=== PATIENT | female | born 1950 | race Two or more races ===

== ENCOUNTER → 2020-08-10 12:41 | Outpatient (BNVA) | payer MEDICARE, MEDICAID, SELFPAY | PROVIDERS: PCP Internal Medicine; Visit Provider Student in an Organized Health Care Education/Training Program | DX: M47.816 Spondylosis without myelopathy or radiculopathy, lumbar region (principal) | CPT/HCPCS: 99213 ==

== ENCOUNTER 2020-09-19 07:25 | Outpatient (REF) | payer MEDICARE, MEDICAID, SELFPAY | END 2020-09-19 07:26 | disposition home or self-care (01) | LOC: HO.LAB 07:25 | PROVIDERS: Visit Provider Internal Medicine | DX: Z20.828 Contact with and (suspected) exposure to other viral communicable diseases (principal) | CPT/HCPCS: C9803; U0003 ==

== ENCOUNTER → 2020-10-10 09:43 | Outpatient (BNVA) | payer MEDICARE, MEDICAID, SELFPAY | PROVIDERS: PCP Internal Medicine; Visit Provider Orthopaedic Surgery | DX: M19.012 Primary osteoarthritis, left shoulder (principal) | CPT/HCPCS: 20610; 99212; J1040 ==

== ENCOUNTER 2020-10-29 12:37 | Outpatient (REF) | payer MEDICARE, MEDICAID, SELFPAY | END 2020-10-29 12:38 | disposition home or self-care (01) | LOC: HO.LAB 12:37 | PROVIDERS: PCP Internal Medicine; Visit Provider Internal Medicine | DX: Z20.822 Contact with and (suspected) exposure to COVID-19 (principal) | CPT/HCPCS: 36415; C9803; U0003 ==

== ENCOUNTER → 2020-12-12 10:12 | Outpatient (BNVA) | payer MEDICARE, MEDICAID, SELFPAY | PROVIDERS: Visit Provider Orthopaedic Surgery | DX: M19.012 Primary osteoarthritis, left shoulder (principal) | CPT/HCPCS: 99212 ==

== ENCOUNTER 2020-12-31 09:18 | Emergency (ER) | payer MEDICARE, MEDICAID, SELFPAY ==
--- NOTE | ~2020-12-31 | XR_ITS ---
EXAMINATION: XR CHEST CLINICAL INFORMATION: Chest pain COMPARISON: Chest radiographs 01/01/2020, 12/22/2019 TECHNIQUE: Portable upright AP view of the chest was obtained. FINDINGS: Patient is slightly rotated. The lungs are clear and there is no airspace consolidation or definite groundglass opacity. The heart is normal in size. The vascularity is normal. The costophrenic sulci are clear. No pneumothorax or pneumomediastinum. The visualized hilar and mediastinal contours are unremarkable. There are degenerative changes shoulders and thoracic spine. XR/XR chest 1V IMPRESSION: Unremarkable examination.
--- NOTE | ~2020-12-31 | CT_ITS ---
EXAMINATION: CT HEAD WITHOUT CONTRAST CLINICAL INFORMATION: . COMPARISON: None TECHNIQUE: Contiguous axial imaging was performed from the skull base to vertex without intravenous administration of contrast. This CT examination was performed using dose optimization techniques as appropriate, variously including the following: *Automated exposure control *Adjustment of mA and/or kV according to patient size (this includes techniques or standardized protocols for targeted exams where dose is matched to indication/reason for exam; i.e. extremities or head) *Use of iterative reconstruction technique DLP: 659 mGy-cm FINDINGS: There is no evidence of acute intracranial hemorrhage or territorial infarction. No abnormal mass effect or midline shift is seen. [place] to white matter differentiation is well preserved. No extra-axial fluid collections are identified. The ventricles are normal in size. There is no abnormal attenuation within the brain parenchyma. The osseous structures and soft tissues are normal. The mastoid air cells and visualized portions of the paranasal sinuses are well aerated. CT/CT head/brain wo con IMPRESSION: No acute intracranial process seen.
[2020-12-31 09:24] VITALS: BP 144/61; PULSE 67; TEMP 36.7; O2SAT 98; BMI 32.4
[2020-12-31] MEDS: Acetaminophen 325 MG TABLET 975 MG PO (10:06)
[2020-12-31] MEDS: Nitroglycerin 0.4 MG TAB.SUBL SUBLINGUAL (10:06)
[2020-12-31 10:12] LABS: MANUAL DIFF FLAG NO
[2020-12-31 10:15] LABS: Basophils Absolute Auto 0.1 X10*3/uL (0.0-0.2); Basophils Percent Auto 0.7 % (0-2); Eosinophils Absolute Auto 0.3 X10*3/uL (0.0-0.4); Eosinophils Percent Auto 4.9 % (0-4); Hematocrit 39.1 % (37-47); Hemoglobin 12.5 g/dl (12.0-16.0); Imm Gran Abs Auto 0.01 X10*3/uL (0.00-0.03); Imm Gran Pct Auto 0.1 % (0.0-0.4); Lymphocytes Absolute Auto 2.4 X10*3/uL (1.2-4.9); Lymphocytes Percent Auto 35.8 % (20-40); Mean Corpuscular Hemoglobin 28.4 pg (27.0-33.0); Mean Corpuscular Volume 88.9 fL (80-98); Mean Platelet Volume 11.1 fL (9.4-12.3); Monocytes Absolute Auto 0.7 X10*3/uL (0.1-1.2); Monocytes Percent Auto 10.1 % (2-11); Neutrophils Absolute Auto 3.3 X10*3/uL (2.0-8.3); Neutrophils Percent Auto 48.4 % (45-73); Platelet Count 306 X10*3/uL (160-400); Red Cell Distribution Width 13.1 % (11.0-16.0); White Blood Count 6.7 X10*3/uL (4.8-10.8)
[2020-12-31 10:26] LABS: Prothrombin Time 12.3 SEC (10.8-13.0)
[2020-12-31 10:35] LABS: Anion Gap 13 (12-20); Blood Urea Nitrogen 15 mg/dL (9-16); Calcium 8.9 mg/dL (8.4-10.2); Carbon Dioxide 27 mmol/L (22-29); Chloride 106 mmol/L (96-108); Creatinine Clr Calc Pharmacy 79.8; Estimated Glomerular Filt Rate > 60; Glucose Random 98 mg/dL (60-115); Potassium 4.8 mmol/L (3.3-5.1); Sodium 141 mmol/L (135-145)
--- NOTE | 2020-12-31 10:36 | ED.CHESTPAIN ---
HPI - Chest Pain General Chief Complaint: Chest Pain Stated Complaint: CHEST PAIN - HEADACHE Time Seen by Provider: 12/31/20 09:46 History of Present Illness HPI narrative: Patient complains that since yesterday she has had pressure-like chest pain similar to her prior heart attack that is midsternal, lasts for 10 or 15 minutes then goes away and is not related to exertion, it is accompanied by nausea and a feeling of shortness of breath, she has had no sweating, the pain is not related to exertion or movement or deep breath She also complains of a headache which she has had for 3 days which is in occipital headache without photophobia, she denies any numbness or weakness, no dizziness, no vision change Related Data Home Medications Medication Instructions Recorded Confirmed albuterol sulfate 90 mcg/actuation INHALATION 07/27/20 11/20/20 aerosol inhaler fluticasone propionate 50 INTRANASAL 07/27/20 11/20/20 mcg/actuation nasal spray,suspension latanoprost 0.005 % eye drops 1 drp OPHTHALMIC (EYE) BEDTIME 07/27/20 11/20/20 lubiprostone 24 mcg capsule 24 mcg PO BID 07/27/20 11/20/20 naproxen 500 mg tablet 500 mg PO Q12H PRN 07/27/20 11/20/20 propranolol 120 mg capsule,24 120 mg PO DAILY 07/27/20 11/20/20 hr,extended release ranitidine HCl 150 mg tablet 150 mg PO BID PRN 07/27/20 11/20/20 sennosides 8.6 mg tablet 17.2 mg PO BEDTIME PRN 07/27/20 11/20/20 tramadol 50 mg tablet mg PO 07/27/20 11/20/20 triamcinolone acetonide 0.1 % applic TOPICAL 07/27/20 11/20/20 topical cream Previous Rx's Medication Instructions Recorded hydroxyzine HCl 25 mg tablet 25 mg PO TID PRN #30 tab 07/27/20 tizanidine 4 mg tablet 4 mg PO BEDTIME #90 tab 08/07/20 acetaminophen 650 mg 650 mg PO Q8H #90 tab 08/10/20 tablet,extended release rosuvastatin 40 mg tablet 40 mg PO DAILY #90 tab 08/13/20 loratadine 10 mg tablet 10 mg PO DAILY #90 tab 11/20/20 pantoprazole 40 mg tablet,delayed 40 mg PO BID #180 tab 12/22/20 release hydrocodone-acetaminophen 1 tab PO Q8H PRN #5 tab 12/31/20 Allergies Allergy/AdvReac Type Severity Reaction Status Date / Time codeine [Codeine] Allergy Severe HIVES Verified 11/20/20 11:00 ITCHING, rash, hives gabapentin [From Neurontin] Allergy Severe SWELLING Verified 11/20/20 11:00 Penicillins Allergy Severe SWELLING Verified 11/20/20 11:00 Sulfa (Sulfonamide Allergy Severe XEROSTEMIA, Verified 11/20/20 11:00 Antibiotics) DIFF [SULFA (SULFONAMIDE SWALLOWIN, ANTIBIOTICS)] rash, rash pregabalin [From LYRICA] Allergy Intermediate SWELLING Verified 11/20/20 11:00 Review of Systems Review of Systems: Positive for chest pain and headache There is no fever no chills no dizziness no weakness no confusion no photophobia no vision changes no neck pain no weakness or numbness, no pain with a deep breath, no abdominal pain no vomiting no diarrhea no leg swelling no calf pain or swelling no skin rash no weakness no loss of balance no problem speaking PMFSH Past Medical History Source: nursing notes reviewed Medical History (Updated 12/31/20 @ 16:07 by MARCOS Jin) Lumbar spondylosis Vertigo Surgical History History of hysterectomy History of left knee surgery History of varicose veins Family History Family History Father Angina at rest Mother Hypothyroidism Hypertension Osteoarthritis Heart disease Panic disorder Brother Stroke Sister Alcoholic liver disease HIV (human immunodeficiency virus infection) Social History Social History Alcohol intake: never Smoking Status: Never smoker Use of substances other than those prescribed or required for medical reasons: No Advance Directives: Yes Advance Directives Information Provided: Yes Advance Directives on File: No 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 Exam Vital Signs: Vital Signs: Last Vital Signs Temp 98.1 F 12/31/20 09:24 Pulse 62 12/31/20 12:14 Resp 16 12/31/20 10:51 BP 124/65 12/31/20 12:14 Pulse Ox 99 12/31/20 12:14 Body Mass Index 32.4 General appearance is no acute distress Head is normocephalic atraumatic The ears are clear and normal Pupils equal round react to light extraocular motions intact, no facial asymmetry The neck is supple The chest is clear to auscultation with full symmetrical equal breath sounds The heart no murmur auscultated The abdomen is soft nontender Extremities no edema no calf tenderness no calf swelling Skin no rashes Neuro motor is 5 over 5 times for sensation is intact gait is normal there is no focal motor deficit no focal sensory deficit, no facial asymmetry, speech and comprehension are normal gait and balance are normal Course Course Course Narrative: Patient had 2-troponins both normal, EKG was nondiagnostic with no acute ischemic changes Head CT was normal Patient's chest pain resolved after 1 nitro Headache improved with analgesics I communicated by text with store detective harriet who advised that the patient had had a negative coronary angiogram at [facility] 1 year ago and that with 2-troponins risk was low with this patient I discussed with patient the risk of potential cardiac event in the near future and that our workup in the ER simply ruled out acute heart attack today but she needs to follow with her store detective this week potentially for stress test or any further evaluation as with her history of prior MRI and the concerning symptoms she needs very close follow She understood this and says she will easily be able to contact her store detective and her primary care MDM - Chest Pain MDM Narrative Medical decision making narrative: EKG was a normal sinus rhythm with normal intervals normal DC normal QRS duration, no acute ST changes CT of the head did not reveal any bleed or any acute changes Lab Data Attestation: I reviewed the patient's lab results. Result diagrams: 12/31/20 09:57 12/31/20 09:57 Labs: Lab Results 12/31/20 12/31/20 12/31/20 Range/Units 09:57 09:57 09:57 WBC 6.7 (4.8-10.8) X10*3/uL RBC 4.40 (4.20-5.50) X10*6/uL Hgb 12.5 (12.0-16.0) g/dl Hct 39.1 (37-47) % MCV 88.9 (80-98) fL MCH 28.4 (27.0-33.0) pg MCHC 32.0 (31.0-35.0) g/dl RDW 13.1 (11.0-16.0) % Plt Count 306 (160-400) X10*3/uL MPV 11.1 (9.4-12.3) fL Immature Gran % (Auto) 0.1 (0.0-0.4) % Neut % (Auto) 48.4 (45-73) % Lymph % (Auto) 35.8 (20-40) % [place] % (Auto) 10.1 (2-11) % Eos % (Auto) 4.9 H (0-4) % Baso % (Auto) 0.7 (0-2) % Lymph # (Auto) 2.4 (1.2-4.9) X10*3/uL [place] # (Auto) 0.7 (0.1-1.2) X10*3/uL Eos # (Auto) 0.3 (0.0-0.4) X10*3/uL Baso # (Auto) 0.1 (0.0-0.2) X10*3/uL Abs Immat Gran (auto) 0.01 (0.00-0.03) X10*3/uL Absolute Neuts (auto) 3.3 (2.0-8.3) X10*3/uL Absolute Nucleated RBC 0.000 (0.0-0.012) X10*3/uL Nucleated RBC % (auto) 0.0 (0.0-0.2) /100WBC PT 12.3 (10.8-13.0) SEC INR 1.0 (0.9-1.1) Hold Blue Top SEE NOTE Sodium 141 (135-145) mmol/L Potassium 4.8 (3.3-5.1) mmol/L Chloride 106 (96-108) mmol/L Carbon Dioxide 27 (22-29) mmol/L Anion Gap 13 (12-20) BUN 15 (9-16) mg/dL Creatinine 0.71 (0.5-1.4) mg/dL Estim Creat Clear Calc 79.8 Estimated GFR > 60 Random Glucose 98 (60-115) mg/dL Calcium 8.9 (8.4-10.2) mg/dL Troponin I High Sens (<3.5-17.0) ng/L 12/31/20 12/31/20 Range/Units 09:57 12:49 WBC (4.8-10.8) X10*3/uL RBC (4.20-5.50) X10*6/uL Hgb (12.0-16.0) g/dl Hct (37-47) % MCV (80-98) fL MCH (27.0-33.0) pg MCHC (31.0-35.0) g/dl RDW (11.0-16.0) % Plt Count (160-400) X10*3/uL MPV (9.4-12.3) fL Immature Gran % (Auto) (0.0-0.4) % Neut % (Auto) (45-73) % Lymph % (Auto) (20-40) % [place] % (Auto) (2-11) % Eos % (Auto) (0-4) % Baso % (Auto) (0-2) % Lymph # (Auto) (1.2-4.9) X10*3/uL [place] # (Auto) (0.1-1.2) X10*3/uL Eos # (Auto) (0.0-0.4) X10*3/uL Baso # (Auto) (0.0-0.2) X10*3/uL Abs Immat Gran (auto) (0.00-0.03) X10*3/uL Absolute Neuts (auto) (2.0-8.3) X10*3/uL Absolute Nucleated RBC (0.0-0.012) X10*3/uL Nucleated RBC % (auto) (0.0-0.2) /100WBC PT (10.8-13.0) SEC INR (0.9-1.1) Hold Blue Top Sodium (135-145) mmol/L Potassium (3.3-5.1) mmol/L Chloride (96-108) mmol/L Carbon Dioxide (22-29) mmol/L Anion Gap (12-20) BUN (9-16) mg/dL Creatinine (0.5-1.4) mg/dL Estim Creat Clear Calc Estimated GFR Random Glucose (60-115) mg/dL Calcium (8.4-10.2) mg/dL Troponin I High Sens < 3.5 < 3.5 (<3.5-17.0) ng/L Scores Heart Score History: -1- moderately suspicious ECG: -0- normal Age: -2- > or = 65 Risk factory: -2- 3 or more risk factors or treated atherosclerosis Troponin: -0- < or = normal limit Score: 5 Risk: 16.6% Discharge Plan Discharge Clinical Impression: Chest pain Qualifiers: Chest pain type: unspecified Qualified Code(s): R07.9 - Chest pain, unspecified Headache Qualifiers: Headache type: unspecified Headache chronicity pattern: unspecified pattern Intractability: not intractable Qualified Code(s): R51.9 - Headache, unspecified Patient Disposition: Home, Self-Care Additional Instructions: EKG and troponin testing did not show an acute heart attack We contacted our store detective who told us you had a negative coronary artery angiogram 1 year ago Your chest pain is not likely to be a heart attack but you need very close follow-up with the store detective this week Follow closely this week with your primary doctor who will know the name of your store detective for further evaluation of this chest pain Our testing does not rule out heart disease, it simply rules out that you had a heart attack on this day, so you may need further evaluation and testing from your store detective Return any time for chest pain, difficulty breathing any worse condition or any concerns We will give you a prescription for Vicodin for your headache, CT of your head did not show any abnormality or dangerous condition Prescriptions: New hydrocodone-acetaminophen 5-325 mg tablet 1 tab PO Q8H PRN (Reason: pain) Qty: 5 RF: 0 No Action tizanidine 4 mg tablet 4 mg PO BEDTIME Qty: 90 RF: 1 rosuvastatin 40 mg tablet 40 mg PO DAILY Qty: 90 RF: 8 pantoprazole 40 mg tablet,delayed release (DR/EC) 40 mg PO BID Qty: 180 RF: 1 albuterol sulfate 90 mcg/actuation HFA aerosol inhaler inhalation RF: 0 fluticasone propionate 50 mcg/actuation spray,suspension intranasal RF: 0 triamcinolone acetonide 0.1 % cream topical RF: 0 tramadol 50 mg tablet PO RF: 0 propranolol 120 mg capsule,extended release 24 hr 120 mg PO DAILY RF: 0 latanoprost 0.005 % drops 1 drp ophthalmic (eye) BEDTIME RF: 0 Amitiza 24 mcg capsule 24 mcg PO BID RF: 0 ranitidine HCl 150 mg tablet 150 mg PO BID PRN (Reason: heartburn) RF: 0 naproxen 500 mg tablet 500 mg PO Q12H PRNRF: 0 sennosides 8.6 mg tablet 17.2 mg PO BEDTIME PRNRF: 0 hydroxyzine HCl 25 mg tablet 25 mg PO TID PRN (Reason: itching) Qty: 30 RF: 0 loratadine 10 mg tablet 10 mg PO DAILY Qty: 90 RF: 8 acetaminophen [Tylenol Arthritis Pain] 650 mg tablet extended release 650 mg PO Q8H Qty: 90 RF: 3 Interventions: ED Discharge Assessment Last Done: 12/31/20 16:12 Discharge Date/Time: 12/31/20 16:13
[2020-12-31 10:45] LABS: Troponin-I High Sensitivity < 3.5 ng/L (<3.5-17.0)
[2020-12-31 10:51] VITALS: BP 101/45; PULSE 61; RESP 16; O2SAT 99
--- NOTE | 2020-12-31 12:13 | PC.NURSE ---
pt updated on plan of care, repeat trop. still complaining of headache. bp >120 systolic att, provider aware.
[2020-12-31 12:14] VITALS: BP 124/65; PULSE 62; O2SAT 99
[2020-12-31 13:30] LABS: Troponin-I High Sensitivity < 3.5 ng/L (<3.5-17.0)
--- NOTE | 2021-01-01 | ECG_ITS ---
Test Reason : CP Blood Pressure : / mmHG Vent. Rate : 066 BPM Atrial Rate : 066 BPM P-R Int : 148 ms QRS Dur : 078 ms QT Int : 394 ms P-R-T Axes : 055 011 020 degrees QTc Int : 413 ms Normal sinus rhythm Nonspecific ST abnormality Abnormal ECG When compared with ECG of 01-JAN-2020 10:35, No significant change was found Referred By: Jaron Ewing Electronically Signed By:AUGUSTO LIMA MD
== END 2020-12-31 16:13 | disposition home or self-care (01) ==
PROVIDERS: Physician Assistant Medical; Emergency Provider Emergency Medicine; PCP Internal Medicine
DX: R07.9 Chest pain, unspecified (principal); R51.9 Headache, unspecified
CPT/HCPCS: 36415; 70450; 71045; 80048; 84484; 85025; 85610; 93005; 96372; 96374; 99284; 99285

== ENCOUNTER 2021-02-18 11:54 | Outpatient (REF) | payer MEDICARE, MEDICAID, SELFPAY ==
--- NOTE | ~2021-02-18 | XR_ITS ---
EXAMINATION: XR KNEE, LEFT CLINICAL INFORMATION: Pain COMPARISON: Previous x-ray July 2019 TECHNIQUE: Two views of the left knee. FINDINGS: There is a 3 component left knee replacement in satisfactory position. No fracture or dislocation is seen. Joint spaces are normal. Soft tissues are normal. XR/XR knee LT 2V IMPRESSION: Satisfactory appearance of left knee replacement.
== END 2021-02-18 11:55 | disposition home or self-care (01) ==
LOC: HO.XRAY 11:54
PROVIDERS: PCP Internal Medicine; Visit Provider Internal Medicine
DX: M25.562 Pain in left knee (principal)
CPT/HCPCS: 73560

== ENCOUNTER 2021-03-10 22:56 | Emergency (ER) | payer MEDICARE, MEDICAID, SELFPAY ==
[2021-03-10 23:38] VITALS: BP 137/70; PULSE 68; RESP 16; TEMP 36.9; O2SAT 100; BMI 34.0
--- NOTE | 2021-03-11 02:37 | ED_ITS ---
HPI - General Adult General Chief complaint: General Medical Stated complaint: Multiple Complaints Time Seen by Provider: 03/11/21 01:38 Source: patient Mode of arrival: ambulatory History of Present Illness HPI narrative: 70-year-old female presents with complaints of headache without aura, photo sensitivity or neurological deficits, denies fevers, chills, diarrhea, urinary symptoms, chest pain but has had some nausea and has known acid reflux. Related Data Home Medications Medication Instructions Recorded Confirmed albuterol sulfate 90 mcg/actuation INHALATION 07/27/20 11/20/20 aerosol inhaler fluticasone propionate 50 INTRANASAL 07/27/20 11/20/20 mcg/actuation nasal spray,suspension latanoprost 0.005 % eye drops 1 drp OPHTHALMIC (EYE) BEDTIME 07/27/20 11/20/20 lubiprostone 24 mcg capsule 24 mcg PO BID 07/27/20 11/20/20 naproxen 500 mg tablet 500 mg PO Q12H PRN 07/27/20 11/20/20 propranolol 120 mg capsule,24 120 mg PO DAILY 07/27/20 11/20/20 hr,extended release ranitidine HCl 150 mg tablet 150 mg PO BID PRN 07/27/20 11/20/20 sennosides 8.6 mg tablet 17.2 mg PO BEDTIME PRN 07/27/20 11/20/20 tramadol 50 mg tablet mg PO 07/27/20 11/20/20 triamcinolone acetonide 0.1 % applic TOPICAL 07/27/20 11/20/20 topical cream Previous Rx's Medication Instructions Recorded hydroxyzine HCl 25 mg tablet 25 mg PO TID PRN #30 tab 07/27/20 acetaminophen 650 mg 650 mg PO Q8H #90 tab 08/10/20 tablet,extended release rosuvastatin 40 mg tablet 40 mg PO DAILY #90 tab 08/13/20 loratadine 10 mg tablet 10 mg PO DAILY #90 tab 11/20/20 pantoprazole 40 mg tablet,delayed 40 mg PO BID #180 tab 12/22/20 release hydrocodone-acetaminophen 1 tab PO Q8H PRN #5 tab 12/31/20 tizanidine 4 mg tablet 4 mg PO BEDTIME #90 tab 01/30/21 Allergies Allergy/AdvReac Type Severity Reaction Status Date / Time codeine [Codeine] Allergy Severe HIVES Verified 02/19/21 11:27 ITCHING, rash, hives gabapentin [From Neurontin] Allergy Severe SWELLING Verified 02/19/21 11:27 Penicillins Allergy Severe SWELLING Verified 02/19/21 11:27 Sulfa (Sulfonamide Allergy Severe XEROSTEMIA, Verified 02/19/21 11:27 Antibiotics) DIFF [SULFA (SULFONAMIDE SWALLOWIN, ANTIBIOTICS)] rash, rash pregabalin [From LYRICA] Allergy Intermediate SWELLING Verified 02/19/21 11:27 [facility] Past Medical History Medical History (Updated 03/11/21 @ 05:09 by Irene Heaton MD) Lumbar spondylosis Vertigo Surgical History History of hysterectomy History of left knee surgery History of varicose veins Family History Family History Father Angina at rest Mother Hypothyroidism Hypertension Osteoarthritis Heart disease Panic disorder Brother Stroke Sister Alcoholic liver disease HIV (human immunodeficiency virus infection) Social History Social History Alcohol intake: current Alcohol intake frequency: 0-2 drinks per day Smoking Status: Current every day smoker Use of substances other than those prescribed or required for medical reasons: No Advance Directives: No Advance Directives Information Provided: No 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 Exam Vital Signs: Vital Signs: Last Vital Signs Temp 98.4 F 03/10/21 23:38 Pulse 68 03/10/21 23:38 Resp 16 03/11/21 02:50 BP 137/70 03/10/21 23:38 Pulse Ox 100 03/10/21 23:38 Body Mass Index 34.0 Medical Decision Making Lab Data Result diagrams: 03/11/21 02:58 03/11/21 02:58 Labs: Lab Results 03/11/21 03/11/21 03/11/21 Range/Units 02:58 02:58 02:58 WBC 8.2 (4.8-10.8) X10*3/uL RBC 4.76 (4.20-5.50) X10*6/uL Hgb 13.7 (12.0-16.0) g/dl Hct 42.7 (37-47) % MCV 89.7 (80-98) fL MCH 28.8 (27.0-33.0) pg MCHC 32.1 (31.0-35.0) g/dl RDW 12.4 (11.0-16.0) % Plt Count 262 (160-400) X10*3/uL MPV 10.1 (9.4-12.3) fL Immature Gran % (Auto) 0.2 (0.0-0.4) % Neut % (Auto) 51.6 (45-73) % Lymph % (Auto) 33.0 (20-40) % [place] % (Auto) 9.9 (2-11) % Eos % (Auto) 4.7 H (0-4) % Baso % (Auto) 0.6 (0-2) % Lymph # (Auto) 2.7 (1.2-4.9) X10*3/uL [place] # (Auto) 0.8 (0.1-1.2) X10*3/uL Eos # (Auto) 0.4 (0.0-0.4) X10*3/uL Baso # (Auto) 0.1 (0.0-0.2) X10*3/uL Abs Immat Gran (auto) 0.02 (0.00-0.03) X10*3/uL Absolute Neuts (auto) 4.2 (2.0-8.3) X10*3/uL Absolute Nucleated RBC 0.000 (0.0-0.012) X10*3/uL Nucleated RBC % (auto) 0.0 (0.0-0.2) /100WBC Hold Blue Top SEE NOTE Sodium 143 (135-145) mmol/L Potassium 4.7 (3.3-5.1) mmol/L Chloride 108 (96-108) mmol/L Carbon Dioxide 29 (22-29) mmol/L Anion Gap 11 L (12-20) BUN 17 H (9-16) mg/dL Creatinine 0.73 (0.5-1.4) mg/dL Estim Creat Clear Calc 76.7 Estimated GFR > 60 Random Glucose 109 (60-115) mg/dL Calcium 9.4 (8.4-10.2) mg/dL Total Bilirubin 0.4 (0.0-1.0) mg/dL Direct Bilirubin 0.2 (0.0-0.5) mg/dL AST 18 (5-31) U/L ALT 18 (0-31) U/L Alkaline Phosphatase 86 (39-117) U/L Total Protein 7.3 (6.5-8.0) g/dL Albumin 4.3 (3.5-5.0) g/dL Urine Color Urine Appearance Urine pH (5.0-8.0) Ur Specific [place] (1.005-1.025) Urine Protein (NEG-TRACE) MG/DL Urine Glucose (UA) (NEG) MG/DL Urine Ketones (NEG) MG/DL Urine Blood (NEG) Urine Nitrite (NEG) Ur Leukocyte Esterase (NEG) Urine RBC (0) /HPF Urine WBC (0-4) /HPF Ur Squamous Epith Cells /LPF Urine Bacteria /LPF 03/11/21 Range/Units 02:58 WBC (4.8-10.8) X10*3/uL RBC (4.20-5.50) X10*6/uL Hgb (12.0-16.0) g/dl Hct (37-47) % MCV (80-98) fL MCH (27.0-33.0) pg MCHC (31.0-35.0) g/dl RDW (11.0-16.0) % Plt Count (160-400) X10*3/uL MPV (9.4-12.3) fL Immature Gran % (Auto) (0.0-0.4) % Neut % (Auto) (45-73) % Lymph % (Auto) (20-40) % [place] % (Auto) (2-11) % Eos % (Auto) (0-4) % Baso % (Auto) (0-2) % Lymph # (Auto) (1.2-4.9) X10*3/uL [place] # (Auto) (0.1-1.2) X10*3/uL Eos # (Auto) (0.0-0.4) X10*3/uL Baso # (Auto) (0.0-0.2) X10*3/uL Abs Immat Gran (auto) (0.00-0.03) X10*3/uL Absolute Neuts (auto) (2.0-8.3) X10*3/uL Absolute Nucleated RBC (0.0-0.012) X10*3/uL Nucleated RBC % (auto) (0.0-0.2) /100WBC Hold Blue Top Sodium (135-145) mmol/L Potassium (3.3-5.1) mmol/L Chloride (96-108) mmol/L Carbon Dioxide (22-29) mmol/L Anion Gap (12-20) BUN (9-16) mg/dL Creatinine (0.5-1.4) mg/dL Estim Creat Clear Calc Estimated GFR Random Glucose (60-115) mg/dL Calcium (8.4-10.2) mg/dL Total Bilirubin (0.0-1.0) mg/dL Direct Bilirubin (0.0-0.5) mg/dL AST (5-31) U/L ALT (0-31) U/L Alkaline Phosphatase (39-117) U/L Total Protein (6.5-8.0) g/dL Albumin (3.5-5.0) g/dL Urine Color STRAW Urine Appearance CLEAR Urine pH 6.0 (5.0-8.0) Ur Specific [place] 1.010 (1.005-1.025) Urine Protein NEG (NEG-TRACE) MG/DL Urine Glucose (UA) NEG (NEG) MG/DL Urine Ketones NEG (NEG) MG/DL Urine Blood TRACE (NEG) Urine Nitrite NEG (NEG) Ur Leukocyte Esterase NEG (NEG) Urine RBC 1-4 (0) /HPF Urine WBC 0-2 (0-4) /HPF Ur Squamous Epith Cells 1+ /LPF Urine Bacteria NONE /LPF Discharge Plan Discharge Clinical Impression: Headache Patient Disposition: Home, Self-Care Instructions: General Headache (ED) Additional Instructions: 1. Richar un seguimiento con garrison proveedor de atenci?n primaria en los pr?ximos 2-3 d?as para donald reevaluaci?n. 2. Reanude todos los medicamentos caseros seg?n lo prescrito. Regrese a la sharon de emergencias por cualquier empeoramiento aleena de lyubov s?ntomas. Prescriptions: No Action rosuvastatin 40 mg tablet 40 mg PO DAILY Qty: 90 RF: 8 pantoprazole 40 mg tablet,delayed release (DR/EC) 40 mg PO BID Qty: 180 RF: 1 tizanidine 4 mg tablet 4 mg PO BEDTIME Qty: 90 RF: 1 hydrocodone-acetaminophen 5-325 mg tablet 1 tab PO Q8H PRN (Reason: pain) Qty: 5 RF: 0 albuterol sulfate 90 mcg/actuation HFA aerosol inhaler inhalation RF: 0 fluticasone propionate 50 mcg/actuation spray,suspension intranasal RF: 0 triamcinolone acetonide 0.1 % cream topical RF: 0 tramadol 50 mg tablet PO RF: 0 propranolol 120 mg capsule,extended release 24 hr 120 mg PO DAILY RF: 0 latanoprost 0.005 % drops 1 drp ophthalmic (eye) BEDTIME RF: 0 Amitiza 24 mcg capsule 24 mcg PO BID RF: 0 ranitidine HCl 150 mg tablet 150 mg PO BID PRN (Reason: heartburn) RF: 0 naproxen 500 mg tablet 500 mg PO Q12H PRNRF: 0 sennosides 8.6 mg tablet 17.2 mg PO BEDTIME PRNRF: 0 hydroxyzine HCl 25 mg tablet 25 mg PO TID PRN (Reason: itching) Qty: 30 RF: 0 loratadine 10 mg tablet 10 mg PO DAILY Qty: 90 RF: 8 acetaminophen [Tylenol Arthritis Pain] 650 mg tablet extended release 650 mg PO Q8H Qty: 90 RF: 3 Referrals: Raman Shields MD [Primary Care Provider] - 2 days (Re-evaluation after seen for headache, negative workup and good improvement after receiving Tylenol and i buprofen.) Print Language: [place] Islander
[2021-03-11 02:50] VITALS: RESP 16
[2021-03-11] MEDS: Acetaminophen 325 MG TABLET 975 MG PO (02:52)
[2021-03-11] MEDS: Ketorolac Tromethamine 15 MG/ML VIAL IM (02:52)
[2021-03-11 03:03] LABS: MANUAL DIFF FLAG NO
[2021-03-11 03:05] LABS: Basophils Absolute Auto 0.1 X10*3/uL (0.0-0.2); Basophils Percent Auto 0.6 % (0-2); Eosinophils Absolute Auto 0.4 X10*3/uL (0.0-0.4); Eosinophils Percent Auto 4.7 % (0-4); Hematocrit 42.7 % (37-47); Hemoglobin 13.7 g/dl (12.0-16.0); Imm Gran Abs Auto 0.02 X10*3/uL (0.00-0.03); Imm Gran Pct Auto 0.2 % (0.0-0.4); Lymphocytes Absolute Auto 2.7 X10*3/uL (1.2-4.9); Mean Corpuscular HGB Conc 32.1 g/dl (31.0-35.0); Mean Corpuscular Hemoglobin 28.8 pg (27.0-33.0); Mean Corpuscular Volume 89.7 fL (80-98); Mean Platelet Volume 10.1 fL (9.4-12.3); Monocytes Absolute Auto 0.8 X10*3/uL (0.1-1.2); Monocytes Percent Auto 9.9 % (2-11); Neutrophils Absolute Auto 4.2 X10*3/uL (2.0-8.3); Neutrophils Percent Auto 51.6 % (45-73); Platelet Count 262 X10*3/uL (160-400); Red Blood Count 4.76 X10*6/uL (4.20-5.50); Red Cell Distribution Width 12.4 % (11.0-16.0); White Blood Count 8.2 X10*3/uL (4.8-10.8)
[2021-03-11 03:09] LABS: Glucose Urine UA NEG (NEG); Leukocyte Esterase Urine NEG (NEG); Nitrite Urine NEG (NEG); Urine Blood TRACE (NEG); Urine Ketones NEG (NEG); Urine Protein NEG (NEG-TRACE)
[2021-03-11 03:10] LABS: Appearance Urine CLEAR; Color Urine STRAW
[2021-03-11 03:19] LABS: Squamous Epithelial Cell Urine 1+ /LPF; WBC Urine 0-2 /HPF (0-4)
[2021-03-11 03:29] LABS: Alanine Aminotransferase 18 U/L (0-31); Albumin Level 4.3 g/dL (3.5-5.0); Alkaline Phosphatase 86 U/L (39-117); Anion Gap 11 (12-20); Aspartate Amino Transferase 18 U/L (5-31); Bilirubin Direct 0.2 mg/dL (0.0-0.5); Bilirubin Total 0.4 mg/dL (0.0-1.0); Blood Urea Nitrogen 17 mg/dL (9-16); Calcium 9.4 mg/dL (8.4-10.2); Carbon Dioxide 29 mmol/L (22-29); Chloride 108 mmol/L (96-108); Creatinine Clr Calc Pharmacy 76.7; Estimated Glomerular Filt Rate > 60; Glucose Random 109 mg/dL (60-115); Potassium 4.7 mmol/L (3.3-5.1); Sodium 143 mmol/L (135-145); Total Protein 7.3 g/dL (6.5-8.0)
== END 2021-03-11 05:36 | disposition home or self-care (01) ==
PROVIDERS: Emergency Provider Student in an Organized Health Care Education/Training Program; PCP Internal Medicine
DX: R51.9 Headache, unspecified (principal); F17.200 Nicotine dependence, unspecified, uncomplicated
CPT/HCPCS: 36415; 80053; 80076; 81001; 82248; 85025; 96372; 99284; J1885

== ENCOUNTER 2021-03-26 11:18 | Outpatient (REF) | payer MEDICARE, MEDICAID, SELFPAY ==
[2021-03-26 12:11] LABS: MANUAL DIFF FLAG NO
[2021-03-26 12:20] LABS: Basophils Percent Auto 0.5 % (0-2); Eosinophils Absolute Auto 0.3 X10*3/uL (0.0-0.4); Eosinophils Percent Auto 4.4 % (0-4); Hematocrit 40.1 % (37-47); Hemoglobin 12.9 g/dl (12.0-16.0); Imm Gran Abs Auto 0.02 X10*3/uL (0.00-0.03); Imm Gran Pct Auto 0.3 % (0.0-0.4); Lymphocytes Absolute Auto 2.2 X10*3/uL (1.2-4.9); Lymphocytes Percent Auto 35.2 % (20-40); Mean Corpuscular HGB Conc 32.2 g/dl (31.0-35.0); Mean Corpuscular Hemoglobin 28.6 pg (27.0-33.0); Mean Corpuscular Volume 88.9 fL (80-98); Mean Platelet Volume 10.7 fL (9.4-12.3); Monocytes Absolute Auto 0.7 X10*3/uL (0.1-1.2); Monocytes Percent Auto 11.1 % (2-11); Neutrophils Absolute Auto 3.1 X10*3/uL (2.0-8.3); Neutrophils Percent Auto 48.5 % (45-73); Platelet Count 280 X10*3/uL (160-400); Red Blood Count 4.51 X10*6/uL (4.20-5.50); Red Cell Distribution Width 12.9 % (11.0-16.0); White Blood Count 6.3 X10*3/uL (4.8-10.8)
[2021-03-26 13:15] LABS: Erythrocyte Sedimentation Rate 10 MM/HR (0-20)
== END 2021-03-26 11:19 | disposition home or self-care (01) ==
LOC: HO.LAB 11:18
PROVIDERS: PCP Internal Medicine; Visit Provider Psychiatry & Neurology Neurology
DX: R51.9 Headache, unspecified (principal)
CPT/HCPCS: 36415; 85025; 85652

== ENCOUNTER 2021-04-08 10:29 | Outpatient (REF) | payer MEDICARE, MEDICAID, SELFPAY ==
--- NOTE | ~2021-04-08 | CT_ITS ---
EXAMINATION: CT HEAD WITHOUT CONTRAST CLINICAL INFORMATION: Headaches. COMPARISON: None TECHNIQUE: Contiguous axial imaging was performed from the skull base to vertex without intravenous administration of contrast. This CT examination was performed using dose optimization techniques as appropriate, variously including the following: *Automated exposure control *Adjustment of mA and/or kV according to patient size (this includes techniques or standardized protocols for targeted exams where dose is matched to indication/reason for exam; i.e. extremities or head) *Use of iterative reconstruction technique DLP: 727 mGy-cm FINDINGS: There is no evidence of acute intracranial hemorrhage or territorial infarction. No abnormal mass effect or midline shift is seen. [place] to white matter differentiation is well preserved. No extra-axial fluid collections are identified. The ventricles are normal in size. There is no abnormal attenuation within the brain parenchyma. The osseous structures and soft tissues are normal. The mastoid air cells and visualized portions of the paranasal sinuses are well aerated. CT/CT head/brain wo con IMPRESSION: No acute intracranial process seen.
== END 2021-04-08 10:30 | disposition home or self-care (01) ==
LOC: HO.CT 10:29
PROVIDERS: Visit Provider Psychiatry & Neurology Neurology
DX: R51.9 Headache, unspecified (principal)
CPT/HCPCS: 70450

== ENCOUNTER → 2021-05-24 13:30 | Outpatient (BNVA) | payer MEDICARE, MEDICAID, SELFPAY | PROVIDERS: PCP Internal Medicine | DX: N81.10 Cystocele, unspecified (principal) | CPT/HCPCS: 81002; 99202 ==

== ENCOUNTER 2021-05-27 07:36 | Outpatient (REF) | payer MEDICARE, MEDICAID, SELFPAY ==
[2021-05-27 08:32] LABS: Alanine Aminotransferase 20 U/L (0-31); Albumin Level 4.2 g/dL (3.5-5.0); Alkaline Phosphatase 83 U/L (39-117); Anion Gap 12 (12-20); Aspartate Amino Transferase 17 U/L (5-31); Bilirubin Total 0.5 mg/dL (0.0-1.0); Blood Urea Nitrogen 15 mg/dL (9-16); Calcium 9.3 mg/dL (8.4-10.2); Carbon Dioxide 27 mmol/L (22-29); Chloride 109 mmol/L (96-108); Estimated Glomerular Filt Rate > 60; Glucose Fasting 109 mg/dL (60-99); Potassium 4.7 mmol/L (3.3-5.1); Sodium 143 mmol/L (135-145)
== END 2021-05-27 07:37 | disposition home or self-care (01) ==
LOC: HO.LAB 07:36
PROVIDERS: Absent Provider Internal Medicine; PCP Internal Medicine; Visit Provider Nurse Practitioner Family
DX: Z13.1 Encounter for screening for diabetes mellitus (principal)
CPT/HCPCS: 36415; 80053

== ENCOUNTER → 2021-06-11 08:00 | Outpatient (BNVA) | payer MEDICARE, MEDICAID, SELFPAY | PROVIDERS: PCP Internal Medicine; Visit Provider Nurse Practitioner Family | DX: M47.816 Spondylosis without myelopathy or radiculopathy, lumbar region (principal); Z79.891 Long term (current) use of opiate analgesic | CPT/HCPCS: 99212 ==

== ENCOUNTER 2021-06-12 16:38 | Emergency (ER) | payer MEDICARE, MEDICAID, SELFPAY ==
--- NOTE | ~2021-06-12 | XR_ITS ---
EXAMINATION: XR CHEST CLINICAL INFORMATION: Cough COMPARISON: 03/02/2021 TECHNIQUE: Frontal view of the chest was obtained. FINDINGS: No acute finding. Lung pineda are felt to be comparable to previous. The cardiac silhouette is comparable The hilar regions do not appear pathologically enlarged. There is no effusion. XR/XR chest 1V IMPRESSION: No convincing evidence for an acute process.
[2021-06-12 17:04] VITALS: BP 135/73; PULSE 76; RESP 18; TEMP 37.6; O2SAT 98; BMI 33.3
--- NOTE | 2021-06-12 17:43 | ED.URI ---
HPI - URI/Sore Throat General Chief Complaint: Upper Respiratory Symptoms Stated Complaint: cough Time Seen by Provider: 06/12/21 17:42 Source: patient Mode of arrival: ambulatory Limitations: no limitations History of Present Illness HPI Narrative: 70-year-old female presents for dry cough, body aches, dizziness, nausea, and feeling wheezy for the last 2 days. Her boyfriend has a cold. She states that when she sneezes a lot of liquid mucus comes out of her nose. She has a runny nose. No sore throat. No vomiting or diarrhea. She is mildly nauseous. And she is a former smoker with a history of asthma and has an albuterol inhaler at home. MD elicited complaint: cough, rhinorrhea and nasal congestion Pertinent past history: asthma Onset (ago): day(s) (2) Consistency: constant Severity: mild Description of mucous: watery Able to tolerate fluids by mouth: Yes Exacerbating factors: nothing Relieving factors: OTC cold medicine Context: sick contacts Associated symptoms: myalgias, headache and nausea Treatments prior to arrival: cold medicine Related Data Home Medications Medication Instructions Recorded Confirmed albuterol sulfate 90 mcg/actuation INHALATION 07/27/20 05/24/21 aerosol inhaler fluticasone propionate 50 INTRANASAL 07/27/20 05/24/21 mcg/actuation nasal spray,suspension latanoprost 0.005 % eye drops 1 drp OPHTHALMIC (EYE) BEDTIME 07/27/20 05/24/21 lubiprostone 24 mcg capsule 24 mcg PO BID 07/27/20 05/24/21 naproxen 500 mg tablet 500 mg PO Q12H PRN 07/27/20 05/24/21 ranitidine HCl 150 mg tablet 150 mg PO BID PRN 07/27/20 05/24/21 sennosides 8.6 mg tablet 17.2 mg PO BEDTIME PRN 07/27/20 05/24/21 tramadol 50 mg tablet mg PO 07/27/20 05/24/21 triamcinolone acetonide 0.1 % applic TOPICAL 07/27/20 05/24/21 topical cream Previous Rx's Medication Instructions Recorded hydroxyzine HCl 25 mg tablet 25 mg PO TID PRN #30 tab 07/27/20 acetaminophen 650 mg 650 mg PO Q8H #90 tab 08/10/20 tablet,extended release (Tylenol Arthritis Pain) rosuvastatin 40 mg tablet 40 mg PO DAILY #90 tab 08/13/20 loratadine 10 mg tablet 10 mg PO DAILY #90 tab 11/20/20 pantoprazole 40 mg tablet,delayed 40 mg PO BID #180 tab 12/22/20 release tizanidine 4 mg tablet 4 mg PO BEDTIME #90 tab 01/30/21 propranolol 120 mg capsule,24 120 mg PO DAILY #90 cap 05/25/21 hr,extended release albuterol sulfate 90 mcg/actuation 2 puff INHALATION QID #8.5 g 06/12/21 aerosol inhaler ondansetron HCl 4 mg tablet 4 mg PO Q8H 3 Days #9 tab 06/12/21 (Zofran) Allergies Allergy/AdvReac Type Severity Reaction Status Date / Time codeine [Codeine] Allergy Severe HIVES Verified 06/12/21 17:04 ITCHING, rash, hives gabapentin [From Neurontin] Allergy Severe SWELLING Verified 06/12/21 17:04 Penicillins Allergy Severe SWELLING Verified 06/12/21 17:04 Sulfa (Sulfonamide Allergy Severe XEROSTEMIA, Verified 06/12/21 17:04 Antibiotics) DIFF [SULFA (SULFONAMIDE SWALLOWIN, ANTIBIOTICS)] rash, rash pregabalin [From LYRICA] Allergy Intermediate SWELLING Verified 06/12/21 17:04 Review of Systems Constitutional: Constitutional: Reports body ache(s), Denies chills, Reports fatigue, Denies fever(s), Denies headache(s), Reports malaise and Denies weakness Eyes: Eyes: Denies blurry vision and Denies diplopia ENT: Denies vertigo, Reports dizziness, Denies otalgia, Denies headache(s), Denies mouth pain, Reports nasal congestion, Reports nasal discharge, Reports post nasal drip, Denies sinus pain, Denies sinus pressure, Denies sore throat and Denies throat swelling Cardiovascular: Cardiovascular: Denies chest pain, Denies syncope, Denies leg edema, Denies lightheadedness, Denies Loss of Consciousness, Denies palpitations and Denies dyspnea Respiratory: Respiratory: Denies chest congestion, Reports cough, Denies hemoptysis, Denies dyspnea, Denies stridor and Reports wheezing Gastrointestinal: Gastrointestinal: Denies abdominal pain, Denies hematochezia, Denies constipation, Denies diarrhea, Reports nausea and Denies vomiting Musculoskeletal: Musculoskeletal: Reports no additional musculoskeletal complaints Neurologic: Denies confusion, Denies vertigo, Reports dizziness, Denies syncope, Denies headache(s) and Denies weakness Psychiatric: Psychiatric: Denies anxiety, Denies confusion and Denies depression Endocrine: Endocrine: Reports fatigue and Denies palpitations Allergic/Immunologic: Allergic/Immunologic: Denies throat swelling and Reports wheezing PMFSH Past Medical History Medical History Anal pruritus Hyperlipidemia Lumbar spondylosis Obesity Post-menopausal Screening for breast cancer Screening for diabetes mellitus Vertigo Surgical History History of colonoscopy History of hysterectomy History of left knee surgery History of right knee surgery History of varicose veins Family History Family History Father Angina at rest Mother Hypothyroidism Hypertension Osteoarthritis Heart disease Panic disorder Glaucoma Brother Stroke Sister Alcoholic liver disease HIV (human immunodeficiency virus infection) Social History Social History Alcohol intake: current Alcohol intake frequency: 0-2 drinks per day Patient Tobacco Use Status: Former Tobacco user Advance Directives: No Advance Directives Information Provided: No 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 Exam Vital Signs: Vital Signs: Last Vital Signs Temp 98.1 F 06/12/21 17:49 Pulse 71 06/12/21 17:49 Resp 13 06/12/21 17:49 BP 144/70 H 06/12/21 17:49 Pulse Ox 98 06/12/21 17:49 Body Mass Index 33.3 Const: General: No confusion Nutritional Appearance: well nourished Orientation/consciousness: No confusion Limitations: no limitations HENMT: Head: Yes normal to inspection, Yes normocephalic and Yes atraumatic Ears: hearing grossly normal bilaterally, external ears normal, TM's normal bilaterally and EAC's normal General nose exam: Normal external nose present Face and sinus: Yes normal facial exam and Yes sinuses nontender Mouth: Normal oral and palatal mucosa present Throat: Yes posterior oropharynx abnormal (Mild erythema) Eyes: Other: Bilateral watery eye Conjunctivae: conjunctivae normal Pupils: Equal, round and reactive pupils present EOM: EOMs intact bilaterally Neck: Neck: Yes full ROM, Yes no lymphadenopathy and Yes supple Resp: Effort & Inspection: normal respiratory effort and able to speak in complete sentences Auscultation: clear to auscultation bilaterally, no crackles, no rales, no rhonchi and no wheezes Cardio: Rate: regular rate Rhythm: regular rhythm Heart sounds: S1 normal heart sound present and S2 normal heart sound present GI: Inspection: Yes normal to inspection Palpation (GI): Soft to palpation, nontender, no guarding and not rigid Percussion: Yes normal to percussion Auscultation: normal bowel sounds Skin: General skin exam: no rashes or lesions noted Neuro: General: No confusion Cranial nerves: Yes Equal, round and reactive pupils present Extrem: General: Yes normal to inspection and Yes full ROM Psych: Appearance: grossly normal Affect: normal affect Attitude: cooperative Thought process: Normal thought process present Course Course Course Narrative: 70-year-old asthmatic female whose boyfriend has had cold symptoms presents for dry cough, body aches, dizziness and nausea. Chest x-ray was unremarkable, patient had normal labs, an EKG was sinus rhythm, patient felt mildly better with an albuterol inhaler. Counseled Tylenol, prescribe Zofran and albuterol inhaler, gave return precautions. Patient is COVID negative. MDM - URI/Sore Throat Lab Data Result diagrams: 06/12/21 18:24 06/12/21 18:24 Labs: Lab Results 06/12/21 06/12/21 06/12/21 Range/Units 17:40 18:24 18:24 WBC 7.1 (4.8-10.8) X10*3/uL RBC 4.41 (4.20-5.50) X10*6/uL Hgb 12.9 (12.0-16.0) g/dl Hct 38.7 (37-47) % MCV 87.8 (80-98) fL MCH 29.3 (27.0-33.0) pg MCHC 33.3 (31.0-35.0) g/dl RDW 13.3 (11.0-16.0) % Plt Count 271 (160-400) X10*3/uL MPV 10.4 (9.4-12.3) fL Immature Gran % (Auto) 0.6 H (0.0-0.4) % Neut % (Auto) 50.0 (45-73) % Lymph % (Auto) 29.3 (20-40) % [place] % (Auto) 12.1 H (2-11) % Eos % (Auto) 7.6 H (0-4) % Baso % (Auto) 0.4 (0-2) % Lymph # (Auto) 2.1 (1.2-4.9) X10*3/uL [place] # (Auto) 0.9 (0.1-1.2) X10*3/uL Eos # (Auto) 0.5 H (0.0-0.4) X10*3/uL Baso # (Auto) 0.0 (0.0-0.2) X10*3/uL Abs Immat Gran (auto) 0.04 H (0.00-0.03) X10*3/uL Absolute Neuts (auto) 3.5 (2.0-8.3) X10*3/uL Absolute Nucleated RBC 0.000 (0.0-0.012) X10*3/uL Nucleated RBC % (auto) 0.0 (0.0-0.2) /100WBC Sodium 141 (135-145) mmol/L Potassium 4.6 (3.3-5.1) mmol/L Chloride 107 (96-108) mmol/L Carbon Dioxide 27 (22-29) mmol/L Anion Gap 12 (12-20) BUN 11 (9-16) mg/dL Creatinine 0.76 (0.5-1.4) mg/dL Estim Creat Clear Calc 72.8 Estimated GFR > 60 Random Glucose 109 (60-115) mg/dL Calcium 9.9 D (8.4-10.2) mg/dL Total Bilirubin 0.7 (0.0-1.0) mg/dL AST 24 D (5-31) U/L ALT 26 (0-31) U/L Alkaline Phosphatase 110 D (39-117) U/L Total Protein 7.3 (6.5-8.0) g/dL Albumin 4.4 (3.5-5.0) g/dL Coronavirus (PCR) NEGATIVE (Negative) Influenza Type A (PCR) NEGATIVE (Negative) Influenza Type B (PCR) NEGATIVE (Negative) RSV RNA Qual (PCR) NEGATIVE (Negative) ECG Data Interpretation: EKG shows normal sinus with a rate of 68, no ST elevations or depressions, RI interval 140, QRS 82, QTC 418. Discharge Plan Discharge Clinical Impression: Upper respiratory infection, viral Patient Disposition: Home, Self-Care Instructions: Upper Respiratory Infection (ED) Additional Instructions: Please take Tylenol for the next 3 days. He may take 1000 mg every 8 hours, not to exceed 3000 mg in 24 hours. Please use Zofran as prescribed for nausea. Please rest and push fluids. Please use your old utero inhaler, 2 puffs every 4 hours while your weight. Is if you have chest pain, shortness of breath, fevers, or any other new or concerning symptoms please return to emergency room. Prescriptions: New ondansetron HCl [Zofran] 4 mg tablet 4 mg PO Q8H 3 Days Qty: 9 RF: 0 albuterol sulfate 90 mcg/actuation HFA aerosol inhaler 2 puff inhalation QID Qty: 8.5 RF: 0 No Action rosuvastatin 40 mg tablet 40 mg PO DAILY Qty: 90 RF: 8 pantoprazole 40 mg tablet,delayed release (DR/EC) 40 mg PO BID Qty: 180 RF: 1 tizanidine 4 mg tablet 4 mg PO BEDTIME Qty: 90 RF: 1 propranolol 120 mg capsule,extended release 24 hr 120 mg PO DAILY Qty: 90 RF: 4 albuterol sulfate 90 mcg/actuation HFA aerosol inhaler inhalation RF: 0 fluticasone propionate 50 mcg/actuation spray,suspension intranasal RF: 0 triamcinolone acetonide 0.1 % cream topical RF: 0 tramadol 50 mg tablet PO RF: 0 latanoprost 0.005 % drops 1 drp ophthalmic (eye) BEDTIME RF: 0 Amitiza 24 mcg capsule 24 mcg PO BID RF: 0 ranitidine HCl 150 mg tablet 150 mg PO BID PRN (Reason: heartburn) RF: 0 naproxen 500 mg tablet 500 mg PO Q12H PRNRF: 0 sennosides 8.6 mg tablet 17.2 mg PO BEDTIME PRNRF: 0 hydroxyzine HCl 25 mg tablet 25 mg PO TID PRN (Reason: itching) Qty: 30 RF: 0 loratadine 10 mg tablet 10 mg PO DAILY Qty: 90 RF: 8 acetaminophen [Tylenol Arthritis Pain] 650 mg tablet extended release 650 mg PO Q8H Qty: 90 RF: 3
[2021-06-12 17:49] VITALS: BP 144/70; PULSE 71; RESP 13; TEMP 36.7; O2SAT 98
--- NOTE | 2021-06-12 18:00 | ECG_ITS ---
Test Reason : SHORTNESS OF BREATH Blood Pressure : / mmHG Vent. Rate : 068 BPM Atrial Rate : 068 BPM P-R Int : 140 ms QRS Dur : 082 ms QT Int : 394 ms P-R-T Axes : 068 016 026 degrees QTc Int : 418 ms Normal sinus rhythm Nonspecific ST abnormality Abnormal ECG When compared with ECG of 31-DEC-2020 08:27, No significant change was found Referred By: Sarah Lema Electronically Signed By:ERNA DUBOIS
[2021-06-12] MEDS: Albuterol Sulfate 90 MCG 8 GM INHALER 4 PUFF INHALE (18:10)
[2021-06-12 18:28] LABS: MANUAL DIFF FLAG NO
[2021-06-12 18:34] LABS: Influenza A PCR NEGATIVE (Negative); Influenza B PCR NEGATIVE (Negative); Resp Syncy Virus RNA Qual PCR NEGATIVE (Negative); SARS COV2 PCR INHOUSE NEGATIVE (Negative)
[2021-06-12 18:46] LABS: Basophils Percent Auto 0.4 % (0-2); Eosinophils Absolute Auto 0.5 X10*3/uL (0.0-0.4); Eosinophils Percent Auto 7.6 % (0-4); Hematocrit 38.7 % (37-47); Hemoglobin 12.9 g/dl (12.0-16.0); Imm Gran Abs Auto 0.04 X10*3/uL (0.00-0.03); Imm Gran Pct Auto 0.6 % (0.0-0.4); Lymphocytes Absolute Auto 2.1 X10*3/uL (1.2-4.9); Lymphocytes Percent Auto 29.3 % (20-40); Mean Corpuscular HGB Conc 33.3 g/dl (31.0-35.0); Mean Corpuscular Hemoglobin 29.3 pg (27.0-33.0); Mean Corpuscular Volume 87.8 fL (80-98); Mean Platelet Volume 10.4 fL (9.4-12.3); Monocytes Absolute Auto 0.9 X10*3/uL (0.1-1.2); Monocytes Percent Auto 12.1 % (2-11); Neutrophils Absolute Auto 3.5 X10*3/uL (2.0-8.3); Platelet Count 271 X10*3/uL (160-400); Red Blood Count 4.41 X10*6/uL (4.20-5.50); Red Cell Distribution Width 13.3 % (11.0-16.0); White Blood Count 7.1 X10*3/uL (4.8-10.8)
[2021-06-12 18:58] LABS: Alanine Aminotransferase 26 U/L (0-31); Albumin Level 4.4 g/dL (3.5-5.0); Alkaline Phosphatase 110 U/L (39-117); Anion Gap 12 (12-20); Aspartate Amino Transferase 24 U/L (5-31); Bilirubin Total 0.7 mg/dL (0.0-1.0); Blood Urea Nitrogen 11 mg/dL (9-16); Calcium 9.9 mg/dL (8.4-10.2); Carbon Dioxide 27 mmol/L (22-29); Chloride 107 mmol/L (96-108); Creatinine Clr Calc Pharmacy 72.8; Estimated Glomerular Filt Rate > 60; Glucose Random 109 mg/dL (60-115); Potassium 4.6 mmol/L (3.3-5.1); Sodium 141 mmol/L (135-145); Total Protein 7.3 g/dL (6.5-8.0)
[2021-06-12] MEDS: Acetaminophen 325 MG TABLET 975 MG PO (19:50)
[2021-06-12] MEDS: Ondansetron ODT 4 MG TAB.RAPDIS TRANSLINGU (19:52)
== END 2021-06-12 19:59 | disposition home or self-care (01) ==
PROVIDERS: Physician Assistant; Emergency Provider Internal Medicine; PCP Internal Medicine
DX: J06.9 Acute upper respiratory infection, unspecified (principal); R05 Cough; Z87.891 Personal history of nicotine dependence; Z79.899 Other long term (current) drug therapy
CPT/HCPCS: 0241U; 36415; 71045; 80053; 85025; 93005; 99283; 99284

== ENCOUNTER → 2021-06-17 09:22 | Outpatient (BNVA) | payer MEDICARE, MEDICAID, SELFPAY | PROVIDERS: PCP Internal Medicine; Visit Provider Obstetrics & Gynecology ==

== ENCOUNTER 2021-07-16 10:03 | Outpatient (REF) | payer MEDICARE, MEDICAID, SELFPAY ==
--- NOTE | ~2021-07-16 | MM_ITS ---
EXAMINATION: BONE DENSITOMETRY CLINICAL INDICATION: Asymptomatic menopausal state. COMPARISON: Baseline BD dated 06/21/2009. TECHNIQUE: Using a [employer] DXA System (software version: 13.1) manufactured by [employer], dual-energy x-ray absorptiometry was performed of the lumbar spine and left hip. The images are of good technical quality. Summary results are attached. FINDINGS: AP SPINE L1-L4: Current: BMD 1.296 g/cm2, Z-score 1.8, T-score 1.0, normal, 11.1% increase from baseline (<5% change is not significant). Baseline: BMD 1.167 g/cm2. LEFT FEMUR, NECK: Current: BMD 0.917 g/cm2, Z-score 0.3, T-score -0.9, normal. Baseline: BMD 0.965 g/cm2. LEFT FEMUR, TOTAL: Current: BMD 1.133 g/cm2, Z-score 1.9, T-score 1.0, normal, 0.9% decrease from baseline (<5% change is not significant). Baseline: BMD 1.143 g/cm2. IDENTIFIED RISK FACTORS: Early menopause, secondary osteoporosis, anticonvulsants, hysterectomy. HISTORY OF FRACTURE: None listed. MEDICATIONS: Calcium. MM/XR DEXA axial skeleton IMPRESSION: 1. DIAGNOSIS: Normal bone density based on the lowest T-score value of -0.9 in the femoral neck applying World Health Organization criteria. 2. 10-YEAR FRACTURE RISK PREDICTION, FRAX: Major osteoporotic fracture (clinical spine, forearm, hip or shoulder) 4.5%. Hip fracture 0.5%. 3. Treatment Recommendations: NOF guidelines recommend consideration for treatment in postmenopausal women and men age 50 and older presenting with the following: -A hip or vertebral (clinical or morphometric) fracture. -T-score less than or equal to -2.5 at the femoral neck or spine after appropriate evaluation to exclude secondary causes. -Low bone mass at the hip or spine and a 10-year fracture probability by FRAX of greater than or equal to 3% for hip fracture or greater than or equal to 20% for major osteoporotic fracture based on the [place] adapted WHO algorithm. 4. Other Recommendations: All treatment decisions require clinical judgment and consideration of individual patient factors, including patient preferences, comorbidities, previous drug use, risk factors not captured in the FRAX model (e.g. frailty, falls, vitamin D deficiency, increased bone turnover, interval significant decline in bone density) and possible under or overestimation of fracture risk by FRAX. FUTURE SCAN RECOMMENDATION: People with diagnosed cases of osteoporosis or at high risk for fracture should have regular bone mineral density tests. For patients eligible for Medicare, routine testing is allowed once every 2 years. The testing frequency can be increased to one year for patients who have rapidly progressing disease, those who are receiving or discontinuing medical therapy to restore bone mass, or have additional risk factors.
--- NOTE | ~2021-07-16 | MM_ITS ---
EXAMINATION: MM SCREENING DIGITAL BREAST TOMOSYNTHESIS, BILATERAL CLINICAL INFORMATION: Screening. Asymptomatic. The lifetime risk of breast cancer based on the Tyrer-Cuzick Model is 3%. COMPARISON: Mammography: 10/28/2019, 09/27/2018, 09/03/2017 TECHNIQUE: Digital breast tomosynthesis is performed in both the craniocaudal and mediolateral oblique views along with computer-aided detection (CAD). Synthesized 2D images are generated from the tomosynthesis. FINDINGS: There are scattered areas of fibroglandular density (ACR BI-RADS breast composition Category b). Parenchymal pattern is similar to prior studies. There is no significant mass or developing density or architectural abnormality. Biopsy clip marker again noted mid central right breast. There are some scattered stable calcifications in both breasts. Low right axillary tail node is stable. The axilla and skin contours are unremarkable. MM/MM tomosynthesis screening BI IMPRESSION: No mammographic evidence of malignancy. ASSESSMENT: BI-RADS 2: Benign RECOMMENDATION: Routine annual mammography screening. This patient's information was entered into a reminder system with a target due date for their next mammogram.
== END 2021-07-16 10:04 | disposition home or self-care (01) ==
LOC: HO.MAMMO 10:03
PROVIDERS: Visit Provider Internal Medicine
DX: Z12.31 Encounter for screening mammogram for malignant neoplasm of breast (principal); Z13.820 Encounter for screening for osteoporosis; Z78.0 Asymptomatic menopausal state; M85.80 Other specified disorders of bone density and structure, unspecified site; Z98.890 Other specified postprocedural states; Z79.899 Other long term (current) drug therapy
CPT/HCPCS: 77063; 77067; 77080

== ENCOUNTER → 2021-07-26 09:21 | Outpatient (BNVA) | payer MEDICARE, MEDICAID, SELFPAY | PROVIDERS: PCP Internal Medicine | DX: Z13.89 Encounter for screening for other disorder (principal) | CPT/HCPCS: Q3014 ==

== ENCOUNTER 2021-09-06 10:47 | Outpatient (REF) | payer MEDICARE, MEDICAID, SELFPAY ==
--- NOTE | ~2021-09-06 | XR_ITS ---
EXAMINATION: XR CERVICAL SPINE CLINICAL INFORMATION: Cervicalgia. COMPARISON: Radiograph of the cervical spine dated from 12/31/2018. TECHNIQUE: 4 views of the cervical spine were obtained. FINDINGS: No evidence of acute compression deformities. There is anatomic alignment of the anterior and posterior elements. The atlantoaxial and atlantooccipital articulations are maintained. On the odontoid view, the dens appears intact. There is moderate cervical spondylosis with disc narrowing and vertebral spurring more prominent at C4-C5 and C5-C6. No prevertebral soft tissue thickening. Visualized lung bases are clear. XR/XR cervical spine 2V IMPRESSION: No evidence of acute compression deformities or malalignment. Moderate cervical spondylosis.
== END 2021-09-06 10:48 | disposition home or self-care (01) ==
LOC: HO.XRAY 10:47
PROVIDERS: PCP Internal Medicine; Visit Provider Internal Medicine
DX: M54.2 Cervicalgia (principal)
CPT/HCPCS: 72040

== ENCOUNTER 2021-09-21 12:36 | Emergency (ER) | payer MEDICARE, MEDICAID, SELFPAY ==
--- NOTE | 2021-09-21 | ECG_ITS ---
Test Reason : CHEST PAIN Blood Pressure : / mmHG Vent. Rate : 076 BPM Atrial Rate : 076 BPM P-R Int : 130 ms QRS Dur : 072 ms QT Int : 386 ms P-R-T Axes : 046 006 013 degrees QTc Int : 434 ms Normal sinus rhythm Nonspecific ST abnormality Borderline ECG When compared with ECG of 12-JUN-2021 18:12, No significant change was found Referred By: Generic ED Physician Electronically Signed By:RONY ESCALERA
--- NOTE | ~2021-09-21 | XR_ITS ---
EXAMINATION: CR CHEST CLINICAL INFORMATION: Chest pain. COMPARISON: Chest x-ray dated 06/12/2021. TECHNIQUE: 2 views of the chest were obtained. FINDINGS: The cardiomediastinal silhouette is within normal limits in size. Lungs bilaterally are symmetrically expanded and clear. No focal consolidation, effusion or pneumothorax is seen. Mild vertebral spondylosis is seen in the mid and lower thoracic spine and a mild S-shaped thoracic scoliosis is noted. XR/XR chest 2V IMPRESSION: No acute cardiopulmonary process.
[2021-09-21 13:09] VITALS: BP 144/56; PULSE 72; RESP 18; TEMP 37; O2SAT 100; BMI 34.1
[2021-09-21 13:41] LABS: MANUAL DIFF FLAG NO
[2021-09-21 13:42] LABS: Basophils Percent Auto 0.6 % (0-2); Eosinophils Absolute Auto 0.3 X10*3/uL (0.0-0.4); Eosinophils Percent Auto 5.4 % (0-4); Hematocrit 40.4 % (37.0-47.0); Imm Gran Abs Auto 0.01 X10*3/uL (0.00-0.03); Imm Gran Pct Auto 0.2 % (0.0-0.4); Lymphocytes Percent Auto 32.3 % (20-40); Mean Corpuscular HGB Conc 32.2 g/dl (31.0-35.0); Mean Corpuscular Hemoglobin 28.5 pg (27.0-33.0); Mean Corpuscular Volume 88.6 fL (80.0-98.0); Mean Platelet Volume 10.3 fL (9.4-12.3); Monocytes Absolute Auto 0.6 X10*3/uL (0.1-1.2); Monocytes Percent Auto 9.2 % (2-11); Neutrophils Absolute Auto 3.3 x10*3/uL (2.0-8.3); Neutrophils Percent Auto 52.3 % (45-73); Platelet Count 247 X10*3/uL (160-400); Red Blood Count 4.56 X10*6/uL (4.20-5.50); Red Cell Distribution Width 12.9 % (11.0-16.0); White Blood Count 6.3 X10*3/uL (4.8-10.8)
[2021-09-21 14:01] LABS: Anion Gap 12 (12-20); Blood Urea Nitrogen 12 mg/dL (9-16); Calcium 9.1 mg/dL (8.4-10.2); Carbon Dioxide 24 mmol/L (22-29); Chloride 110 mmol/L (96-108); Creatinine Clr Calc Pharmacy 73.9; Estimated Glomerular Filt Rate > 60; Glucose Random 108 mg/dL (60-115); Potassium 3.8 mmol/L (3.3-5.1); Sodium 142 mmol/L (135-145)
[2021-09-21 14:07] LABS: Troponin-I High Sensitivity < 3.5 ng/L (<3.5-17.0)
[2021-09-21 16:14] VITALS: BP 143/68; PULSE 69; RESP 13; O2SAT 100
--- NOTE | 2021-09-21 16:56 | ED_ITS ---
HPI - Chest Pain General Chief Complaint: Chest Pain Stated Complaint: Chest Pain Tingling in Arm Time Seen by Provider: 09/21/21 12:51 Source: patient Mode of arrival: ambulatory Limitations: no limitations History of Present Illness HPI narrative: Patient with no known coronary artery disease been having right-sided chest pain for last few days off and on got worse for last 12 hours since in the morning patient does have history of fibromyalgia not taking any pain medication also complaining of pain in the upper back pain gets worse on taking deep breath and movement it is sharp in character no shortness of breath no cough Related Data Home Medications Medication Instructions Recorded Confirmed albuterol sulfate 90 mcg/actuation INHALATION 07/27/20 08/26/21 aerosol inhaler fluticasone propionate 50 INTRANASAL 07/27/20 08/26/21 mcg/actuation nasal spray,suspension latanoprost 0.005 % eye drops 1 drp OPHTHALMIC (EYE) BEDTIME 07/27/20 08/26/21 lubiprostone 24 mcg capsule 24 mcg PO BID 07/27/20 08/26/21 naproxen 500 mg tablet 500 mg PO Q12H PRN 07/27/20 08/26/21 ranitidine HCl 150 mg tablet 150 mg PO BID PRN 07/27/20 08/26/21 sennosides 8.6 mg tablet 17.2 mg PO BEDTIME PRN 07/27/20 08/26/21 tramadol 50 mg tablet mg PO 07/27/20 08/26/21 triamcinolone acetonide 0.1 % applic TOPICAL 07/27/20 08/26/21 topical cream Previous Rx's Medication Instructions Recorded hydroxyzine HCl 25 mg tablet 25 mg PO TID PRN #30 tab 07/27/20 acetaminophen 650 mg 650 mg PO Q8H #90 tab 08/10/20 tablet,extended release (Tylenol Arthritis Pain) rosuvastatin 40 mg tablet 40 mg PO DAILY #90 tab 08/13/20 loratadine 10 mg tablet 10 mg PO DAILY #90 tab 11/20/20 propranolol 120 mg capsule,24 120 mg PO DAILY #90 cap 05/25/21 hr,extended release albuterol sulfate 90 mcg/actuation 2 puff INHALATION QID #8.5 g 06/12/21 aerosol inhaler ondansetron HCl 4 mg tablet 4 mg PO Q8H 3 Days #9 tab 06/12/21 (Zofran) pantoprazole 40 mg tablet,delayed 40 mg PO BID #180 tab 06/18/21 release azithromycin 250 mg tablet See Rx Instructions PO .COMPLEX #6 06/19/21 tab tizanidine 4 mg tablet 4 mg PO BEDTIME #90 tab 07/30/21 lorazepam 1 mg tablet (Ativan) 1 mg PO BEDTIME PRN #20 tab 09/21/21 oxycodone 5 mg tablet 5 mg PO Q6H PRN #20 tab 09/21/21 Allergies Allergy/AdvReac Type Severity Reaction Status Date / Time codeine [Codeine] Allergy Severe HIVES Verified 08/26/21 09:27 ITCHING, rash, hives gabapentin [From Neurontin] Allergy Severe SWELLING Verified 08/26/21 09:27 Penicillins Allergy Severe SWELLING Verified 08/26/21 09:27 Sulfa (Sulfonamide Allergy Severe XEROSTEMIA, Verified 08/26/21 09:27 Antibiotics) DIFF [SULFA (SULFONAMIDE SWALLOWIN, ANTIBIOTICS)] rash, rash pregabalin [From LYRICA] Allergy Intermediate SWELLING Verified 08/26/21 09:27 Review of Systems Review of Systems: Yes all other systems are reviewed and are negative PMFSH Past Medical History Medical History Anal pruritus Hyperlipidemia Lumbar spondylosis Obesity Obesity Post-menopausal Screening for breast cancer Screening for diabetes mellitus Vertigo Surgical History History of colonoscopy History of hysterectomy History of left knee surgery History of right knee surgery History of varicose veins Family History Family History Father Angina at rest Mother Hypothyroidism Hypertension Osteoarthritis Heart disease Panic disorder Glaucoma Brother Stroke Sister Alcoholic liver disease HIV (human immunodeficiency virus infection) Social History Social History Housing: House Alcohol intake: current Alcohol intake frequency: does not drink Patient Tobacco Use Status: Former Tobacco user Tobacco use type: Cigarette e-Cigarette/Vaping Use: Never Used Second Hand Smoke Exposure: No Use of substances other than those prescribed or required for medical reasons: No Advance Directives: No Advance Directives Information Provided: Yes service: No Current occupational status: retired 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 Exam Vital Signs: Vital Signs: Last Vital Signs Temp 98.6 F 09/21/21 13:09 Pulse 69 09/21/21 16:14 Resp 13 09/21/21 16:14 BP 143/68 H 09/21/21 16:14 Pulse Ox 100 09/21/21 16:14 BMI result Body Mass Index 34.1 Appearance: Alert. Oriented X3. No acute distress. Eyes: PERRLA, No Nystagmus ENT: Pharynx normal. Oral Mucosa moist Neck: Normal inspection. Neck supple. CVS: Normal heart rate and rhythm. Pulses normal. Respiratory: No respiratory distress. Equal air entry bilateral, no wheezing/rales/rhonchi tender to touch right anterior chest wall and upper back Abdomen: Soft and nontender. Bowel sounds are present, no mass palpable, no CVA tenderness Skin: Skin warm and dry. Normal skin color. Normal skin turgor. Extremities: No lower extremity edema. No calf tenderness Neuro: Oriented X 3. No motor deficit. MDM - Chest Pain MDM Narrative Medical decision making narrative: Patient with history of fibromyalgia with right-sided chest pain elicited by palpation and movements likely from the fibromyalgia will discharge patient home on oxycodone as she cannot take other medications and give her Ativan patient can not take amitriptyline as she is already on gabapentin Lab Data Attestation: I reviewed the patient's lab results. Result diagrams: 09/21/21 13:34 09/21/21 13:34 Labs: Lab Results 09/21/21 09/21/21 09/21/21 Range/Units 13:34 13:34 13:34 WBC 6.3 (4.8-10.8) X10*3/uL RBC 4.56 (4.20-5.50) X10*6/uL Hgb 13.0 (12.0-16.0) g/dl Hct 40.4 (37.0-47.0) % MCV 88.6 (80.0-98.0) fL MCH 28.5 (27.0-33.0) pg MCHC 32.2 (31.0-35.0) g/dl RDW 12.9 (11.0-16.0) % Plt Count 247 (160-400) X10*3/uL MPV 10.3 (9.4-12.3) fL Immature Gran % (Auto) 0.2 (0.0-0.4) % Neut % (Auto) 52.3 (45-73) % Lymph % (Auto) 32.3 (20-40) % [place] % (Auto) 9.2 (2-11) % Eos % (Auto) 5.4 H (0-4) % Baso % (Auto) 0.6 (0-2) % Lymph # (Auto) 2.0 (1.2-4.9) X10*3/uL [place] # (Auto) 0.6 (0.1-1.2) X10*3/uL Eos # (Auto) 0.3 (0.0-0.4) X10*3/uL Baso # (Auto) 0.0 (0.0-0.2) X10*3/uL Abs Immat Gran (auto) 0.01 (0.00-0.03) X10*3/uL Absolute Neuts (auto) 3.3 (2.0-8.3) x10*3/uL Absolute Nucleated RBC 0.000 (0.0-0.012) X10*3/uL Nucleated RBC % (auto) 0.0 (0.0-0.2) /100WBC Sodium 142 (135-145) mmol/L Potassium 3.8 (3.3-5.1) mmol/L Chloride 110 H (96-108) mmol/L Carbon Dioxide 24 (22-29) mmol/L Anion Gap 12 (12-20) BUN 12 (9-16) mg/dL Creatinine 0.76 (0.5-1.4) mg/dL Estim Creat Clear Calc 73.9 Estimated GFR > 60 Random Glucose 108 (60-115) mg/dL Calcium 9.1 D (8.4-10.2) mg/dL Troponin I High Sens < 3.5 (<3.5-17.0) ng/L ECG Data ECG #1: Attestation: I personally reviewed and interpreted this ECG as follows: Interpretation: Normal sinus rhythm heart rate 76 beats per minute no acute ST wave changes no acute ischemia Discharge Plan Discharge Clinical Impression: Chest wall pain Patient Disposition: Home, Self-Care Instructions: Chest Wall Pain (ED) Additional Instructions: Take pain medication as advised Ativan to relax and sleep Follow-up with PCP if not better Prescriptions: New oxycodone 5 mg tablet 5 mg PO Q6H PRN (Reason: pain) Qty: 20 RF: 0 lorazepam [Ativan] 1 mg tablet 1 mg PO BEDTIME PRN (Reason: sleep) Qty: 20 RF: 0 No Action rosuvastatin 40 mg tablet 40 mg PO DAILY Qty: 90 RF: 8 propranolol 120 mg capsule,extended release 24 hr 120 mg PO DAILY Qty: 90 RF: 4 pantoprazole 40 mg tablet,delayed release (DR/EC) 40 mg PO BID Qty: 180 RF: 1 tizanidine 4 mg tablet 4 mg PO BEDTIME Qty: 90 RF: 1 ondansetron HCl [Zofran] 4 mg tablet 4 mg PO Q8H 3 Days Qty: 9 RF: 0 albuterol sulfate 90 mcg/actuation HFA aerosol inhaler 2 puff inhalation QID Qty: 8.5 RF: 0 azithromycin 250 mg tablet See Rx Instructions PO .COMPLEX Qty: 6 RF: 0 albuterol sulfate 90 mcg/actuation HFA aerosol inhaler inhalation RF: 0 fluticasone propionate 50 mcg/actuation spray,suspension intranasal RF: 0 triamcinolone acetonide 0.1 % cream topical RF: 0 tramadol 50 mg tablet PO RF: 0 latanoprost 0.005 % drops 1 drp ophthalmic (eye) BEDTIME RF: 0 Amitiza 24 mcg capsule 24 mcg PO BID RF: 0 ranitidine HCl 150 mg tablet 150 mg PO BID PRN (Reason: heartburn) RF: 0 naproxen 500 mg tablet 500 mg PO Q12H PRNRF: 0 sennosides 8.6 mg tablet 17.2 mg PO BEDTIME PRNRF: 0 hydroxyzine HCl 25 mg tablet 25 mg PO TID PRN (Reason: itching) Qty: 30 RF: 0 loratadine 10 mg tablet 10 mg PO DAILY Qty: 90 RF: 8 acetaminophen [Tylenol Arthritis Pain] 650 mg tablet extended release 650 mg PO Q8H Qty: 90 RF: 3 Interventions: ED Discharge Assessment Last Done: 09/21/21 18:43 Discharge Date/Time: 09/21/21 18:43
[2021-09-21] MEDS: LORazepam 1 MG TABLET PO (17:48)
[2021-09-21] MEDS: oxyCODONE HCl Immed Release 5 MG TABLET 10 MG PO (17:48)
== END 2021-09-21 18:43 | disposition home or self-care (01) ==
PROVIDERS: Emergency Provider Internal Medicine; PCP Internal Medicine
DX: R07.89 Other chest pain (principal); E78.5 Hyperlipidemia, unspecified; Z79.02 Long term (current) use of antithrombotics/antiplatelets
CPT/HCPCS: 36415; 71046; 80048; 84484; 85025; 93005; 99283; 99285

== ENCOUNTER 2021-10-22 17:36 | Emergency (ER) | payer MEDICARE, MEDICAID, SELFPAY ==
--- NOTE | ~2021-10-22 | XR_ITS ---
EXAMINATION: XR CHEST CLINICAL INFORMATION: Chest pain. COMPARISON: Chest radiograph dated from 09/21/2021. TECHNIQUE: 2 views of the chest were obtained. FINDINGS: Normal appearance of the cardiomediastinal silhouette. Clear lungs. No pleural effusions or pneumothorax. No acute osseous findings. No acute compression deformities of the visualized thoracic spine. Thoracic spondylosis. XR/XR chest 2V IMPRESSION: No acute cardiopulmonary findings.
--- NOTE | ~2021-10-22 | CT_ITS ---
EXAMINATION: CT ANGIOGRAM OF THE CHEST WITH AND WITHOUT CONTRAST (CT PULMONARY ANGIOGRAM FOR PE) CLINICAL INFORMATION: Reason for Exam elevated D-dimer. PE? COMPARISON: CT chest November 2010 TECHNIQUE: Prior to contrast administration, noncontrast localization images were obtained. Subsequently, multidetector volumetric imaging was performed from the thoracic inlet to below the diaphragms following the administration of 71 mL Omnipaque 350 intravenous contrast. No contrast reaction reported Sagittal, coronal, and MIP oblique sagittal reformatted images were obtained on the CT workstation, uploaded to PACS, and reviewed. This CT examination was performed using dose optimization techniques as appropriate, variously including the following: *Automated exposure control *Adjustment of mA and/or kV according to patient size (this includes techniques or standardized protocols for targeted exams where dose is matched to indication/reason for exam; i.e. extremities or head) *Use of iterative reconstruction technique Total exam dose-length product 314 mGy-cm FINDINGS: QUALITY OF STUDY/CONTRAST BOLUS: Satisfactory. PULMONARY ARTERIES: No central or segmental pulmonary emboli. THORACIC AORTA: No aneurysm or dissection. There is a common trunk of the innominate and left carotid. LUNG: No focal consolidation, nodules or masses. 1.4 cm cyst/bullous noted in the left lower lobe. PLEURA: No pleural effusion or pneumothorax. MEDIASTINUM: Normal heart size. No pericardial effusion. No hilar or mediastinal lymphadenopathy. No evidence of septal bowing or right heart strain. CHEST WALL/AXILLA: No axillary or internal mammary lymphadenopathy. OSSEOUS STRUCTURES: No acute or suspicious osseous abnormality. UPPER ABDOMEN: A celiac arcuate-type stenosis is present. No reflux of contrast into the hepatic veins to suggest elevated right heart pressures. CT/CT angio chest PE protocol IMPRESSION: No evidence of pulmonary emboli VTE: negative
[2021-10-22 17:45] VITALS: BP 160/90; PULSE 80; O2SAT 98
--- NOTE | 2021-10-22 17:51 | ECG_ITS ---
Test Reason : chest pain Blood Pressure : / mmHG Vent. Rate : 078 BPM Atrial Rate : 078 BPM P-R Int : 146 ms QRS Dur : 080 ms QT Int : 378 ms P-R-T Axes : 056 -01 011 degrees QTc Int : 430 ms Normal sinus rhythm Nonspecific ST abnormality Abnormal ECG When compared with ECG of 21-SEP-2021 12:46, No significant change was found Referred By: Generic ED Physician Electronically Signed By:AUGUSTO LIMA MD
[2021-10-22 18:50] VITALS: BP 124/50; PULSE 80; RESP 18; TEMP 36.7; O2SAT 99; BMI 35.0
--- NOTE | 2021-10-22 19:20 | PC.NURSE ---
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
[2021-10-22 19:27] LABS: MANUAL DIFF FLAG NO
--- NOTE | 2021-10-22 19:27 | ED_ITS ---
HPI - Chest Pain General Chief Complaint: Chest Pain Stated Complaint: chest pain Time Seen by Provider: 10/22/21 17:42 Source: patient Mode of arrival: ambulatory Limitations: no limitations History of Present Illness HPI narrative: 70-year-old female with past medical history of fibromyalgia, polyarthralgia, hyperlipidemia, obesity, chronic back pain return to the ED for back pain radiating down left arm which began since this morning at 07:00. Patient denies any swelling of lower extremity, calf pain, coughing up blood, shortness of breath fever, or chills. Patient denies chest pain. Related Data Home Medications Medication Instructions Recorded Confirmed albuterol sulfate 90 mcg/actuation INHALATION 07/27/20 08/26/21 aerosol inhaler fluticasone propionate 50 INTRANASAL 07/27/20 08/26/21 mcg/actuation nasal spray,suspension latanoprost 0.005 % eye drops 1 drp OPHTHALMIC (EYE) BEDTIME 07/27/20 08/26/21 lubiprostone 24 mcg capsule 24 mcg PO BID 07/27/20 08/26/21 naproxen 500 mg tablet 500 mg PO Q12H PRN 07/27/20 08/26/21 ranitidine HCl 150 mg tablet 150 mg PO BID PRN 07/27/20 08/26/21 sennosides 8.6 mg tablet 17.2 mg PO BEDTIME PRN 07/27/20 08/26/21 tramadol 50 mg tablet mg PO 07/27/20 08/26/21 triamcinolone acetonide 0.1 % applic TOPICAL 07/27/20 08/26/21 topical cream Previous Rx's Medication Instructions Recorded hydroxyzine HCl 25 mg tablet 25 mg PO TID PRN #30 tab 07/27/20 acetaminophen 650 mg 650 mg PO Q8H #90 tab 08/10/20 tablet,extended release (Tylenol Arthritis Pain) loratadine 10 mg tablet 10 mg PO DAILY #90 tab 11/20/20 propranolol 120 mg capsule,24 120 mg PO DAILY #90 cap 05/25/21 hr,extended release albuterol sulfate 90 mcg/actuation 2 puff INHALATION QID #8.5 g 06/12/21 aerosol inhaler ondansetron HCl 4 mg tablet 4 mg PO Q8H 3 Days #9 tab 06/12/21 (Zofran) pantoprazole 40 mg tablet,delayed 40 mg PO BID #180 tab 06/18/21 release azithromycin 250 mg tablet See Rx Instructions PO .COMPLEX #6 06/19/21 tab tizanidine 4 mg tablet 4 mg PO BEDTIME #90 tab 07/30/21 lorazepam 1 mg tablet (Ativan) 1 mg PO BEDTIME PRN #20 tab 09/21/21 oxycodone 5 mg tablet 5 mg PO Q6H PRN #20 tab 09/21/21 rosuvastatin 40 mg tablet 40 mg PO DAILY #90 tab 10/14/21 Allergies Allergy/AdvReac Type Severity Reaction Status Date / Time codeine [Codeine] Allergy Severe HIVES Verified 10/22/21 18:50 ITCHING, rash, hives gabapentin [From Neurontin] Allergy Severe SWELLING Verified 10/22/21 18:50 Penicillins Allergy Severe SWELLING Verified 10/22/21 18:50 Sulfa (Sulfonamide Allergy Severe XEROSTEMIA, Verified 10/22/21 18:50 Antibiotics) DIFF [SULFA (SULFONAMIDE SWALLOWIN, ANTIBIOTICS)] rash, rash pregabalin [From LYRICA] Allergy Intermediate SWELLING Verified 10/22/21 18:50 Review of Systems Review of Systems: Yes all other systems are reviewed and are negative Constitutional: Constitutional: Reports as per HPI and Reports no additional constitutional complaints Eyes: Eyes: Reports as per HPI and Reports no additional eye complaints ENT: Reports system reviewed and no additional complaints, except as documented and Reports as per HPI Cardiovascular: Cardiovascular: Reports as per HPI, Reports no additional cardiovascular complaints, Reports chest pain (left chest wall) and Denies dyspnea Respiratory: Respiratory: Reports as per HPI, Reports no additional respiratory complaints, Denies cough, Denies pain on inspiration, Denies pain with cough and Denies dyspnea Gastrointestinal: Gastrointestinal: Reports as per HPI and Reports no additional gastrointestinal complaints Genitourinary: Genitourinary: Reports no additional female genitourinary complaints and Reports as per HPI Musculoskeletal: Musculoskeletal: Reports no additional musculoskeletal complaints, Reports as per HPI and Reports back pain (lumbar) Neurologic: Reports system reviewed and no additional complaints, except as documented and Reports as per HPI Psychiatric: Psychiatric: Reports no additional psychiatric complaints and Reports as per HPI [facility] Past Medical History Medical History Anal pruritus Hyperlipidemia Lumbar spondylosis Obesity Obesity Post-menopausal Screening for breast cancer Screening for diabetes mellitus Vertigo Surgical History History of colonoscopy History of hysterectomy History of left knee surgery History of right knee surgery History of varicose veins Family History Family History Father Angina at rest Mother Hypothyroidism Hypertension Osteoarthritis Heart disease Panic disorder Glaucoma Brother Stroke Sister Alcoholic liver disease HIV (human immunodeficiency virus infection) Social History Social History Housing: House Alcohol intake: never Patient Tobacco Use Status: Former Tobacco user Tobacco use type: Cigarette e-Cigarette/Vaping Use: Never Used Second Hand Smoke Exposure: No Use of substances other than those prescribed or required for medical reasons: No Advance Directives: No service: No Current occupational status: retired 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 Exam 2 Vital Signs: Vital Signs: Last Vital Signs Temp 99.0 F 10/22/21 21:38 Pulse 83 10/22/21 21:38 Resp 14 10/22/21 21:38 BP 138/75 10/22/21 21:38 Pulse Ox 99 10/22/21 21:38 BMI result Body Mass Index 35.0 Const: General: cooperative, healthy appearing, comfortable, no acute distress, well developed, alert, awake and Physically active Orientation/consciousness: patient oriented x3 HENMT: Head: Yes normal to inspection, Yes No palpable skull fracture present, Yes normocephalic, Yes atraumatic and No abrasion Eyes: General: appearance normal, both eyes and all related structures Neck: Neck: Yes normal visual inspection, Yes full ROM, Yes no lym phadenopathy, Yes no meningeal signs, Yes trachea midline, Yes supple, No anterior neck swelling and No tender Chest: Chest/axillae images: 1. Positive for tenderness on palpation. Negative for any ecchymosis, crepitus. Negative for redness Resp: Effort & Inspection: normal respiratory effort and able to speak in complete sentences Auscultation: clear to auscultation bilaterally Cardio: Jugular venous distension: no JVD Heart sounds: S1 normal heart sound present and S2 normal heart sound present GI: Inspection: Yes normal to inspection and No abdominal wall ecchymosis Palpation (GI): Soft to palpation, not firm, nontender, no guarding and not rigid : General: No CVA tenderness and Yes no CVA tenderness Back/Spine/Pelvis: Back: no CVA tenderness, No CVA tenderness and back tende rness ( thoracic spine tenderness on palpation.) Skin: General skin exam: no rashes or lesions noted and elasticity normal Neuro: General: patient oriented x3, gait normal, no meningeal signs and CN's II-XI intact bilaterally Cranial nerves: Yes CN's II-XII intact bilaterally Extrem: Other: lower extremities negative for swelling, pitting edema, or calf tenderness General: Yes normal to inspection and Yes full ROM Psych: Appearance: grossly normal, well kempt and not disheveled Course Course Course Narrative: EKG and cardiac labs drawn. Chest x-ray ordered Reevaluation(s) Reevaluation #1: EKG troponin negative for heart attack after having back pain going down since 07:00 this morning. Chest x-ray negative for any pneumonia, thoracic spine fracture, or pneumothorax. Patient does have thoracic spondylosis. Due to elevated D-dimer and atypical presentation patient had a chest CT was negative For PE or aneurysm. History physical exam most likely due to fibromyalgia and thoracic arthritis. Patient will be discharged. Arun joey has oxycodone at home. not suspecting epidural abscess or cauda equina. Time: 23:32 MDM - Chest Pain MDM Narrative Medical decision making narrative: fibromyalgia. atypical chest pain. thoracic arthritis Lab Data Result diagrams: 10/22/21 19:21 10/22/21 19:21 Labs: Lab Results 10/22/21 10/22/21 10/22/21 Range/Units 19:21 19:21 19:21 WBC 9.6 (4.8-10.8) X10*3/uL RBC 4.50 (4.20-5.50) X10*6/uL Hgb 13.0 (12.0-16.0) g/dl Hct 39.8 (37.0-47.0) % MCV 88.4 (80.0-98.0) fL MCH 28.9 (27.0-33.0) pg MCHC 32.7 (31.0-35.0) g/dl RDW 12.9 (11.0-16.0) % Plt Count 275 (160-400) X10*3/uL MPV 10.5 (9.4-12.3) fL Immature Gran % (Auto) 0.3 (0.0-0.4) % Neut % (Auto) 63.2 (45-73) % Lymph % (Auto) 21.8 (20-40) % [place] % (Auto) 11.4 H (2-11) % Eos % (Auto) 2.9 (0-4) % Baso % (Auto) 0.4 (0-2) % Lymph # (Auto) 2.1 (1.2-4.9) X10*3/uL [place] # (Auto) 1.1 (0.1-1.2) X10*3/uL Eos # (Auto) 0.3 (0.0-0.4) X10*3/uL Baso # (Auto) 0.0 (0.0-0.2) X10*3/uL Abs Immat Gran (auto) 0.03 (0.00-0.03) X10*3/uL Absolute Neuts (auto) 6.1 (2.0-8.3) x10*3/uL Absolute Nucleated RBC 0.000 (0.0-0.012) X10*3/uL Nucleated RBC % (auto) 0.0 (0.0-0.2) /100WBC PT (9.9-13.0) SEC INR (0.9-1.1) APTT (24.1-38.0) SEC D-Dimer High Sensitivty NG/ML Sodium 142 (135-145) mmol/L Potassium 4.4 (3.3-5.1) mmol/L Chloride 105 (96-108) mmol/L Carbon Dioxide 30 H (22-29) mmol/L Anion Gap 11 L (12-20) BUN 16 (9-16) mg/dL Creatinine 0.83 (0.5-1.4) mg/dL Estim Creat Clear Calc 66.0 Estimated GFR > 60 Random Glucose 116 H (60-115) mg/dL Calcium 9.5 (8.4-10.2) mg/dL Total Bilirubin 0.5 (0.0-1.0) mg/dL AST 16 (5-31) U/L ALT 17 (0-31) U/L Alkaline Phosphatase 88 (39-117) U/L Troponin I High Sens < 3.5 (<3.5-17.0) ng/L B-Natriuretic Peptide (<100) pg/mL Total Protein 7.4 (6.5-8.0) g/dL Albumin 4.3 (3.5-5.0) g/dL COVID-19 (MAXIM) (Negative) COVID-19 Clin Com 10/22/21 10/22/21 10/22/21 Range/Units 19:21 19:21 19:22 WBC (4.8-10.8) X10*3/uL RBC (4.20-5.50) X10*6/uL Hgb (12.0-16.0) g/dl Hct (37.0-47.0) % MCV (80.0-98.0) fL MCH (27.0-33.0) pg MCHC (31.0-35.0) g/dl RDW (11.0-16.0) % Plt Count (160-400) X10*3/uL MPV (9.4-12.3) fL Immature Gran % (Auto) (0.0-0.4) % Neut % (Auto) (45-73) % Lymph % (Auto) (20-40) % [place] % (Auto) (2-11) % Eos % (Auto) (0-4) % Baso % (Auto) (0-2) % Lymph # (Auto) (1.2-4.9) X10*3/uL [place] # (Auto) (0.1-1.2) X10*3/uL Eos # (Auto) (0.0-0.4) X10*3/uL Baso # (Auto) (0.0-0.2) X10*3/uL Abs Immat Gran (auto) (0.00-0.03) X10*3/uL Absolute Neuts (auto) (2.0-8.3) x10*3/uL Absolute Nucleated RBC (0.0-0.012) X10*3/uL Nucleated RBC % (auto) (0.0-0.2) /100WBC PT 12.4 (9.9-13.0) SEC INR 1.1 (0.9-1.1) APTT 36.6 (24.1-38.0) SEC D-Dimer High Sensitivty 244 NG/ML Sodium (135-145) mmol/L Potassium (3.3-5.1) mmol/L Chloride (96-108) mmol/L Carbon Dioxide (22-29) mmol/L Anion Gap (12-20) BUN (9-16) mg/dL Creatinine (0.5-1.4) mg/dL Estim Creat Clear Calc Estimated GFR Random Glucose (60-115) mg/dL Calcium (8.4-10.2) mg/dL Total Bilirubin (0.0-1.0) mg/dL AST (5-31) U/L ALT (0-31) U/L Alkaline Phosphatase (39-117) U/L Troponin I High Sens (<3.5-17.0) ng/L B-Natriuretic Peptide 29 (<100) pg/mL Total Protein (6.5-8.0) g/dL Albumin (3.5-5.0) g/dL COVID-19 (MAXIM) Negative (Negative) COVID-19 Clin Com See Note ECG Data ECG #1: Interpretation: normal sinus rhythm. Ventricular rate 78. Pr interval 146. QRS 80 P QTC 430. Negative STEMI. Discharge Plan Discharge Clinical Impression: Fibromyalgia, Spondylosis of thoracic spine, Chest pain, atypical Patient Disposition: Home, Self-Care Instructions: Chest Pain (ED), Osteoarthritis (ED), Fibromyalgia (ED), Thoracic Pain (ED) Additional Instructions: your EKG, troponin, chest x-ray, chest CT, covid and BNP came back negative for heart attack, blood clot, pneumonia, fractures, or COVID. Continue taking pain meds at home as prescribed. Please follow-up with primary care provider. Return to ED for worsening back pain /chest pain, shortness of breath, paralysis of extremity, facial droop, headache, dizziness, nausea, vomiting, or any other concerning symptoms. Prescriptions: No Action propranolol 120 mg capsule,extended release 24 hr 120 mg PO DAILY Qty: 90 RF: 4 pantoprazole 40 mg tablet,delayed release (DR/EC) 40 mg PO BID Qty: 180 RF: 1 tizanidine 4 mg tablet 4 mg PO BEDTIME Qty: 90 RF: 1 rosuvastatin 40 mg tablet 40 mg PO DAILY Qty: 90 RF: 8 ondansetron HCl [Zofran] 4 mg tablet 4 mg PO Q8H 3 Days Qty: 9 RF: 0 albuterol sulfate 90 mcg/actuation HFA aerosol inhaler 2 puff inhalation QID Qty: 8.5 RF: 0 oxycodone 5 mg tablet 5 mg PO Q6H PRN (Reason: pain) Qty: 20 RF: 0 lorazepam [Ativan] 1 mg tablet 1 mg PO BEDTIME PRN (Reason: sleep) Qty: 20 RF: 0 azithromycin 250 mg tablet See Rx Instructions PO .COMPLEX Qty: 6 RF: 0 albuterol sulfate 90 mcg/actuation HFA aerosol inhaler inhalation RF: 0 fluticasone propionate 50 mcg/actuation spray,suspension intranasal RF: 0 triamcinolone acetonide 0.1 % cream topical RF: 0 tramadol 50 mg tablet PO RF: 0 latanoprost 0.005 % drops 1 drp ophthalmic (eye) BEDTIME RF: 0 Amitiza 24 mcg capsule 24 mcg PO BID RF: 0 ranitidine HCl 150 mg tablet 150 mg PO BID PRN (Reason: heartburn) RF: 0 naproxen 500 mg tablet 500 mg PO Q12H PRNRF: 0 sennosides 8.6 mg tablet 17.2 mg PO BEDTIME PRNRF: 0 hydroxyzine HCl 25 mg tablet 25 mg PO TID PRN (Reason: itching) Qty: 30 RF: 0 loratadine 10 mg tablet 10 mg PO DAILY Qty: 90 RF: 8 acetaminophen [Tylenol Arthritis Pain] 650 mg tablet extended release 650 mg PO Q8H Qty: 90 RF: 3 Interventions: ED Discharge Assessment Last Done: 10/22/21 23:47 Discharge Date/Time: 10/22/21 23:48 Print Language: Somali
[2021-10-22 19:29] LABS: Basophils Percent Auto 0.4 % (0-2); Eosinophils Absolute Auto 0.3 X10*3/uL (0.0-0.4); Eosinophils Percent Auto 2.9 % (0-4); Hematocrit 39.8 % (37.0-47.0); Imm Gran Abs Auto 0.03 X10*3/uL (0.00-0.03); Imm Gran Pct Auto 0.3 % (0.0-0.4); Lymphocytes Absolute Auto 2.1 X10*3/uL (1.2-4.9); Lymphocytes Percent Auto 21.8 % (20-40); Mean Corpuscular HGB Conc 32.7 g/dl (31.0-35.0); Mean Corpuscular Hemoglobin 28.9 pg (27.0-33.0); Mean Corpuscular Volume 88.4 fL (80.0-98.0); Mean Platelet Volume 10.5 fL (9.4-12.3); Monocytes Absolute Auto 1.1 X10*3/uL (0.1-1.2); Monocytes Percent Auto 11.4 % (2-11); Neutrophils Absolute Auto 6.1 x10*3/uL (2.0-8.3); Neutrophils Percent Auto 63.2 % (45-73); Platelet Count 275 X10*3/uL (160-400); Red Cell Distribution Width 12.9 % (11.0-16.0); White Blood Count 9.6 X10*3/uL (4.8-10.8)
[2021-10-22 19:35] VITALS: BP 138/66; PULSE 77; RESP 19; TEMP 37.1; O2SAT 100
[2021-10-22 19:35] LABS: INTERNATIONAL NORM RATIO 1.1 (0.9-1.1); Prothrombin Time 12.4 SEC (9.9-13.0)
[2021-10-22 19:38] LABS: Partial Thromboplastin Time 36.6 SEC (24.1-38.0)
[2021-10-22] MEDS: Morphine Sulfate 2 MG/ML CARTRIDGE IVPUSH (19:39)
--- NOTE | 2021-10-22 19:40 | PC.NURSE ---
patient medicated for pain per order
[2021-10-22 19:47] LABS: Alanine Aminotransferase 17 U/L (0-31); Albumin Level 4.3 g/dL (3.5-5.0); Alkaline Phosphatase 88 U/L (39-117); Anion Gap 11 (12-20); Aspartate Amino Transferase 16 U/L (5-31); Bilirubin Total 0.5 mg/dL (0.0-1.0); Blood Urea Nitrogen 16 mg/dL (9-16); Calcium 9.5 mg/dL (8.4-10.2); Carbon Dioxide 30 mmol/L (22-29); Chloride 105 mmol/L (96-108); Estimated Glomerular Filt Rate > 60; Glucose Random 116 mg/dL (60-115); Potassium 4.4 mmol/L (3.3-5.1); Sodium 142 mmol/L (135-145); Total Protein 7.4 g/dL (6.5-8.0)
[2021-10-22 19:49] LABS: COVID-19 Test Negative (Negative)
[2021-10-22 19:51] LABS: B Type Natriuretic Peptide 29 pg/mL (<100)
[2021-10-22 19:51] LABS: Troponin-I High Sensitivity < 3.5 ng/L (<3.5-17.0)
[2021-10-22 20:13] LABS: D Dimer High Sensitivity 244 NG/ML
--- NOTE | 2021-10-22 20:15 | PC.NURSE ---
patient to ct scan
[2021-10-22] MEDS: iohexoL 350 MG/ML 100 ML INFUS..BTL IV (21:20)
[2021-10-22 21:38] VITALS: BP 138/75; PULSE 83; RESP 14; TEMP 37.2; O2SAT 99
[2021-10-22] MEDS: Ketorolac Tromethamine 30 MG/ML VIAL IVPUSH (22:36)
--- NOTE | 2021-10-22 22:37 | PC.NURSE ---
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
== END 2021-10-22 23:48 | disposition home or self-care (01) ==
PROVIDERS: Physician Assistant; Emergency Provider Emergency Medicine Emergency Medical Services; PCP Internal Medicine
DX: R07.89 Other chest pain (principal); M79.7 Fibromyalgia; M47.814 Spondylosis without myelopathy or radiculopathy, thoracic region; Z20.822 Contact with and (suspected) exposure to COVID-19; E78.5 Hyperlipidemia, unspecified; Z79.02 Long term (current) use of antithrombotics/antiplatelets; Z79.899 Other long term (current) drug therapy
CPT/HCPCS: 36415; 71046; 71275; 80053; 83880; 84484; 85025; 85379; 85610; 85730; 87635; 93005; 96374; 96375; 99284; 99285; J1885; J2270; Q9967

== ENCOUNTER → 2021-11-28 08:53 | Outpatient (BNVA) | payer MEDICARE, MEDICAID, SELFPAY | PROVIDERS: PCP Internal Medicine; Visit Provider Nurse Practitioner Family | DX: M47.816 Spondylosis without myelopathy or radiculopathy, lumbar region (principal) | CPT/HCPCS: 99212 ==

== ENCOUNTER 2021-12-11 10:00 | Outpatient (RCR) | payer MEDICARE, MEDICAID, SELFPAY | END 2022-01-14 14:15 | disposition home or self-care (01) | LOC: HO.PT 10:00 | PROVIDERS: PCP Nurse Practitioner Family; Visit Provider Nurse Practitioner Family | DX: M54.2 Cervicalgia (principal) | CPT/HCPCS: 97110; 97112; 97140; 97162; 97530 ==

== ENCOUNTER → 2022-01-06 09:28 | Outpatient (BNVA) | payer MEDICARE, MEDICAID, SELFPAY | PROVIDERS: PCP Internal Medicine; Visit Provider Anesthesiology | DX: M54.2 Cervicalgia (principal); M54.9 Dorsalgia, unspecified; M47.812 Spondylosis without myelopathy or radiculopathy, cervical region; M15.9 Polyosteoarthritis, unspecified; M79.7 Fibromyalgia; G89.4 Chronic pain syndrome; Z87.891 Personal history of nicotine dependence; Z88.6 Allergy status to analgesic agent; Z88.0 Allergy status to penicillin; Z88.2 Allergy status to sulfonamides | CPT/HCPCS: 99202 ==

== ENCOUNTER → 2022-01-24 10:42 | Outpatient (BNVA) | payer MEDICARE, MEDICAID, SELFPAY | PROVIDERS: PCP Internal Medicine | DX: N81.10 Cystocele, unspecified (principal) | CPT/HCPCS: 51798; 99212 ==

== ENCOUNTER 2022-02-07 09:28 | Day surgery (SDC) | payer MEDICARE, MEDICAID, SELFPAY ==
[2022-02-04 08:53] VITALS: BMI 33.3
--- NOTE | ~2022-02-07 | FL_ITS ---
EXAMINATION: XR FLUOROSCOPY WITH IMAGES CLINICAL INFORMATION: Medial branch block. COMPARISON: None TECHNIQUE: Fluoroscopy performed by Dr. Alejandro Guerrero. Fluoroscopy time: 1.0 minutes DAP: 1.61 mGy-cm2 Images: 6 FINDINGS: There are at least 6 images revealing needle positioned bilaterally along three posterior facet joints bilaterally with contrast opacifying the adjacent soft tissues. FL/FL guidance in OR IMPRESSION: Fluoroscopy guidance was provided to referring physician for pain management.
[2022-02-07 09:42] VITALS: BP 114/53; PULSE 69; RESP 16; TEMP 36.5; O2SAT 97
--- NOTE | 2022-02-07 10:11 | HO.ANESPROP2 ---
[facility] Active Problems Active Problems: All Active Problems (Updated 01/24/22 @ 12:17 by GAGE Koehler) Cystocele with prolapse (Acute) Fibromyalgia (Acute) Generalized osteoarthritis (Acute) Chronic pain syndrome (Acute) Spondylosis of cervical spine (Acute) Costochondritis (Acute) Cervicalgia (Acute) Neck pain (Acute) Obesity (Acute) Cough (Acute) Cystocele (Acute) Well woman exam (Acute) Cervical cancer screening (Acute) Adult general medical exam (Acute) Post-menopausal (Acute) Screening for breast cancer (Acute) Screening for diabetes mellitus (Acute) Back pain (Acute) Obesity (Acute) Hyperlipidemia (Acute) Knee pain (Acute) Difficulty urinating (Acute) Cystocele (Acute) Primary osteoarthritis, left shoulder (Acute) Lumbar spondylosis (Acute) Past Medical History Medical History Anal pruritus Chronic pain syndrome Cystocele with prolapse Fibromyalgia Generalized osteoarthritis Hyperlipidemia Lumbar spondylosis Obesity Obesity Post-menopausal Screening for breast cancer Screening for diabetes mellitus Spondylosis of cervical spine Vertigo Family History Family History Father Angina at rest Mother Hypothyroidism Hypertension Osteoarthritis Heart disease Panic disorder Glaucoma Brother Stroke Sister Alcoholic liver disease HIV (human immunodeficiency virus infection) Surgical History Surgical History History of colonoscopy History of hysterectomy History of left knee surgery History of right knee surgery History of varicose veins History of Problems with Anesthesia: No Social History Social History Housing: House Alcohol intake: never Patient Tobacco Use Status: Former Tobacco user Tobacco use type: Cigarette e-Cigarette/Vaping Use: Never Used Second Hand Smoke Exposure: No Use of substances other than those prescribed or required for medical reasons: No Are you DNR?: No Advance Directives: No Advance Directives Information Provided: Yes Advance Directives on File: No service: No Current occupational status: retired Current occupation: Right Handed Cognitive needs: Yes (walk/cane) Hearing needs: No Vision needs: Yes (Glasses) Meds Allergies Allergy/AdvReac Type Severity Reaction Status Date / Time codeine [Codeine] Allergy Severe HIVES Verified 01/24/22 10:44 ITCHING, rash, hives gabapentin [From Neurontin] Allergy Severe SWELLING Verified 01/24/22 10:44 Penicillins Allergy Severe SWELLING Verified 01/24/22 10:44 Sulfa (Sulfonamide Allergy Severe XEROSTEMIA, Verified 01/24/22 10:44 Antibiotics) DIFF [SULFA (SULFONAMIDE SWALLOWIN, ANTIBIOTICS)] rash, rash pregabalin [From LYRICA] Allergy Intermediate SWELLING Verified 01/24/22 10:44 Home Medications Medication Instructions Recorded Confirmed Last Taken Type fluticasone propionate 50 INTRANASAL 07/27/20 11/28/21 Unknown History mcg/actuation nasal spray,suspension latanoprost 0.005 % eye drops 1 drp OPHTHALMIC (EYE) BEDTIME 07/27/20 11/28/21 Unknown History lubiprostone 24 mcg capsule 24 mcg PO BID 07/27/20 11/28/21 Unknown History sennosides 8.6 mg tablet 17.2 mg PO BEDTIME PRN 07/27/20 11/28/21 Unknown History tramadol 50 mg tablet mg PO 07/27/20 11/28/21 Unknown History triamcinolone acetonide 0.1 % applic TOPICAL 07/27/20 11/28/21 Unknown History topical cream diclofenac sodium 75 mg 75 mg PO BID 01/24/22 Unknown History tablet,delayed release tizanidine 4 mg tablet 4 mg PO BEDTIME 01/24/22 Unknown History Exam Exam Date and Time: February 07, 2022 1011 Height,Weight and Vital Signs: Height 5 ft 3 in Weight 85.275 kg Last Vital Signs Temp 97.7 F 02/07/22 09:42 Pulse 69 02/07/22 09:42 Resp 16 02/07/22 09:42 BP 114/53 L 02/07/22 09:42 Pulse Ox 97 02/07/22 09:42 Airway Mallampati Class: II TM Dist: >3cm Neck ROM: Full Loose/Missing/Broken Teeth: No Heart: RRR Lungs: CTA Assessment and Plan Assessment Anesthesia Assessment: Anesthesia Plan Discussed and Chart Reviewed Final Anesthetic Review History of Problems with Anesthesia: No NPO: Yes ASA Class: II Final Preanesthetic Review: Meds/Allgs Chart Reviewed, Consent Obtained/Reviewed and Anes Risks/Benef Reviewed Patient Risk: Low Procedure Risk: Low Anesthetic Plan Anesthetic Plan: MAC:
--- NOTE | 2022-02-07 10:27 | MHC.SHP ---
Pre-Procedural Eval Section A Date of Service: 02/07/22 The patient is an INPATIENT: No Changes since office visit: Yes Patient answered all questions The History & Physical has been completed within 30 days and I have reviewed it.: No Section B Chief Complaint: Spondylosis without myelopathy or radiculopathy, Details of Present Illness: spondylosis cervical spine without myelo or radiculopathy. Relevant Family History (Specify if Yes): No Relevant Social History: None Present Medications: None Medical History: No relevant PMH History of Previous Operations: No relevant previous surgery Allergies: Allergies Allergy/AdvReac Type Severity Reaction Status Date / Time codeine [Codeine] Allergy Severe HIVES Verified 01/24/22 10:44 ITCHING, rash, hives gabapentin [From Neurontin] Allergy Severe SWELLING Verified 01/24/22 10:44 Penicillins Allergy Severe SWELLING Verified 01/24/22 10:44 Sulfa (Sulfonamide Allergy Severe XEROSTEMIA, Verified 01/24/22 10:44 Antibiotics) DIFF [SULFA (SULFONAMIDE SWALLOWIN, ANTIBIOTICS)] rash, rash pregabalin [From LYRICA] Allergy Intermediate SWELLING Verified 01/24/22 10:44 Review of Systems Sugical H&P ROS: Negative: Constitution, Cardiovascular, Respiratory, Neurological, Psychiatric, Hem-Onc, Allergic/Immunologic, Gastrointestinal, Genitourinary, Musculoskeletal, Integumentary, Endocrine and Eyes/Ears/Nose/Throat Exam Surgical H&P Exam: Normal: HEENT, Normal: Heart, Normal: Lungs, Normal: Extremities, Normal: Abdomen, Normal: Skin and Normal: Neurological Plan Diagnosis/Plan: Unchanged I have reviewed the history and physical and performed a pertinent physical examination on my patient. No changes have occurred unless specified.
--- NOTE | 2022-02-07 10:31 | W.PM.OPN ---
Operative Note Operative Note Date of Service: 02/07/22 Narrative: Cervical MBB therapeutic bilateral C4- C5- C6. Informed consent was explained to the patient. All questions were explained and answered.? The patient was taken inside the operating room where he was positioned prone on the operating table.? The patient was taken inside of the operating room where he was positioned prone on the operating table.? Time-out was performed delineating correct site, side, the nature of the procedure, patient's allergy, preoperative antibiotic if needed.? All operating room staff and the patient were participating in OR time-out procedure. The back of the neck and upper thorax were prepped with ChloraPrep and draped with sterile towels.? Sterilely draped C-arm was brought over the operating field and sq picture of? C4- C5- C6- vertebrae were delineated on the screen.? Points of interest were delineated as lateral masses on the RIGHT of the vertebrae as above. The waste of each lateral mass was chosen as the target of the tip of the needles on AP view and center of paralelloid delineating the lateral mass on the lateral view was chosen as control of each needle position.?? The projections of the point of interest to the skin were injected with the small amount of local anesthetic lidocaine 2% 1-1.5 cc.? After that 20 gauge 3and 1/2 inch? spinal needles were driven to the point of interest in tunnel vision fashion. After needles gently contacted the bone at the point of interests the needle was injected with small amount contrast, demonstrating no intravascular and no intrathecal injection. After that (1 ml )of ropivacaine 0.5% mixed with kenalog was injected into each needle position..? Upon completion of the injections the needles were removed . After that the procedure was repeated on the left side in the mirroring fashion. one intravascular spread was observed at the left C4 position and the needle was moved and contrast injection was repeated with no intravascular spread. total dose of kenalog was 80 mg. At the end of the procedure the needles were removed and bandaids were applied. the patient was awaken and taken? outside of the operating room to recovery room where she recovered uneventfully.? She went home without immediate complications.
[2022-02-07 11:10] VITALS: BP 117/68; PULSE 62; RESP 16; TEMP 36.6; O2SAT 97
--- NOTE | 2022-02-07 11:20 | P.BOP_ITS ---
Brief Operative Note Date of Service: 02/07/22 Pre-op diagnosis: spondylosis cervical spine Post-op diagnosis: same Procedure: C4- C5- C6 MBB therapeutic Implants: none Surgeon: Alejandro Guerrero MD Was an Clinical Nutrition Manager used for this Procedure?: No Estimated blood loss (mL): 3 Pathology: none sent Condition: stable Disposition: PACU
[2022-02-07 11:25] VITALS: BP 90/47; PULSE 66; RESP 16; O2SAT 97
[2022-02-07 11:40] VITALS: BP 109/40; PULSE 70; RESP 16; O2SAT 97
[2022-02-07 11:55] VITALS: BP 109/59; PULSE 62; RESP 16; TEMP 36.4; O2SAT 99
[2022-02-07] MEDS: Acetaminophen 325 MG TABLET 650 MG PO (12:00)
== END 2022-02-07 12:41 | disposition home or self-care (01) ==
PROVIDERS: PCP Internal Medicine; Visit Provider Anesthesiology
PROC: (CPT 64490; principal; 2022-02-07 11:00)
DX: M47.812 Spondylosis without myelopathy or radiculopathy, cervical region (principal); G89.4 Chronic pain syndrome; M15.9 Polyosteoarthritis, unspecified; M47.816 Spondylosis without myelopathy or radiculopathy, lumbar region; M79.7 Fibromyalgia; E78.5 Hyperlipidemia, unspecified; J45.909 Unspecified asthma, uncomplicated; E66.9 Obesity, unspecified; Z68.33 Body mass index [BMI] 33.0-33.9, adult; Z79.82 Long term (current) use of aspirin; Z79.899 Other long term (current) drug therapy; Z96.653 Presence of artificial knee joint, bilateral; Z88.0 Allergy status to penicillin; Z88.2 Allergy status to sulfonamides; Z88.8 Allergy status to other drugs, medicaments and biological substances; Z87.891 Personal history of nicotine dependence
CPT/HCPCS: 64490; 64491; J2250; J2405; J2795; J3010; J3300; Q9967

== ENCOUNTER 2022-02-16 18:33 | Emergency (ER) | payer MEDICARE, MEDICAID, SELFPAY ==
--- NOTE | 2022-02-16 | ECG_ITS ---
Test Reason : chest pain Blood Pressure : / mmHG Vent. Rate : 079 BPM Atrial Rate : 079 BPM P-R Int : 138 ms QRS Dur : 080 ms QT Int : 374 ms P-R-T Axes : 049 -05 027 degrees QTc Int : 428 ms Normal sinus rhythm Normal ECG When compared with ECG of 22-OCT-2021 18:04, No significant change was found Referred By: Generic ED Physician Electronically Signed By:Prabhu Potts
--- NOTE | ~2022-02-16 | XR_ITS ---
EXAMINATION: XR CHEST CLINICAL INFORMATION: Chest pain. COMPARISON: Most recent CTA chest dated 10/22/2021. TECHNIQUE: Frontal view of the chest was obtained. FINDINGS: The lungs are clear. The cardiomediastinal silhouette is normal in size. There is no pleural effusion or pneumothorax. No acute osseous abnormality. XR/XR chest 1V IMPRESSION: No acute cardiopulmonary findings.
[2022-02-16 18:46] VITALS: BP 137/76; PULSE 80; RESP 20; TEMP 36.4; O2SAT 97; BMI 32.4
[2022-02-16] MEDS: Ondansetron ODT 4 MG TAB.RAPDIS TRANSLINGU (19:08)
[2022-02-16 19:14] LABS: MANUAL DIFF FLAG NO
[2022-02-16 19:15] LABS: Basophils Percent Auto 0.2 % (0-2); Eosinophils Percent Auto 0.2 % (0-4); Hematocrit 42.8 % (37.0-47.0); Hemoglobin 14.1 g/dl (12.0-16.0); Imm Gran Abs Auto 0.06 X10*3/uL (0.00-0.03); Imm Gran Pct Auto 0.5 % (0.0-0.4); Lymphocytes Absolute Auto 2.8 X10*3/uL (1.2-4.9); Lymphocytes Percent Auto 22.9 % (20-40); Mean Corpuscular HGB Conc 32.9 g/dl (31.0-35.0); Mean Corpuscular Hemoglobin 28.1 pg (27.0-33.0); Mean Corpuscular Volume 85.4 fL (80.0-98.0); Mean Platelet Volume 10.4 fL (9.4-12.3); Monocytes Percent Auto 8.1 % (2-11); Neutrophils Absolute Auto 8.4 x10*3/uL (2.0-8.3); Neutrophils Percent Auto 68.1 % (45-73); Platelet Count 305 X10*3/uL (160-400); Red Blood Count 5.01 X10*6/uL (4.20-5.50); Red Cell Distribution Width 13.2 % (11.0-16.0); White Blood Count 12.3 X10*3/uL (4.8-10.8)
[2022-02-16 19:32] LABS: Anion Gap 16 (12-20); Blood Urea Nitrogen 28 mg/dL (9-16); Calcium 9.4 mg/dL (8.4-10.2); Carbon Dioxide 20 mmol/L (22-29); Chloride 108 mmol/L (96-108); Creatinine Clr Calc Pharmacy 48.9; Estimated Glomerular Filt Rate 51; Glucose Random 129 mg/dL (60-115); Sodium 140 mmol/L (135-145)
[2022-02-16 19:37] LABS: Troponin-I High Sensitivity < 3.5 ng/L (<3.5-17.0)
[2022-02-16 23:28] VITALS: PULSE 68
[2022-02-16 23:32] VITALS: BP 125/68; PULSE 64; RESP 16; TEMP 36.7; O2SAT 100
--- NOTE | 2022-02-17 00:06 | ED.CHESTPAIN ---
HPI - Chest Pain General Chief Complaint: Chest Pain Stated Complaint: Chest Pain Vertigo Nausea Time Seen by Provider: 02/17/22 00:04 Source: patient Limitations: no limitations History of Present Illness HPI narrative: This is a 69-year-old female with a history of chronic pain syndrome, costochondritis, fibromyalgia, obesity, hyperlipidemia, who a few days ago had choked on her food, then felt some chest discomfort. Today the patient felt slight pain in her chest and felt a sharp pain after she walked up stairs. Patient decided to come in and get checked. She still has mild chest pain now. She endorses mild shortness of breath, nausea, denies sweats. She states the pain comes and goes, is mild Related Data Home Medications Medication Instructions Recorded Confirmed fluticasone propionate 50 INTRANASAL 07/27/20 02/14/22 mcg/actuation nasal spray,suspension latanoprost 0.005 % eye drops 1 drp OPHTHALMIC (EYE) BEDTIME 07/27/20 02/14/22 lubiprostone 24 mcg capsule 24 mcg PO BID 07/27/20 02/14/22 sennosides 8.6 mg tablet 17.2 mg PO BEDTIME PRN 07/27/20 02/14/22 tramadol 50 mg tablet mg PO 07/27/20 02/14/22 triamcinolone acetonide 0.1 % applic TOPICAL 07/27/20 02/14/22 topical cream diclofenac sodium 75 mg 75 mg PO BID 01/24/22 02/14/22 tablet,delayed release tizanidine 4 mg tablet 4 mg PO BEDTIME 01/24/22 02/14/22 Previous Rx's Medication Instructions Recorded hydroxyzine HCl 25 mg tablet 25 mg PO TID PRN #30 tab 07/27/20 acetaminophen 650 mg 650 mg PO Q8H #90 tab 08/10/20 tablet,extended release (Tylenol Arthritis Pain) propranolol 120 mg capsule,24 120 mg PO DAILY #90 cap 05/25/21 hr,extended release albuterol sulfate 90 mcg/actuation 2 puff INHALATION QID #8.5 g 06/12/21 aerosol inhaler ondansetron HCl 4 mg tablet 4 mg PO Q8H 3 Days #9 tab 06/12/21 (Zofran) rosuvastatin 40 mg tablet 40 mg PO DAILY #90 tab 10/14/21 cyclobenzaprine 5 mg tablet 5 - 10 mg PO BEDTIME #20 tab 10/25/21 diclofenac sodium 1 % topical gel 2 g TOPICAL QID #100 g 10/25/21 (Voltaren Arthritis Pain) nabumetone 500 mg tablet 500 mg PO BID #20 tab 11/15/21 pantoprazole 40 mg tablet,delayed 40 mg PO BID #180 tab 12/16/21 release loratadine 10 mg tablet 10 mg PO DAILY #90 tab 02/13/22 meclizine 25 mg tablet 25 mg PO QID #60 tab 02/14/22 Allergies Allergy/AdvReac Type Severity Reaction Status Date / Time codeine [Codeine] Allergy Severe HIVES Verified 02/14/22 14:16 ITCHING, rash, hives gabapentin [From Neurontin] Allergy Severe SWELLING Verified 02/14/22 14:16 Penicillins Allergy Severe SWELLING Verified 02/14/22 14:16 Sulfa (Sulfonamide Allergy Severe XEROSTEMIA, Verified 02/14/22 14:16 Antibiotics) DIFF [SULFA (SULFONAMIDE SWALLOWIN, ANTIBIOTICS)] rash, rash pregabalin [From LYRICA] Allergy Intermediate SWELLING Verified 02/14/22 14:16 Review of Systems Constitutional: Constitutional: Reports as per HPI Eyes: Eyes: Reports no additional eye complaints ENT: Reports system reviewed and no additional complaints, except as documented and Reports neck pain Cardiovascular: Cardiovascular: Reports as per HPI Respiratory: Respiratory: Reports as per HPI Gastrointestinal: Gastrointestinal: Reports no additional gastrointestinal complaints and Reports nausea Musculoskeletal: Musculoskeletal: Reports back pain and Reports neck pain Neurologic: Reports system reviewed and no additional complaints, except as documented PMF Past Medical History Medical History Anal pruritus Chronic pain syndrome Cystocele with prolapse Fibromyalgia Generalized osteoarthritis Hyperlipidemia Lumbar spondylosis Obesity Obesity Post-menopausal Screening for breast cancer Screening for diabetes mellitus Spondylosis of cervical spine Vertigo Surgical History History of colonoscopy History of hysterectomy History of left knee surgery History of right knee surgery History of varicose veins Family History Family History Father Angina at rest Mother Hypothyroidism Hypertension Osteoarthritis Heart disease Panic disorder Glaucoma Brother Stroke Sister Alcoholic liver disease HIV (human immunodeficiency virus infection) Social History Social History Housing: House Alcohol intake: never Patient Tobacco Use Status: Former Tobacco user Tobacco use type: Cigarette e-Cigarette/Vaping Use: Never Used Second Hand Smoke Exposure: No Advance Directives: No service: No Current occupational status: retired Current occupation: Right Handed Cognitive needs: Yes (walk/cane) Hearing needs: No Vision needs: Yes (Glasses) Physical Exam Vital Signs: Vital Signs: Last Vital Signs Temp 98.1 F 02/16/22 23:32 Pulse 64 02/16/22 23:32 Resp 16 02/16/22 23:32 BP 125/68 02/16/22 23:32 Pulse Ox 100 02/16/22 23:32 BMI result Body Mass Index 32.4 Const: General: cooperative Orientation/consciousness: patient oriented x3 HEENT: Head: Yes normal to inspection Mouth: Normal oral and palatal mucosa present Eyes: General: appearance normal, both eyes and all related structures Chest: Other: Tender to palpation mid sternum Resp: Effort & Inspection: normal respiratory effort Auscultation: clear to auscultation bilaterally Cardio: Rate: regular rate Heart sounds: S1 normal heart sound present, S2 normal heart sound present, no gallops, no murmurs and no rubs GI: Palpation (GI): Soft to palpation and nontender Skin: Other: Warm and dry Neuro: General: patient oriented x3 Extrem: Other: No peripheral edema MDM - Chest Pain MDM Narrative Medical decision making narrative: Patient with mild sharp chest pain, in the setting of having recently choked on her food. EKG normal, troponin negative. Patient does have a few risk factors for coronary disease however given her overall clinical picture, heart score of 3, believe she is safe for outpatient follow-up Medical Records Data Attestation: I reviewed the patient's medical records. Lab Data Attestation: I reviewed the patient's lab results. Result diagrams: 02/16/22 19:11 02/16/22 19:11 Labs: Lab Results 02/16/22 02/16/22 02/16/22 Range/Units 19:11 19:11 19:11 WBC 12.3 H (4.8-10.8) X10*3/uL RBC 5.01 (4.20-5.50) X10*6/uL Hgb 14.1 (12.0-16.0) g/dl Hct 42.8 (37.0-47.0) % MCV 85.4 (80.0-98.0) fL MCH 28.1 (27.0-33.0) pg MCHC 32.9 (31.0-35.0) g/dl RDW 13.2 (11.0-16.0) % Plt Count 305 (160-400) X10*3/uL MPV 10.4 (9.4-12.3) fL Immature Gran % (Auto) 0.5 H (0.0-0.4) % Neut % (Auto) 68.1 (45-73) % Lymph % (Auto) 22.9 (20-40) % [place] % (Auto) 8.1 (2-11) % Eos % (Auto) 0.2 (0-4) % Baso % (Auto) 0.2 (0-2) % Lymph # (Auto) 2.8 (1.2-4.9) X10*3/uL [place] # (Auto) 1.0 (0.1-1.2) X10*3/uL Eos # (Auto) 0.0 (0.0-0.4) X10*3/uL Baso # (Auto) 0.0 (0.0-0.2) X10*3/uL Abs Immat Gran (auto) 0.06 H (0.00-0.03) X10*3/uL Absolute Neuts (auto) 8.4 H (2.0-8.3) x10*3/uL Absolute Nucleated RBC 0.000 (0.0-0.012) X10*3/uL Nucleated RBC % (auto) 0.0 (0.0-0.2) /100WBC Sodium 140 (135-145) mmol/L Potassium 4.0 (3.3-5.1) mmol/L Chloride 108 (96-108) mmol/L Carbon Dioxide 20 L (22-29) mmol/L Anion Gap 16 (12-20) BUN 28 H D (9-16) mg/dL Creatinine 1.06 (0.5-1.4) mg/dL Estim Creat Clear Calc 48.9 Estimated GFR 51 Random Glucose 129 H (60-115) mg/dL Calcium 9.4 (8.4-10.2) mg/dL Troponin I High Sens < 3.5 (<3.5-17.0) ng/L Imaging Data Chest x-ray: Radiologist's impression: No acute pathology ECG Data ECG #1: Attestation: I personally reviewed and interpreted this ECG as follows: ECG interpretation date: 02/17/22 ECG interpretation time: 00:13 Interpretation: Sinus rhythm with a rate 79. No ST elevation or depression. Normal QRS axis. Normal EKG. Unchanged from October 22 2019 to Scores Heart Score History: -0- slightly suspicious ECG: -0- normal Age: -2- > or = 65 Risk factory: -1- 1 or 2 risk factors Troponin: -0- < or = normal limit Score: 3 Risk: 1.7% Discharge Plan Discharge Clinical Impression: Nonspecific chest pain Patient Disposition: Home, Self-Care Instructions: Chest Pain (ED) Additional Instructions: Follow-up with her primary care physician. Continue current medications. Return for any new or worsened symptoms. Prescriptions: No Action propranolol 120 mg capsule,extended release 24 hr 120 mg PO DAILY Qty: 90 4RF rosuvastatin 40 mg tablet 40 mg PO DAILY Qty: 90 8RF nabumetone 500 mg tablet 500 mg PO BID Qty: 20 0RF pantoprazole 40 mg tablet,delayed release (DR/EC) 40 mg PO BID Qty: 180 1RF loratadine 10 mg tablet 10 mg PO DAILY Qty: 90 8RF ondansetron HCl [Zofran] 4 mg tablet 4 mg PO Q8H 3 Days Qty: 9 0RF albuterol sulfate 90 mcg/actuation HFA aerosol inhaler 2 puff inhalation QID Qty: 8.5 0RF fluticasone propionate 50 mcg/actuation spray,suspension intranasal 0RF triamcinolone acetonide 0.1 % cream topical 0RF tramadol 50 mg tablet PO 0RF latanoprost 0.005 % drops 1 drp ophthalmic (eye) BEDTIME 0RF Amitiza 24 mcg capsule 24 mcg PO BID 0RF sennosides 8.6 mg tablet 17.2 mg PO BEDTIME PRN0RF hydroxyzine HCl 25 mg tablet 25 mg PO TID PRN (Reason: itching) Qty: 30 0RF meclizine 25 mg tablet 25 mg PO QID Qty: 60 2RF cyclobenzaprine 5 mg tablet 5 - 10 mg PO BEDTIME Qty: 20 0RF diclofenac sodium [Voltaren Arthritis Pain] 1 % gel 2 g topical QID Qty: 100 0RF acetaminophen [Tylenol Arthritis Pain] 650 mg tablet extended release 650 mg PO Q8H Qty: 90 3RF diclofenac sodium 75 mg tablet,delayed release (DR/EC) 75 mg PO BID 0RF tizanidine 4 mg tablet 4 mg PO BEDTIME 0RF
== END 2022-02-17 00:48 | disposition home or self-care (01) ==
PROVIDERS: Emergency Provider Emergency Medicine; PCP Internal Medicine
DX: R07.89 Other chest pain (principal); Z87.891 Personal history of nicotine dependence
CPT/HCPCS: 36415; 71045; 80048; 84484; 85025; 93005; 99283; 99284

== ENCOUNTER → 2022-04-24 10:12 | Outpatient (BNVA) | payer MEDICARE, MEDICAID, SELFPAY | PROVIDERS: PCP Internal Medicine | DX: N81.4 Uterovaginal prolapse, unspecified (principal) | CPT/HCPCS: Q3014 ==

== ENCOUNTER → 2022-06-02 10:01 | Outpatient (BNVA) | payer MEDICARE, MEDICAID, SELFPAY | PROVIDERS: PCP Internal Medicine; Visit Provider Nurse Practitioner Family | DX: M19.012 Primary osteoarthritis, left shoulder (principal); M47.816 Spondylosis without myelopathy or radiculopathy, lumbar region; M25.562 Pain in left knee; M79.7 Fibromyalgia | CPT/HCPCS: 99212 ==

== ENCOUNTER 2022-06-05 10:35 | Outpatient (REF) | payer MEDICARE, MEDICAID, SELFPAY ==
--- NOTE | ~2022-06-05 | XR_ITS ---
EXAMINATION: XR SHOULDER, LEFT CLINICAL INFORMATION: Arthritis COMPARISON: Previous x-ray January 2020 TECHNIQUE: 3 views of the left shoulder. FINDINGS: Bone alignment is normal. No fracture or dislocation is seen. There is arthritis at the acromioclavicular and glenohumeral joints with joint space narrowing and osteophyte formation. Soft tissues are unremarkable. XR/XR shoulder LT min 2V IMPRESSION: Arthritis.
== END 2022-06-05 10:36 | disposition home or self-care (01) ==
LOC: HO.XRAY 10:35
PROVIDERS: PCP Internal Medicine; Visit Provider Nurse Practitioner Family
DX: M19.012 Primary osteoarthritis, left shoulder (principal)
CPT/HCPCS: 73030

== ENCOUNTER → 2022-06-16 09:50 | Outpatient (BNVA) | payer MEDICARE, MEDICAID, SELFPAY | PROVIDERS: PCP Internal Medicine; Visit Provider Orthopaedic Surgery | DX: M19.012 Primary osteoarthritis, left shoulder (principal) | CPT/HCPCS: 20610; 99212; J1100 ==

== ENCOUNTER 2022-07-18 09:50 | Outpatient (REF) | payer MEDICARE, MEDICAID, SELFPAY ==
--- NOTE | ~2022-07-18 | MM_ITS ---
EXAMINATION: MM SCREENING DIGITAL BREAST TOMOSYNTHESIS, BILATERAL CLINICAL INFORMATION: Screening. Asymptomatic. Right ultrasound-guided biopsy 2016 (fibrocystic changes including fragments of apocrine cyst lining). The lifetime risk of breast cancer based on the Tyrer-Cuzick Model is 3%. COMPARISON: Mammography: 07/16/2021, 10/28/2019, 09/27/2018, 09/03/2017, 07/31/2016, 07/30/2016 TECHNIQUE: Digital breast tomosynthesis is performed in both the craniocaudal and mediolateral oblique views along with computer-aided detection (CAD). Synthesized 2D images are generated from the tomosynthesis. FINDINGS: There are scattered areas of fibroglandular density (ACR BI-RADS breast composition Category b). There is some fine fibronodular waxing and waning fibrocystic nodularity posterior central lower inner right breast similar to prior studies. There is no significant mass or interval architectural abnormality or abnormal calcifications. Biopsy clip marker again seen posterior central right breast with some stable adjacent fine round calcifications. The axilla and skin contours are unremarkable. No significant changes. MM/MM tomosynthesis screening BI IMPRESSION: No significant changes from prior studies. ASSESSMENT: BI-RADS 2: Benign RECOMMENDATION: Routine annual mammography screening. This patient's information was entered into a reminder system with a target due date for their next mammogram.
== END 2022-07-18 09:51 | disposition home or self-care (01) ==
LOC: HO.MAMMO 09:50
PROVIDERS: PCP Internal Medicine; Visit Provider Internal Medicine
DX: Z12.31 Encounter for screening mammogram for malignant neoplasm of breast (principal)
CPT/HCPCS: 77063; 77067

== ENCOUNTER 2022-10-07 05:44 | Emergency (ER) | payer MEDICARE, MEDICAID, SELFPAY ==
--- NOTE | ~2022-10-07 | CT_ITS ---
EXAMINATION: CT ANGIOGRAM OF THE CHEST WITH AND WITHOUT CONTRAST (CT PULMONARY ANGIOGRAM FOR PE) CLINICAL INFORMATION: Reason for Exam Chest pain, sudden onset, elevated D-dimer COMPARISON: None TECHNIQUE: Prior to contrast administration, noncontrast localization images were obtained. Subsequently, multidetector volumetric imaging was performed from the thoracic inlet to below the diaphragms following the administration of 65 mL Omnipaque 350 intravenous contrast. No contrast reaction reported Sagittal, coronal, and MIP oblique sagittal reformatted images were obtained on the CT workstation, uploaded to PACS, and reviewed. This CT examination was performed using dose optimization techniques as appropriate, variously including the following: *Automated exposure control *Adjustment of mA and/or kV according to patient size (this includes techniques or standardized protocols for targeted exams where dose is matched to indication/reason for exam; i.e. extremities or head) *Use of iterative reconstruction technique Total exam dose-length product 331 mGy-cm FINDINGS: QUALITY OF STUDY/CONTRAST BOLUS: Satisfactory. PULMONARY ARTERIES: No central or segmental pulmonary emboli. THORACIC AORTA: No aneurysm or dissection. LUNG: No focal consolidation, nodules or masses. Small bulla in the left midlung. PLEURA: No pleural effusion or pneumothorax. MEDIASTINUM: Normal heart size. No pericardial effusion. No hilar or mediastinal lymphadenopathy. No evidence of septal bowing or right heart strain. CHEST WALL/AXILLA: No axillary or internal mammary lymphadenopathy. OSSEOUS STRUCTURES: Spondylitic change in the spine. UPPER ABDOMEN: Unremarkable. No reflux of contrast into the hepatic veins to suggest elevated right heart pressures. CT/CT angio chest PE protocol IMPRESSION: No acute findings. No evidence for acute PE VTE: negative
--- NOTE | ~2022-10-07 | XR_ITS ---
EXAMINATION: XR CHEST CLINICAL INFORMATION: Chest pain COMPARISON: 02/16/2022 TECHNIQUE: 2 views of the chest were obtained. FINDINGS: The lungs are clear with no focal consolidation. No evidence of pneumothorax, pulmonary edema, or pleural effusions. The cardiomediastinal silhouette is unremarkable. No acute osseous findings. XR/XR chest 2V IMPRESSION: No acute cardiopulmonary findings.
[2022-10-07 05:48] VITALS: BMI 34.0
--- NOTE | 2022-10-07 05:53 | ECG_ITS ---
Test Reason : CHEST PAIN Blood Pressure : / mmHG Vent. Rate : 062 BPM Atrial Rate : 062 BPM P-R Int : 154 ms QRS Dur : 082 ms QT Int : 414 ms P-R-T Axes : 052 018 036 degrees QTc Int : 420 ms Normal sinus rhythm Nonspecific ST abnormality Abnormal ECG No previous ECGs available Referred By: Generic ED Physician Electronically Signed By:Prabhu Potts
[2022-10-07 05:54] VITALS: BP 123/58; PULSE 61; RESP 16; TEMP 36.9; O2SAT 97
--- NOTE | 2022-10-07 05:54 | PC.NURSE ---
patient endorsing a headache after receiving nitro. she also endorses dizziness and 9/10 chest pain.
[2022-10-07 06:15] LABS: MANUAL DIFF FLAG NO
[2022-10-07 06:19] LABS: Basophils Absolute Auto 0.1 X10*3/uL (0.0-0.2); Basophils Percent Auto 0.9 % (0-2); Eosinophils Absolute Auto 0.3 X10*3/uL (0.0-0.4); Eosinophils Percent Auto 4.6 % (0-4); Hematocrit 37.4 % (37.0-47.0); Hemoglobin 12.3 g/dl (12.0-16.0); Lymphocytes Absolute Auto 2.2 X10*3/uL (1.2-4.9); Lymphocytes Percent Auto 39.6 % (20-40); Mean Corpuscular HGB Conc 32.9 g/dl (31.0-35.0); Mean Corpuscular Hemoglobin 28.3 pg (27.0-33.0); Mean Corpuscular Volume 86.2 fL (80.0-98.0); Mean Platelet Volume 10.7 fL (9.4-12.3); Monocytes Absolute Auto 0.6 X10*3/uL (0.1-1.2); Monocytes Percent Auto 10.7 % (2-11); Neutrophils Absolute Auto 2.5 x10*3/uL (2.0-8.3); Neutrophils Percent Auto 44.2 % (45-73); Platelet Count 236 X10*3/uL (160-400); Red Blood Count 4.34 X10*6/uL (4.20-5.50); Red Cell Distribution Width 12.7 % (11.0-16.0); White Blood Count 5.6 X10*3/uL (4.8-10.8)
--- NOTE | 2022-10-07 06:23 | ED.CHESTPAIN ---
HPI - Chest Pain General Chief Complaint: Chest Pain Stated Complaint: CP Time Seen by Provider: 10/07/22 06:22 Source: patient Mode of arrival: EMS Limitations: no limitations History of Present Illness HPI narrative: 71-year-old female who presents emergency department for evaluation of chest pain. Patient states that she was drained and felt pain chest and then woke up with chest pain. She points to her mid sternum when asked to localize the pain. She states that the pain is constant and is 10 10. The pain is a heaviness. The patient had associated headache, nausea, sweats and left arm pain. Patient states she had a myocardial infarction in 1986 and has had several small 1 since then. The patient was concerned about the pain and called an ambulance. The patient was given aspirin 324 mg to chew and nitroglycerin 0.4 mg sublingually without relief for pain. At the time my evaluation the patient states that her pain was 10/10. MD complaint: chest heaviness Pertinent past history: coronary artery disease and prior [place] Onset (ago): hour(s) (1) Prior episodes: Yes Onset: during rest Pain location: substernal Pain radiation: left arm Severity: severe Pain scale (0-10): 10 Quality: heaviness Relieving factors: nothing Exacerbating factors: nothing Associated symptoms: nausea, diaphoresis and other (Headache) Treatment prior to arrival: aspirin and nitroglycerin (No relief) Risk Factors Coronary artery disease risk factors: smoking history, hyperlipidemia and hypertension Related Data Home Medications Medication Instructions Recorded Confirmed fluticasone propionate 50 intranasal 07/27/20 07/02/22 mcg/actuation nasal spray,suspension latanoprost 0.005 % eye drops 1 drp ophthalmic (eye) BEDTIME 07/27/20 07/02/22 lubiprostone 24 mcg capsule 24 mcg PO BID 07/27/20 07/02/22 sennosides 8.6 mg tablet 17.2 mg PO BEDTIME PRN 07/27/20 07/02/22 triamcinolone acetonide 0.1 % applic topical 07/27/20 07/02/22 topical cream diclofenac sodium 75 mg 75 mg PO BID 01/24/22 07/02/22 tablet,delayed release tizanidine 4 mg tablet 4 mg PO BEDTIME 01/24/22 07/02/22 Previous Rx's Medication Instructions Recorded acetaminophen 650 mg 650 mg PO Q8H #90 tabs 08/10/20 tablet,extended release (Tylenol Arthritis Pain) ondansetron HCl 4 mg tablet 4 mg PO Q8H 3 days #9 tabs 06/12/21 (Zofran) rosuvastatin 40 mg tablet 40 mg PO DAILY #90 tabs 10/14/21 cyclobenzaprine 5 mg tablet 5 - 10 mg PO BEDTIME #20 tabs 10/25/21 diclofenac sodium 1 % topical gel 2 g topical QID #100 grams 10/25/21 (Voltaren Arthritis Pain) nabumetone 500 mg tablet 500 mg PO BID #20 tabs 11/15/21 loratadine 10 mg tablet 10 mg PO DAILY #90 tabs 02/13/22 meclizine 25 mg tablet 25 mg PO QID #60 tabs 02/14/22 hydroxyzine HCl 25 mg tablet 25 mg PO TID PRN itching #30 tabs 05/27/22 propranolol 120 mg capsule,24 120 mg PO DAILY #90 caps 06/02/22 hr,extended release pantoprazole 40 mg tablet,delayed 40 mg PO BID #180 tabs 06/11/22 release albuterol sulfate 90 mcg/actuation 2 puff inhalation QID #8.5 grams 07/02/22 aerosol inhaler Allergies Allergy/AdvReac Type Severity Reaction Status Date / Time codeine [Codeine] Allergy Severe HIVES Verified 07/02/22 12:55 ITCHING, rash, hives gabapentin [From Neurontin] Allergy Severe SWELLING Verified 07/02/22 12:55 Penicillins Allergy Severe SWELLING Verified 07/02/22 12:55 Sulfa (Sulfonamide Allergy Severe XEROSTEMIA, Verified 07/02/22 12:55 Antibiotics) DIFF [SULFA (SULFONAMIDE SWALLOWIN, ANTIBIOTICS)] rash, rash pregabalin [From LYRICA] Allergy Intermediate SWELLING Verified 07/02/22 12:55 Review of Systems Review of Systems: Yes all other systems are reviewed and are negative [facility] Past Medical History [facility] Narrative: Social history: The patient is a former tobacco smoker, she smoked for 30 years and stopped in 1998. She denies alcohol use. She denies drug use. Medical History Anal pruritus Chronic pain syndrome Cystocele with prolapse Fibromyalgia Generalized osteoarthritis Hyperlipidemia Lumbar spondylosis Obesity Obesity Post-menopausal Screening for breast cancer Screening for diabetes mellitus Spondylosis of cervical spine Vertigo Surgical History History of colonoscopy History of hysterectomy History of left knee surgery History of right knee surgery History of varicose veins Family History Family History Father Angina at rest Mother Hypothyroidism Hypertension Osteoarthritis Heart disease Panic disorder Glaucoma Brother Stroke Sister Alcoholic liver disease HIV (human immunodeficiency virus infection) Social History Social History Housing: House Alcohol intake: never Patient Tobacco Use Status: Former Tobacco user Quit Date: 1998 Tobacco use type: Cigarette e-Cigarette/Vaping Use: Never Used Second Hand Smoke Exposure: No Advance Directives: No service: No Current occupational status: retired Current occupation: Right Handed Cognitive needs: Yes (walk/cane) Hearing needs: No Vision needs: Yes (Glasses) Physical Exam Vital Signs: Vital Signs: Last Vital Signs Temp 98.1 F 10/07/22 07:57 Pulse 61 10/07/22 07:57 Resp 13 10/07/22 07:57 BP 115/60 10/07/22 07:57 Pulse Ox 100 10/07/22 07:57 O2 Del Method 10/07/22 07:57 BMI result Body Mass Index 34.0 Const: General: cooperative and no acute distress Orientation/consciousness: oriented to person and oriented to place Limitations: no limitations HEENT: Head: Yes normal to inspection, Yes normocephalic and Yes atraumatic Ears: external ears normal General nose exam: Normal external nose present Face and sinus: Yes normal facial exam Mouth: Normal oral and palatal mucosa present Throat: Yes posterior oropharynx normal Eyes: General: appearance normal, both eyes and all related structures Pupils: Equal, round and reactive pupils present Neck: Neck: Yes normal visual inspection, Yes no lymphadenopathy, Yes trachea midline and Yes supple Chest: Chest palpation & inspection: normal inspection of the chest and tenderness (Midsternal) Resp: Effort & Inspection: normal respiratory effort and able to speak in complete sentences Auscultation: clear to auscultation bilaterally Cardio: Rate: regular rate Rhythm: regular rhythm Heart sounds: S1 normal heart sound present, S2 normal heart sound present and no murmurs GI: Inspection: Yes normal to inspection Palpation (GI): Soft to palpation, nontender and no guarding Auscultation: normal bowel sounds : General: Yes no CVA tenderness Back/Spine/Pelvis: Back: no CVA tenderness Skin: General skin exam: no rashes or lesions noted Neuro: General: oriented to person and oriented to place Cranial nerves: Yes CN's II-XII intact bilaterally and Yes Equal, round and reactive pupils present Cognition (Neuro): normal cognition Motor exam (neuro): 5/5 motor strength present throughout Extrem: General: Yes normal to inspection Psych: Appearance: grossly normal Speech and movement: Normal speech and movement present Affect: normal affect Attitude: cooperative Thought process: Normal thought process present Thought content: Normal thought content present Course Course Course Narrative: 71-year-old female who presents emergency department for evaluation of midsternal chest heaviness that woke her from sleep, the pain is been constant since onset at 05:30 hours . Patient associated headache, diaphoresis, left arm pain and nausea. She was treated with aspirin 324 mg and nitroglycerin 0.4 mg by paramedics with no change in her pain. On examination she does not appear to be in distress. Vital signs were normal. Exam did reveal sternal tenderness otherwise was unremarkable. I ordered a laboratory evaluation includes CBC, CMP, troponin, PT/INR, PTT, COVID-19, influenza, RSV, two view chest x-ray, EKG. Patient was ordered to get Toradol 15 mg IV and Zofran 4 mg IV. 0836: Laboratory evaluation: Mild anemia H&H 12 and 37, D-dimer elevated 316. Troponin 1. Below detectable limits. Radiology evaluation: Chest x-ray no acute pulmonary findings The patient got improvement of her nausea but minimal improvement of her pain with the above treatment, therefore I ordered morphine 4 mg IV. Given her elevated D-dimer I ordered a CT pulmonary angiogram PE protocol to rule out pulmonary embolism. Also, the patient only had 1 hour of chest pain at the time 1st troponin therefore I ordered a 3 hour troponin at 09:00 hours. 1224: Repeat troponin was below detectable limits. The patient's CT pulmonary angiogram revealed no PE. This time I suspect the patient's pain is musculoskeletal I did discuss this with her. She is advised take Tylenol for pain and return if her symptoms get worse or if she develops any symptoms that are concerning to her. Medications Administered Discontinued Medications Generic Name Dose Route Start Last Admin Trade Name Vance PRN Reason Stop Dose Admin Iohexol 65 ml 10/07/22 09:17 10/07/22 09:18 Iohexol 350 Mg/Ml 100 Ml Infus..Btl IV 10/07/22 09:18 65 ml ONCE ONE Administration Ketorolac Tromethamine 15 mg 10/07/22 06:34 10/07/22 06:46 Ketorolac Tromethamine 15 Mg/Ml Vial IVPUSH 10/07/22 06:35 15 mg ONCE STA Administration Morphine Sulfate 4 mg 10/07/22 08:33 10/07/22 08:42 Morphine Sulfate 4 Mg/Ml Cartridge IVPUSH 10/07/22 08:34 4 mg ONCE STA Administration Protocol Ondansetron HCl 4 mg 10/07/22 06:34 10/07/22 06:46 Ondansetron Hcl 4 Mg/2 Ml Vial IVPUSH 10/07/22 06:35 4 mg ONCE ONE Administration 0644: I ordered Toradol 15 mg IV and Zofran 4 mg IV. Medical Decision Making Differential Diagnosis Differential diagnosis includes but is not limited to: STEMI, NSTEMI, pulmonary embolism, pneumonia, pneumothorax, costochondritis Lab Data Result Diagrams: 10/07/22 06:02 10/07/22 06:02 Labs: Lab Results 10/07/22 10/07/22 10/07/22 Range/Units 06:02 06:02 06:02 WBC 5.6 (4.8-10.8) X10*3/uL RBC 4.34 (4.20-5.50) X10*6/uL Hgb 12.3 (12.0-16.0) g/dl Hct 37.4 (37.0-47.0) % MCV 86.2 (80.0-98.0) fL MCH 28.3 (27.0-33.0) pg MCHC 32.9 (31.0-35.0) g/dl RDW 12.7 (11.0-16.0) % Plt Count 236 (160-400) X10*3/uL MPV 10.7 (9.4-12.3) fL Immature Gran % (Auto) 0.0 (0.0-0.4) % Neut % (Auto) 44.2 L (45-73) % Lymph % (Auto) 39.6 (20-40) % [place] % (Auto) 10.7 (2-11) % Eos % (Auto) 4.6 H (0-4) % Baso % (Auto) 0.9 (0-2) % Lymph # (Auto) 2.2 (1.2-4.9) X10*3/uL [place] # (Auto) 0.6 (0.1-1.2) X10*3/uL Eos # (Auto) 0.3 (0.0-0.4) X10*3/uL Baso # (Auto) 0.1 (0.0-0.2) X10*3/uL Abs Immat Gran (auto) 0.00 (0.00-0.03) X10*3/uL Absolute Neuts (auto) 2.5 (2.0-8.3) x10*3/uL Absolute Nucleated RBC 0.000 (0.0-0.012) X10*3/uL Nucleated RBC % (auto) 0.0 (0.0-0.2) /100WBC PT (10.0-13.1) SEC INR (0.9-1.1) APTT (26.0-36.4) SEC D-Dimer High Sensitivty NG/ML Sodium 141 (135-145) mmol/L Potassium 3.9 (3.3-5.1) mmol/L Chloride 109 H (96-108) mmol/L Carbon Dioxide 24 (22-29) mmol/L Anion Gap 12 (12-20) BUN 21 H (9-16) mg/dL Creatinine 0.71 (0.5-1.4) mg/dL Estim Creat Clear Calc 77.7 Estimated GFR > 60 Random Glucose 106 (60-115) mg/dL Calcium 9.1 (8.4-10.2) mg/dL Magnesium 1.8 (1.6-2.6) mg/dL Total Bilirubin 0.6 (0.0-1.0) mg/dL AST 17 (5-31) U/L ALT 14 (0-31) U/L Alkaline Phosphatase 69 (39-117) U/L Troponin I High Sens < 3.5 (<3.5-17.0) ng/L Total Protein 6.3 L (6.5-8.0) g/dL Albumin 3.9 (3.5-5.0) g/dL Lipase 48 (8-78) U/L Influenza Type A (PCR) (Negative) Influenza Type B (PCR) (Negative) RSV RNA Qual (PCR) (Negative) SARS-CoV-2 RNA (RT-PCR) (Negative) 10/07/22 10/07/22 10/07/22 Range/Units 06:02 06:46 09:46 WBC (4.8-10.8) X10*3/uL RBC (4.20-5.50) X10*6/uL Hgb (12.0-16.0) g/dl Hct (37.0-47.0) % MCV (80.0-98.0) fL MCH (27.0-33.0) pg MCHC (31.0-35.0) g/dl RDW (11.0-16.0) % Plt Count (160-400) X10*3/uL MPV (9.4-12.3) fL Immature Gran % (Auto) (0.0-0.4) % Neut % (Auto) (45-73) % Lymph % (Auto) (20-40) % [place] % (Auto) (2-11) % Eos % (Auto) (0-4) % Baso % (Auto) (0-2) % Lymph # (Auto) (1.2-4.9) X10*3/uL [place] # (Auto) (0.1-1.2) X10*3/uL Eos # (Auto) (0.0-0.4) X10*3/uL Baso # (Auto) (0.0-0.2) X10*3/uL Abs Immat Gran (auto) (0.00-0.03) X10*3/uL Absolute Neuts (auto) (2.0-8.3) x10*3/uL Absolute Nucleated RBC (0.0-0.012) X10*3/uL Nucleated RBC % (auto) (0.0-0.2) /100WBC PT 11.4 (10.0-13.1) SEC INR 1.0 (0.9-1.1) APTT 34.1 (26.0-36.4) SEC D-Dimer High Sensitivty 316 NG/ML Sodium (135-145) mmol/L Potassium (3.3-5.1) mmol/L Chloride (96-108) mmol/L Carbon Dioxide (22-29) mmol/L Anion Gap (12-20) BUN (9-16) mg/dL Creatinine (0.5-1.4) mg/dL Estim Creat Clear Calc Estimated GFR Random Glucose (60-115) mg/dL Calcium (8.4-10.2) mg/dL Magnesium (1.6-2.6) mg/dL Total Bilirubin (0.0-1.0) mg/dL AST (5-31) U/L ALT (0-31) U/L Alkaline Phosphatase (39-117) U/L Troponin I High Sens < 2.7 (<3.5-17.0) ng/L Total Protein (6.5-8.0) g/dL Albumin (3.5-5.0) g/dL Lipase (8-78) U/L Influenza Type A (PCR) NEGATIVE (Negative) Influenza Type B (PCR) NEGATIVE (Negative) RSV RNA Qual (PCR) NEGATIVE (Negative) SARS-CoV-2 RNA (RT-PCR) NEGATIVE (Negative) Independent Interpretation I performed an independent interpretation of an: EKG Interpretation: My interpretation of the patient's 12 EKG done at 0557 is as follows: Normal sinus rhythm rate of 62, normal MA interval, QRS duration QTC interval, inverted T-wave in V1, no ST segment elevation, no ST segment depression, no PACs, no PVCs this is a normal EKG. Discharge Plan Discharge Clinical Impression: Chest pain Patient Disposition: Home, Self-Care Instructions: Chest Pain (ED) Additional Instructions: Your EKG was unremarkable. Your CT scan of your chest did not reveal any blood clots or any other abnormalities to explain your pain. Your 2 troponins were negative suggests that you did not have a heart attack or heart damage as the cause of your pain. Take Tylenol (acetaminophen) 500 mg pills, 2 pills every 4 to 6 hours as needed for pain. Follow-up with your doctor in 2 days. Please return to the emergency department if your symptoms get worse or if you develop any symptoms that are concerning to you. Prescriptions: No Action rosuvastatin 40 mg tablet 40 mg PO DAILY Qty: 90 8RF nabumetone 500 mg tablet 500 mg PO BID Qty: 20 0RF loratadine 10 mg tablet 10 mg PO DAILY Qty: 90 8RF propranolol 120 mg capsule,extended release 24 hr 120 mg PO DAILY Qty: 90 4RF pantoprazole 40 mg tablet,delayed release (DR/EC) 40 mg PO BID Qty: 180 1RF ondansetron HCl [Zofran] 4 mg tablet 4 mg PO Q8H 3 Days Qty: 9 0RF fluticasone propionate 50 mcg/actuation spray,suspension intranasal triamcinolone acetonide 0.1 % cream topical latanoprost 0.005 % drops 1 drp ophthalmic (eye) BEDTIME Amitiza 24 mcg capsule 24 mcg PO BID sennosides 8.6 mg tablet 17.2 mg PO BEDTIME PRN hydroxyzine HCl 25 mg tablet 25 mg PO TID PRN (Reason: itching) Qty: 30 0RF meclizine 25 mg tablet 25 mg PO QID Qty: 60 2RF cyclobenzaprine 5 mg tablet 5 - 10 mg PO BEDTIME Qty: 20 0RF diclofenac sodium [Voltaren Arthritis Pain] 1 % gel 2 g topical QID Qty: 100 0RF albuterol sulfate 90 mcg/actuation HFA aerosol inhaler 2 puff inhalation QID Qty: 8.5 0RF acetaminophen [Tylenol Arthritis Pain] 650 mg tablet extended release 650 mg PO Q8H Qty: 90 3RF diclofenac sodium 75 mg tablet,delayed release (DR/EC) 75 mg PO BID tizanidine 4 mg tablet 4 mg PO BEDTIME
[2022-10-07 06:26] LABS: D Dimer High Sensitivity 316 NG/ML
--- OUTSIDE RECORDS SUMMARY | 2022-10-07 06:27 | XMS_ITS | Continuity of Care Document ---
:1950 Author Organization [facility] Address [address] [place] [address], [address] [place] [id number] Care Team Providers Name Role Phone Cornelius QUEZADA, Raman Benedict Primary Care Phys[id number] Date(s): 01/28/22 - 03/27/22 [facility] [address], [address] [place] [id number] Attending Physician: Maricarmen Marquez MD Admitting Physician: Maricarmen Marquez MD Referring Physician: Roxanne VARGAS, Lizzette Mae Allergies, Adverse Reactions, Alerts Substance Reaction Severity Status codeine Active penicillin Active gabapentin Active sulfa drugs Active Neurontin Active pregabalin Active Lyrica Active Immunizations Given and Recorded Vaccine Date Status Refusal Reason SARS-CoV-2 (COVID-19) mRNA BNT-162b2 vac 01/24/21 Given SARS-CoV-2 (COVID-19) mRNA BNT-162b2 vac 01/03/21 Given Medications Albuterol (Eqv-ProAir HFA) Inhalation, Every 6 hours, 0 Refills, Maintenance, 03/14/22 9:24:00 EDT, Partial fill upon patient request if the prescription is for a schedule II opioid drug. Start Date: 03/14/22 Status: Orderedlatanoprost 0.005% ophthalmic solution 1 drops, Eyes, Both, Daily before dinner, 0 Refills, Maintenance, 03/14/22 9:24:00 EDT, Partial fillupon patient request if the prescription is for a schedule II opioid drug. Start Date: 03/14/22 Status: OrderedLopressor 50 mg oral tablet By Mouth, 2 times a day, 0 Refills, Maintenance Start Date: 02/13/11 Status: Orderedloratadine 10 mg oral capsule 1 capsule, By Mouth, Daily, # 10 capsule, 0 Refills, Maintenance, Capsule Start Date: 02/13/11 Status: Orderedloratadine 10 mg oral capsule 1 capsule = 10 mg, By Mouth, Daily, # 40 capsule, 0 Refills, Maintenance, 03/14/22 9:24:00 EDT, Capsule, Partial fill upon patient request if the prescription is for a schedule II opioid drug. Start Date: 03/14/22 Status: OrderedMotrin IB = 400 mg, By Mouth, Every 4 hours, 0 Refills, Maintenance Start Date: 02/13/11 Status: OrderedNasonex 50 mcg/inh nasal spray 2 sprays, Nares, Both, Daily, PRN for allergy symptoms, # 17 Gm, 0 Refills, Maintenance, [place] Start Date: 02/13/11 Status: Orderedomeprazole 20 mg oral enteric coated tablet 1 tablet = 20 mg, By Mouth, Daily, 0 Refills, Maintenance Start Date: 02/13/11 Status: Orderedpantoprazole 40 mg oral delayed release tablet 2 tablet = 80 mg, By Mouth, Daily, # 60 tablet, 0 Refills, Maintenance, 03/14/22 9:23:00 EDT, CR Tablet Start Date: 03/14/22 Status: OrderedPercocet-5 Tablet By Mouth, Every 6 hours, tablet, Maintenance, 02/13/11 9:23:10 Start Date: 02/13/11 Status: OrderedProAir HFA Inhalation, 4 times a day, 0 Refills, Maintenance Start Date: 02/13/11 Status: Orderedpropranolol 120 mg oral capsule, extended release 1 capsule = 120 mg, By Mouth, Daily, 0 Refills, Maintenance, 03/14/22 9:23:00 EDT, Partial fill uponpatient request if the prescription is for a schedule II opioid drug. Start Date: 03/14/22 Status: Orderedrosuvastatin 40 mg oral capsule 1 capsule = 40 mg, By Mouth, Daily, 0 Refills, Maintenance, 03/14/22 9:23:00 EDT, Partial fill upon patient request if the prescription is for a schedule II opioid drug. Start Date: 03/14/22 Status: Orderedsimvastatin 20 mg oral tablet 1 tablet = 20 mg, By Mouth, Daily at bedtime, 0 Refills, Maintenance Start Date: 02/13/11 Status: Ordered Social History Social History Type Response Smoking Status Former smoker, quit more royer n 30 days ago entered on: 03/14/22 Sex Female
--- OUTSIDE RECORDS SUMMARY | 2022-10-07 06:27 | XMS_ITS | Continuity of Care Document ---
:1950 Author Organization [facility] Address [address] [place] [address], [address] [place] [id number] Care Team Providers Name Role Phone Cornelius QUEZADA, Raman Benedict Primary Care Physician Encounter [facility] Date(s): 01/30/22 - 03/01/22 [facility] [address] [place] [address], [address] [place] [id number] Allergies, Adverse Reactions, Alerts Substance Reaction Severity Status penicillin Active Neurontin Active Lyrica Active Immunizations Given and Recorded Vaccine Date Status Refusal Reason SARS-CoV-2 (COVID-19) mRNA BNT-162b2 vac 01/24/21 Given SARS-CoV-2 (COVID-19) mRNA BNT-162b2 vac 01/03/21 Given Medications Lopressor 50 mg oral tablet By Mouth, 2 times a day, 0 Refills, Maintenance Start Date: 02/13/11 Status: Orderedloratadine 10 mg oral capsule 1 capsule, By Mouth, Daily, # 10 capsule, 0 Refills, Maintenance, Capsule Start Date: 02/13/11 Status: OrderedMotrin IB = 400 mg, By Mouth, Every 4 hours, 0 Refills, Maintenance Start Date: 02/13/11 Status: OrderedNasonex 50 mcg/inh nasal spray 2 sprays, Nares, Both, Daily, PRN for allergy symptoms, # 17 Gm, 0 Refills, Maintenance, [place] Start Date: 02/13/11 Status: Orderedomeprazole 20 mg oral enteric coated tablet 1 tablet = 20 mg, By Mouth, Daily, 0 Refills, Maintenance Start Date: 02/13/11 Status: OrderedPercocet-5 Tablet By Mouth, Every 6 hours, tablet, Maintenance, 02/13/11 9:23:10 Start Date: 02/13/11 Status: OrderedProAir HFA Inhalation, 4 times a day, 0 Refills, Maintenance Start Date: 02/13/11 Status: Orderedsimvastatin 20 mg oral tablet 1 tablet = 20 mg, By Mouth, Daily at bedtime, 0 Refills, Maintenance Start Date: 02/13/11 Status: Ordered Social History Social History Type Response Sex Female
--- OUTSIDE RECORDS SUMMARY | 2022-10-07 06:27 | XMS_ITS | Continuity of Care Document ---
:1950 Author Organization [facility] Address [address] [place] [address], [address] [place] [id number]- Care Team Providers Name Role Phone Cornelius QUEZADA, Raman Benedict Primary Care Physician Encounter [facility] Date(s): 03/14/22 - 04/13/22 [facility] [address] [place] [address], [address] [place] [id number] Attending Physician: Summer Horvath Admitting Physician: Admtr, Addison8 Referring Physician: Admtr, Ar8 Allergies, Adverse Reactions, Alerts Substance Reaction Severity Status codeine Active penicillin Active gabapentin Active pregabalin Active Lyrica Active sulfa drugs Active Neurontin Active Immunizations Given and Recorded Vaccine Date [...] symptoms, # 17 Gm, 0 Refills, Maintenance, [place] Start Date: 02/13/11 Status: Orderedomeprazole 20 mg [...] royer n 30 days ago entered on: 5/27/22 Sex Female
[2022-10-07 06:34] LABS: Alanine Aminotransferase 14 U/L (0-31); Albumin Level 3.9 g/dL (3.5-5.0); Alkaline Phosphatase 69 U/L (39-117); Anion Gap 12 (12-20); Aspartate Amino Transferase 17 U/L (5-31); Bilirubin Total 0.6 mg/dL (0.0-1.0); Blood Urea Nitrogen 21 mg/dL (9-16); Calcium 9.1 mg/dL (8.4-10.2); Carbon Dioxide 24 mmol/L (22-29); Chloride 109 mmol/L (96-108); Creatinine Clr Calc Pharmacy 77.7; Estimated Glomerular Filt Rate > 60; Glucose Random 106 mg/dL (60-115); Magnesium 1.8 mg/dL (1.6-2.6); Potassium 3.9 mmol/L (3.3-5.1); Sodium 141 mmol/L (135-145); Total Protein 6.3 g/dL (6.5-8.0)
[2022-10-07 06:35] LABS: Troponin-I High Sensitivity < 3.5 ng/L (<3.5-17.0)
[2022-10-07] MEDS: Ketorolac Tromethamine 15 MG/ML VIAL IVPUSH (06:46)
[2022-10-07] MEDS: ondansetron HCL 4 MG/2 ML VIAL IVPUSH (06:46)
[2022-10-07 07:05] LABS: Prothrombin Time 11.4 SEC (10.0-13.1)
[2022-10-07 07:07] LABS: Partial Thromboplastin Time 34.1 SEC (26.0-36.4)
[2022-10-07 07:32] LABS: Influenza A PCR NEGATIVE (Negative); Influenza B PCR NEGATIVE (Negative); Resp Syncy Virus RNA Qual PCR NEGATIVE (Negative); SARS COV2 PCR INHOUSE NEGATIVE (Negative)
[2022-10-07 07:57] VITALS: BP 115/60; PULSE 61; RESP 13; TEMP 36.7; O2SAT 100
[2022-10-07 08:31] LABS: Lipase 48 U/L (8-78)
[2022-10-07] MEDS: Morphine Sulfate 4 MG/ML CARTRIDGE IVPUSH (08:42)
[2022-10-07] MEDS: iohexoL 350 MG/ML 100 ML INFUS..BTL 65 ML IV (09:18)
[2022-10-07 11:25] LABS: Troponin-I High Sensitivity < 2.7 ng/L (<3.5-17.0)
[2022-10-07 12:20] VITALS: BP 126/65; PULSE 69; RESP 16; TEMP 36.7; O2SAT 98
== END 2022-10-07 12:35 | disposition home or self-care (01) ==
PROVIDERS: Emergency Provider Emergency Medicine Emergency Medical Services; PCP Internal Medicine
DX: R07.9 Chest pain, unspecified (principal); Z20.822 Contact with and (suspected) exposure to COVID-19; I10 Essential (primary) hypertension; E78.5 Hyperlipidemia, unspecified; Z79.02 Long term (current) use of antithrombotics/antiplatelets; Z79.899 Other long term (current) drug therapy
CPT/HCPCS: 0241U; 36415; 71046; 71275; 80053; 83690; 83735; 84484; 85025; 85379; 85610; 85730; 93005; 96374; 96375; 99284; 99285; J1885; J2270; J2405; Q9967

== ENCOUNTER 2022-11-10 | Emergency (ER) | payer MEDICARE, MEDICAID, SELFPAY ==
--- NOTE | 2022-11-10 | ECG_ITS ---
Test Reason : CP Blood Pressure : / mmHG Vent. Rate : 063 BPM Atrial Rate : 063 BPM P-R Int : 150 ms QRS Dur : 084 ms QT Int : 412 ms P-R-T Axes : 061 012 041 degrees QTc Int : 421 ms Sinus rhythm with occasional Premature ventricular complexes Otherwise normal ECG When compared with ECG of 07-OCT-2022 05:57, Premature ventricular complexes are now Present Referred By: Maksim Can Electronically Signed By:RONY ESCALERA
[2022-11-10 00:06] VITALS: BP 119/65; PULSE 78; O2SAT 100
[2022-11-10 00:07] VITALS: BP 118/65; PULSE 66; RESP 16; O2SAT 99; BMI 31.1
--- NOTE | 2022-11-10 00:38 | ED.CHESTPAIN ---
HPI - Chest Pain General Chief Complaint: Chest Pain Stated Complaint: cp Time Seen by Provider: 11/10/22 00:38 Source: patient Mode of arrival: EMS Limitations: no limitations History of Present Illness HPI narrative: 71-year-old female who presents emergency department for evaluation of chest pain. The patient states she went to bed early after taking a shower. She states she was in bed at 1930 hours when she developed nausea, epigastric pain and a headache. She states that approximately 2 hours later at 21:30 hours, she then developed chest pressure. She points to her sternum. States the pressure came on gradually and then became severe at 10/10. The pressure does radiate to her back. She states that the pain was worse with breathing. She did take her cholesterol medicine and her omeprazole with no relief of the pain. The patient states that she got scared since the pain was similar to her heart attack pain in the past. The patient called an ambulance. She was given aspirin 324 mg orally and nitroglycerin sublingually with no improvement of her pain. The patient had a similar presentation on 10/07/2022 and was seen by me. At that time, her workup included 2 troponins which were below detectable limits, CT pulmonary angiogram PE protocol which was negative. My impression at that time was that she has costochondritis. She was treated with Toradol and and morphine with improvement of her pain and eventually discharged home Related Data Home Medications Medication Instructions Recorded Confirmed fluticasone propionate 50 intranasal 07/27/20 10/09/22 mcg/actuation nasal spray,suspension latanoprost 0.005 % eye drops 1 drp ophthalmic (eye) BEDTIME 07/27/20 10/09/22 lubiprostone 24 mcg capsule 24 mcg PO BID 07/27/20 10/09/22 sennosides 8.6 mg tablet 17.2 mg PO BEDTIME PRN 07/27/20 10/09/22 triamcinolone acetonide 0.1 % applic topical 07/27/20 10/09/22 topical cream diclofenac sodium 75 mg 75 mg PO BID 01/24/22 10/09/22 tablet,delayed release tizanidine 4 mg tablet 4 mg PO BEDTIME 01/24/22 10/09/22 Previous Rx's Medication Instructions Recorded acetaminophen 650 mg 650 mg PO Q8H #90 tabs 08/10/20 tablet,extended release (Tylenol Arthritis Pain) ondansetron HCl 4 mg tablet 4 mg PO Q8H 3 days #9 tabs 06/12/21 (Zofran) cyclobenzaprine 5 mg tablet 5 - 10 mg PO BEDTIME #20 tabs 10/25/21 diclofenac sodium 1 % topical gel 2 g topical QID #100 grams 10/25/21 (Voltaren Arthritis Pain) nabumetone 500 mg tablet 500 mg PO BID #20 tabs 11/15/21 loratadine 10 mg tablet 10 mg PO DAILY #90 tabs 02/13/22 meclizine 25 mg tablet 25 mg PO QID #60 tabs 02/14/22 hydroxyzine HCl 25 mg tablet 25 mg PO TID PRN itching #30 tabs 05/27/22 propranolol 120 mg capsule,24 120 mg PO DAILY #90 caps 06/02/22 hr,extended release pantoprazole 40 mg tablet,delayed 40 mg PO BID #180 tabs 06/11/22 release albuterol sulfate 90 mcg/actuation 2 puff inhalation QID #8.5 grams 07/02/22 aerosol inhaler rosuvastatin 40 mg tablet 40 mg PO DAILY #90 tabs 10/16/22 Allergies Allergy/AdvReac Type Severity Reaction Status Date / Time codeine [Codeine] Allergy Severe HIVES Verified 11/10/22 00:12 ITCHING, rash, hives gabapentin [From Neurontin] Allergy Severe SWELLING Verified 11/10/22 00:12 Penicillins Allergy Severe SWELLING Verified 11/10/22 00:12 Sulfa (Sulfonamide Allergy Severe XEROSTEMIA, Verified 11/10/22 00:12 Antibiotics) DIFF [SULFA (SULFONAMIDE SWALLOWIN, ANTIBIOTICS)] rash, rash pregabalin [From LYRICA] Allergy Intermediate SWELLING Verified 11/10/22 00:12 Review of Systems Review of Systems: Yes all other systems are reviewed and are negative [facility] Past Medical History [facility] Narrative: Social history: She states that she lives at home with her boyfriend and family. She denies tobacco use but she is a former smoker, she quit smoking in 1998. She denies alcohol use. She denies drug use. Medical History Anal pruritus Chronic pain syndrome Cystocele with prolapse Fibromyalgia Generalized osteoarthritis Hyperlipidemia Lumbar spondylosis Obesity Obesity Post-menopausal Screening for breast cancer Screening for diabetes mellitus Spondylosis of cervical spine Vertigo Surgical History History of colonoscopy History of hysterectomy History of left knee surgery History of right knee surgery History of varicose veins Family History Family History Father Angina at rest Mother Hypothyroidism Hypertension Osteoarthritis Heart disease Panic disorder Glaucoma Brother Stroke Sister Alcoholic liver disease HIV (human immunodeficiency virus infection) Social History Social History Housing: House Alcohol intake: never Patient Tobacco Use Status: Former Tobacco user Quit Date: 1998 Tobacco use type: Cigarette Smoked in Last 30 Days: No e-Cigarette/Vaping Use: Never Used Second Hand Smoke Exposure: No Use of substances other than those prescribed or required for medical reasons: No Advance Directives: No service: No Current occupational status: retired Current occupation: Right Handed Cognitive needs: Yes (walk/cane) Hearing needs: No Vision needs: Yes (Glasses) Physical Exam Vital Signs: Vital Signs: Last Vital Signs Pulse 66 11/10/22 00:07 Resp 16 11/10/22 00:07 BP 118/65 11/10/22 00:07 Pulse Ox 99 11/10/22 00:07 O2 Del Method 11/10/22 00:07 BMI result Body Mass Index 31.1 Const: General: cooperative and no acute distress Orientation/consciousness: oriented to person and oriented to place Limitations: no limitations HEENT: Head: Yes normal to inspection, Yes normocephalic and Yes atraumatic Ears: external ears normal General nose exam: Normal external nose present Face and sinus: Yes normal facial exam Mouth: Normal oral and palatal mucosa present Throat: Yes posterior oropharynx normal Eyes: General: appearance normal, both eyes and all related structures Pupils: Equal, round and reactive pupils present Neck: Neck: Yes normal visual inspection, Yes no lymphadenopathy, Yes trachea midline and Yes supple Chest: Chest palpation & inspection: normal inspection of the chest and tenderness (Tenderness to palpation of the costochondral joints bilaterally and sternum) Resp: Effort & Inspection: normal respiratory effort and able to speak in complete sentences Auscultation: clear to auscultation bilaterally Cardio: Rate: regular rate Rhythm: regular rhythm Heart sounds: S1 normal heart sound present, S2 normal heart sound present and no murmurs GI: Inspection: Yes normal to inspection Palpation (GI): Soft to palpation, nontender and no guarding Auscultation: normal bowel sounds : General: Yes no CVA tenderness Back/Spine/Pelvis: Back: no CVA tenderness Skin: General skin exam: no rashes or lesions noted Neuro: General: oriented to person and oriented to place Cranial nerves: Yes CN's II-XII intact bilaterally and Yes Equal, round and reactive pupils present Cognition (Neuro): normal cognition Motor exam (neuro): 5/5 motor strength present throughout Extrem: General: Yes normal to inspection Psych: Appearance: grossly normal Speech and movement: Normal speech and movement present Affect: Anxious affect present Attitude: cooperative Medications Administered Discontinued Medications Generic Name Dose Route Start Last Admin Trade Name Freq PRN Reason Stop Dose Admin Ketorolac Tromethamine 15 mg 11/10/22 00:51 11/10/22 01:14 Ketorolac Tromethamine 15 Mg/Ml Vial IVPUSH 11/10/22 00:52 15 mg ONCE ONE Administration Morphine Sulfate 4 mg 11/10/22 02:30 11/10/22 02:34 Morphine Sulfate 4 Mg/Ml Cartridge IVPUSH 11/10/22 02:31 4 mg ONCE STA Administration Protocol Ondansetron HCl 4 mg 11/10/22 00:51 11/10/22 01:14 Ondansetron Hcl 4 Mg/2 Ml Vial IVPUSH 11/10/22 00:52 4 mg ONCE ONE Administration Medical Decision Making Medical Decision Making [facility] Narrative: 71-year-old female who presents emergency department for evaluation of headache, nausea, epigastric pain and sternal chest pain, symptoms began at around 21:30 hours have been constant since onset. The patient was brought in by ambulance and was treated with aspirin 324 mg orally and nitroglycerin sublingually with no improvement of her pain. Patient's vital signs were normal. Examination did reveal tenderness palpation of her sternum and costochondral joints bilaterally in her anterior chest. Patient has 12 EKG which was unremarkable and unchanged from her previous. Laboratory evaluation was ordered to include CBC, CMP, LFTs, troponin. Patient was ordered to get Toradol 15 mg IV for pain and Zofran 4 mg IV for her nausea. 0227: Patient's laboratory evaluation was unremarkable and her troponin was below detectable limits which is reassuring. Patient states that her pain improved from 10/10 to 7/10. The patient was ordered to get morphine 4 mg IV. Patient's presentation is consistent with costochondritis similar to her previous presentation. The patient will be discharged home once her pain has improved. 0351: Patient is feeling significantly better after the above treatment. Patient states she feels good enough to go home and she is going to call for her ride. Patient was discharged home with printed and verbal instructions. Differential Diagnosis The differential diagnosis includes but is not limited to myocardial infarction, pulmonary embolism, pneumonia, costochondritis Lab Data MDM Lab Attestation statement: I reviewed the patient's lab results. May need pain interpretation patient's laboratory evaluation is as follows CBC was normal. BMP revealed an elevated BUN of 20 otherwise no significant abnormalities. High sensitivity troponin I was below detectable limits which is reassuring. 11/10/22 01:11 11/10/22 01:11 Labs: Lab Results 11/10/22 11/10/22 11/10/22 Range/Units 01:11 01:11 01:11 WBC 7.3 (4.8-10.8) X10*3/uL RBC 4.23 (4.20-5.50) X10*6/uL Hgb 12.0 (12.0-16.0) g/dl Hct 36.4 L (37.0-47.0) % MCV 86.1 (80.0-98.0) fL MCH 28.4 (27.0-33.0) pg MCHC 33.0 (31.0-35.0) g/dl RDW 12.9 (11.0-16.0) % Plt Count 238 (160-400) X10*3/uL MPV 10.4 (9.4-12.3) fL Immature Gran % (Auto) 0.1 (0.0-0.4) % Neut % (Auto) 47.5 (45-73) % Lymph % (Auto) 38.1 (20-40) % [place] % (Auto) 10.1 (2-11) % Eos % (Auto) 3.5 (0-4) % Baso % (Auto) 0.7 (0-2) % Lymph # (Auto) 2.8 (1.2-4.9) X10*3/uL [place] # (Auto) 0.7 (0.1-1.2) X10*3/uL Eos # (Auto) 0.3 (0.0-0.4) X10*3/uL Baso # (Auto) 0.1 (0.0-0.2) X10*3/uL Abs Immat Gran (auto) 0.01 (0.00-0.03) X10*3/uL Absolute Neuts (auto) 3.5 (2.0-8.3) x10*3/uL Absolute Nucleated RBC 0.000 (0.0-0.012) X10*3/uL Nucleated RBC % (auto) 0.0 (0.0-0.2) /100WBC Sodium 144 (135-145) mmol/L Potassium 3.8 (3.3-5.1) mmol/L Chloride 108 (96-108) mmol/L Carbon Dioxide 24 (22-29) mmol/L Anion Gap 16 (12-20) BUN 20 H (9-16) mg/dL Creatinine 0.77 (0.5-1.4) mg/dL Estim Creat Clear Calc 71.0 Estimated GFR > 60 Random Glucose 102 (60-115) mg/dL Calcium 9.0 (8.4-10.2) mg/dL Total Bilirubin 0.4 (0.0-1.0) mg/dL Direct Bilirubin 0.2 (0.0-0.5) mg/dL AST 24 (5-31) U/L ALT 17 (0-31) U/L Alkaline Phosphatase 71 (39-117) U/L Troponin I High Sens < 3.5 (<3.5-17.0) ng/L Total Protein 6.2 L (6.5-8.0) g/dL Albumin 3.8 (3.5-5.0) g/dL Independent Interpretation I performed an independent interpretation of an: EKG Interpretation: My independent interpretation the patient's 12 EKG done at 00:07 hours is as follows: Normal sinus rhythm with a rate of 63, normal TN interval, QRS duration QTC interval, no ST segment elevation, no ST segment depression, no T-wave abnormalities, occasional PVC, compared to EKG dated 10/07/2022 there is significant change. Discharge Plan Discharge Clinical Impression: Acute costochondritis Patient Disposition: Home, Self-Care Instructions: Costochondritis (ED) Additional Instructions: Your EKG was unremarkable. Your blood work was normal. You had no troponin in your blood suggesting that you did not have a heart attack as the cause of your pain today, this is reassuring. I believe that your pain is due to inflammation of the joints of your chest (costochondritis). Take ibuprofen 200 mg pills, 2 pills every 6 hours as needed for pain. Take Tylenol (acetaminophen) 500 mg pills, 2 pills every 4 to 6 hours as needed for pain. Follow-up with your doctor in 2 days. Please return to the emergency department if your symptoms get worse or if you develop any symptoms that are concerning to you. Prescriptions: No Action nabumetone 500 mg tablet 500 mg PO BID Qty: 20 0RF loratadine 10 mg tablet 10 mg PO DAILY Qty: 90 8RF propranolol 120 mg capsule,extended release 24 hr 120 mg PO DAILY Qty: 90 4RF pantoprazole 40 mg tablet,delayed release (DR/EC) 40 mg PO BID Qty: 180 1RF rosuvastatin 40 mg tablet 40 mg PO DAILY Qty: 90 8RF ondansetron HCl [Zofran] 4 mg tablet 4 mg PO Q8H 3 Days Qty: 9 0RF fluticasone propionate 50 mcg/actuation spray,suspension intranasal triamcinolone acetonide 0.1 % cream topical latanoprost 0.005 % drops 1 drp ophthalmic (eye) BEDTIME Amitiza 24 mcg capsule 24 mcg PO BID sennosides 8.6 mg tablet 17.2 mg PO BEDTIME PRN hydroxyzine HCl 25 mg tablet 25 mg PO TID PRN (Reason: itching) Qty: 30 0RF meclizine 25 mg tablet 25 mg PO QID Qty: 60 2RF cyclobenzaprine 5 mg tablet 5 - 10 mg PO BEDTIME Qty: 20 0RF diclofenac sodium [Voltaren Arthritis Pain] 1 % gel 2 g topical QID Qty: 100 0RF albuterol sulfate 90 mcg/actuation HFA aerosol inhaler 2 puff inhalation QID Qty: 8.5 0RF acetaminophen [Tylenol Arthritis Pain] 650 mg tablet extended release 650 mg PO Q8H Qty: 90 3RF diclofenac sodium 75 mg tablet,delayed release (DR/EC) 75 mg PO BID tizanidine 4 mg tablet 4 mg PO BEDTIME
[2022-11-10] MEDS: Ketorolac Tromethamine 15 MG/ML VIAL IVPUSH (01:14)
[2022-11-10] MEDS: ondansetron HCL 4 MG/2 ML VIAL IVPUSH (01:14)
[2022-11-10 01:19] LABS: Basophils Absolute Auto 0.1 X10*3/uL (0.0-0.2); Basophils Percent Auto 0.7 % (0-2); Eosinophils Absolute Auto 0.3 X10*3/uL (0.0-0.4); Eosinophils Percent Auto 3.5 % (0-4); Hematocrit 36.4 % (37.0-47.0); Imm Gran Abs Auto 0.01 X10*3/uL (0.00-0.03); Imm Gran Pct Auto 0.1 % (0.0-0.4); Lymphocytes Absolute Auto 2.8 X10*3/uL (1.2-4.9); Lymphocytes Percent Auto 38.1 % (20-40); MANUAL DIFF FLAG NO; Mean Corpuscular Hemoglobin 28.4 pg (27.0-33.0); Mean Corpuscular Volume 86.1 fL (80.0-98.0); Mean Platelet Volume 10.4 fL (9.4-12.3); Monocytes Absolute Auto 0.7 X10*3/uL (0.1-1.2); Monocytes Percent Auto 10.1 % (2-11); Neutrophils Absolute Auto 3.5 x10*3/uL (2.0-8.3); Neutrophils Percent Auto 47.5 % (45-73); Platelet Count 238 X10*3/uL (160-400); Red Blood Count 4.23 X10*6/uL (4.20-5.50); Red Cell Distribution Width 12.9 % (11.0-16.0); White Blood Count 7.3 X10*3/uL (4.8-10.8)
--- NOTE | 2022-11-10 01:21 | PC.NURSE ---
Checked existing IV placed [employer] AIDE and was unable to flush or obtain blood return. Placed new IV, deepika labs and medicated per DEC. Gave pt. warm blanket and the call calles. Pt. now resting in bed pending results of labs.
[2022-11-10 01:33] LABS: Alanine Aminotransferase 17 U/L (0-31); Albumin Level 3.8 g/dL (3.5-5.0); Alkaline Phosphatase 71 U/L (39-117); Anion Gap 16 (12-20); Aspartate Amino Transferase 24 U/L (5-31); Bilirubin Direct 0.2 mg/dL (0.0-0.5); Bilirubin Total 0.4 mg/dL (0.0-1.0); Blood Urea Nitrogen 20 mg/dL (9-16); Carbon Dioxide 24 mmol/L (22-29); Chloride 108 mmol/L (96-108); Estimated Glomerular Filt Rate > 60; Glucose Random 102 mg/dL (60-115); Potassium 3.8 mmol/L (3.3-5.1); Sodium 144 mmol/L (135-145); Total Protein 6.2 g/dL (6.5-8.0)
[2022-11-10 01:41] LABS: Troponin-I High Sensitivity < 3.5 ng/L (<3.5-17.0)
[2022-11-10] MEDS: Morphine Sulfate 4 MG/ML CARTRIDGE IVPUSH (02:34)
--- NOTE | 2022-11-10 02:51 | PC.NURSE ---
Pt. resting in bed. Medicated with morphine per DEC. Pt. now watching tv, under no distress. Will continue to monitor.
== END 2022-11-10 04:21 | disposition home or self-care (01) ==
PROVIDERS: Emergency Provider Emergency Medicine Emergency Medical Services; PCP Internal Medicine
DX: M94.0 Chondrocostal junction syndrome [Tietze] (principal); E78.5 Hyperlipidemia, unspecified; Z87.891 Personal history of nicotine dependence; Z79.02 Long term (current) use of antithrombotics/antiplatelets; Z79.899 Other long term (current) drug therapy
CPT/HCPCS: 36415; 80048; 80076; 84484; 85025; 93005; 96374; 96375; 99284; 99285; J1885; J2270; J2405

== ENCOUNTER → 2022-11-24 10:12 | Outpatient (BNVA) | payer MEDICARE, MEDICAID, SELFPAY | PROVIDERS: PCP Internal Medicine; Visit Provider Nurse Practitioner Family | DX: M47.816 Spondylosis without myelopathy or radiculopathy, lumbar region (principal); M19.012 Primary osteoarthritis, left shoulder; M79.7 Fibromyalgia; M54.2 Cervicalgia | CPT/HCPCS: 99212 ==

== ENCOUNTER 2023-04-29 10:16 | Outpatient (AMB) | payer MEDICARE, MEDICAID, SELFPAY ==
--- NOTE | 2023-04-29 10:28 | MHC.OFFVIS ---
Intake Intake Visit Reasons: 1 year follow up cystocele Intake Note: Patient is present for follow up Cystocele Urology Medications: none Blood Thinner: none Ict Support And Test Engineers Required: No Accompanied by: Self / Same As Patient Allergies codeine [Codeine] Allergy (Severe, Verified 04/29/23 16:35) HIVES ITCHING, rash, hives gabapentin [From Neurontin] Allergy (Severe, Verified 04/29/23 16:35) SWELLING Penicillins Allergy (Severe, Verified 04/29/23 16:35) SWELLING Sulfa (Sulfonamide Antibiotics) [SULFA (SULFONAMIDE ANTIBIOTICS)] Allergy (Severe, Verified 04/29/23 16:35) XEROSTEMIA, DIFF SWALLOWIN, rash, rash pregabalin [From LYRICA] Allergy (Intermediate, Verified 04/29/23 16:35) SWELLING Medication List - Last Reconciled 04/29/23 by GAGE Rojas-TRACEE acetaminophen ER (Tylenol Arthritis Pain) 650 mg PO Q8H albuterol sulfate 90 mcg/actuation 2 puffs inhalation QID diclofenac sodium 1% (Voltaren Arthritis Pain) 2 grams topical BID erythromycin 0.5 inches ophthalmic (eye) BID 7 days fluticasone propionate 50 mcg/actuation intranasal hydroxyzine HCl 25 mg PO TID PRN latanoprost 0.005% 1 drp ophthalmic (eye) BEDTIME loratadine 10 mg PO DAILY lubiprostone 24 mcg PO BID meclizine 25 mg PO QID ondansetron HCl (Zofran) 4 mg PO Q8H 3 days pantoprazole 40 mg PO BID propranolol ER 120 mg PO DAILY rosuvastatin 40 mg PO DAILY sennosides 17.2 mg PO BEDTIME PRN triamcinolone acetonide 0.1% appl topical HPI HPI Comments History of Present Illness Details Source is a very pleasant 72-year-old female patient of Dr. Shields. She has a past medical history of chronic pain syndrome, fibromyalgia, osteoarthritis, hyperlipidemia, lumbar spondylosis, obesity, and vertigo. She presents to the office today for follow-up of her cystocele. In discussion with the patient today she reports previously following up with Dr. Son Marquez at which time recommendations were made for pessary and or surgical intervention however patient declined proceeding with either of these interventions. She reports feeling symptoms were not bothersome enough for her to proceed with further interventions. When asked she reports no bothersome urinary issues at this time. She does however discuss her ongoing issues with constipation and feels at times cystocele worsens due to straining to evacuate. She also discusses the need to push on perineum area when evacuating. She otherwise denies urinary urgency, urinary frequency, incontinence, nocturia, hematuria, dysuria, foul smelling urine, changes to urinary stream, flank pain, fever, and or chills. She is happy with her current voiding parameters. She otherwise denies any issues or concerns at this time. [facility] Medical History Anal pruritus Chronic pain syndrome Cystocele with prolapse Fibromyalgia Generalized osteoarthritis Hyperlipidemia Lumbar spondylosis Obesity Obesity Post-menopausal Screening for breast cancer Screening for diabetes mellitus Spondylosis of cervical spine Vertigo Surgical History History of colonoscopy History of hysterectomy History of left knee surgery History of right knee surgery History of varicose veins Family History Father Angina at rest Mother Hypothyroidism Hypertension Osteoarthritis Heart disease Panic disorder Glaucoma Brother Stroke Sister Alcoholic liver disease HIV (human immunodeficiency virus infection) Social History Housing: House Alcohol intake: never Patient Tobacco Use Status: Former Tobacco user Quit Date: 1998 Tobacco use type: Cigarette e-Cigarette/Vaping Use: Never Used Second Hand Smoke Exposure: No service: No Current occupational status: retired Current occupation: Right Handed Cognitive needs: Yes (walk/cane) Hearing needs: No Vision needs: Yes (Glasses) Female Reproductive History Menstrual Age of Menarche: 9 Review of Systems Const Reports as per HPI Eyes Reports no additional complaints ENT Reports no additional complaints Card Reports as per HPI Resp Reports no additional complaints GI Reports as per HPI Reports as per HPI Musc Reports no additional complaints Neuro Reports no additional complaints Psych Reports no additional complaints Endo Reports no additional complaints Young/Lymph Reports no additional complaints Aller/Immun Reports no additional complaints Physical Exam Const General: cooperative, healthy appearing, comfortable, no acute distress, well developed, alert and awake Orientation/consciousness: patient oriented x3 Limitations: no limitations HEENT Head: Yes normal to inspection, Yes normocephalic and Yes atraumatic Ears: hearing grossly normal bilaterally Eyes General: appearance normal, both eyes and all related structures Neck Neck: Yes normal visual inspection and Yes trachea midline Chest Chest palpation & inspection: normal inspection of the chest Resp Effort & Inspection: normal respiratory effort and able to speak in complete sentences Cardio Rate: regular rate GI Inspection: Yes normal to inspection General: Yes no CVA tenderness Back/Spine/Pelvis Back: no CVA tenderness Skin General skin exam: no rashes or lesions noted Neuro General: patient oriented x3 Extrem General: Yes normal to inspection Psych Appearance: grossly normal and well kempt Mental Status: mental status grossly normal Speech and movement: Normal speech and movement present and Clear speech present Affect: normal affect Attitude: cooperative Thought process: Normal thought process present Thought content: Normal thought content present Insight: Good insight present (Psych) Judgement: Good judgement present (Psych) Results AMB Urinalysis, Automated UA Leukoctes 0 Hua/uL Last Edit by Infusion Resource on 04/29/23 10:46 UA Nitrite Negative Last Edit by Infusion Resource on 04/29/23 10:46 UA Urobilinogen 0.2 mg/dL Last Edit by Infusion Resource on 04/29/23 10:46 UA Protein 15 mg/dL Last Edit by Infusion Resource on 04/29/23 10:46 UA pH 6.0 Last Edit by Infusion Resource on 04/29/23 10:46 UA Blood 0 Seth/uL Last Edit by Infusion Resource on 04/29/23 10:46 UA Specific [place] 1.030 Last Edit by Infusion Resource on 04/29/23 10:46 UA Ketone Positive Last Edit by Infusion Resource on 04/29/23 10:46 UA Bilirubin 1 mg/dL Last Edit by Infusion Resource on 04/29/23 10:46 UA Glucose 0 mg/dL Last Edit by Infusion Resource on 04/29/23 10:46 Results Reviewed Results Reviewed: Laboratory Last Values Urine pH (Auto) 6.0 04/29/23 10:33 Specific [place] (Auto) 1.030 04/29/23 10:33 Urine Protein (Auto) 15 mg/dL 04/29/23 10:33 Glucose (UA)(Auto) 0 mg/dL 04/29/23 10:33 Urine Ketones (Auto) Positive 04/29/23 10:33 Urine Blood (Auto) 0 Seth/uL 04/29/23 10:33 Urine Nitrite (Auto) Negative 04/29/23 10:33 Urine Bilirubin (Auto) 1 mg/dL 04/29/23 10:33 Urine Urobilinogen (Auto) 0.2 mg/dL 04/29/23 10:33 Leukocyte Esterase (Auto) 0 Hua/uL 04/29/23 10:33 Assessment & Plan Assessment & Plan (1) Constipation: Code(s): K59.00 - Constipation, unspecified (2) Cystocele with prolapse: Code(s): N81.4 - Uterovaginal prolapse, unspecified Plan In office urinalysis results reviewed with the patient today. Patient denies any bothersome urinary symptoms at this time. She reports to be happy with current voiding parameters. Will continue to surveillance agent as patient declines further interventions at this time as symptoms are not bothersome per patient Will refer to gastroenterology for further assessment evaluation Follow-up in 1 year; if not sooner with any questions, concerns, and or issues. Orders: Orders AMB Urinalysis Automated Today Z13.9 - Encounter for screening, unspecified Referrals Gastroenterology Referral K59.00 - Constipation, unspecified Patient Instructions: The patient had an opportunity to ask questions regarding the treatment plan. All questions were answered. Physical exam, labs, and imaging were discussed and reviewed in detail. As well as risks, benefits, and discussion of treatment choices. No major barriers to understanding were identified. The patient expressed understanding and agreement with the above treatment plan. The patient was made aware they should contact our office by phone for worsening of their current condition, the appearance of new symptoms, or with any questions or concerns. Compliance is encouraged with any medications and follow up testing that is ordered. It is a privilege to be allowed the opportunity to participate in? your urological care.? Again, if you have any questions or concerns If you have any questions or concerns please do not hesitate to contact me. The office is [phone]. This note is constructed using voice recognition software. While every effort has been made to ensure accuracy data deliverables manager errors may have been included. Yours sincerely, GAGE Rojas- Coding Level of Care Code Est Pt Level 3 (69914) Diagnoses Constipation K59.00 Cystocele with prolapse N81.4
== END 2023-04-29 10:58 | disposition home or self-care (01) ==
PROVIDERS: Visit Provider Nurse Practitioner Family
DX: K59.00 Constipation, unspecified (principal); N81.4 Uterovaginal prolapse, unspecified
CPT/HCPCS: 99213

== ENCOUNTER → 2023-04-29 10:16 | Outpatient (BNVA) | payer MEDICARE, MEDICAID, SELFPAY | PROVIDERS: Visit Provider Nurse Practitioner Family | DX: N81.4 Uterovaginal prolapse, unspecified (principal); K59.00 Constipation, unspecified | CPT/HCPCS: 99212 ==

== ENCOUNTER 2023-05-01 08:41 | Outpatient (AMB) | payer MEDICARE, MEDICAID, SELFPAY ==
--- NOTE | 2023-05-01 08:43 | A.OFFPC_ITS ---
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: No Door Liner: Not Required per policy Accompanied by: Self / Same As Patient Allergies codeine [Codeine] Allergy (Severe, Verified 05/01/23 08:47) HIVES ITCHING, rash, hives gabapentin [From Neurontin] Allergy (Severe, Verified 05/01/23 08:47) SWELLING Penicillins Allergy (Severe, Verified 05/01/23 08:47) SWELLING Sulfa (Sulfonamide Antibiotics) [SULFA (SULFONAMIDE ANTIBIOTICS)] Allergy (Severe, Verified 05/01/23 08:47) XEROSTEMIA, DIFF SWALLOWIN, rash, rash pregabalin [From LYRICA] Allergy (Intermediate, Verified 05/01/23 08:47) SWELLING Tobacco use date assessed: 05/01/23 Fall risk assessment: 2 + Falls in past year Last assessed Fall Risk: 05/01/23 Dental Screening Dental Screen Date: 05/01/23 Did you have a dental visit in the last 12 months?: Yes Did you have a dental problem in the last 6 months where you did not have access to dental care?: No Was dental information given to patient?: Patient has dentist HPI Throat pain HPI Details sore throat for a few days PFSH Medical History Anal pruritus Chronic pain syndrome Cystocele with prolapse Fibromyalgia Generalized osteoarthritis Hyperlipidemia Lumbar spondylosis Obesity Obesity Post-menopausal Screening for breast cancer Screening for diabetes mellitus Spondylosis of cervical spine Vertigo Surgical History History of colonoscopy History of hysterectomy History of left knee surgery History of right knee surgery History of varicose veins Family History Father Angina at rest Mother Hypothyroidism Hypertension Osteoarthritis Heart disease Panic disorder Glaucoma Brother Stroke Sister Alcoholic liver disease HIV (human immunodeficiency virus infection) Social History Housing: House Alcohol intake: never Patient Tobacco Use Status: Former Tobacco user Quit Date: 1998 Tobacco use type: Cigarette e-Cigarette/Vaping Use: Never Used Second Hand Smoke Exposure: No service: No Current occupational status: retired Current occupation: Right Handed Cognitive needs: Yes (walk/cane) Hearing needs: No Vision needs: Yes (Glasses) Female Reproductive History Menstrual Age of Menarche: 9 Questionnaire PHQ-9 Over the last 2 weeks, how often have you been bothered by any of the following problems? Depression Screening Interpretation: Negative Source: Developed by Drs. Jose Antonio Ugarte, Romy Tse, Tomi Finley and colleagues, with an educational tommy from [employer]. Thrive Questionnaire Date Thrive assessed: 02/14/22 RYAN-7 AMB Questionnaire RYAN-7 Date RYAN - 7 assessed: 02/05/23 Source: Developed by Drs. Jose Antonio Ugarte, Romy Tse, Tomi Finley and colleagues, with an educational tommy from [employer]. Review of Systems Const Denies chills, Denies headache(s) and Denies weight loss ENT Denies headache(s) Card Denies chest pain, Denies syncope, Denies irregular heart rhythm and Denies dyspnea Resp Denies chest congestion, Denies cough and Denies dyspnea GI Denies abdominal pain, Denies change in stool character, Denies nausea and D enies vomiting Musc Denies deformity and Denies joint swelling Neuro Denies syncope and Denies headache(s) Physical exam (Primary Care) Vital Signs: Last Vital Signs Pulse 64 05/01/23 08:47 BP 116/80 05/01/23 08:47 Pulse Ox 98 05/01/23 08:47 Oxygen Delivery Method Room Air 05/01/23 08:47 BMI result Body Mass Index 28.8 Tobacco/Smoking Status: Tobacco use Status Tobacco use date assessed 05/01/23 05/01/23 08:47 Patient Tobacco Use Status Former Tobacco user 05/01/23 08:46 Tobacco use type Cigarette 05/01/23 08:46 e-Cigarette/Vaping Use Never Used 05/01/23 08:46 Depression Screening Interpretation: Negative Thrive Assessment: Date of Thrive Assessment Date Thrive assessed 02/14/22 05/01/23 08:46 Const General: cooperative and comfortable HENMT Head: Yes normal to inspection Resp Auscultation: clear to auscultation bilaterally Cardio Jugular venous distension: no JVD Rate: regular rate Rhythm: regular rhythm GI Inspection: Yes normal to inspection Assessment and Plan Assessment & Plan (1) Sore throat: Code(s): J02.9 - Acute pharyngitis, unspecified Plan: rx Medications: New azithromycin take 500 mg today (day 1), then 250 mg for 4 days (days 2-5) PO 6 tabs 0RF Coding Level of Care Code Est Pt Level 3 (92112) Diagnoses Sore throat J02.9
[2023-05-01 08:47] VITALS: BP 116/80; PULSE 64; O2SAT 98; BMI 28.8
== END 2023-05-01 09:00 | disposition home or self-care (01) ==
PROVIDERS: PCP Internal Medicine; Visit Provider Internal Medicine
DX: J02.9 Acute pharyngitis, unspecified (principal)
CPT/HCPCS: 99213

== ENCOUNTER 2023-05-29 07:19 | Outpatient (REF) | payer MEDICARE, MEDICAID, SELFPAY ==
[2023-05-29 07:33] LABS: MANUAL DIFF FLAG NO
[2023-05-29 08:15] LABS: Basophils Absolute Auto 0.1 X10*3/uL (0.0-0.2); Basophils Percent Auto 0.9 % (0-2); Eosinophils Absolute Auto 0.4 X10*3/uL (0.0-0.4); Eosinophils Percent Auto 7.8 % (0-4); Hematocrit 40.1 % (37.0-47.0); Hemoglobin 12.8 g/dl (12.0-16.0); Lymphocytes Absolute Auto 2.5 X10*3/uL (1.2-4.9); Lymphocytes Percent Auto 45.1 % (20-40); Mean Corpuscular HGB Conc 31.9 g/dl (31.0-35.0); Mean Corpuscular Hemoglobin 28.2 pg (27.0-33.0); Mean Corpuscular Volume 88.3 fL (80.0-98.0); Mean Platelet Volume 10.8 fL (9.4-12.3); Monocytes Absolute Auto 0.6 X10*3/uL (0.1-1.2); Monocytes Percent Auto 10.6 % (2-11); Neutrophils Percent Auto 35.6 % (45-73); Platelet Count 229 X10*3/uL (160-400); Red Blood Count 4.54 X10*6/uL (4.20-5.50); Red Cell Distribution Width 12.8 % (11.0-16.0); White Blood Count 5.5 X10*3/uL (4.8-10.8)
[2023-05-29 08:54] LABS: Alanine Aminotransferase 17 U/L (0-31); Albumin Level 3.8 g/dL (3.5-5.0); Alkaline Phosphatase 83 U/L (39-117); Anion Gap 11 (12-20); Aspartate Amino Transferase 20 U/L (5-31); Bilirubin Total 0.5 mg/dL (0.0-1.0); Blood Urea Nitrogen 9 mg/dL (9-16); Calcium 9.2 mg/dL (8.4-10.2); Carbon Dioxide 28 mmol/L (22-29); Chloride 110 mmol/L (96-108); Cholesterol 148 mg/dL; Estimated Glomerular Filt Rate > 60; Glucose Fasting 96 mg/dL (60-99); HDL Cholesterol 68 mg/dL; LDL Cholesterol Calculated 71 mg/dl; Potassium 4.2 mmol/L (3.3-5.1); Sodium 145 mmol/L (135-145); Total Protein 6.8 g/dL (6.5-8.0); Triglycerides 49 mg/dL
[2023-05-29 09:11] LABS: Thyroid Stimulating Hormone 0.98 uIU/mL (0.32-4.0)
== END 2023-05-29 07:20 | disposition home or self-care (01) ==
LOC: HO.LAB 07:19
PROVIDERS: PCP Internal Medicine; Visit Provider Internal Medicine
DX: Z13.0 Encounter for screening for diseases of the blood and blood-forming organs and certain disorders involving the immune mechanism (principal); E03.9 Hypothyroidism, unspecified; E78.5 Hyperlipidemia, unspecified; I10 Essential (primary) hypertension
CPT/HCPCS: 36415; 80053; 80061; 84443; 85025

== ENCOUNTER 2023-05-29 09:57 | Outpatient (AMB) | payer MEDICARE, MEDICAID, SELFPAY ==
--- NOTE | 2023-05-29 09:59 | A.OFFVIS_ITS ---
Intake Vital Signs 05/29/23 10:10 Height 5 ft 5 in Weight 174 lb 6 oz BMI 29.0 BP 120/78 Blood Pressure Location Lt brachial Position Sitting Pulse 65 Pulse Source Pulse Oximeter Pulse Oximetry (%) 99 Oxygen Delivery Method Room Air Intake Visit Reasons: SWV- G0439 Intake Note: Patient is here for an Annual Wellness Visit. 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 Accompanied by: Self / Same As Patient Allergies codeine [Codeine] Allergy (Severe, Verified 05/29/23 10:13) HIVES ITCHING, rash, hives gabapentin [From Neurontin] Allergy (Severe, Verified 05/29/23 10:13) SWELLING Penicillins Allergy (Severe, Verified 05/29/23 10:13) SWELLING Sulfa (Sulfonamide Antibiotics) [SULFA (SULFONAMIDE ANTIBIOTICS)] Allergy (Severe, Verified 05/29/23 10:13) XEROSTEMIA, DIFF SWALLOWIN, rash, rash pregabalin [From LYRICA] Allergy (Intermediate, Verified 05/29/23 10:13) SWELLING HPI HPI Comments History of Present Illness Details 72-year-old female past medical history significant for chronic GERD, hypertension, fibromyalgia, chronic pain syndrome, hyperlipidemia and lumbar spondylosis. Patient of Dr. Shields presents today for subseuqunt annual well visit. Mammogram: 07/18/22: Benign, Due in Jun 2023 BMD: Due in June, order entered Colonscopy: Dr. Rutledge 2016; normal recommended 10 year follow up. Labs completed today and reviewed with patient. Eye exam: last year [place] of care was reviewed with patient patient was provided with a written screening schedule. HCP and MOLST forms reviewed with patient, patient advised to return competed forms to office to be scanned into chart. [facility], LAT[facility] Medical History Anal pruritus Chronic pain syndrome Cystocele with prolapse Fibromyalgia Generalized osteoarthritis Hyperlipidemia Lumbar spondylosis Obesity Obesity Post-menopausal Screening for breast cancer Screening for diabetes mellitus Spondylosis of cervical spine Vertigo Surgical History History of colonoscopy History of hysterectomy History of left knee surgery History of right knee surgery History of varicose veins Family History Father Angina at rest Mother Hypothyroidism Hypertension Osteoarthritis Heart disease Panic disorder Glaucoma Brother Stroke Sister Alcoholic liver disease HIV (human immunodeficiency virus infection) Social History Housing: House Alcohol intake: never Patient Tobacco Use Status: Former Tobacco user Quit Date: 1998 Tobacco use type: Cigarette e-Cigarette/Vaping Use: Never Used Second Hand Smoke Exposure: No service: No Current occupational status: retired Current occupation: Right Handed Cognitive needs: Yes (walk/cane) Hearing needs: No Vision needs: Yes (Glasses) Female Reproductive History Menstrual Age of Menarche: 9 Questionnaire Medicare Wellness Checkup What [age] What gender do you identify with?: female During the past 4 weeks, how much have you been bothered by emotional problems such as feeling anxious, depressed, irritable, sad or downhearted, and blue?: slightly During the past 4 weeks, has your physical & emotional health limited your social activities with family, friends, neighbors, or groups?: not at all During the past 4 weeks, how much bodily pain have you generally had?: severe pain During the past 4 weeks, was someone available to help you if you needed & wanted help?: yes, some During the past 4 weeks, what was the hardest physical activity you could do for at least 2 minutes?: very heavy Can you get to places out of walking distance without help? (For eg., can you travel alone on buses, taxis or drive your car?): No Can you go shopping for groceries or clothes without someone's help?: No Can you prepare your own meals?: No Can you do your housework without help?: No Because of any health problems, do you need the help of another person with your personal care needs such as eating, bathing, dressing or getting around the house?: Yes Can you handle your own money without help?: Yes During the past 4 weeks, how would you rate your health in general?: poor During the past 4 weeks how have things been going for you?: good & bad parts about equal Are you having difficulties driving your car?: not applicable, I don't use a car Do you always fasten your seat belt when you are in a car?: yes, usually During past 4 weeks, have you been bothered by the following: never: Teeth or denture problems? and Problems using the telephone?, sometimes: Trouble eating well? and often: Falling or dizzy when standing up and Tiredness or fatigue? Have you fallen 2 or more times in the past year?: No Are you afraid of falling?: Yes Are you a smoker?: no During the past 4 weeks, how many drinks of wine, beer, or other alcoholic beverages did you have?: no alcohol at all Do you exercise for about 20 minutes 3 or more times a week?: yes, most of the time Have you been given information to help with the following?: yes: Hazards in yo ur house that might hurt you? and yes: Keeping track of your medications? How often do you have trouble taking medicines the way you have been told to take them?: I always take medicine as prescribed How confident are you that you can control & manage most of your health problems?: not very confident What is your race?: or origin or descent Activity of Daily Living Bathing - sponge bath, tub bath or shower: receives help in bathing only one body part (such as back or leg) Dressing - getting clothes from closets & drawers, including inner/outer garments & fasteners.: receives help getting clothes or getting dressed, or stays undressed Toileting - going to the 'toilet room' for urine/bowel elimination & cleaning self/arranging clothes: goes to toilet room, cleans self, arranges clothes without help Transfer: moves in & out of bed and chair without help (may use support object) Continence: controls urination/bowel movements completely by self Feeding: feeds self without help Total Score: 1 Information obtained from: patient Using telephone: independent Traveling: dependent Shopping: dependent Preparing meals: needs assistance Housework: dependent Taking medicine: needs assistance (granddaughter helps set up meds in med box) Managing money: independent PHQ-9 Over the last 2 weeks, how often have you been bothered by any of the following problems? 1. Little interest or pleasure in doing things: nearly every day 2. Feeling down, depressed, or hopeless: not at all 3. Trouble falling or staying asleep, or sleeping too much: more than half the days 4. Feeling tired or having little energy: nearly every day 5. Poor appetite or overeating: several days 6. Feeling bad about yourself - or that you are a failure or have let yourself or your family down: several days 7. Trouble concentrating on things, such as reading the newspaper or watching television: several days 8. Moving or speaking so slowly that other people could have noticed. Or the opposite - being so fidgety or restless that you have been moving around a lot more than usual: several days 9. Thoughts that you would be better off or of hurting yourself in some way: not at all Total score: 12 Depression Screening Interpretation: Positive 93247 - PHQ-9 Billing: Yes Source: Developed by Drs. Jose Antonio Ugarte, Romy Tse, Tomi Finley and colleagues, with an educational tommy from [employer]. Physical Exam Vital Signs: Last Vital Signs Pulse 65 05/29/23 10:10 BP 120/78 05/29/23 10:10 Pulse Ox 99 05/29/23 10:10 Oxygen Delivery Method Room Air 05/29/23 10:10 BMI result Body Mass Index 29.0 Const General: cooperative and no acute distress Orientation/consciousness: patient oriented x3 HEENT Ears: other (whisper test: pass) Neuro General: patient oriented x3 Gait exam (Neuro): Normal gait present Coordination: No tandem gait normal (unable to complete) and Romberg test negative Assessment & Plan Assessment & Plan (1) Hyperlipidemia: Code(s): E78.5 - Hyperlipidemia, unspecified Plan: Continue on statin. LDL 71 Follow low cholesterol diet. (2) Hypertension: Code(s): I10 - Essential (primary) hypertension Plan: Continue on propranolol. B/p below goal today. Follow low salt diet and excercise. (3) Chronic GERD: Code(s): K21.9 - Gastro-esophageal reflux disease without esophagitis Plan: Continue on pantoprazole. (4) Medicare annual wellness visit, subsequent: Code(s): Z00.00 - Encounter for general adult medical examination without abnormal findings Plan: [place] up in 1 year [facility] Plan Keep scheduled follow up with pcp Orders: Orders XR DEXA axial skeleton 1 Month Z78.0 - Asymptomatic menopausal state Medications: Refilled meclizine 25 mg PO QID 60 tabs 2RF Quality Reporting (2019) Depression/Bipolar (159/160/161/177) PHQ-9: Total score: 12 Coding Level of Care Code Medicare Subsequent (G0439) Diagnoses Hyperlipidemia E78.5 Hypertension I10 Chronic GERD K21.9 Medicare annual wellness visit, subsequent Z00.00
--- NOTE | 2023-05-29 09:59 | MHC.PC.OV ---
Intake Visit Reasons: SWV- G0439 Allergies codeine [Codeine] Allergy (Severe, Verified 05/01/23 08:47) HIVES ITCHING, rash, hives gabapentin [From Neurontin] Allergy (Severe, Verified 05/01/23 08:47) SWELLING Penicillins Allergy (Severe, Verified 05/01/23 08:47) SWELLING Sulfa (Sulfonamide Antibiotics) [SULFA (SULFONAMIDE ANTIBIOTICS)] Allergy (Severe, Verified 05/01/23 08:47) XEROSTEMIA, DIFF SWALLOWIN, rash, rash pregabalin [From LYRICA] Allergy (Intermediate, Verified 05/01/23 08:47) SWELLING Tobacco use date assessed: 05/01/23 [facility] Medical History Anal pruritus Chronic pain syndrome Cystocele with prolapse Fibromyalgia Generalized osteoarthritis Hyperlipidemia Lumbar spondylosis Obesity Obesity Post-menopausal Screening for breast cancer Screening for diabetes mellitus Spondylosis of cervical spine Vertigo Surgical History History of colonoscopy History of hysterectomy History of left knee surgery History of right knee surgery History of varicose veins Family History Father Angina at rest Mother Hypothyroidism Hypertension Osteoarthritis Heart disease Panic disorder Glaucoma Brother Stroke Sister Alcoholic liver disease HIV (human immunodeficiency virus infection) Social History Housing: House Alcohol intake: never Patient Tobacco Use Status: Former Tobacco user Quit Date: 1998 Tobacco use type: Cigarette e-Cigarette/Vaping Use: Never Used Second Hand Smoke Exposure: No service: No Current occupational status: retired Current occupation: Right Handed Cognitive needs: Yes (walk/cane) Hearing needs: No Vision needs: Yes (Glasses) Female Reproductive History Menstrual Age of Menarche: 9 Questionnaire Thrive Questionnaire Date Thrive assessed: 02/14/22 RYAN-7 AMB Questionnaire RYAN-7 Date RYAN - 7 assessed: 02/05/23 Source: Developed by Drs. Jose Antonio Ugarte, Romy Tse, Tomi Finley and colleagues, with an educational tommy from [employer]. Physical exam (Primary Care) Tobacco/Smoking Status: Tobacco use Status Tobacco use date assessed 05/01/23 05/01/23 08:47 Patient Tobacco Use Status Former Tobacco user 05/01/23 08:46 Tobacco use type Cigarette 05/01/23 08:46 e-Cigarette/Vaping Use Never Used 05/01/23 08:46 Thrive Assessment: Date of Thrive Assessment Date Thrive assessed 02/14/22 05/01/23 08:46 Coding Diagnoses
[2023-05-29 10:10] VITALS: BP 120/78; PULSE 65; O2SAT 99; BMI 29.0
== END 2023-05-29 10:41 | disposition home or self-care (01) ==
PROVIDERS: PCP Internal Medicine; Visit Provider Nurse Practitioner Family
DX: Z00.00 Encounter for general adult medical examination without abnormal findings (principal); E78.5 Hyperlipidemia, unspecified; I10 Essential (primary) hypertension; K21.9 Gastro-esophageal reflux disease without esophagitis
CPT/HCPCS: G0439

== ENCOUNTER 2023-06-08 08:49 | Outpatient (AMB) | payer MEDICARE, MEDICAID, SELFPAY ==
[2023-06-08 08:51] VITALS: BP 118/72; PULSE 75; O2SAT 100; BMI 28.6
--- NOTE | 2023-06-08 08:51 | MHC.PC.OV ---
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: No Allergies codeine [Codeine] Allergy (Severe, Verified 06/08/23 08:54) HIVES ITCHING, rash, hives gabapentin [From Neurontin] Allergy (Severe, Verified 06/08/23 08:54) SWELLING Penicillins Allergy (Severe, Verified 06/08/23 08:54) SWELLING Sulfa (Sulfonamide Antibiotics) [SULFA (SULFONAMIDE ANTIBIOTICS)] Allergy (Severe, Verified 06/08/23 08:54) XEROSTEMIA, DIFF SWALLOWIN, rash, rash pregabalin [From LYRICA] Allergy (Intermediate, Verified 06/08/23 08:54) SWELLING Tobacco use date assessed: 06/08/23 Fall risk assessment: No Falls in past year Last assessed Fall Risk: 06/08/23 Dental Screening Dental Screen Date: 06/08/23 Did you have a dental visit in the last 12 months?: Yes Did you have a dental problem in the last 6 months where you did not have access to dental care?: No Was dental information given to patient?: Patient has dentist HPI 4 month F/U HPI Details asthma hyperlip and gerd; stable on rx PFSH Medical History Anal pruritus Chronic pain syndrome Cystocele with prolapse Fibromyalgia Generalized osteoarthritis Hyperlipidemia Lumbar spondylosis Obesity Obesity Post-menopausal Screening for breast cancer Screening for diabetes mellitus Spondylosis of cervical spine Vertigo Surgical History History of colonoscopy History of hysterectomy History of left knee surgery History of right knee surgery History of varicose veins Family History Father Angina at rest Mother Hypothyroidism Hypertension Osteoarthritis Heart disease Panic disorder Glaucoma Brother Stroke Sister Alcoholic liver disease HIV (human immunodeficiency virus infection) Social History Housing: House Alcohol intake: never Patient Tobacco Use Status: Former Tobacco user Quit Date: 1998 Tobacco use type: Cigarette e-Cigarette/Vaping Use: Never Used Second Hand Smoke Exposure: No service: No Current occupational status: retired Current occupation: Right Handed Cognitive needs: Yes (walk/cane) Hearing needs: No Vision needs: Yes (Glasses) Female Reproductive History Menstrual Age of Menarche: 9 Questionnaire PHQ-9 Over the last 2 weeks, how often have you been bothered by any of the following problems? Depression Screening Interpretation: Negative Source: Developed by Drs. Jose Antonio Ugarte, Tomi Walsh and colleagues, with an educational tommy from [employer]. Thrive Questionnaire Date Thrive assessed: 06/08/23 I am a: Patient What is your living situation today?: I have a steady place to live Within the past 12 months, did the food you bought not last and you didn't have the money to get more?: Never true Within the past 12 months, did you worry whether your food would run out before you got money to buy more?: Never true AUDIT C Alcohol Use Questionnaire (AUDIT-C) 1. How often do you have a drink containing alcohol?: Never 3. How often do you have six or more drinks on one occasion?: Never Total Score: 0 Score Reviewed/Action Taken: No RYAN-7 AMB Questionnaire RYAN-7 Date RYAN - 7 assessed: 02/05/23 Source: Developed by Drs. Jose Antonio Ugarte, Romy Tse, Tomi Finley and colleagues, with an educational tommy from [employer]. Review of Systems Const Denies chills, Denies headache(s) and Denies weight loss ENT Denies headache(s) Card Denies chest pain, Denies syncope, Denies irregular heart rhythm and Denies dyspnea Resp Denies chest congestion, Denies cough and Denies dyspnea GI Denies abdominal pain, Denies change in stool character, Denies nausea and Denies vomiting Musc Denies deformity and Denies joint swelling Neuro Denies syncope and Denies headache(s) Physical exam (Primary Care) Vital Signs: Last Vital Signs Pulse 75 06/08/23 08:51 BP 118/72 06/08/23 08:51 Pulse Ox 100 06/08/23 08:51 Oxygen Delivery Method Room Air 06/08/23 08:51 BMI result Body Mass Index 28.6 Tobacco/Smoking Status: Tobacco use Status Tobacco use date assessed 06/08/23 06/08/23 08:57 Patient Tobacco Use Status Former Tobacco user 06/08/23 08:57 Tobacco use type Cigarette 06/08/23 08:57 e-Cigarette/Vaping Use Never Used 06/08/23 08:57 Depression Screening Interpretation: Negative Thrive Assessment: Date of Thrive Assessment Date Thrive assessed 06/08/23 06/08/23 08:57 Const General: cooperative and comfortable HENMT Head: Yes normal to inspection Resp Auscultation: clear to auscultation bilaterally Cardio Jugular venous distension: no JVD Rate: regular rate Rhythm: regular rhythm GI Inspection: Yes normal to inspection Assessment and Plan Assessment & Plan (1) Chronic GERD: Code(s): K21.9 - Gastro-esophageal reflux disease without esophagitis Plan: stable; same rx (2) Hyperlipidemia: Code(s): E78.5 - Hyperlipidemia, unspecified Plan: stable; same rx (3) Asthma: Code(s): J45.909 - Unspecified asthma, uncomplicated Plan: stable; same rx Orders: Orders Lipid Panel Today E78.5 - Hyperlipidemia, unspecified Thyroid Stimulating Hormone Today E03.9 - Hypothyroidism, unspecified Medications: Changed From sennosides 17.2 mg PO BEDTIME PRN To sennosides 17.2 mg (2 x 8.6 mg) PO BEDTIME PRN 90 tabs 6RF constipation 30 days Coding Level of Care Code Est Pt Level 4 (35661) Diagnoses Chronic GERD K21.9 Hyperlipidemia E78.5 Asthma J45.909
== END 2023-06-08 09:09 | disposition home or self-care (01) ==
PROVIDERS: PCP Internal Medicine; Visit Provider Internal Medicine
DX: K21.9 Gastro-esophageal reflux disease without esophagitis (principal); E78.5 Hyperlipidemia, unspecified; J45.909 Unspecified asthma, uncomplicated
CPT/HCPCS: 99214

== ENCOUNTER 2023-07-08 09:55 | Outpatient (AMB) | payer MEDICARE, MEDICAID, SELFPAY ==
--- NOTE | 2023-07-08 10:00 | MHC.OFFVIS ---
Intake Vital Signs 07/08/23 10:01 Height 5 ft 4 in Weight 174 lb BMI 29.9 BP 114/67 Blood Pressure Location Lt brachial Position Sitting Pulse 68 Intake Visit Reasons: Constipation Intake Note: Patient new consult for constipation. Patient cc: chronic constipation, middle abdominal pain with bloating, nauseas, and headaches. Control Room Technician Required: No Accompanied by: Self / Same As Patient Allergies codeine [Codeine] Allergy (Severe, Verified 07/08/23 09:59) HIVES ITCHING, rash, hives gabapentin [From Neurontin] Allergy (Severe, Verified 07/08/23 09:59) SWELLING Penicillins Allergy (Severe, Verified 07/08/23 09:59) SWELLING Sulfa (Sulfonamide Antibiotics) [SULFA (SULFONAMIDE ANTIBIOTICS)] Allergy (Severe, Verified 07/08/23 09:59) XEROSTEMIA, DIFF SWALLOWIN, rash, rash pregabalin [From LYRICA] Allergy (Intermediate, Verified 07/08/23 09:59) SWELLING Medication List - Last Reconciled 07/08/23 by Elana Wynn PA-C acetaminophen ER (Tylenol Arthritis Pain) 650 mg PO Q8H albuterol sulfate 90 mcg/actuation 2 puffs inhalation QID diclofenac sodium 1% (Voltaren Arthritis Pain) 2 grams topical BID erythromycin 0.5 inches ophthalmic (eye) BID 7 days fluticasone propionate 50 mcg/actuation intranasal hydroxyzine HCl 25 mg PO TID PRN latanoprost 0.005% 1 drp ophthalmic (eye) BEDTIME loratadine 10 mg PO DAILY lubiprostone 24 mcg PO BID meclizine 25 mg PO QID ondansetron HCl (Zofran) 4 mg PO Q8H 3 days pantoprazole 40 mg PO BID propranolol ER 120 mg PO DAILY rosuvastatin 40 mg PO DAILY triamcinolone acetonide 0.1% appl topical HPI HPI Comments History of Present Illness Details 72-year-old female referred for constipation- she says she was given a pill but caused her nausea, cramping, back pain-so she discontinued she does get bloating and gas She has chronic pain-has OA and fibro. Appetite is fairly good-- No nausea, vomiting hematemesis, hematochezia fever or chills PFSH Medical History Cystocele with prolapse Fibromyalgia Generalized osteoarthritis Chronic pain syndrome Spondylosis of cervical spine Obesity Post-menopausal Screening for breast cancer Screening for diabetes mellitus Obesity Hyperlipidemia Vertigo Lumbar spondylosis Anal pruritus Surgical History History of right knee surgery History of colonoscopy History of varicose veins History of left knee surgery History of hysterectomy Family History Father Angina at rest Mother Hypothyroidism Hypertension Osteoarthritis Heart disease Panic disorder Glaucoma Brother Stroke Sister Alcoholic liver disease HIV (human immunodeficiency virus infection) Social History Housing: House Alcohol intake: never Patient Tobacco Use Status: Former Tobacco user Quit Date: 1998 Tobacco use type: Cigarette e-Cigarette/Vaping Use: Never Used Second Hand Smoke Exposure: No service: No Current occupational status: retired Current occupation: Right Handed Cognitive needs: Yes (walk/cane) Hearing needs: No Vision needs: Yes (Glasses) Female Reproductive History Menstrual Age of Menarche: 9 Review of Systems Const All systems reviewed & are unremarkable except as noted in HPI and below ENT Reports neck pain Card Denies chest pain GI Denies hematochezia, Reports constipation and Reports heartburn Musc Reports back pain, Reports myalgias, Reports arthralgias, Reports muscle cramps, Reports neck pain and Reports stiffness Physical Exam Vital Signs: Last Vital Signs Pulse 68 07/08/23 10:01 BP 114/67 07/08/23 10:01 BMI result Body Mass Index 29.9 Const General: cooperative, comfortable and no acute distress Nutritional Appearance: overweight Orientation/consciousness: patient oriented x3 Eyes Sclerae: sclerae normal Resp Auscultation: clear to auscultation bilaterally, no rales, no rhonchi and no wheezes Cardio Rate: regular rate Rhythm: regular rhythm Heart sounds: S1 normal heart sound present and S2 normal heart sound present GI Palpation (GI): Soft to palpation and nontender Auscultation: normal bowel sounds Neuro General: patient oriented x3 Extrem General: Yes full ROM Psych Appearance: grossly normal and well kempt Mental Status: mental status grossly normal Speech and movement: Normal speech and movement present Affect: normal affect Attitude: cooperative Thought process: Normal thought process present Thought content: Normal thought content present Results Reviewed Results Reviewed: 06/2017 Dr. Rutledge Colonoscopy for history of colon polyp Normal colonoscopy no polyps recommend repeat 7 year 2018- EGD Mild gastritis- no HP Assessment & Plan Assessment & Plan (1) Constipation: Comment: hold off on colonoscopy- until able to get good bowel pattern Code(s): K59.00 - Constipation, unspecified Plan: consistent bowel regimen HFD (2) Chronic GERD: Code(s): K21.9 - Gastro-esophageal reflux disease without esophagitis Plan: well controlled- continue ppi Medications: New methylcellulose (laxative) (Citrucel) 500 mg PO TID 30 days 90 tabs 5RF docusate sodium (Colace) 200 mg (2 x 100 mg) PO BEDTIME 60 caps 5RF bisacodyl (Dulcolax (bisacodyl)) 10 mg MT DAILY PRN 20 ea 2RF constipation polyethylene glycol 3350 (Miralax) 17 grams PO DAILY 30 days PRN 510 grams 6RF constipation Patient Instructions: consistent bowel regimen HFD Are reflux precautions reviewed Continue PPI Encouraged to call questions or concern Coding Level of Care Code New Pt Level 3 (33059) Diagnoses Constipation K59.00 Chronic GERD K21.9 Time Spent (min) 30
[2023-07-08 10:01] VITALS: BP 114/67; PULSE 68; BMI 29.9
== END 2023-07-08 10:42 | disposition home or self-care (01) ==
PROVIDERS: PCP Internal Medicine; Visit Provider Physician Assistant
DX: K59.00 Constipation, unspecified (principal); K21.9 Gastro-esophageal reflux disease without esophagitis
CPT/HCPCS: 99203

== ENCOUNTER → 2023-07-08 09:55 | Outpatient (BNVA) | payer MEDICARE, MEDICAID, SELFPAY | PROVIDERS: PCP Internal Medicine; Visit Provider Physician Assistant ==

== ENCOUNTER → 2023-07-24 09:45 | Outpatient (BNV) | payer OTHER, SELFPAY | PROVIDERS: PCP Internal Medicine; Visit Provider Radiology Diagnostic Radiology | DX: Z12.31 Encounter for screening mammogram for malignant neoplasm of breast (principal) | CPT/HCPCS: 77063; 77067 ==

== ENCOUNTER 2023-07-24 09:53 | Outpatient (REF) | payer OTHER, SELFPAY ==
--- NOTE | ~2023-07-24 | MM_ITS ---
EXAMINATION: MM SCREENING DIGITAL BREAST TOMOSYNTHESIS, BILATERAL CLINICAL INFORMATION: Screening. Asymptomatic. COMPARISON: Mammography: This study is compared with prior exams dating back to 2017. TECHNIQUE: Digital breast tomosynthesis is performed in both the craniocaudal and mediolateral oblique views along with computer-aided detection (CAD). Synthesized 2D images are generated from the tomosynthesis. FINDINGS: There are scattered areas of fibroglandular density (ACR BI-RADS breast composition Category b). There are no significant masses, abnormal calcifications, or other abnormalities. There is a tissue marker present in the right breast from prior benign percutaneous biopsy. MM/MM tomosynthesis screening BI IMPRESSION: No mammographic evidence of malignancy. ASSESSMENT: BI-RADS BI-RADS 2 - Benign Findings RECOMMENDATION: Routine annual mammography screening. 1 year F/U This examination should not preclude the clinical evaluation of a suspicious palpable abnormality. This patient's information was entered into a reminder system with a target due date for their next mammogram.
== END 2023-07-24 09:54 | disposition home or self-care (01) ==
LOC: HO.MAMMO 09:53
PROVIDERS: PCP Internal Medicine; Visit Provider Nurse Practitioner Family
DX: Z12.31 Encounter for screening mammogram for malignant neoplasm of breast (principal); Z13.820 Encounter for screening for osteoporosis; Z78.0 Asymptomatic menopausal state
CPT/HCPCS: 77063; 77067; 77080

== ENCOUNTER → 2023-07-29 08:54 | Outpatient (AMB) | payer OTHER, SELFPAY ==
--- NOTE | 2023-07-29 08:58 | A.OFFVIS_ITS ---
Intake Vital Signs 07/29/23 09:06 Height 5 ft 4 in Weight 176 lb 5.917 oz BMI 30.3 BP 92/58 L Blood Pressure Location Lt brachial Position Sitting Pulse 70 Pulse Source Pulse Oximeter Temp 97.5 F Temp Source Skin Pulse Oximetry (%) 98 Oxygen Delivery Method Room Air Intake Visit Reasons: OA Intake Note: Patient presents today for OA follow up. c/o worsening back pain and left shoulder pain Label Printer Required: No Accompanied by: Self / Same As Patient Allergies codeine [Codeine] Allergy (Severe, Verified 07/29/23 09:07) HIVES ITCHING, rash, hives gabapentin [From Neurontin] Allergy (Severe, Verified 07/29/23 09:07) SWELLING Penicillins Allergy (Severe, Verified 07/29/23 09:07) SWELLING Sulfa (Sulfonamide Antibiotics) [SULFA (SULFONAMIDE ANTIBIOTICS)] Allergy (Severe, Verified 07/29/23 09:07) XEROSTEMIA, DIFF SWALLOWIN, rash, rash pregabalin [From LYRICA] Allergy (Intermediate, Verified 07/29/23 09:07) SWELLING Medication List - Last Reconciled 07/29/23 by Kristian Castillo MD acetaminophen ER (Tylenol Arthritis Pain) 650 mg PO Q8H albuterol sulfate 90 mcg/actuation 2 puffs inhalation QID bisacodyl (Dulcolax (bisacodyl)) 10 mg RI DAILY PRN diclofenac sodium 1% (Voltaren Arthritis Pain) 2 grams topical BID docusate sodium (Colace) 200 mg (2 x 100 mg) PO BEDTIME fluticasone propionate 50 mcg/actuation intranasal hydroxyzine HCl 25 mg PO TID PRN latanoprost 0.005% 1 drp ophthalmic (eye) BEDTIME loratadine 10 mg PO DAILY lubiprostone 24 mcg PO BID meclizine 25 mg PO QID methylcellulose (laxative) (Citrucel) 500 mg PO TID 30 days ondansetron HCl (Zofran) 4 mg PO Q8H 3 days pantoprazole 40 mg PO BID polyethylene glycol 3350 (Miralax) 17 grams PO DAILY PRN 30 days propranolol ER 120 mg PO DAILY rosuvastatin 40 mg PO DAILY sennosides (senna) 17.2 mg PO BEDTIME PRN triamcinolone acetonide 0.1% appl topical HPI HPI Comments History of Present Illness Details The patient returns complaining of left hand pain and numbness, left shoulder pain with motion, lower back pain, and neck pains. It appears the lower back and the left shoulder are her more severe areas of pain. Both of these problems are chronic. She has received occasional corticosteroid injections in the lower back for the back pain. She has also had injections in the shoulder for glenohumeral osteoarthritis. The injections were somewhat helpful in both areas but not significantly enough so that she wanted to return to have them done again. She did have a nerve conduction study in 2018 showing some carpal tunnel findings in the left hand although these were judged to be mild. She is using topical diclofenac gel and oral Tylenol Arthritis for her symptoms with questionable benefit. [facility] Medical History (Updated 07/29/23 @ 14:38 by Kristian Castillo MD) Cystocele with prolapse Fibromyalgia Generalized osteoarthritis Chronic pain syndrome Spondylosis of cervical spine Obesity Post-menopausal Screening for breast cancer Screening for diabetes mellitus Obesity Hyperlipidemia Vertigo Lumbar spondylosis Anal pruritus Surgical History History of right knee surgery History of colonoscopy History of varicose veins History of left knee surgery History of hysterectomy Family History Father Angina at rest Mother Hypothyroidism Hypertension Osteoarthritis Heart disease Panic disorder Glaucoma Brother Stroke Sister Alcoholic liver disease HIV (human immunodeficiency virus infection) Social History Housing: House Alcohol intake: never Patient Tobacco Use Status: Former Tobacco user Quit Date: 1998 Tobacco use type: Cigarette e-Cigarette/Vaping Use: Never Used Second Hand Smoke Exposure: No service: No Current occupational status: retired Current occupation: Right Handed Cognitive needs: Yes (walk/cane) Hearing needs: No Vision needs: Yes (Glasses) Female Reproductive History Menstrual Age of Menarche: 9 Review of Systems Const Details: Some fatigue. Negative for appetite change, weight change, fever, chills, malaise Eyes Details: Intermittent headaches. Negative for vision change, dry eyes and dizziness ENT Details: Negative for hearing change, tinnitus, oral ulcer, nose bleeds and oral dryness. Card Details: Negative chest pain, edema and syncope Resp Details: Negative for SOB, cough and wheezing GI Details: Negative indigestion/heartburn, nausea, abdominal pain, bowel changes, diarrhea, constipation and bloody stool. Neuro Details: Bilateral numbness in the hands, a bit more prominent she thinks on the left. Negative for epilepsy, palsy, stroke, changes in speech and weakness Endo Details: Negative for polyuria and polydypsia Young/Lymph Details: Negative for excessive bruising or bleeding. Physical Exam Vital Signs: Last Vital Signs Temp 97.5 F 07/29/23 09:06 Pulse 70 07/29/23 09:06 BP 92/58 L 07/29/23 09:06 Pulse Ox 98 07/29/23 09:06 Oxygen Delivery Method Room Air 07/29/23 09:06 BMI result Body Mass Index 30.3 APPEARANCE: Patient in no acute distress EYES no redness, pupils equal and reactive to light, eyelids normal. No temporal artery tenderness, redness or swelling. EXTREMITIES: No edema, no calf tenderness, normal peripheral pulses. NEURO: Oriented and alert x3. No focal weakness. Gait normal. Questionable decrease in sensation over the tips of the fingers in the right hand. SKIN: No inflammatory or neoplastic lesions. Normal color and turgor JOINT EXAM:? Cervical Spine:? Full range of motion with mild pain at lateral flexion at 10 degrees or rotation at 45 degrees to either side. She has mild tenderness to palpation of the cervical spine and cervical spinal muscles. Thoracic Spine:? No scoliosis.? Mild tenderness along the paraspinal muscles in the upper thoracic spine. No tenderness over the vertebral spine. Lumbar Spine:? Alignment normal.? Mild to moderate pain with flexion at 45 degrees. There is some paraspinal muscle tenderness over the lumbar spine. Hands:? Right: Slight tenderness at the base of the thumb. Slight thickening with bony enlargement at the PIP joints. These are slightly tender. No soft tissue swelling. There is some slight thenar atrophy and perhaps some sensory loss over the fingertips. Left: Slight tenderness at the base of the thumb. Mild bony enlargement and tenderness at the PIP joints. No thenar atrophy. There may be some slight sensory loss over the 1st 3 fingertips. No soft tissue swelling or triggering.. Wrists:? Left: Slight pain 80 degrees flexion extension, mostly felt on the ulnar aspect. There is some mild tenderness there was she has a scar. The scar over the carpal tunnel region as well healed. Right: Normal pain-free range of motion without tenderness, swelling, increased warmth or erythema. Elbows: Normal pain-free range of motion without tenderness, swelling, increased warmth or erythema. Shoulders: LEFT: Unable to flex or abduct greater than 90 degrees with moderate pain. Unable to rotate internally or externally more than 10 degrees, this is accompanied by moderate pain. Mild to moderate tenderness anteriorly, posteriorly and in the subacromial space. There is no adenopathy. She does not have any swelling, increased warmth or erythema. RIGHT: Full range of motion without pain. No tenderness, weakness, swelling, increased warmth or erythema Hips:?Full range of motion without pain. Hip bursa:?No tenderness. Knees: Left: There is slight pain with extremes of flexion extension. Well- healed anterior scar from her knee replacement. There is slight tenderness on the medial joint margin. No effusion, redness or warmth. Right: Pain-free range of motion with some mild medial tenderness but no effusion, redness or warmth. Ankles: LEFT: Normal pain-free range of motion without tenderness, swelling, increased warmth or erythema. RIGHT: Normal pain-free range of motion without tenderness, swelling, increased warmth or erythema. Feet: LEFT: Normal pain-free range of motion without tenderness, swelling, increased warmth or erythema. Cock up deformity consistent with hammer toe with slight erythema over the dorsum of the 2,3 and 4 toes. No swelling, induration or warmth noted. RIGHT: Normal pain-free range of motion without tenderness, swelling, increased warmth or erythema. Cock up deformity consistent with hammer toe with slight erythema over the dorsum of the 2,3 and 4 toes. No swelling, induration or warmth noted. Tender points: Mild tenderness to digital palpation at the occiput, trapezius, second rib, lateral epicondyle, knees, greater trochanter and gluteal area bilaterally. ? Results Reviewed Results Reviewed: [address] [address] XRay Report Signed Patient: Kanwal Juarez MR#: [id number] : 1950 Acct:[id number] Age/Sex: 70 / F ADM Date: 09/06/[address]: Raman Shields MD Ordering Physician: Raman Shields MD Date of Service: 09/06/21 Procedure(s): XR cervical spine 2V Accession Number(s): [id number] cc: Raman Shields MD~ EXAMINATION: XR CERVICAL SPINE CLINICAL INFORMATION: Cervicalgia. COMPARISON: Radiograph of the cervical spine dated from 12/31/2018. TECHNIQUE: 4 views of the cervical spine were obtained. FINDINGS: No evidence of acute compression deformities. There is anatomic alignment of the anterior and posterior elements. The atlantoaxial and atlantooccipital articulations are maintained. On the odontoid view, the dens appears intact. There is moderate cervical spondylosis with disc narrowing and vertebral spurring more prominent at C4-C5 and C5-C6. No prevertebral soft tissue thickening. Visualized lung bases are clear. XR/XR cervical spine 2V IMPRESSION: No evidence of acute compression deformities or malalignment. Moderate cervical spondylosis. Dictated By: Holli Tang Signed By: <Electronically signed by Holli Tang in OV> Assessment & Plan Assessment & Plan (1) Lumbar spondylosis: Code(s): M47.816 - Spondylosis without myelopathy or radiculopathy, lumbar region (2) Carpal tunnel syndrome on both sides: Comment: 2018 EMG: Mild to moderate on right, mild on left Code(s): G56.03 - Carpal tunnel syndrome, bilateral upper limbs (3) Osteoarthritis of left glenohumeral joint: Code(s): M19.012 - Primary osteoarthritis, left shoulder (4) Fibromyalgia: Code(s): M79.7 - Fibromyalgia (5) Spondylosis of cervical spine: Code(s): M47.812 - Spondylosis without myelopathy or radiculopathy, cervical region Plan The patient has relatively severe osteoarthritis involving the left glenohumeral joint. This was helped a bit by corticosteroid injections but I think she could benefit from surgery for that. I would encourage her to proceed with further evaluation in that regard. She has some paresthesias in the left hand. This could be left over from her carpal tunnel syndrome although she did have it operated on so it could be from a cervical degenerative etiology. The EMG from 2018 did not suggest a radiculopathy at the time. The neck pain and lower back pain are consistent with osteoarthritis that has been previously detected. She could consider seeing Pain Management for injections in those areas as well. I think she could continue with the diclofenac gel and Tylenol as above. I was hesitant to use NSAIDs in her case given her age. Overall she does have many tender points so probably has some element of fibromyalgia. It would seem however most of her pains are due to osteoarthritis. A recheck in 5-6 months or so is reasonable. Orders: Orders XR shoulder LT min 2V Today M19.012 - Primary osteoarthritis, left shoulder XR lumbar spine 2-3V Today M47.816 - Spondylosis without myelopathy or radiculopathy, lumbar region Referrals Orthopedics Referral M19.012 - Primary osteoarthritis, left shoulder Pain Management Referral M19.012 - Primary osteoarthritis, left shoulder Coding Level of Care Code Est Pt Level 4 (74429) Diagnoses Lumbar spondylosis M47.816 Carpal tunnel syndrome on both sides G56.03 Osteoarthritis of left glenohumeral joint M19.012 Fibromyalgia M79.7 Spondylosis of cervical spine M47.812
[2023-07-29 09:06] VITALS: BP 92/58; PULSE 70; TEMP 36.4; O2SAT 98; BMI 30.3
== END ==
PROVIDERS: PCP Internal Medicine; Visit Provider Internal Medicine Rheumatology
DX: M47.816 Spondylosis without myelopathy or radiculopathy, lumbar region (principal); G56.03 Carpal tunnel syndrome, bilateral upper limbs; M19.012 Primary osteoarthritis, left shoulder; M79.7 Fibromyalgia; M47.812 Spondylosis without myelopathy or radiculopathy, cervical region
CPT/HCPCS: 99214

== ENCOUNTER → 2023-07-29 08:54 | Outpatient (BNVA) | payer OTHER, SELFPAY | PROVIDERS: PCP Internal Medicine; Visit Provider Internal Medicine Rheumatology | DX: M19.012 Primary osteoarthritis, left shoulder (principal); M47.816 Spondylosis without myelopathy or radiculopathy, lumbar region; M47.812 Spondylosis without myelopathy or radiculopathy, cervical region; M79.7 Fibromyalgia; G56.03 Carpal tunnel syndrome, bilateral upper limbs | CPT/HCPCS: 99212 ==

== ENCOUNTER 2023-07-31 10:25 | Outpatient (AMB) | payer MEDICARE, SELFPAY ==
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
[2023-07-31 10:31] VITALS: BP 136/62; PULSE 70; O2SAT 97; BMI 30.2
== END 2023-07-31 11:34 | disposition home or self-care (01) ==
PROVIDERS: PCP Internal Medicine; Visit Provider Nurse Practitioner Family
DX: M19.012 Primary osteoarthritis, left shoulder (principal); M47.812 Spondylosis without myelopathy or radiculopathy, cervical region; M25.512 Pain in left shoulder
CPT/HCPCS: 20606; 99214

== ENCOUNTER → 2023-07-31 10:25 | Outpatient (BNVA) | payer MEDICARE, SELFPAY | PROVIDERS: PCP Internal Medicine; Visit Provider Nurse Practitioner Family | DX: M19.012 Primary osteoarthritis, left shoulder (principal); M25.512 Pain in left shoulder; M47.812 Spondylosis without myelopathy or radiculopathy, cervical region | CPT/HCPCS: 20606; 99212; J3301 ==

== ENCOUNTER 2023-08-08 11:28 | Emergency (ER) | payer OTHER, SELFPAY ==
--- NOTE | ~2023-08-08 | XR_ITS ---
EXAMINATION: CR CHEST CLINICAL INFORMATION: Chest pain. COMPARISON: Several prior chest x-rays, most recent of which is dated 10/07/2022. CT pulmonary angiogram dated 10/07/2022. TECHNIQUE: AP portable upright view of the chest was obtained. FINDINGS: EKG leads are in place. The cardiomediastinal silhouette is within normal limits in size. Lungs bilaterally are symmetrically expanded and clear. No focal consolidation, effusion or pneumothorax is seen. Multilevel mild vertebral spondylosis and mild S-shaped thoracolumbar scoliosis seen. Moderate degenerative changes in the left glenohumeral joint again noted. XR/XR chest 1V IMPRESSION: No acute cardiopulmonary process.
[2023-08-08 11:30] VITALS: BP 136/74; PULSE 77; RESP 18; TEMP 36; O2SAT 98; BMI 30.8
--- NOTE | 2023-08-08 11:31 | ED.GENADULT ---
HPI - General Adult General Chief complaint: Chest Pain Stated complaint: chest pain/ tooth pain Time Seen by Provider: 08/08/23 12:06 Source: patient and family Mode of arrival: ambulatory Limitations: no limitations History of Present Illness HPI narrative: Patient's history of nonobstructive coronary disease had cardiac catheterization 2 times last one was 3 years ago was negative has recurrent chest pain specially with anxiety at this time patient was no anxiety but had pain while at rest also noticed some pain in the lip area no shortness of breath no cough Related Data Home Medications Medication Instructions Recorded Confirmed fluticasone propionate 50 intranasal 07/27/20 07/29/23 mcg/actuation nasal spray,suspension latanoprost 0.005 % eye drops 1 drp ophthalmic (eye) BEDTIME 07/27/20 07/29/23 lubiprostone 24 mcg capsule 24 mcg PO BID 07/27/20 07/29/23 triamcinolone acetonide 0.1 % applic topical 07/27/20 07/29/23 topical cream sennosides 8.6 mg tablet (senna) 17.2 mg PO BEDTIME PRN constipation 07/28/23 07/29/23 Previous Rx's Medication Instructions Recorded ondansetron HCl 4 mg tablet 4 mg PO Q8H 3 days #9 tabs 06/12/21 (Zofran) hydroxyzine HCl 25 mg tablet 25 mg PO TID PRN itching #30 tabs 05/27/22 albuterol sulfate 90 mcg/actuation 2 puff inhalation QID #8.5 grams 07/02/22 aerosol inhaler rosuvastatin 40 mg tablet 40 mg PO DAILY #90 tabs 10/16/22 acetaminophen 650 mg 650 mg PO Q8H #90 tabs 11/24/22 tablet,extended release (Tylenol Arthritis Pain) diclofenac sodium 1 % topical gel 2 g topical BID #100 grams 11/24/22 (Voltaren Arthritis Pain) loratadine 10 mg tablet 10 mg PO DAILY #90 tabs 04/18/23 pantoprazole 40 mg tablet,delayed 40 mg PO BID #180 tabs 04/18/23 release meclizine 25 mg tablet 25 mg PO QID #60 tabs 05/29/23 propranolol 120 mg capsule,24 120 mg PO DAILY #90 caps 06/12/23 hr,extended release bisacodyl 10 mg rectal suppository 10 mg DE DAILY PRN constipation 07/08/23 (Dulcolax (bisacodyl)) #20 ea docusate sodium 100 mg capsule 200 mg (2 x 100 mg) PO BEDTIME #60 07/08/23 (Colace) caps methylcellulose (laxative) 500 mg 500 mg PO TID 30 days #90 tabs 07/08/23 tablet (Citrucel) polyethylene glycol 3350 17 17 g PO DAILY PRN constipation 30 07/08/23 gram/dose oral powder (Miralax) days #510 grams tramadol 50 mg tablet 50 mg PO Q6H PRN pain #20 tabs 08/08/23 Allergies Allergy/AdvReac Type Severity Reaction Status Date / Time codeine [Codeine] Allergy Severe HIVES Verified 08/08/23 11:35 ITCHING, rash, hives gabapentin [From Neurontin] Allergy Severe SWELLING Verified 08/08/23 11:35 Penicillins Allergy Severe SWELLING Verified 08/08/23 11:35 Sulfa (Sulfonamide Allergy Severe XEROSTEMIA, Verified 08/08/23 11:35 Antibiotics) DIFF [SULFA (SULFONAMIDE SWALLOWIN, ANTIBIOTICS)] rash, rash pregabalin [From LYRICA] Allergy Intermediate SWELLING Verified 08/08/23 11:35 Review of Systems Review of Systems: Yes all other systems are reviewed and are negative PMFSH Past Medical History Medical History Cystocele with prolapse Fibromyalgia Generalized osteoarthritis Chronic pain syndrome Spondylosis of cervical spine Obesity Post-menopausal Screening for breast cancer Screening for diabetes mellitus Obesity Hyperlipidemia Vertigo Lumbar spondylosis Anal pruritus Surgical History History of right knee surgery History of colonoscopy History of varicose veins History of left knee surgery History of hysterectomy Family History Family History Father Angina at rest Mother Hypothyroidism Hypertension Osteoarthritis Heart disease Panic disorder Glaucoma Brother Stroke Sister Alcoholic liver disease HIV (human immunodeficiency virus infection) Social History Social History Housing: House Alcohol intake: never Patient Tobacco Use Status: Former Tobacco user Quit Date: 1998 Tobacco use type: Cigarette e-Cigarette/Vaping Use: Never Used Second Hand Smoke Exposure: No Advance Directives: No Advance Directives Information Provided: No service: No Current occupational status: retired Current occupation: Right Handed Cognitive needs: Yes (walk/cane) Hearing needs: No Vision needs: Yes (Glasses) Physical Exam ED Vital Signs: Vital Signs - 24 hr 08/08/23 11:30 08/08/23 15:48 Temperature 96.8 F Pulse Rate 77 64 Respiratory Rate 18 15 Blood Pressure 136/74 147/65 H Pulse Oximetry 98 98 Oxygen Delivery Method Room Air Room Air BMI result Body Mass Index 30.8 Appearance: Alert. Oriented X3. No acute distress. Eyes: No pallor or icterus ENT: Pharynx normal. Oral Mucosa moist Neck: Normal inspection. Neck supple. CVS: Normal heart rate and rhythm. Pulses normal. Respiratory: No respiratory distress. Equal air entry bilateral, no wheezing/rales/rhonchi mid chest wall tenderness Abdomen: Soft and nontender. Bowel sounds are present, no mass palpable, no CVA tenderness Skin: Skin warm and dry. Normal skin color. Normal skin turgor. Extremities: No lower extremity edema. No calf tenderness Neuro: Oriented X 3. No motor deficit. No sensory deficit.No cerebellar signs , cranial nerves II-XII intact Course Course Course Narrative: This is a rapid medical exam: Additional HPI, ROS, PE not included below will be deferred to primary provider. Patient is a 72-year-old female with hx of GERD, HTN, HLD to ED with complaint of chest pressure which began one hour prior to arrival, states pressure radiates to left jaw, describes as tingling to left side of jaw. States pain is 6-7/10. Reports nausea this morning, denies vomiting. Reports mild shortness of breath. Had injections to shoulder last Thursday through pain management. Plan: EKG, CXR, labs Medications Administered Discontinued Medications Generic Name Dose Route Start Last Admin Trade Name Vance PRN Reason Stop Dose Admin Aspirin 162 mg 08/08/23 12:35 08/08/23 14:07 Aspirin Enteric Coated 81 Mg Tablet. PO 08/08/23 12:36 162 mg ONCE ONE Administration Morphine Sulfate 15 mg 08/08/23 14:29 08/08/23 15:47 Morphine Sulfate Immed Release 15 Mg Tablet PO 08/08/23 14:30 15 mg ONCE ONE Administration Medical Decision Making Medical Decision Making [facility] Narrative: Patient has atypical chest pain recurrent in nature please workup-2 sets of cardiac enzymes negative EKG without any ischemic changes pain improved after morphine discharge patient home Differential Diagnosis Differential Diagnoses: The differential diagnosis associated with the presentation includes ACS/angina/costochondritis Lab Data [facility] Lab Attestation statement: I reviewed the patient's lab results. 08/08/23 11:45 08/08/23 11:45 Labs: Lab Results 08/08/23 08/08/23 Range/Units 11:45 13:59 WBC 8.3 (4.8-10.8) X10*3/uL RBC 4.54 (4.20-5.50) X10*6/uL Hgb 13.1 (12.0-16.0) g/dl Hct 39.8 (37.0-47.0) % MCV 87.7 (80.0-98.0) fL MCH 28.9 (27.0-33.0) pg MCHC 32.9 (31.0-35.0) g/dl RDW 13.4 (11.0-16.0) % Plt Count 284 (160-400) X10*3/uL MPV 10.5 (9.4-12.3) fL Immature Gran % (Auto) 0.2 (0.0-0.4) % Neut % (Auto) 54.2 (45-73) % Lymph % (Auto) 33.1 (20-40) % [place] % (Auto) 9.3 (2-11) % Eos % (Auto) 2.4 (0-4) % Baso % (Auto) 0.8 (0-2) % Lymph # (Auto) 2.8 (1.2-4.9) X10*3/uL [place] # (Auto) 0.8 (0.1-1.2) X10*3/uL Eos # (Auto) 0.2 (0.0-0.4) X10*3/uL Baso # (Auto) 0.1 (0.0-0.2) X10*3/uL Abs Immat Gran (auto) 0.02 (0.00-0.03) X10*3/uL Absolute Neuts (auto) 4.5 (2.0-8.3) x10*3/uL Absolute Nucleated RBC 0.000 (0.0-0.012) X10*3/uL Nucleated RBC % (auto) 0.0 (0.0-0.2) /100WBC PT 11.7 (11.1-13.3) SEC INR 1.0 (0.9-1.1) Sodium 138 (135-145) mmol/L Potassium 3.6 (3.3-5.1) mmol/L Chloride 106 (96-108) mmol/L Carbon Dioxide 23 (22-29) mmol/L Anion Gap 13 (12-20) BUN 15 (9-16) mg/dL Creatinine 0.76 (0.5-1.4) mg/dL Estim Creat Clear Calc 65.5 Estimated GFR > 60 Random Glucose 115 (60-115) mg/dL Calcium 9.2 (8.4-10.2) mg/dL Total Bilirubin 0.5 (0.0-1.0) mg/dL AST 17 (5-31) U/L ALT 15 (0-31) U/L Alkaline Phosphatase 77 (39-117) U/L Troponin I High Sens < 2.7 < 2.7 (<3.5-17.0) ng/L Total Protein 7.1 (6.5-8.0) g/dL Albumin 4.0 (3.5-5.0) g/dL Independent Interpretation I performed an independent interpretation of an: EKG Interpretation: Normal sinus rhythm heart rate 72 beats per minute normal interval normal axis no acute ST changes or acute ischemia Discharge Plan Discharge Clinical Impression: Chest pain Patient Disposition: Home, Self-Care Instructions: Chest Pain (ED) Additional Instructions: Cause of chest pain is not clear Follow-up with PCP/computing consultant or further workup Take baby aspirin daily Tramadol for pain Prescriptions: New tramadol 50 mg tablet 50 mg PO Q6H PRN (Reason: pain) Qty: 20 0RF No Action rosuvastatin 40 mg tablet 40 mg PO DAILY Qty: 90 8RF pantoprazole 40 mg tablet,delayed release (DR/EC) 40 mg PO BID Qty: 180 1RF loratadine 10 mg tablet 10 mg PO DAILY Qty: 90 8RF propranolol 120 mg capsule,extended release 24 hr 120 mg PO DAILY Qty: 90 4RF ondansetron HCl [Zofran] 4 mg tablet 4 mg PO Q8H 3 Days Qty: 9 0RF fluticasone propionate 50 mcg/actuation spray,suspension intranasal triamcinolone acetonide 0.1 % cream topical latanoprost 0.005 % drops 1 drp ophthalmic (eye) BEDTIME Amitiza 24 mcg capsule 24 mcg PO BID hydroxyzine HCl 25 mg tablet 25 mg PO TID PRN (Reason: itching) Qty: 30 0RF albuterol sulfate 90 mcg/actuation HFA aerosol inhaler 2 puff inhalation QID Qty: 8.5 0RF meclizine 25 mg tablet 25 mg PO QID Qty: 60 2RF acetaminophen [Tylenol Arthritis Pain] 650 mg tablet extended release 650 mg PO Q8H Qty: 90 3RF diclofenac sodium [Voltaren Arthritis Pain] 1 % gel 2 g topical BID Qty: 100 1RF Citrucel 500 mg tablet 500 mg PO TID 30 Days Qty: 90 5RF docusate sodium [Colace] 100 mg capsule 200 mg PO BEDTIME Qty: 60 5RF bisacodyl [Dulcolax (bisacodyl)] 10 mg suppository 10 mg DE DAILY PRN (Reason: constipation) Qty: 20 2RF polyethylene glycol 3350 [Miralax] 17 gram/dose powder 17 g PO DAILY PRN (Reason: constipation) 30 Days Qty: 510 6RF sennosides [senna] 8.6 mg tablet 17.2 mg PO BEDTIME PRN (Reason: constipation) Interventions: ED Discharge Assessment Last Done: 08/08/23 16:14 Discharge Date/Time: 08/08/23 16:16
--- NOTE | 2023-08-08 11:38 | ECG_ITS ---
Test Reason : CHEST PAIN Blood Pressure : / mmHG Vent. Rate : 072 BPM Atrial Rate : 072 BPM P-R Int : 138 ms QRS Dur : 080 ms QT Int : 388 ms P-R-T Axes : 045 003 024 degrees QTc Int : 424 ms Normal sinus rhythm Nonspecific ST abnormality Inferior leads Abnormal ECG When compared with ECG of 10-NOV-2022 00:07, Premature ventricular complexes are no longer Present Referred By: Maday Urias Electronically Signed By:SERENITY IVORY MD
[2023-08-08 11:50] LABS: MANUAL DIFF FLAG NO
[2023-08-08 11:58] LABS: Basophils Absolute Auto 0.1 X10*3/uL (0.0-0.2); Basophils Percent Auto 0.8 % (0-2); Eosinophils Absolute Auto 0.2 X10*3/uL (0.0-0.4); Eosinophils Percent Auto 2.4 % (0-4); Hematocrit 39.8 % (37.0-47.0); Hemoglobin 13.1 g/dl (12.0-16.0); Imm Gran Abs Auto 0.02 X10*3/uL (0.00-0.03); Imm Gran Pct Auto 0.2 % (0.0-0.4); Lymphocytes Absolute Auto 2.8 X10*3/uL (1.2-4.9); Lymphocytes Percent Auto 33.1 % (20-40); Mean Corpuscular HGB Conc 32.9 g/dl (31.0-35.0); Mean Corpuscular Hemoglobin 28.9 pg (27.0-33.0); Mean Corpuscular Volume 87.7 fL (80.0-98.0); Mean Platelet Volume 10.5 fL (9.4-12.3); Monocytes Absolute Auto 0.8 X10*3/uL (0.1-1.2); Monocytes Percent Auto 9.3 % (2-11); Neutrophils Absolute Auto 4.5 x10*3/uL (2.0-8.3); Neutrophils Percent Auto 54.2 % (45-73); Platelet Count 284 X10*3/uL (160-400); Red Blood Count 4.54 X10*6/uL (4.20-5.50); Red Cell Distribution Width 13.4 % (11.0-16.0); White Blood Count 8.3 X10*3/uL (4.8-10.8)
[2023-08-08 11:59] LABS: Prothrombin Time 11.7 SEC (11.1-13.3)
[2023-08-08 12:13] LABS: Alanine Aminotransferase 15 U/L (0-31); Alkaline Phosphatase 77 U/L (39-117); Anion Gap 13 (12-20); Aspartate Amino Transferase 17 U/L (5-31); Bilirubin Total 0.5 mg/dL (0.0-1.0); Blood Urea Nitrogen 15 mg/dL (9-16); Calcium 9.2 mg/dL (8.4-10.2); Carbon Dioxide 23 mmol/L (22-29); Chloride 106 mmol/L (96-108); Creatinine Clr Calc Pharmacy 65.5; Estimated Glomerular Filt Rate > 60; Glucose Random 115 mg/dL (60-115); Potassium 3.6 mmol/L (3.3-5.1); Sodium 138 mmol/L (135-145); Total Protein 7.1 g/dL (6.5-8.0)
[2023-08-08 12:23] LABS: Troponin-I High Sensitivity < 2.7 ng/L (<3.5-17.0)
[2023-08-08] MEDS: Aspirin Enteric Coated 81 MG TABLET.DR 162 MG PO (14:07)
[2023-08-08 14:39] LABS: Troponin-I High Sensitivity < 2.7 ng/L (<3.5-17.0)
[2023-08-08] MEDS: Morphine Sulfate Immed Release 15 MG TABLET PO (15:47)
[2023-08-08 15:48] VITALS: BP 147/65; PULSE 64; RESP 15; O2SAT 98
== END 2023-08-08 16:16 | disposition home or self-care (01) ==
PROVIDERS: Registered Nurse Emergency; Emergency Provider Internal Medicine; PCP Internal Medicine
DX: R07.9 Chest pain, unspecified (principal); I10 Essential (primary) hypertension; E78.5 Hyperlipidemia, unspecified; Z87.891 Personal history of nicotine dependence; Z79.899 Other long term (current) drug therapy
CPT/HCPCS: 36415; 71045; 80053; 84484; 85025; 85610; 93005; 99283; 99284

== ENCOUNTER 2023-08-15 11:36 | Emergency (ER) | payer OTHER, SELFPAY ==
--- NOTE | ~2023-08-15 | CT_ITS ---
EXAMINATION: CT ABDOMEN AND PELVIS WITHOUT CONTRAST CLINICAL INFORMATION: Lower back pain radiating to the lower abdomen COMPARISON: 04/07/2015 TECHNIQUE: Multidetector volumetric imaging was performed from the superior aspect of the liver through the pubic symphysis. Sagittal and coronal reformatted images were obtained on the technologist's workstation. This CT examination was performed using dose optimization techniques as appropriate, variously including the following: *Automated exposure control *Adjustment of mA and/or kV according to patient size (this includes techniques or standardized protocols for targeted exams where dose is matched to indication/reason for exam; i.e. extremities or head) *Use of iterative reconstruction technique DLP: 608 mGy-cm FINDINGS: LUNG BASES: The visualized lung bases are unremarkable. LIVER, GALLBLADDER, AND BILIARY TREE: Low-density lesion left lobe anteriorly measuring 8 mm most consistent with small cyst or hemangioma on this nonenhanced study. Liver morphology normal. The gallbladder is unremarkable with no evidence of radiopaque gallstones, gallbladder wall thickening, or obvious pericholecystic inflammatory changes. PANCREAS: Unremarkable. SPLEEN: Unremarkable. ADRENAL GLANDS: Unremarkable. KIDNEYS AND URETERS: The kidneys are normal in size, shape, and attenuation. No hydronephrosis, hydroureter, or calculi seen. No perinephric stranding. BLADDER: Unremarkable. GASTROINTESTINAL TRACT: The small and large bowel are unremarkable. The appendix is unremarkable. The gastric wall appears thickened but decompressed. ABDOMINAL WALL: No significant hernia is appreciated. LYMPH NODES: Normal. VASCULAR: Unremarkable. PELVIC VISCERA: Surgically absent. OSSEOUS STRUCTURES: Unremarkable. CT/CT abdomen pelvis wo IV con IMPRESSION: No stones or obstructive uropathy. No focal abnormality to explain patient's symptoms. Decompressed stomach demonstrating gastric wall thickening potentially utilized decompressed state. Correlate with symptoms and consider endoscopy as warranted. Fleischner guidelines were followed.
[2023-08-15 12:01] VITALS: BP 103/64; PULSE 71; RESP 16; TEMP 36.1; O2SAT 98; BMI 30.7
--- NOTE | 2023-08-15 12:01 | ED.BACK ---
HPI - Back Pain/Injury General Chief Complaint: General Medical Stated Complaint: back and groin pain Time Seen by Provider: 08/15/23 12:35 Source: patient Mode of arrival: ambulatory Limitations: no limitations History of Present Illness HPI Narrative: 72-year-old female with history of chronic pain syndrome, fibromyalgia, obesity, hyperlipidemia here with complaints of lower back pain with radiation to the lower abdomen since last evening with nausea. No vomiting, diarrhea, constipation. She has had some urinary frequency. No dysuria or hematuria Related Data Home Medications Medication Instructions Recorded Confirmed fluticasone propionate 50 intranasal 07/27/20 07/29/23 mcg/actuation nasal spray,suspension latanoprost 0.005 % eye drops 1 drp ophthalmic (eye) BEDTIME 07/27/20 07/29/23 lubiprostone 24 mcg capsule 24 mcg PO BID 07/27/20 07/29/23 triamcinolone acetonide 0.1 % applic topical 07/27/20 07/29/23 topical cream sennosides 8.6 mg tablet (senna) 17.2 mg PO BEDTIME PRN constipation 07/28/23 07/29/23 Previous Rx's Medication Instructions Recorded ondansetron HCl 4 mg tablet 4 mg PO Q8H 3 days #9 tabs 06/12/21 (Zofran) hydroxyzine HCl 25 mg tablet 25 mg PO TID PRN itching #30 tabs 05/27/22 albuterol sulfate 90 mcg/actuation 2 puff inhalation QID #8.5 grams 07/02/22 aerosol inhaler rosuvastatin 40 mg tablet 40 mg PO DAILY #90 tabs 10/16/22 acetaminophen 650 mg 650 mg PO Q8H #90 tabs 11/24/22 tablet,extended release (Tylenol Arthritis Pain) diclofenac sodium 1 % topical gel 2 g topical BID #100 grams 11/24/22 (Voltaren Arthritis Pain) loratadine 10 mg tablet 10 mg PO DAILY #90 tabs 04/18/23 pantoprazole 40 mg tablet,delayed 40 mg PO BID #180 tabs 04/18/23 release meclizine 25 mg tablet 25 mg PO QID #60 tabs 05/29/23 propranolol 120 mg capsule,24 120 mg PO DAILY #90 caps 06/12/23 hr,extended release bisacodyl 10 mg rectal suppository 10 mg ID DAILY PRN constipation 07/08/23 (Dulcolax (bisacodyl)) #20 ea docusate sodium 100 mg capsule 200 mg (2 x 100 mg) PO BEDTIME #60 07/08/23 (Colace) caps methylcellulose (laxative) 500 mg 500 mg PO TID 30 days #90 tabs 07/08/23 tablet (Citrucel) polyethylene glycol 3350 17 17 g PO DAILY PRN constipation 30 07/08/23 gram/dose oral powder (Miralax) days #510 grams tramadol 50 mg tablet 50 mg PO Q6H PRN pain #20 tabs 08/08/23 Allergies Allergy/AdvReac Type Severity Reaction Status Date / Time codeine [Codeine] Allergy Severe HIVES Verified 08/08/23 11:35 ITCHING, rash, hives gabapentin [From Neurontin] Allergy Severe SWELLING Verified 08/08/23 11:35 Penicillins Allergy Severe SWELLING Verified 08/08/23 11:35 Sulfa (Sulfonamide Allergy Severe XEROSTEMIA, Verified 08/08/23 11:35 Antibiotics) DIFF [SULFA (SULFONAMIDE SWALLOWIN, ANTIBIOTICS)] rash, rash pregabalin [From LYRICA] Allergy Intermediate SWELLING Verified 08/08/23 11:35 Review of Systems Review of Systems: Yes all other systems are reviewed and are negative Constitutional: Constitutional: Reports no additional constitutional complaints, Denies body ache(s), Denies chills, Denies fever(s), Denies headache(s) and Denies weakness Eyes: Eyes: Reports no additional eye complaints and Denies change in vision ENT: Reports system reviewed and no additional complaints, except as documented, Denies dizziness, Denies headache(s), Denies nasal congestion, Denies nasal discharge and Denies neck pain Cardiovascular: Cardiovascular: Reports no additional cardiovascular complaints, Denies chest pain, Denies leg edema and Denies dyspnea Respiratory: Respiratory: Reports no additional respiratory complaints, Denies cough and Denies dyspnea Gastrointestinal: Gastrointestinal: Reports no additional gastrointestinal complaints, Reports abdominal pain, Denies diarrhea, Denies nausea and Denies vomiting Genitourinary: Genitourinary: Reports no additional female genitourinary complaints, Denies hematuria, Denies dysuria and Denies urinary incontinence Comments: +frequent urination Musculoskeletal: Musculoskeletal: Reports no additional musculoskeletal complaints, Reports back pain, Denies arthralgias, Denies joint swelling, Denies neck pain, Denies numbness and Denies tingling Integumentary/Breasts: Skin/Breast: Reports system reviewed and no additional complaints, except as docu and Denies rash Neurologic: Reports system reviewed and no additional complaints, except as documented, Denies Abnormal speech present, Denies dizziness, Denies headache(s), Denies numbness, Denies tingling and Denies weakness PMFSH Past Medical History Attestation statement: The following information was validated with the patient. Source: old records reviewed and nursing notes reviewed Medical History Cystocele with prolapse Fibromyalgia Generalized osteoarthritis Chronic pain syndrome Spondylosis of cervical spine Obesity Post-menopausal Screening for breast cancer Screening for diabetes mellitus Obesity Hyperlipidemia Vertigo Lumbar spondylosis Anal pruritus Surgical History History of right knee surgery History of colonoscopy History of varicose veins History of left knee surgery History of hysterectomy Family History Family History Father Angina at rest Mother Hypothyroidism Hypertension Osteoarthritis Heart disease Panic disorder Glaucoma Brother Stroke Sister Alcoholic liver disease HIV (human immunodeficiency virus infection) Social History Social History Housing: House Alcohol intake: never Patient Tobacco Use Status: Former Tobacco user Quit Date: 1998 Tobacco use type: Cigarette Smoked in Last 30 Days: No e-Cigarette/Vaping Use: Never Used Second Hand Smoke Exposure: No Use of substances other than those prescribed or required for medical reasons: No Advance Directives: No Advance Directives Information Provided: Yes service: No Current occupational status: retired Current occupation: Right Handed Cognitive needs: Yes (walk/cane) Hearing needs: No Vision needs: Yes (Glasses) Physical Exam Vital Signs: Vital Signs: Last Vital Signs Temp 97.0 F 08/15/23 12:01 Pulse 71 08/15/23 12:01 Resp 16 08/15/23 12:01 BP 103/64 08/15/23 12:01 Pulse Ox 98 08/15/23 12:01 O2 Del Method Room Air 08/15/23 12:01 BMI result Body Mass Index 30.7 Const: General: cooperative, healthy appearing, comfortable and no acute distress Orientation/consciousness: patient oriented x3 Limitations: no limitations HEENT: Head: Yes normal to inspection Ears: hearing grossly normal bilaterally General nose exam: Normal external nose present Face and sinus: Yes normal facial exam Mouth: Normal oral and palatal mucosa present Throat: Yes posterior oropharynx normal Eyes: General: appearance normal, both eyes and all related structures Pupils: Equal, round and reactive pupils present Neck: Neck: Yes normal visual inspection Chest: Chest palpation & inspection: normal inspection of the chest Resp: Effort & Inspection: normal respiratory effort Auscultation: clear to auscultation bilaterally Cardio: Rate: regular rate Rhythm: regular rhythm Peripheral pulses: Peripheral pulses 2+ throughout GI: Inspection: Yes normal to inspection Palpation (GI): Soft to palpation, Tenderness to palpation present (GI) in the LLQ and in the RLQ and no guarding Auscultation: normal bowel sounds : General: Yes no CVA tenderness Back/Spine/Pelvis: Back: no CVA tenderness Thoracic/Lumbar Spine: thoracic and lumbar spine normal to inspection Skin: General skin exam: no rashes or lesions noted Neuro: General: patient oriented x3, no focal motor deficits and normal sensation to monofilament Cranial nerves: Yes Equal, round and reactive pupils present Cognition (Neuro): normal cognition Speech: No Abnormal speech present Gait exam (Neuro): Normal gait present Motor exam (neuro): 5/5 motor strength present throughout Extrem: General: Yes normal to inspection Course Course Course Narrative: This is an RME: Additional HPI, ROS, PE not included below will be deferred to primary provider. Patient is a 72-year-old female who presents to the emergency department for evaluation of diffuse lower back pain radiating into the lower ABD pain, and urinary frequency without dysuria or hematuria. Has associated nausea but no vomiting. Denies fevers, chills, constipation, diarrhea. Plan: labs, urinalysis Reevaluation(s) Reevaluation #1: 1500-labs and urine are unremarkable. CT shows no acute finding. May be lumbar radiculopathy. Patient received her home dose of tramadol which she has at home. She did not tried this before coming in. She is tolerating p.o. with no vomiting. Recommend she continue this home. Reviewed worrisome signs and symptoms of when to return to the emergency room. Comfortable plan for discharge home. Medications Administered Discontinued Medications Generic Name Dose Route Start Last Admin Trade Name Vance PRN Reason Stop Dose Admin Ketorolac Tromethamine 30 mg 08/15/23 12:55 08/15/23 13:02 Ketorolac Tromethamine 30 Mg/Ml Vial IM 08/15/23 12:56 30 mg ONCE ONE Administration Ondansetron HCl 4 mg 08/15/23 14:42 08/15/23 14:45 Ondansetron Odt 4 Mg Tab.Rapdis TRANSLINGU 08/15/23 14:43 4 mg ONCE ONE Administration Tramadol HCl 50 mg 08/15/23 14:42 08/15/23 14:45 Tramadol Hcl 50 Mg Tablet PO 08/15/23 14:43 50 mg ONCE ONE Administration Medical Decision Making Medical Decision Making [facility] Narrative: 72-year-old female with history of chronic pain syndrome, fibromyalgia, obesity, hyperlipidemia here with complaints of lower back pain with radiation to the lower abdomen since last evening with nausea.? No vomiting, diarrhea, constipation.? She has had some urinary frequency.? No dysuria or hematuria Mild tenderness in lower quadrants no rebound or guarding. No CVA tenderness Will obtain labs, UA, CT Differential Diagnosis Differential Diagnoses: The differential diagnosis associated with the presentation includes UTI, renal colic, pyelonephritis, diverticulitis, lumbar radiculopathy Admission/Observation Consideration of admission/observation: Escalation of care including admission/observation considered Likely lumbar radiculopathy. No neurological deficits or red flag symptoms to suggest need for an emergent MRI Lab Data [facility] Lab Attestation statement: I reviewed the patient's lab results. 08/15/23 12:29 08/15/23 12:29 Labs: Lab Results 08/15/23 Range/Units 12:29 WBC 7.5 (4.8-10.8) X10*3/uL RBC 4.65 (4.20-5.50) X10*6/uL Hgb 13.3 (12.0-16.0) g/dl Hct 40.1 (37.0-47.0) % MCV 86.2 (80.0-98.0) fL MCH 28.6 (27.0-33.0) pg MCHC 33.2 (31.0-35.0) g/dl RDW 13.3 (11.0-16.0) % Plt Count 268 (160-400) X10*3/uL MPV 10.4 (9.4-12.3) fL Immature Gran % (Auto) 0.1 (0.0-0.4) % Neut % (Auto) 54.0 (45-73) % Lymph % (Auto) 32.2 (20-40) % [place] % (Auto) 9.8 (2-11) % Eos % (Auto) 3.4 (0-4) % Baso % (Auto) 0.5 (0-2) % Lymph # (Auto) 2.4 (1.2-4.9) X10*3/uL [place] # (Auto) 0.7 (0.1-1.2) X10*3/uL Eos # (Auto) 0.3 (0.0-0.4) X10*3/uL Baso # (Auto) 0.0 (0.0-0.2) X10*3/uL Abs Immat Gran (auto) 0.01 (0.00-0.03) X10*3/uL Absolute Neuts (auto) 4.0 (2.0-8.3) x10*3/uL Absolute Nucleated RBC 0.000 (0.0-0.012) X10*3/uL Nucleated RBC % (auto) 0.0 (0.0-0.2) /100WBC Sodium 141 (135-145) mmol/L Potassium 4.1 (3.3-5.1) mmol/L Chloride 108 (96-108) mmol/L Carbon Dioxide 24 (22-29) mmol/L Anion Gap 13 (12-20) BUN 18 H (9-16) mg/dL Creatinine 0.79 (0.5-1.4) mg/dL Estim Creat Clear Calc 62.9 Estimated GFR > 60 Random Glucose 96 (60-115) mg/dL Calcium 8.9 (8.4-10.2) mg/dL Total Bilirubin 0.6 (0.0-1.0) mg/dL AST 19 (5-31) U/L ALT 15 (0-31) U/L Alkaline Phosphatase 80 (39-117) U/L Total Protein 6.9 (6.5-8.0) g/dL Albumin 4.0 (3.5-5.0) g/dL Urine Color Yellow Urine Appearance Clear Urine pH 5.5 (5.0-9.0) Ur Specific [place] 1.025 (1.005-1.025) Urine Protein Negative (Neg-Trace) mg/dL Urine Glucose (UA) Negative (Negative) mg/dL Urine Ketones Negative (Negative) mg/dL Urine Blood Negative (Negative) Urine Nitrite Negative (Negative) Ur Leukocyte Esterase Negative (Negative) Independent Interpretation I performed an independent interpretation of an: CT Scan Interpretation: I independently reviewed the CT scan agree with the radiology report Radiology Impression Discussion of test interpretation with radiology: I have reviewed the radiologist's reading. Radiologist Impression: FINDINGS: LUNG BASES: The visualized lung bases are unremarkable. LIVER, GALLBLADDER, AND BILIARY TREE: Low-density lesion left lobe anteriorly measuring 8 mm most consistent with small cyst or hemangioma on this nonenhanced study. Liver morphology normal. The gallbladder is unremarkable with no evidence of radiopaque gallstones, gallbladder wall thickening, or obvious pericholecystic inflammatory changes. PANCREAS: Unremarkable. SPLEEN: Unremarkable. ADRENAL GLANDS: Unremarkable. KIDNEYS AND URETERS: The kidneys are normal in size, shape, and attenuation. No hydronephrosis, hydroureter, or calculi seen. No perinephric stranding. BLADDER: Unremarkable. GASTROINTESTINAL TRACT: The small and large bowel are unremarkable. The appendix is unremarkable. The gastric wall appears thickened but decompressed. ABDOMINAL WALL: No significant hernia is appreciated. LYMPH NODES: Normal. VASCULAR: Unremarkable. PELVIC VISCERA: Surgically absent. OSSEOUS STRUCTURES: Unremarkable. CT/CT abdomen pelvis wo IV con IMPRESSION: No stones or obstructive uropathy. No focal abnormality to explain patient's symptoms. Decompressed stomach demonstrating gastric wall thickening potentially utilized decompressed state. Correlate with symptoms and consider endoscopy as warranted. Fleischner guidelines were followed. Independent Historian Clinical information obtained from an independent historian. History obtained from or confirmed by: Spouse Tests considered The following testing was considered but not selected: Likely lumbar radiculopathy.? No neurological deficits or red flag symptoms to suggest need for an emergent MRI Prescription Management I considered prescription management with: Pain Medication Discharge Plan Discharge Clinical Impression: Acute lumbar radiculopathy Patient Disposition: Home, Self-Care Instructions: Lumbar Radiculopathy (ED) Additional Instructions: Your lab work is normal. Your urine shows no signs of infection. Your CT scan is normal. Please take her home medications as needed. Return for any worsening symptoms Prescriptions: No Action rosuvastatin 40 mg tablet 40 mg PO DAILY Qty: 90 8RF pantoprazole 40 mg tablet,delayed release (DR/EC) 40 mg PO BID Qty: 180 1RF loratadine 10 mg tablet 10 mg PO DAILY Qty: 90 8RF propranolol 120 mg capsule,extended release 24 hr 120 mg PO DAILY Qty: 90 4RF ondansetron HCl [Zofran] 4 mg tablet 4 mg PO Q8H 3 Days Qty: 9 0RF tramadol 50 mg tablet 50 mg PO Q6H PRN (Reason: pain) Qty: 20 0RF fluticasone propionate 50 mcg/actuation spray,suspension intranasal triamcinolone acetonide 0.1 % cream topical latanoprost 0.005 % drops 1 drp ophthalmic (eye) BEDTIME Amitiza 24 mcg capsule 24 mcg PO BID hydroxyzine HCl 25 mg tablet 25 mg PO TID PRN (Reason: itching) Qty: 30 0RF albuterol sulfate 90 mcg/actuation HFA aerosol inhaler 2 puff inhalation QID Qty: 8.5 0RF meclizine 25 mg tablet 25 mg PO QID Qty: 60 2RF acetaminophen [Tylenol Arthritis Pain] 650 mg tablet extended release 650 mg PO Q8H Qty: 90 3RF diclofenac sodium [Voltaren Arthritis Pain] 1 % gel 2 g topical BID Qty: 100 1RF Citrucel 500 mg tablet 500 mg PO TID 30 Days Qty: 90 5RF docusate sodium [Colace] 100 mg capsule 200 mg PO BEDTIME Qty: 60 5RF bisacodyl [Dulcolax (bisacodyl)] 10 mg suppository 10 mg ID DAILY PRN (Reason: constipation) Qty: 20 2RF polyethylene glycol 3350 [Miralax] 17 gram/dose powder 17 g PO DAILY PRN (Reason: constipation) 30 Days Qty: 510 6RF sennosides [senna] 8.6 mg tablet 17.2 mg PO BEDTIME PRN (Reason: constipation) Referrals: Raman Shields MD [Primary Care Provider] - 1 week
[2023-08-15 12:33] LABS: MANUAL DIFF FLAG NO
[2023-08-15 12:36] LABS: Appearance Urine Clear; Color Urine Yellow; Glucose Urine UA Negative (Negative); Leukocyte Esterase Urine Negative (Negative); Nitrite Urine Negative (Negative); PH 5.5 (5.0-9.0); Specific Gravity - Urine 1.025 (1.005-1.025); Urine Blood Negative (Negative); Urine Ketones Negative (Negative); Urine Protein Negative (Neg-Trace)
[2023-08-15 12:48] LABS: Basophils Percent Auto 0.5 % (0-2); Eosinophils Absolute Auto 0.3 X10*3/uL (0.0-0.4); Eosinophils Percent Auto 3.4 % (0-4); Hematocrit 40.1 % (37.0-47.0); Hemoglobin 13.3 g/dl (12.0-16.0); Imm Gran Abs Auto 0.01 X10*3/uL (0.00-0.03); Imm Gran Pct Auto 0.1 % (0.0-0.4); Lymphocytes Absolute Auto 2.4 X10*3/uL (1.2-4.9); Lymphocytes Percent Auto 32.2 % (20-40); Mean Corpuscular HGB Conc 33.2 g/dl (31.0-35.0); Mean Corpuscular Hemoglobin 28.6 pg (27.0-33.0); Mean Corpuscular Volume 86.2 fL (80.0-98.0); Mean Platelet Volume 10.4 fL (9.4-12.3); Monocytes Absolute Auto 0.7 X10*3/uL (0.1-1.2); Monocytes Percent Auto 9.8 % (2-11); Platelet Count 268 X10*3/uL (160-400); Red Blood Count 4.65 X10*6/uL (4.20-5.50); Red Cell Distribution Width 13.3 % (11.0-16.0); White Blood Count 7.5 X10*3/uL (4.8-10.8)
[2023-08-15 12:49] LABS: Alanine Aminotransferase 15 U/L (0-31); Alkaline Phosphatase 80 U/L (39-117); Anion Gap 13 (12-20); Aspartate Amino Transferase 19 U/L (5-31); Bilirubin Total 0.6 mg/dL (0.0-1.0); Blood Urea Nitrogen 18 mg/dL (9-16); Calcium 8.9 mg/dL (8.4-10.2); Carbon Dioxide 24 mmol/L (22-29); Chloride 108 mmol/L (96-108); Creatinine Clr Calc Pharmacy 62.9; Estimated Glomerular Filt Rate > 60; Glucose Random 96 mg/dL (60-115); Potassium 4.1 mmol/L (3.3-5.1); Sodium 141 mmol/L (135-145); Total Protein 6.9 g/dL (6.5-8.0)
[2023-08-15] MEDS: Ketorolac Tromethamine 30 MG/ML VIAL IM (13:02)
[2023-08-15] MEDS: Ondansetron ODT 4 MG TAB.RAPDIS TRANSLINGU (14:45)
[2023-08-15] MEDS: traMADoL HCL 50 MG TABLET PO (14:45)
== END 2023-08-15 15:18 | disposition home or self-care (01) ==
PROVIDERS: Nurse Practitioner Family; Emergency Provider Student in an Organized Health Care Education/Training Program; PCP Internal Medicine
DX: M54.16 Radiculopathy, lumbar region (principal); Z87.891 Personal history of nicotine dependence; I10 Essential (primary) hypertension; E78.5 Hyperlipidemia, unspecified; Z79.02 Long term (current) use of antithrombotics/antiplatelets; Z79.899 Other long term (current) drug therapy
CPT/HCPCS: 36415; 74176; 80053; 81003; 85025; 96372; 99284; J1885

== ENCOUNTER 2023-08-17 09:40 | Outpatient (AMB) | payer OTHER, SELFPAY ==
[2023-08-17 09:41] VITALS: BMI 30.6
--- NOTE | 2023-08-17 09:41 | A.OFFVIS_ITS ---
Intake Vital Signs 08/17/23 09:41 Height 5 ft 3 in Weight 173 lb BMI 30.6 Intake Visit Reasons: OV- Primary osteoarthritis, left shoulder Intake Note: Kanwal is a 71 year old right hand dominant female who present today with complaints of left shoulder pain. Last injection 06/16/22. Patient reports that this injection was not helpful and would like to discuss surgery. Allergies codeine [Codeine] Allergy (Severe, Verified 08/08/23 11:35) HIVES ITCHING, rash, hives gabapentin [From Neurontin] Allergy (Severe, Verified 08/08/23 11:35) SWELLING Penicillins Allergy (Severe, Verified 08/08/23 11:35) SWELLING Sulfa (Sulfonamide Antibiotics) [SULFA (SULFONAMIDE ANTIBIOTICS)] Allergy (Severe, Verified 08/08/23 11:35) XEROSTEMIA, DIFF SWALLOWIN, rash, rash pregabalin [From LYRICA] Allergy (Intermediate, Verified 08/08/23 11:35) SWELLING HPI OV- Primary osteoarthritis, left shoulder HPI Details Kanwal is a 72 year old woman who returns to discuss her left shoulder OA. She complains pain with activity and reaching activities, and she is limited in her ROM. She also has worse pain at night when lying on her side. She says she is limited in her activity both at home and when out of the house, which she finds frustrating She has been following with Pain management for cervical radiculopathy, and she received an AC joint injection by Dr. Do on 07/31/23. She has not benefitted from prior injections, PT, or NSAIDs. She cant take NSAIDs due to Gastritis, and she finds limited relief from Tylenol. [facility] Medical History Cystocele with prolapse Fibromyalgia Generalized osteoarthritis Chronic pain syndrome Spondylosis of cervical spine Obesity Post-menopausal Screening for breast cancer Screening for diabetes mellitus Obesity Hyperlipidemia Vertigo Lumbar spondylosis Anal pruritus Surgical History History of right knee surgery History of colonoscopy History of varicose veins History of left knee surgery History of hysterectomy Family History Father Angina at rest Mother Hypothyroidism Hypertension Osteoarthritis Heart disease Panic disorder Glaucoma Brother Stroke Sister Alcoholic liver disease HIV (human immunodeficiency virus infection) Social History Housing: House Alcohol intake: never Patient Tobacco Use Status: Former Tobacco user Quit Date: 1998 Tobacco use type: Cigarette e-Cigarette/Vaping Use: Never Used Second Hand Smoke Exposure: No service: No Current occupational status: retired Current occupation: Right Handed Cognitive needs: Yes (walk/cane) Hearing needs: No Vision needs: Yes (Glasses) Female Reproductive History Menstrual Age of Menarche: 9 Review of Systems Const All systems reviewed & are unremarkable except as noted in HPI and below Physical Exam Vital Signs: BMI result Body Mass Index 30.6 Const General: no acute distress, alert and awake Orientation/consciousness: patient oriented x3 HEENT Head: Yes normocephalic and Yes atraumatic Eyes EOM: EOMs intact bilaterally Resp Effort & Inspection: normal respiratory effort and able to speak in complete sentences Cardio Jugular venous distension: no JVD Skin General skin exam: turgor normal Rashes: no rashes Neuro General: patient oriented x3 Extrem Other: Left shoulder 25/80/120/S1 Pain with passive ROM Scapuilar recruitment with overhead motion Psych Appearance: grossly normal Affect: normal affect Attitude: cooperative Results Reviewed Results Reviewed: I personally reviewed relevant radiographs. Left severe shoulder OA Assessment & Plan Assessment & Plan (1) Osteoarthritis of left shoulder: Code(s): M19.012 - Primary osteoarthritis, left shoulder Plan: This is a 72 year old woman with left shoulder OA. She has pain with activity and reaching motions, as well as at night. She has failed conservative treatment options and found no relief from her most recent shoulder injection on 07/31/23, done by Dr. Do. I discussed her diagnosis and treatment options. I recommend a left TSA. I discussed the risks, benefits, and alternatives including, but not limited to, the risk of pain, infection, stiffness, need for further surgery as well as potential medical complications such as blood clots, pulmonary embolism and cardiac complications. I discussed the recovery timeline and process as well as the importance of PT. Kanwal is a good candidate for this surgery, and she wishes to proceed with this decision. She will speak with Shila to schedule this procedure. (2) Spondylosis of cervical spine: Code(s): M47.812 - Spondylosis without myelopathy or radiculopathy, cervical region (3) Fibromyalgia: Code(s): M79.7 - Fibromyalgia (4) Osteoarthritis of left glenohumeral joint: Code(s): M19.012 - Primary osteoarthritis, left shoulder Plan Scribed for Jaya Barros MD by Drake Murphy, emergency medical dispatcher, on 08/17/23 at 9:55 AM, EST. Orders: Orders MR shoulder LT wo con Today M19.012 - Primary osteoarthritis, left shoulder CT shoulder LT wo IV con Today M19.012 - Primary osteoarthritis, left shoulder Coding Level of Care Code Est Pt Level 4 (02446) Diagnoses Osteoarthritis of left shoulder M19.012 Spondylosis of cervical spine M47.812 Fibromyalgia M79.7 Osteoarthritis of left glenohumeral joint M19.012
== END 2023-08-17 10:25 | disposition home or self-care (01) ==
PROVIDERS: PCP Internal Medicine; Visit Provider Orthopaedic Surgery
DX: M19.012 Primary osteoarthritis, left shoulder (principal); M47.812 Spondylosis without myelopathy or radiculopathy, cervical region; M79.7 Fibromyalgia
CPT/HCPCS: 99214

== ENCOUNTER → 2023-08-17 09:40 | Outpatient (BNVA) | payer OTHER, SELFPAY | PROVIDERS: PCP Internal Medicine; Visit Provider Orthopaedic Surgery | DX: M19.012 Primary osteoarthritis, left shoulder (principal); M47.812 Spondylosis without myelopathy or radiculopathy, cervical region; M79.7 Fibromyalgia | CPT/HCPCS: 99212 ==

== ENCOUNTER 2023-08-28 12:48 | Outpatient (AMB) | payer OTHER, SELFPAY ==
[2023-08-28 12:55] VITALS: BP 100/62; PULSE 78; O2SAT 99; BMI 30.3
--- NOTE | 2023-08-28 12:55 | A.OFFPC_ITS ---
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: Not Required per policy Accompanied by: Self / Same As Patient Allergies codeine [Codeine] Allergy (Severe, Verified 08/28/23 12:56) HIVES ITCHING, rash, hives gabapentin [From Neurontin] Allergy (Severe, Verified 08/28/23 12:56) SWELLING Penicillins Allergy (Severe, Verified 08/28/23 12:56) SWELLING Sulfa (Sulfonamide Antibiotics) [SULFA (SULFONAMIDE ANTIBIOTICS)] Allergy (Severe, Verified 08/28/23 12:56) XEROSTEMIA, DIFF SWALLOWIN, rash, rash pregabalin [From LYRICA] Allergy (Intermediate, Verified 08/28/23 12:56) SWELLING Medication List - Last Reconciled 08/28/23 by Raman Shields MD acetaminophen ER (Tylenol Arthritis Pain) 650 mg PO Q8H albuterol sulfate 90 mcg/actuation 2 puffs inhalation QID bisacodyl (Dulcolax (bisacodyl)) 10 mg [place] DAILY PRN diclofenac sodium 1% (Voltaren Arthritis Pain) 2 grams topical BID docusate sodium (Colace) 200 mg (2 x 100 mg) PO BEDTIME fluticasone propionate 50 mcg/actuation intranasal hydroxyzine HCl 25 mg PO TID PRN latanoprost 0.005% 1 drp ophthalmic (eye) BEDTIME loratadine 10 mg PO DAILY lubiprostone 24 mcg PO BID meclizine 25 mg PO QID methylcellulose (laxative) (Citrucel) 500 mg PO TID 30 days ondansetron HCl (Zofran) 4 mg PO Q8H 3 days pantoprazole 40 mg PO BID polyethylene glycol 3350 (Miralax) 17 grams PO DAILY PRN 30 days propranolol ER 120 mg PO DAILY rosuvastatin 40 mg PO DAILY sennosides (senna) 17.2 mg PO BEDTIME PRN triamcinolone acetonide 0.1% appl topical Tobacco use date assessed: 06/08/23 Fall risk assessment: No Falls in past year Last assessed Fall Risk: 08/28/23 Dental Screening Dental Screen Date: 08/28/23 Did you have a dental visit in the last 12 months?: Yes Did you have a dental problem in the last 6 months where you did not have access to dental care?: No Was dental information given to patient?: Patient has dentist HPI 08-15/[facility]/Back pain/Abdominal pain HPI Details went to the er with back pain; w/u neg; prob muscle spasm PFSH Medical History Cystocele with prolapse Fibromyalgia Generalized osteoarthritis Chronic pain syndrome Spondylosis of cervical spine Obesity Post-menopausal Screening for breast cancer Screening for diabetes mellitus Obesity Hyperlipidemia Vertigo Lumbar spondylosis Anal pruritus Surgical History History of right knee surgery History of colonoscopy History of varicose veins History of left knee surgery History of hysterectomy Family History Father Angina at rest Mother Hypothyroidism Hypertension Osteoarthritis Heart disease Panic disorder Glaucoma Brother Stroke Sister Alcoholic liver disease HIV (human immunodeficiency virus infection) Social History Housing: House Alcohol intake: never Patient Tobacco Use Status: Former Tobacco user Quit Date: 1998 Tobacco use type: Cigarette e-Cigarette/Vaping Use: Never Used Second Hand Smoke Exposure: No service: No Current occupational status: retired Current occupation: Right Handed Cognitive needs: Yes (walk/cane) Hearing needs: No Vision needs: Yes (Glasses) Female Reproductive History Menstrual Age of Menarche: 9 Questionnaire PHQ-9 Over the last 2 weeks, how often have you been bothered by any of the following problems? 1. Little interest or pleasure in doing things: not at all 2. Feeling down, depressed, or hopeless: not at all 3. Trouble falling or staying asleep, or sleeping too much: not at all 4. Feeling tired or having little energy: not at all 5. Poor appetite or overeating: not at all 6. Feeling bad about yourself - or that you are a failure or have let yourself or your family down: not at all 7. Trouble concentrating on things, such as reading the newspaper or watching television: not at all 8. Moving or speaking so slowly that other people could have noticed. Or the opposite - being so fidgety or restless that you have been moving around a lot more than usual: not at all 9. Thoughts that you would be better off or of hurting yourself in some way: not at all Total score: 0 Depression Screening Interpretation: Negative Depression Screening Done: Yes Source: Developed by Drs. Jose Antonio Ugarte, Romy Tse, Tomi Finley and colleagues, with an educational tommy from [employer]. Thrive Questionnaire Date Thrive assessed: 06/08/23 AUDIT C Alcohol Use Questionnaire (AUDIT-C) 1. How often do you have a drink containing alcohol?: Never 3. How often do you have six or more drinks on one occasion?: Never Total Score: 0 Score Reviewed/Action Taken: No RYAN-7 AMB Questionnaire RYAN-7 Date RYAN - 7 assessed: 02/05/23 Source: Developed by Drs. Jose Antonio Ugarte, Romy Tse, Tomi Finley and colleagues, with an educational tommy from [employer]. Review of Systems Const Denies chills, Denies headache(s) and Denies weight loss ENT Denies headache(s) Card Denies chest pain, Denies syncope, Denies irregular heart rhythm and Denies dyspnea Resp Denies chest congestion, Denies cough and Denies dyspnea GI Denies abdominal pain, Denies change in stool character, Denies nausea and Denies vomiting Musc Denies deformity and Denies joint swelling Neuro Denies syncope and Denies headache(s) Physical exam (Primary Care) Vital Signs: Last Vital Signs Pulse 78 08/28/23 12:55 BP 100/62 08/28/23 12:55 Pulse Ox 99 08/28/23 12:55 Oxygen Delivery Method Room Air 08/28/23 12:55 BMI result Body Mass Index 30.3 Tobacco/Smoking Status: Tobacco use Status Tobacco use date assessed 06/08/23 08/28/23 12:57 Patient Tobacco Use Status Former Tobacco user 08/28/23 12:57 Tobacco use type Cigarette 08/28/23 12:57 e-Cigarette/Vaping Use Never Used 08/28/23 12:57 PHQ-9: PHQ-9 Score PHQ-9: Total score 0 08/28/23 12:57 Depression Screening Interpretation: Negative Thrive Assessment: Date of Thrive Assessment Date Thrive assessed 06/08/23 08/28/23 12:57 Const General: cooperative, comfortable, no acute distress and alert Neck Neck: Yes no lymphadenopathy Thyroid: Thyroid normal Resp Effort & Inspection: normal respiratory effort Auscultation: clear to auscultation bilaterally Percussion: percussion normal Cardio Jugular venous distension: no JVD Palpation: normal PMI Rate: regular rate Rhythm: regular rhythm Heart sounds: S1 normal heart sound present and S2 normal heart sound present GI Inspection: Yes normal to inspection Palpation (GI): No hepatosplenomegaly present Skin General skin exam: no rashes or lesions noted Extrem General: Yes no clubbing, cyanosis or edema Assessment and Plan Assessment & Plan (1) Low back pain: Code(s): M54.50 - Low back pain, unspecified Plan: rx Medications: New tizanidine 4 mg PO Q8H PRN 60 tabs 3RF muscle spasticity 30 days Refilled albuterol sulfate 90 mcg/actuation 2 puffs inhalation QID 8.5 grams 0RF loratadine 10 mg PO DAILY 90 tabs 8RF Coding Level of Care Code Est Pt Level 3 (42823) Diagnoses Low back pain M54.50
== END 2023-08-28 13:09 | disposition home or self-care (01) ==
PROVIDERS: PCP Internal Medicine; Visit Provider Internal Medicine
DX: M54.50 Low back pain, unspecified (principal)
CPT/HCPCS: 99213

== ENCOUNTER 2023-10-01 10:33 | Outpatient (AMB) | payer OTHER, SELFPAY ==
[2023-10-01 10:38] VITALS: BP 118/64; PULSE 66
--- NOTE | 2023-10-01 10:38 | MHC.OFFVIS ---
Intake Vital Signs 10/01/23 10:38 Weight 173 lb 4.533 oz BP 118/64 Blood Pressure Location Lt brachial Position Sitting Pulse 66 Intake Visit Reasons: follow up Intake Note: Patient here for f/u chronic GERD. Patient taking dulcolax, colace, citrucel, miralax. Patient c/o: constipation but much improved with current meds. Denies bleeding with BM. 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 Required: No Accompanied by: Self / Same As Patient Allergies codeine [Codeine] Allergy (Severe, Verified 10/01/23 10:44) HIVES ITCHING, rash, hives gabapentin [From Neurontin] Allergy (Severe, Verified 10/01/23 10:44) SWELLING Penicillins Allergy (Severe, Verified 10/01/23 10:44) SWELLING Sulfa (Sulfonamide Antibiotics) [SULFA (SULFONAMIDE ANTIBIOTICS)] Allergy (Severe, Verified 10/01/23 10:44) XEROSTEMIA, DIFF SWALLOWIN, rash, rash pregabalin [From LYRICA] Allergy (Intermediate, Verified 10/01/23 10:44) SWELLING Medication List - Last Reconciled 10/01/23 by Elana Wynn PA-C acetaminophen ER (Tylenol Arthritis Pain) 650 mg PO Q8H albuterol sulfate 90 mcg/actuation 2 puffs inhalation QID bisacodyl (Dulcolax (bisacodyl)) 10 mg [place] DAILY PRN diclofenac sodium 1% (Voltaren Arthritis Pain) 2 grams topical BID docusate sodium (Colace) 200 mg (2 x 100 mg) PO BEDTIME fluticasone propionate 50 mcg/actuation intranasal hydroxyzine HCl 25 mg PO TID PRN loratadine 10 mg PO DAILY meclizine 25 mg PO QID methylcellulose (laxative) (Citrucel) 500 mg PO TID 30 days ondansetron HCl (Zofran) 4 mg PO Q8H 3 days pantoprazole 40 mg PO BID polyethylene glycol 3350 (Miralax) 17 grams PO DAILY PRN 30 days propranolol ER 120 mg PO DAILY rosuvastatin 40 mg PO DAILY sennosides (senna) 17.2 mg PO BEDTIME PRN tizanidine 4 mg PO Q8H PRN 30 days triamcinolone acetonide 0.1% appl topical HPI HPI Comments History of Present Illness Details A 72 y/o female -with acid reflux and chronic constipation F/U She is following regimen so improved- Hx colon polyps-last colonoscopy 2016- appetite fair- frequent breakthrough acid reflux, she has made dietary modifications unable to identify anything specific She has occasional nausea she has not had any vomiting no abdominal pain No hematemesis, hematochezia fever or chills Shoulder surgery November- Medical History Cystocele with prolapse Fibromyalgia Generalized osteoarthritis Chronic pain syndrome Spondylosis of cervical spine Obesity Post-menopausal Screening for breast cancer Screening for diabetes mellitus Obesity Hyperlipidemia Vertigo Lumbar spondylosis Anal pruritus Surgical History History of right knee surgery History of colonoscopy History of varicose veins History of left knee surgery History of hysterectomy Family History Father Angina at rest Mother Hypothyroidism Hypertension Osteoarthritis Heart disease Panic disorder Glaucoma Brother Stroke Sister Alcoholic liver disease HIV (human immunodeficiency virus infection) Social History Housing: House Alcohol intake: never Comment: pt medicated with po tylenol Patient Tobacco Use Status: Former Tobacco user Quit Date: 1998 Tobacco use type: Cigarette e-Cigarette/Vaping Use: Never Used Second Hand Smoke Exposure: No service: No Current occupational status: retired Current occupation: Right Handed Cognitive needs: Yes (walk/cane) Hearing needs: No Vision needs: Yes (Glasses) Female Reproductive History Menstrual Age of Menarche: 9 Review of Systems Const All systems reviewed & are unremarkable except as noted in HPI and below Card Denies chest pain and Denies dyspnea Resp Denies dyspnea GI Reports abdominal pain, Reports bloating, Reports heartburn, Denies nausea and Denies vomiting Physical Exam Vital Signs: Last Vital Signs Pulse 66 10/01/23 10:38 BP 118/64 10/01/23 10:38 Const General: cooperative, healthy appearing, comfortable and no acute distress Orientation/consciousness: patient oriented x3 Limitations: no limitations Eyes Sclerae: sclerae normal Resp Effort & Inspection: normal respiratory effort and able to speak in complete sentences Auscultation: clear to auscultation bilaterally, no rales, no rhonchi and no wheezes Cardio Rate: regular rate Rhythm: regular rhythm Heart sounds: S1 normal heart sound present and S2 normal heart sound present GI Palpation (GI): Soft to palpation and nontender Auscultation: normal bowel sounds Skin General skin exam: no rashes or lesions noted Neuro General: patient oriented x3 Extrem General: Yes full ROM Psych Appearance: grossly normal and well kempt Mental Status: mental status grossly normal Speech and movement: Normal speech and movement present Affect: normal affect Attitude: cooperative Thought process: Normal thought process present Thought content: Normal thought content present Insight: Good insight present (Psych) Judgement: Good judgement present (Psych) Assessment & Plan Assessment & Plan (1) Constipation: Comment: Very pleasant 72-year-old female- Much improved pattern consistent with bowel regimen Code(s): K59.00 - Constipation, unspecified Plan: Continue bowel regimen She may increase after having shoulder surgery if need Maintain high-fiber diet Colonoscopy (2) Chronic GERD: Comment: Dietary modifications unable to identify anything specific continue PPI Code(s): K21.9 - Gastro-esophageal reflux disease without esophagitis Plan: Continue PPI reviewed reflux precautions EGD (3) History of colon polyps: Comment: History of adenoma-discussed procedure, rare risks, need for escorted due to anesthesia Code(s): Z86.010 - Personal history of colonic polyps Plan: Polyp surveillance colonoscopy Plan EGD/ colon MG prep Continue bowel regimen Orders: Orders EGD/[place] Combo - GI Use Only Today K21.9 - Gastro-esophageal reflux disease without esophagitis, K59.00 - Constipation, unspecified, Z86.010 - Personal history of colonic polyps Medications: New bisacodyl (Dulcolax (bisacodyl)) Day before procedure, prep day Take 4 tablets by mouth upon awakening followed by large glass of water 20 mg (4 x 5 mg) PO ONCE 1 day 4 tabs 0RF colonoscopy prep Z12.11 - Encounter for screening for malignant neoplasm of colon polyethylene glycol 3350 (Miralax) Take as directed by mouth the day before your procedure. 238 grams PO ONCE 1 day PRN 238 grams 0RF laxative effect Patient Instructions: EGD colonoscopy MiraLax Gatorade prep May increase MiraLax week prior to prep day to assure adequate Continue consistent bowel regimen for constipation-may increase as needed after surgery as well Maintain high-fiber diet Acid reflux is precautions reviewed Try to identify specific culprits, and avoid Pantoprazole 40 mg Encouraged to call questions or concerns Appreciate the opportunity assist in the care the patient Coding Level of Care Code Est Pt Level 3 (76155) Diagnoses Constipation K59.00 Chronic GERD K21.9 History of colon polyps Z86.010 Time Spent (min) 30
== END 2023-10-01 12:30 | disposition home or self-care (01) ==
PROVIDERS: PCP Internal Medicine; Visit Provider Physician Assistant
DX: K59.00 Constipation, unspecified (principal); K21.9 Gastro-esophageal reflux disease without esophagitis; Z86.010 Personal history of colon polyps
CPT/HCPCS: 99213

== ENCOUNTER → 2023-10-01 10:33 | Outpatient (BNVA) | payer OTHER, SELFPAY | PROVIDERS: PCP Internal Medicine; Visit Provider Physician Assistant | DX: K59.00 Constipation, unspecified (principal); K21.9 Gastro-esophageal reflux disease without esophagitis; Z86.010 Personal history of colon polyps | CPT/HCPCS: 99212 ==

== ENCOUNTER → 2023-10-13 08:21 | Outpatient (REF) | payer OTHER, SELFPAY ==
--- NOTE | ~2023-10-13 | NM_ITS ---
Lexiscan Myocardial perfusion study Indication: Chest pain, assess for coronary disease and ischemia Technique: The patient was brought in for a Lexiscan perfusion study on 10/13/2023 and was injected 0.4 mg of Lexiscan intravenously. Within a minute of this injection 25 mCi of sestamibi was given intravenously. Images were obtained using the SPECT gamma camera interlaced with the gating device. Images were obtained in supine position. Resting perfusion study was performed on 10/14/2023. Patient was administered 25 mCi of sestamibi intravenously at rest. Images were then obtained in supine position. Images were processed with the software and compared side to side in short axis, horizontal long axis and vertical long axis views. Total DLP 109mGy-cm. Findings: Raw acquisition reviewed. Arms by the patient's side. The stress perfusion study showed diminished tracer uptake along the inferior wall. With CT attenuation correction, there is improvement suggestive of diaphragmatic attenuation artifact. The gated study shows normal LV systolic function with calculated LVEF of 45%, but visually normal. LV cavity is normal in size. The gated study shows normal wall thickening and contraction of segments. Resting study shows diminished tracer uptake along the inferior wall. There is improvement with CT attenuation correction suggestive of diaphragmatic attenuation artifact. Gating at rest reveals normal wall motion with ejection fraction at 68%. The findings are consistent with fixed inferior defect probably from diaphragmatic attenuation artifact. NM/NM bjorn perf SPECT rest & str Impression: 1. Myocardial perfusion imaging study shows fixed inferior defect suspected to be from diaphragmatic attenuation artifact. Otherwise, no clear evidence of any ischemia or infarction. 2. Gated LVEF is 42% during stress but visually appears normal. 68% during rest. 3. Transient ischemic dilatation not present. EKG component of the test reported separately.
--- NOTE | 2023-10-13 08:25 | CA_ITS ---
Acquisition Time: 2023-10-13 08:25:46 Total Exercise Time: 00:02:00 Test Indications: CP Medications: SEE H Protocol: LEXISCAN Max HR: 091 BPM 61% of Pred: 147 BPM Max BP: 122/082 mmHG Max Work Load: 1.0 METS Pharmacological stress test with Lexiscan injection, while sitting and kicking her legs, with mild pressure in chest, without arrythmia, with normotensive response to injection, with nondiagnostic EKG for ischemia. In recovery her chest pressure resolved. Nuclear images pending. Test reviewed with Dr Fisher. Referred By: Cameron Payne Overread By: REGINA BUCK
== END ==
LOC: HO.CARD 08:21
PROVIDERS: PCP Internal Medicine; Visit Provider Internal Medicine Cardiovascular Disease
DX: R07.9 Chest pain, unspecified (principal)
CPT/HCPCS: 78452; 93017; A9500; J0280; J2785

== ENCOUNTER → 2023-10-13 08:25 | Outpatient (BNV) | payer OTHER, SELFPAY | PROVIDERS: PCP Internal Medicine; Visit Provider Nurse Practitioner Family | DX: R07.9 Chest pain, unspecified (principal) | CPT/HCPCS: 78452; 93016; 93018 ==

== ENCOUNTER 2023-10-14 08:42 | Outpatient (REF) | payer OTHER, SELFPAY ==
--- NOTE | ~2023-10-14 | MR_ITS ---
EXAMINATION: MR SHOULDER WITHOUT CONTRAST, LEFT CLINICAL INFORMATION: Osteoarthritis left shoulder. Preoperative planning. COMPARISON: X-ray of the left shoulder May 2022. CT scan of the left shoulder 10/15/2023. TECHNIQUE: MRI of the shoulder was performed using routine sequences on a high-field scanner. FINDINGS: ROTATOR CUFF: Infraspinatus: There is a small insertional intrasubstance or articular-sided tear along the proximal anterior insertion. The tear results in a longitudinal defect measuring 4 mm transverse and 6 mm AP. The remaining tendon is normal. There is no significant atrophy or fatty infiltration of the muscle. Supraspinatus: Minimal heterogeneity with some minimal fluid signal in the mid substance portion of the tendon compatible with a tiny interstitial partial tear but no measurable defect or tendon retraction. The muscle is normal. Subscapularis: Normal. Teres Minor: Normal. BICEPS: There is mild heterogeneity of the intra-articular portion of the biceps tendon compatible with tendinosis or interstitial intrasubstance partial tearing. There is a small localized fluid collection possibly synovial recess or small cyst adjacent to the biceps tendon which could be a sequela of partial tearing of the tendon. See sagittal image 10 series 3 and coronal image 11 series 5. CORACOACROMIAL ARCH: There is mild hypertrophic osteoarthritis of the acromioclavicular joint. There is mild subacromial spurring anteriorly and mild concavity of the undersurface of the acromion. BURSA: Normal. LABRUM/CAPSULE: There is heterogeneity of the posterior superior labrum likely reflecting degenerative change or nondisplaced degenerative tearing. Poor visualization of the inferior labrum likely reflecting chronic degenerative tearing. GLENOHUMERAL JOINT: There is severe osteoarthritis manifested by nonuniform but primarily high-grade cartilage loss throughout the humeral head articular surface. There are marginal osteophytes along the inferior aspect of the humeral head and glenoid. There is a moderate joint effusion and synovitis. There are several small low signal loose bodies within the subscapularis recess measuring up to 3 mm. These are more conspicuous on the followup CT scan of the left shoulder. MR/MR shoulder LT wo con IMPRESSION: 1. Severe osteoarthritis of the glenohumeral joint with joint effusion, synovitis and lose bodies. 2. Small insertional partial tear of the anterior infraspinatus tendon. 3. Minimal abnormality of the mid substance portion of the supraspinatus compatible with tiny interstitial partial tear. No measurable defect. 4. Mild osteoarthritis of the acromioclavicular joint. 5. Tendinosis and/or interstitial partial tearing of the intra-articular portion of the biceps tendon. Small localized fluid adjacent to the proximal biceps may reflect a synovial recess or a small cyst perhaps related to partial tearing of the biceps. 6. Degenerative tearing of the posterior superior and inferior labrum.
== END 2023-10-14 08:43 | disposition home or self-care (01) ==
LOC: HO.MRI 08:42
PROVIDERS: Absent Provider Internal Medicine Rheumatology; PCP Internal Medicine; Visit Provider Orthopaedic Surgery
DX: M19.012 Primary osteoarthritis, left shoulder (principal)
CPT/HCPCS: 73221

== ENCOUNTER 2023-10-15 09:22 | Outpatient (REF) | payer OTHER, SELFPAY ==
--- NOTE | ~2023-10-15 | CT_ITS ---
EXAMINATION: CT SHOULDER WITHOUT CONTRAST, LEFT CLINICAL INFORMATION: Osteoarthritis. Preoperative evaluation. COMPARISON: Left shoulder MRI dated 10/14/2023. TECHNIQUE: Contiguous axial CT images of the left shoulder were obtained without contrast. Sagittal and coronal reformats were provided and reviewed. Examination was performed as per [facility] protocol. This CT examination was performed using dose optimization techniques as appropriate, variously including the following: *Automated exposure control *Adjustment of mA and/or kV according to patient size (this includes techniques or standardized protocols for targeted exams where dose is matched to indication/reason for exam; i.e. extremities or head) *Use of iterative reconstruction technique. DOSE: 242 mGy-cm. FINDINGS: Visualized left lung: Unremarkable. Bone/joint: [id number] glenohumeral joint space narrowing with prominent marginal osteophytes. No glenoid bony remodeling. Moderate acromioclavicular osteoarthritis with small lateral subacromial spurs. No acute fracture or dislocation. Partially visualized degenerative disc disease and facet arthropathy within the cervical spine. No concerning lytic or blastic osseous lesion. Glenoid version: No significant glenoid bony remodeling or retroversion. Estimated depth of the glenoid vault: Approximately 1.9 cm. Glenoid morphology: Walch Type a 2 Joint fluid/bursa/soft tissues: Small glenohumeral joint effusion with partially calcified loose bodies in the subcoracoid recess measuring up to 0.6 and 0.4 cm. Slightly attenuated supraspinatus tendon. Evaluation of the rotator cuff tendons limited on CT examination. CT/CT shoulder LT wo IV con IMPRESSION: 1. [id number] glenohumeral osteoarthritis. Small joint effusion with partially calcified loose bodies in the subcoracoid recess. 2. Moderate acromioclavicular osteoarthritis with small lateral subacromial spurs. 3. Slightly attenuated supraspinatus tendon. Evaluation of the rotator cuff tendons limited on CT examination.
== END 2023-10-15 09:23 | disposition home or self-care (01) ==
LOC: HO.CT 09:22
PROVIDERS: PCP Internal Medicine; Visit Provider Orthopaedic Surgery
DX: M19.012 Primary osteoarthritis, left shoulder (principal)
CPT/HCPCS: 73200

== ENCOUNTER → 2023-10-28 10:41 | Outpatient (BNVA) | payer OTHER, SELFPAY | PROVIDERS: PCP Internal Medicine; Visit Provider Orthopaedic Surgery ==

== ENCOUNTER 2023-10-29 11:33 | Outpatient (AMB) | payer OTHER, SELFPAY ==
[2023-10-29 11:35] VITALS: BP 102/72; PULSE 65; O2SAT 100; BMI 29.6
--- NOTE | 2023-10-29 11:35 | A.OFFPC_ITS ---
Vital Signs 10/29/23 11:35 Height 5 ft 3 in Weight 167 lb BMI 29.6 BP 102/72 Blood Pressure Location Lt brachial Position Sitting Pulse 65 Pulse Source Pulse Oximeter Pulse Oximetry (%) 100 Oxygen Delivery Method Room Air Intake Visit Reasons: 4mon f/u Renal Medicine Physician Required: No Therapy Site Coordinator: Not Required per policy Accompanied by: Self / Same As Patient Allergies codeine [Codeine] Allergy (Severe, Verified 10/29/23 11:36) HIVES ITCHING, rash, hives gabapentin [From Neurontin] Allergy (Severe, Verified 10/29/23 11:36) SWELLING Penicillins Allergy (Severe, Verified 10/29/23 11:36) SWELLING Sulfa (Sulfonamide Antibiotics) [SULFA (SULFONAMIDE ANTIBIOTICS)] Allergy (Severe, Verified 10/29/23 11:36) XEROSTEMIA, DIFF SWALLOWIN, rash, rash pregabalin [From LYRICA] Allergy (Intermediate, Verified 10/29/23 11:36) SWELLING Medication List - Last Reconciled 10/29/23 by Raman Shields MD acetaminophen ER (Tylenol Arthritis Pain) 650 mg PO Q8H albuterol sulfate 90 mcg/actuation 2 puffs inhalation QID bisacodyl (Dulcolax (bisacodyl)) [address] DAILY PRN bisacodyl (Dulcolax (bisacodyl)) 20 mg (4 x 5 mg) PO ONCE 1 day diclofenac sodium 1% (Voltaren Arthritis Pain) 2 grams topical BID docusate sodium (Colace) 200 mg (2 x 100 mg) PO BEDTIME fluticasone propionate 50 mcg/actuation intranasal hydroxyzine HCl 25 mg PO TID PRN loratadine 10 mg PO DAILY meclizine 25 mg PO QID methylcellulose (laxative) (Citrucel) 500 mg PO TID 30 days ondansetron HCl (Zofran) 4 mg PO Q8H 3 days pantoprazole 40 mg PO BID polyethylene glycol 3350 (Miralax) 17 grams PO DAILY PRN 30 days polyethylene glycol 3350 (Miralax) 238 grams PO ONCE PRN 1 day propranolol ER 120 mg PO DAILY rosuvastatin 40 mg PO DAILY sennosides (senna) 17.2 mg PO BEDTIME PRN tizanidine 4 mg PO Q8H PRN 30 days triamcinolone acetonide 0.1% appl topical Tobacco use date assessed: 10/29/23 Fall risk assessment: No Falls in past year Last assessed Fall Risk: 10/29/23 Dental Screening Dental Screen Date: 10/29/23 Did you have a dental visit in the last 12 months?: Yes Did you have a dental problem in the last 6 months where you did not have access to dental care?: No Was dental information given to patient?: Patient has dentist HPI 4mon f/u HPI Details hyperlip htn and gerd on rx; stabe PFSH Medical History Cystocele with prolapse Fibromyalgia Generalized osteoarthritis Chronic pain syndrome Spondylosis of cervical spine Obesity Post-menopausal Screening for breast cancer Screening for diabetes mellitus Obesity Hyperlipidemia Vertigo Lumbar spondylosis Anal pruritus Surgical History History of right knee surgery History of colonoscopy History of varicose veins History of left knee surgery History of hysterectomy Family History Father Angina at rest Mother Hypothyroidism Hypertension Osteoarthritis Heart disease Panic disorder Glaucoma Brother Stroke Sister Alcoholic liver disease HIV (human immunodeficiency virus infection) Social History Housing: House Alcohol intake: never Comment: pt medicated with po tylenol Patient Tobacco Use Status: Former Tobacco user Quit Date: 1998 Tobacco use type: Cigarette e-Cigarette/Vaping Use: Never Used Second Hand Smoke Exposure: No service: No Current occupational status: retired Current occupation: Right Handed Cognitive needs: Yes (walk/cane) Hearing needs: No Vision needs: Yes (Glasses) Female Reproductive History Menstrual Age of Menarche: 9 Questionnaire PHQ-9 Over the last 2 weeks, how often have you been bothered by any of the following problems? 1. Little interest or pleasure in doing things: not at all 2. Feeling down, depressed, or hopeless: not at all 3. Trouble falling or staying asleep, or sleeping too much: not at all 4. Feeling tired or having little energy: not at all 5. Poor appetite or overeating: not at all 6. Feeling bad about yourself - or that you are a failure or have let yourself or your family down: not at all 7. Trouble concentrating on things, such as reading the newspaper or watching television: not at all 8. Moving or speaking so slowly that other people could have noticed. Or the opposite - being so fidgety or restless that you have been moving around a lot more than usual: not at all 9. Thoughts that you would be better off or of hurting yourself in some way: not at all Total score: 0 Depression Screening Interpretation: Negative Depression Screening Done: Yes Source: Developed by Drs. Jose Antonio Ugarte, Romy Tse, Tomi Finley and colleagues, with an educational tommy from [employer]. Thrive Questionnaire Date Thrive assessed: 10/29/23 I am a: Patient What is your living situation today?: I have a steady place to live Within the past 12 months, did the food you bought not last and you didn't have the money to get more?: Never true Within the past 12 months, did you worry whether your food would run out before you got money to buy more?: Never true Do you have trouble paying for medicines?: No Do you have trouble getting transportation to medical appointments?: No Do you have trouble paying your heating and electricity bill?: No Do you have trouble taking care of your child, family member or friend?: No Do you have trouble with day-to-day activities such as bathing, preparing meals, shopping, managing finances, etc.?: No Are you currently unemployed and looking for a job?: No Are you interested in more education?: No Please select the resources that you would like help with: None AUDIT C Alcohol Use Questionnaire (AUDIT-C) 1. How often do you have a drink containing alcohol?: Never 3. How often do you have six or more drinks on one occasion?: Never Total Score: 0 Score Reviewed/Action Taken: No RYAN-7 AMB Questionnaire RYAN-7 Date RYAN - 7 assessed: 10/29/23 Feeling nervous, anxious, or on edge: 0 = Not at all Not being able to stop or control worryin = Not at all Worrying too much about different things: 0 = Not at all Trouble relaxin = Not at all Being so restless that it is hard to sit still: 0 = Not at all Becoming easily annoyed or irritable: 0 = Not at all Feeling afraid as if something awful might happen: 0 = Not at all Total RYAN-7 score (0-4 normal; 5-9 mild; 10-14 moderate; 15-21 severe): 0 Source: Developed by Drs. Jose Antonio Ugarte, Romy Tse, Tomi Finley and colleagues, with an educational tommy from [employer]. Review of Systems Const Denies chills, Denies headache(s) and Denies weight loss ENT Denies headache(s) Card Denies chest pain, Denies syncope, Denies irregular heart rhythm and Denies dyspnea Resp Denies chest congestion, Denies cough and Denies dyspnea GI Denies abdominal pain, Denies change in stool character, Denies nausea and Denies vomiting Musc Denies deformity and Denies joint swelling Neuro Denies syncope and Denies headache(s) Physical exam (Primary Care) Vital Signs: Last Vital Signs Pulse 65 10/29/23 11:35 BP 102/72 10/29/23 11:35 Pulse Ox 100 10/29/23 11:35 Oxygen Delivery Method Room Air 10/29/23 11:35 BMI result Body Mass Index 29.6 Tobacco/Smoking Status: Tobacco use Status Tobacco use date assessed 10/29/23 10/29/23 11:37 Patient Tobacco Use Status Former Tobacco user 10/29/23 11:37 Tobacco use type Cigarette 10/29/23 11:37 e-Cigarette/Vaping Use Never Used 10/29/23 11:37 PHQ-9: PHQ-9 Score PHQ-9: Total score 0 10/29/23 11:37 Depression Screening Interpretation: Negative Thrive Assessment: Date of Thrive Assessment Date Thrive assessed 10/29/23 10/29/23 11:37 Const General: cooperative, comfortable, no acute distress and alert Neck Neck: Yes no lymphadenopathy Thyroid: Thyroid normal Resp Effort & Inspection: normal respiratory effort Auscultation: clear to auscultation bilaterally Percussion: percussion normal Cardio Jugular venous distension: no JVD Palpation: normal PMI Rate: regular rate Rhythm: regular rhythm Heart sounds: S1 normal heart sound present and S2 normal heart sound present GI Inspection: Yes normal to inspection Palpation (GI): No hepatosplenomegaly present Skin General skin exam: no rashes or lesions noted Extrem General: Yes no clubbing, cyanosis or edema Assessment and Plan Assessment & Plan (1) Hypertension: Code(s): I10 - Essential (primary) hypertension Plan: stable; same rx (2) Hyperlipidemia: Code(s): E78.5 - Hyperlipidemia, unspecified Plan: stable; same rx (3) Chronic GERD: Code(s): K21.9 - Gastro-esophageal reflux disease without esophagitis Plan: stable; same rx Coding Level of Care Code Est Pt Level 4 (10391) Diagnoses Hypertension I10 Hyperlipidemia E78.5 Chronic GERD K21.9
== END 2023-10-29 11:52 | disposition home or self-care (01) ==
PROVIDERS: PCP Internal Medicine; Visit Provider Internal Medicine
DX: I10 Essential (primary) hypertension (principal); E78.5 Hyperlipidemia, unspecified; K21.9 Gastro-esophageal reflux disease without esophagitis
CPT/HCPCS: 99214

== ENCOUNTER 2023-11-18 10:38 | Outpatient (AMB) | payer OTHER, SELFPAY ==
--- NOTE | 2023-11-18 10:43 | MHC.PC.OV ---
Vital Signs 11/18/23 10:44 Height 5 ft 3 in Weight 170 lb BMI 30.1 BP 104/60 Blood Pressure Location Lt brachial Position Sitting Pulse 64 Pulse Source Pulse Oximeter Pulse Oximetry (%) 98 Oxygen Delivery Method Room Air Intake Visit Reasons: arthroplasty 11/24/23- EKG, CBC w/dif, BMP Nuclear Plant Technical Advisor Required: No Accelerator Operator: Not Required per policy Accompanied by: Self / Same As Patient Allergies amoxicillin Allergy (Severe, Verified 11/18/23 10:44) Anaphylaxis codeine [Codeine] Allergy (Severe, Verified 11/18/23 10:44) Anaphylaxis gabapentin [From Neurontin] Allergy (Severe, Verified 11/18/23 10:44) Anaphylaxis Penicillins Allergy (Severe, Verified 11/18/23 10:44) Anaphylaxis Sulfa (Sulfonamide Antibiotics) [SULFA (SULFONAMIDE ANTIBIOTICS)] Allergy (Severe, Verified 11/18/23 10:44) Anaphylaxis pregabalin [From LYRICA] Allergy (Intermediate, Verified 11/18/23 10:44) SWELLING Medication List - Last Reconciled 11/18/23 by Raman Shields MD acetaminophen ER (Tylenol Arthritis Pain) 650 mg PO Q8H PRN albuterol sulfate 90 mcg/actuation 2 puffs inhalation QID PRN bisacodyl (Dulcolax (bisacodyl)) 10 mg [place] DAILY PRN bisacodyl (Dulcolax (bisacodyl)) 20 mg (4 x 5 mg) PO ONCE 1 day diclofenac sodium 1% (Voltaren Arthritis Pain) 2 grams topical BID PRN docusate sodium (Colace) 200 mg (2 x 100 mg) PO BEDTIME fluticasone propionate 50 mcg/actuation 50 mcg intranasal BID hydroxyzine HCl 25 mg PO TID PRN loratadine 10 mg PO DAILY meclizine 25 mg PO QID PRN methylcellulose (laxative) (Citrucel) 500 mg PO TID 30 days ondansetron HCl 4 mg PO Q8H PRN pantoprazole 40 mg PO BID polyethylene glycol 3350 (Miralax) 17 grams PO DAILY PRN 30 days polyethylene glycol 3350 (Miralax) 238 grams PO ONCE PRN 1 day propranolol ER 120 mg PO DAILY rosuvastatin 40 mg PO DAILY sennosides (senna) 17.2 mg PO BEDTIME PRN tizanidine 4 mg PO Q8H PRN 30 days triamcinolone acetonide 0.1% appl topical Tobacco use date assessed: 11/18/23 Fall risk assessment: No Falls in past year Last assessed Fall Risk: 11/18/23 Dental Screening Dental Screen Date: 11/18/23 Did you have a dental visit in the last 12 months?: Yes Did you have a dental problem in the last 6 months where you did not have access to dental care?: No Was dental information given to patient?: Patient has dentist HPI arthroplasty 11/24/23- EKG, CBC w/dif, BMP HPI Details HTN GERD hyperlipidemia; asthma stable on rx; having a left shoulder arthroplasty PFS Medical History (Updated 11/18/23 @ 13:41 by Raman Shields MD) Seasonal allergies Asthma GERD (gastroesophageal reflux disease) HTN (hypertension) Cystocele with prolapse Fibromyalgia Generalized osteoarthritis Chronic pain syndrome Spondylosis of cervical spine Obesity Post-menopausal Screening for breast cancer Screening for diabetes mellitus Obesity Hyperlipidemia Vertigo Lumbar spondylosis Anal pruritus Surgical History History of bilateral knee replacement History of right knee surgery History of colonoscopy History of varicose veins History of left knee surgery History of hysterectomy Family History Father Angina at rest Mother Hypothyroidism Hypertension Osteoarthritis Heart disease Panic disorder Glaucoma Brother Stroke Sister Alcoholic liver disease HIV (human immunodeficiency virus infection) Social History (Updated 11/16/23 @ 13:14 by Cathy Ibanez RN) Housing: House Are you a primary neonatal intensive care unit nurse to a significant other at home: No Do you presently have visiting nurse or other home services: Yes ([employer] 41 per week) Alcohol intake: never Comment: pt medicated with po tylenol Patient Tobacco Use Status: Former Tobacco user Quit Date: 1998 Tobacco use type: Cigarette e-Cigarette/Vaping Use: Never Used Second Hand Smoke Exposure: No service: No Current occupational status: retired Current occupation: Right Handed Cognitive needs: Yes (walk/cane) Hearing needs: No Vision needs: Yes (Glasses) Female Reproductive History Menstrual Age of Menarche: 9 Questionnaire PHQ-9 Over the last 2 weeks, how often have you been bothered by any of the following problems? 1. Little interest or pleasure in doing things: not at all 2. Feeling down, depressed, or hopeless: not at all 3. Trouble falling or staying asleep, or sleeping too much: not at all 4. Feeling tired or having little energy: not at all 5. Poor appetite or overeating: not at all 6. Feeling bad about yourself - or that you are a failure or have let yourself or your family down: not at all 7. Trouble concentrating on things, such as reading the newspaper or watching television: not at all 8. Moving or speaking so slowly that other people could have noticed. Or the opposite - being so fidgety or restless that you have been moving around a lot more than usual: not at all 9. Thoughts that you would be better off or of hurting yourself in some way: not at all Total score: 0 Depression Screening Interpretation: Negative Depression Screening Done: Yes Source: Developed by Drs. Jose Antonio Ugarte, Romy Tse, Tomi Finley and colleagues, with an educational tommy from [employer]. Thrive Questionnaire Date Thrive assessed: 11/18/23 I am a: Patient What is your living situation today?: I have a steady place to live Within the past 12 months, did the food you bought not last and you didn't have the money to get more?: Never true Within the past 12 months, did you worry whether your food would run out before you got money to buy more?: Never true Do you have trouble paying for medicines?: No Do you have trouble getting transportation to medical appointments?: No Do you have trouble paying your heating and electricity bill?: No Do you have trouble taking care of your child, family member or friend?: No Do you have trouble with day-to-day activities such as bathing, preparing meals, shopping, managing finances, etc.?: No Are you currently unemployed and looking for a job?: No Are you interested in more education?: No Please select the resources that you would like help with: None THRIVE Score: 0 AUDIT C Alcohol Use Questionnaire (AUDIT-C) 1. How often do you have a drink containing alcohol?: Never 3. How often do you have six or more drinks on one occasion?: Never Total Score: 0 Score Reviewed/Action Taken: No RYAN-7 AMB Questionnaire RYAN-7 Date RYAN - 7 assessed: 11/18/23 Feeling nervous, anxious, or on edge: 0 = Not at all Not being able to stop or control worryin = Not at all Worrying too much about different things: 0 = Not at all Trouble relaxin = Not at all Being so restless that it is hard to sit still: 0 = Not at all Becoming easily annoyed or irritable: 0 = Not at all Feeling afraid as if something awful might happen: 0 = Not at all Total RYAN-7 score (0-4 normal; 5-9 mild; 10-14 moderate; 15-21 severe): 0 Source: Developed by Drs. Jose Antonio Ugarte, Romy Tse, Tomi Finley and colleagues, with an educational tommy from [employer]. Review of Systems Const Denies chills, Denies fatigue, Denies headache(s) and Denies weight loss Eyes Denies change in vision, Denies diplopia and Denies eye pain ENT Denies vertigo, Denies dizziness, Denies headache(s) and Denies nasal discharge Card Denies chest pain, Denies rapid heart rate and Denies dyspnea on exertion Resp Denies chest congestion, Denies cough, Denies pain with cough and Denies dyspnea on exertion GI Denies abdominal pain, Denies hematochezia and Denies change in bowel habits Musc Denies myalgias, Denies arthralgias and Denies joint swelling Skin/Breast Denies lesions and Denies unusual bruising Neuro Denies vertigo, Denies dizziness, Denies headache(s) and Denies focal weakness Endo Denies fatigue Physical exam (Primary Care) Vital Signs: Last Vital Signs Pulse 64 11/18/23 10:44 BP 104/60 11/18/23 10:44 Pulse Ox 98 11/18/23 10:44 Oxygen Delivery Method Room Air 11/18/23 10:44 BMI result Body Mass Index 30.1 Tobacco/Smoking Status: Tobacco use Status Tobacco use date assessed 11/18/23 11/18/23 10:45 Patient Tobacco Use Status Former Tobacco user 11/18/23 10:45 Tobacco use type Cigarette 11/18/23 10:45 e-Cigarette/Vaping Use Never Used 11/18/23 10:45 PHQ-9: PHQ-9 Score PHQ-9: Total score 0 11/18/23 10:51 Depression Screening Interpretation: Negative Thrive Assessment: Date of Thrive Assessment Date Thrive assessed 11/18/23 11/18/23 10:45 Const General: cooperative, healthy appearing and no acute distress Orientation/consciousness: oriented to person, oriented to place and oriented to time HENMT Head: Yes normal to inspection, Yes normocephalic and Yes atraumatic Mouth: Normal oral and palatal mucosa present and tongue normal Throat: Yes posterior oropharynx normal and Yes uvula midline Eyes General: appearance normal, both eyes and all related structures Neck Neck: Yes normal visual inspection, Yes full ROM and Yes no lymphadenopathy Thyroid: Thyroid normal Carotids: normal carotid upstroke Chest Chest palpation & inspection: normal inspection of the chest Resp Effort & Inspection: normal respiratory effort and able to speak in complete sentences Auscultation: clear to auscultation bilaterally Cardio Jugular venous distension: no JVD Palpation: normal PMI Rate: regular rate Rhythm: regular rhythm Heart sounds: S1 normal heart sound present and S2 normal heart sound present GI Inspection: Yes normal to inspection Palpation (GI): Soft to palpation and No hepatosplenomegaly present Auscultation: normal bowel sounds General: Yes no CVA tenderness Back/Spine/Pelvis Back: no CVA tenderness Skin General skin exam: no rashes or lesions noted Neuro General: oriented to person, oriented to place and oriented to time Extrem General: Yes normal to inspection and Yes full ROM Assessment and Plan Assessment & Plan (1) Preop exam for internal medicine: Code(s): Z01.818 - Encounter for other preprocedural examination Plan: low risk of cardiovascular complications; cleared for surgery (2) Asthma: Code(s): J45.909 - Unspecified asthma, uncomplicated Plan: stable; same rx (3) Chronic GERD: Code(s): K21.9 - Gastro-esophageal reflux disease without esophagitis Plan: stable; same rx (4) Hypertension: Code(s): I10 - Essential (primary) hypertension Plan: stable; same rx (5) Hyperlipidemia: Code(s): E78.5 - Hyperlipidemia, unspecified Plan: stable; same rx Orders: Orders ECG 12 lead EKG Today M25.519 - Pain in unspecified shoulder Complete Blood Count Auto Diff Today D64.9 - Anemia, unspecified Basic Metabolic Panel Today Z01.818 - Encounter for other preprocedural examination Coding Level of Care Code Est Pt Level 4 (39842) Diagnoses Preop exam for internal medicine Z01.818 Asthma J45.909 Chronic GERD K21.9 Hypertension I10 Hyperlipidemia E78.5
[2023-11-18 10:44] VITALS: BP 104/60; PULSE 64; O2SAT 98; BMI 30.1
== END 2023-11-18 16:07 | disposition home or self-care (01) ==
PROVIDERS: PCP Internal Medicine; Visit Provider Internal Medicine
DX: Z01.818 Encounter for other preprocedural examination (principal); J45.909 Unspecified asthma, uncomplicated; K21.9 Gastro-esophageal reflux disease without esophagitis; I10 Essential (primary) hypertension; E78.5 Hyperlipidemia, unspecified
CPT/HCPCS: 99214

== ENCOUNTER → 2023-11-18 10:59 | Outpatient (REF) | payer OTHER, SELFPAY ==
--- NOTE | 2023-11-18 11:11 | ECG_ITS ---
Test Reason : SHOULDER PAIN Blood Pressure : / mmHG Vent. Rate : 064 BPM Atrial Rate : 064 BPM P-R Int : 156 ms QRS Dur : 080 ms QT Int : 402 ms P-R-T Axes : 063 025 028 degrees QTc Int : 414 ms Normal sinus rhythm Nonspecific ST abnormality Abnormal ECG When compared with ECG of 08-AUG-2023 11:37, No significant change was found Referred By: Raman Shields Electronically Signed By:AUGUSTO LIMA MD
[2023-11-18 11:29] LABS: MANUAL DIFF FLAG NO
[2023-11-18 11:58] LABS: Basophils Absolute Auto 0.1 X10*3/uL (0.0-0.2); Basophils Percent Auto 0.8 % (0-2); Eosinophils Absolute Auto 0.3 X10*3/uL (0.0-0.4); Eosinophils Percent Auto 4.8 % (0-4); Hematocrit 38.7 % (37.0-47.0); Hemoglobin 12.5 g/dl (12.0-16.0); Imm Gran Abs Auto 0.01 X10*3/uL (0.00-0.03); Imm Gran Pct Auto 0.2 % (0.0-0.4); Lymphocytes Absolute Auto 2.6 X10*3/uL (1.2-4.9); Lymphocytes Percent Auto 41.5 % (20-40); Mean Corpuscular HGB Conc 32.3 g/dl (31.0-35.0); Mean Corpuscular Hemoglobin 28.6 pg (27.0-33.0); Mean Corpuscular Volume 88.6 fL (80.0-98.0); Mean Platelet Volume 11.1 fL (9.4-12.3); Monocytes Absolute Auto 0.7 X10*3/uL (0.1-1.2); Monocytes Percent Auto 11.5 % (2-11); Neutrophils Absolute Auto 2.6 x10*3/uL (2.0-8.3); Neutrophils Percent Auto 41.2 % (45-73); Platelet Count 240 X10*3/uL (160-400); Red Blood Count 4.37 X10*6/uL (4.20-5.50); Red Cell Distribution Width 13.2 % (11.0-16.0); White Blood Count 6.2 X10*3/uL (4.8-10.8)
[2023-11-18 12:33] LABS: Anion Gap 11 (12-20); Blood Urea Nitrogen 11 mg/dL (9-16); Calcium 9.5 mg/dL (8.4-10.2); Carbon Dioxide 27 mmol/L (22-29); Chloride 109 mmol/L (96-108); Cholesterol 151 mg/dL (<200); Estimated Glomerular Filt Rate > 60; Glucose Random 100 mg/dL (60-115); HDL Cholesterol 62 mg/dL (>40); LDL Cholesterol Calculated 75 mg/dL (<100); Potassium 4.3 mmol/L (3.3-5.1); Sodium 143 mmol/L (135-145); Triglycerides 74 mg/dL (<150)
[2023-11-18 12:37] LABS: Thyroid Stimulating Hormone 0.46 uIU/mL (0.32-4.0)
== END ==
LOC: HO.CARD 10:59
PROVIDERS: PCP Internal Medicine; Visit Provider Internal Medicine
DX: Z01.818 Encounter for other preprocedural examination (principal); E78.5 Hyperlipidemia, unspecified; D64.9 Anemia, unspecified; E03.9 Hypothyroidism, unspecified
CPT/HCPCS: 36415; 80048; 80061; 84443; 85025; 93005

== ENCOUNTER → 2023-11-18 11:11 | Outpatient (BNV) | payer OTHER, SELFPAY | PROVIDERS: PCP Internal Medicine; Visit Provider Internal Medicine Cardiovascular Disease | DX: M25.512 Pain in left shoulder (principal) | CPT/HCPCS: 93010 ==

== ENCOUNTER → 2023-11-19 10:41 | Outpatient (BNVA) | payer OTHER, SELFPAY | PROVIDERS: PCP Internal Medicine; Visit Provider Physician Assistant ==

== ENCOUNTER 2023-11-24 05:56 | Inpatient (IN) | payer OTHER, SELFPAY ==
[2023-11-16 12:20] VITALS: BP 140/70; PULSE 61; RESP 16; O2SAT 100; BMI 29.6
[2023-11-16 14:54] LABS: MRSA Nasal PCR NEGATIVE (Negative); SA Nasal PCR NEGATIVE (Negative)
--- NOTE | 2023-11-23 12:01 | HO.ANESPROP2 ---
Documented by User: Silvia Rogers NP 11/23/23 12:04 HPI - Anesthesia Eval Consult details Narrative: 72yo F for Left Shoulder Total Arthroplasty PCP Cleared Cardiac cleared *Multiple anaphylactic med allergies* Anesthesia provider unavailable at [facility]. property assessment monitor only. PMF Active Problems Active Problems: All Active Problems (Updated 11/18/23 @ 13:41 by Raman Shields MD) Preop exam for internal medicine (Acute) History of colon polyps (Acute) Arthritis of left acromioclavicular joint (Acute) Left shoulder pain (Acute) Carpal tunnel syndrome on both sides (Acute) Osteoarthritis of left glenohumeral joint (Acute) Asthma (Acute) Constipation (Acute) Allergic rhinitis (Acute) Chronic GERD (Acute) Hypertension (Acute) Vertigo (Acute) Cystocele (Acute) Cystocele (Acute) Cystocele with prolapse (Acute) Fibromyalgia (Acute) Spondylosis of cervical spine (Acute) Obesity (Acute) Hyperlipidemia (Acute) Lumbar spondylosis (Acute) Past Medical History Medical History Seasonal allergies Asthma GERD (gastroesophageal reflux disease) HTN (hypertension) Cystocele with prolapse Fibromyalgia Generalized osteoarthritis Chronic pain syndrome Spondylosis of cervical spine Obesity Post-menopausal Screening for breast cancer Screening for diabetes mellitus Obesity Hyperlipidemia Vertigo Lumbar spondylosis Anal pruritus Family History Family History Father Angina at rest Mother Hypothyroidism Hypertension Osteoarthritis Heart disease Panic disorder Glaucoma Brother Stroke Sister Alcoholic liver disease HIV (human immunodeficiency virus infection) Surgical History Surgical History History of bilateral knee replacement History of right knee surgery History of colonoscopy History of varicose veins History of left knee surgery History of hysterectomy History of Problems with Anesthesia: No Social History Social History Housing: House Are you a primary career developer to a significant other at home: No Do you presently have visiting nurse or other home services: Yes ([employer] 41 per week) Alcohol intake: never Comment: pt medicated with po tylenol Patient Tobacco Use Status: Former Tobacco user Quit Date: 1998 Tobacco use type: Cigarette e-Cigarette/Vaping Use: Never Used Second Hand Smoke Exposure: No Use of substances other than those prescribed or required for medical reasons: No Have you been hit, kicked, punched, or otherwise hurt by someone within the past year? If so, by whom?: No Are you DNR?: No Advance Directives: No Advance Directives Information Provided: Yes Advance Directives on File: No Recently lost weight without trying: Yes How much weight loss: 34pounds or more Eating poorly because of decreased appetite: Yes Nutrition screen score: 7 Nutrition Risks: No Nutritional Risk Poor oral hygiene: No service: No Current occupational status: retired Current occupation: Right Handed Cognitive needs: Yes (walk/cane) Hearing needs: No Vision needs: Yes (Glasses) Meds Allergies Allergy/AdvReac Type Severity Reaction Status Date / Time amoxicillin Allergy Severe Anaphylaxis Verified 11/24/23 06:04 codeine [Codeine] Allergy Severe Anaphylaxis Verified 11/24/23 06:04 gabapentin [From Neurontin] Allergy Severe Anaphylaxis Verified 11/24/23 06:04 Penicillins Allergy Severe Anaphylaxis Verified 11/24/23 06:04 Sulfa (Sulfonamide Allergy Severe Anaphylaxis Verified 11/24/23 06:04 Antibiotics) [SULFA (SULFONAMIDE ANTIBIOTICS)] pregabalin [From LYRICA] Allergy Intermediate SWELLING Verified 11/24/23 06:04 Home Medications Medication Instructions Recorded Confirmed Last Taken Type fluticasone propionate 50 50 mcg intranasal BID 07/27/20 11/19/23 Unknown History mcg/actuation nasal spray,suspension sennosides 8.6 mg tablet (senna) 17.2 mg PO BEDTIME PRN constipation 07/28/23 11/24/23 11/23/23 History acetaminophen 650 mg 650 mg PO Q8H PRN Pain 11/12/23 11/19/23 Unknown History tablet,extended release (Tylenol Arthritis Pain) albuterol sulfate 90 mcg/actuation 2 puff inhalation QID PRN 11/12/23 11/19/23 Unknown History aerosol inhaler Shortness Of Breath Or Wheezing meclizine 25 mg tablet 25 mg PO QID PRN Vertigo 11/12/23 11/19/23 Unknown History Exam Height,Weight and Vital Signs: Height 5 ft 3 in Weight 75.75 kg Last Vital Signs Pulse 61 11/16/23 12:20 Resp 16 11/16/23 12:20 BP 140/70 H 11/16/23 12:20 Pulse Ox 100 11/16/23 12:20 O2 Del Method Room Air 11/16/23 12:20 Pertinent Lab Results Pertinent Lab Results: Laboratory Tests 11/16/23 11/16/23 12:55 13:15 Nasal Screen MRSA (PCR) NEGATIVE Nasal S. aureus Screen NEGATIVE Nasal MRSA/S.aureus Interp SEE NOTE Blood Type O Positive Antibody Screen NEGATIVE Laboratory Tests 11/18/23 11:28 WBC 6.2 Hgb 12.5 Hct 38.7 Plt Count 240 Sodium 143 Potassium 4.3 Chloride 109 H Carbon Dioxide 27 BUN 11 Creatinine 0.65 Narrative Narrative: EKG 10/2023 Vent. Rate : 064 BPM Atrial Rate : 064 BPM P-R Int : 156 ms QRS Dur : 080 ms QT Int : 402 ms P-R-T Axes : 063 025 028 degrees QTc Int : 414 ms Normal sinus rhythm Nonspecific ST abnormality Abnormal ECG When compared with ECG of 08-AUG-2023 11:37, No significant change was found NM bjorn perf SPECT rest & str 09/2023. Impression: 1. Myocardial perfusion imaging study shows fixed inferior defect suspected to be from diaphragmatic attenuation artifact. Otherwise, no clear evidence of any ischemia or infarction. 2. Gated LVEF is 42% during stress but visually appears normal. 68% during rest. 3. Transient ischemic dilatation not present. EKG component of the test reported separately. Assessment and Plan Assessment Anesthesia Assessment: Chart Reviewed Final Anesthetic Review History of Problems with Anesthesia: No Documented by User: Ariel Avitia MD 11/24/23 06:57 [facility] Past Medical History Medical History Seasonal allergies Asthma GERD (gastroesophageal reflux disease) HTN (hypertension) Cystocele with prolapse Fibromyalgia Generalized osteoarthritis Chronic pain syndrome Spondylosis of cervical spine Obesity Post-menopausal Screening for breast cancer Screening for diabetes mellitus Obesity Hyperlipidemia Vertigo Lumbar spondylosis Anal pruritus Family History Family History Father Angina at rest Mother Hypothyroidism Hypertension Osteoarthritis Heart disease Panic disorder Glaucoma Brother Stroke Sister Alcoholic liver disease HIV (human immunodeficiency virus infection) Family history of problems with anesthesia: No Surgical History Surgical History History of bilateral knee replacement History of right knee surgery History of colonoscopy History of varicose veins History of left knee surgery History of hysterectomy History of Problems with Anesthesia: No Social History Social History Housing: House Are you a primary career developer to a significant other at home: No Do you presently have visiting nurse or other home services: Yes ([employer] 41 per week) Alcohol intake: never Comment: pt medicated with po tylenol Patient Tobacco Use Status: Former Tobacco user Quit Date: 1998 Tobacco use type: Cigarette e-Cigarette/Vaping Use: Never Used Second Hand Smoke Exposure: No Use of substances other than those prescribed or required for medical reasons: No Have you been hit, kicked, punched, or otherwise hurt by someone within the past year? If so, by whom?: No Are you DNR?: No Advance Directives: No Advance Directives Information Provided: Yes Advance Directives on File: No Recently lost weight without trying: Yes How much weight loss: 34pounds or more Eating poorly because of decreased appetite: Yes Nutrition screen score: 7 Nutrition Risks: No Nutritional Risk Poor oral hygiene: No service: No Current occupational status: retired Current occupation: Right Handed Cognitive needs: Yes (walk/cane) Hearing needs: No Vision needs: Yes (Glasses) Meds Allergies Allergy/AdvReac Type Severity Reaction Status Date / Time amoxicillin Allergy Severe Anaphylaxis Verified 11/24/23 06:04 codeine [Codeine] Allergy Severe Anaphylaxis Verified 11/24/23 06:04 gabapentin [From Neurontin] Allergy Severe Anaphylaxis Verified 11/24/23 06:04 Penicillins Allergy Severe Anaphylaxis Verified 11/24/23 06:04 Sulfa (Sulfonamide Allergy Severe Anaphylaxis Verified 11/24/23 06:04 Antibiotics) [SULFA (SULFONAMIDE ANTIBIOTICS)] pregabalin [From LYRICA] Allergy Intermediate SWELLING Verified 11/24/23 06:04 Home Medications Medication Instructions Recorded Confirmed Last Taken Type fluticasone propionate 50 50 mcg intranasal BID 07/27/20 11/19/23 Unknown History mcg/actuation nasal spray,suspension sennosides 8.6 mg tablet (senna) 17.2 mg PO BEDTIME PRN constipation 07/28/23 11/24/23 11/23/23 History acetaminophen 650 mg 650 mg PO Q8H PRN Pain 11/12/23 11/19/23 Unknown History tablet,extended release (Tylenol Arthritis Pain) albuterol sulfate 90 mcg/actuation 2 puff inhalation QID PRN 11/12/23 11/19/23 Unknown History aerosol inhaler Shortness Of Breath Or Wheezing meclizine 25 mg tablet 25 mg PO QID PRN Vertigo 11/12/23 11/19/23 Unknown History Exam Airway Mallampati Class: II TM Dist: >3cm Neck ROM: Full Loose/Missing/Broken Teeth: No Heart: [id number] Lungs: cta b/l Assessment and Plan Assessment Anesthesia Assessment: Anesthesia Plan Discussed Final Anesthetic Review Family History of Problems with Anesthesia: No History of Problems with Anesthesia: No NPO: Yes ASA Class: III Final Preanesthetic Review: No Changes in Pt Med Stat, Meds/Allgs Chart Reviewed, Consent Obtained/Reviewed and Anes Risks/Benef Reviewed Patient Risk: Intermediate Procedure Risk: Intermediate Assessment/Block/Sedation in : Assess/Block/Sedation- Anesthetic Plan Anesthetic Plan: GA and Neuraxial Block: Disposition: Standard PACU
[2023-11-24] VITALS (9 sets, daily range): BP systolic 105–128; BP diastolic 42–63; PULSE 65–73; RESP 10–20; TEMP 35.9–36.3; O2SAT 93–98; BMI 30.4; BMI 29.9
--- NOTE | ~2023-11-24 | XR_ITS ---
EXAMINATION: XR SHOULDER, LEFT CLINICAL INFORMATION: Status post arthroplasty COMPARISON: 10/07/2023 TECHNIQUE: AP external rotation, Grashey, scapular Y, and axillary views of the left shoulder. FINDINGS: Postsurgical changes in the surrounding soft tissues. The left shoulder prosthesis is intact and demonstrate anatomic alignment. XR/XR shoulder LT min 2V IMPRESSION: Appropriate postsurgical changes as described.
[2023-11-24] MEDS: Lactated Ringers 1,000 ML 100 ML IVCONT ×3 (06:41→23:22)
[2023-11-24] MEDS: vancomycin HCL 1,000 MG in 0.9 % Sodium Chloride 250 ML 270 MG IV ×2 (06:41→19:23)
--- NOTE | 2023-11-24 06:52 | MHC.SHP ---
Pre-Procedural Eval Section A - 24 Hr Update-Section A only Date of Service: 11/24/23 The patient is an INPATIENT: No Changes since office visit: No Cold of Flu in the past 2 weeks, No New Medical Problems, No Changes in Medication and No Patient answered all questions The patient has been examined within 24 hours of the surgical procedure. The History & Physical has been completed within 30 days and I have reviewed it.: Yes Section B - Complete if H&P > 30 days Chief Complaint: LT TSA Allergies: Allergies Allergy/AdvReac Type Severity Reaction Status Date / Time amoxicillin Allergy Severe Anaphylaxis Verified 11/24/23 06:04 codeine [Codeine] Allergy Severe Anaphylaxis Verified 11/24/23 06:04 gabapentin [From Neurontin] Allergy Severe Anaphylaxis Verified 11/24/23 06:04 Penicillins Allergy Severe Anaphylaxis Verified 11/24/23 06:04 Sulfa (Sulfonamide Allergy Severe Anaphylaxis Verified 11/24/23 06:04 Antibiotics) [SULFA (SULFONAMIDE ANTIBIOTICS)] pregabalin [From LYRICA] Allergy Intermediate SWELLING Verified 11/24/23 06:04 Plan I have reviewed the history and physical and performed a pertinent physical examination on my patient. No changes have occurred unless specified. Time Spent With Patient Time: Total time managing care of this patient today ____ minutes.
--- NOTE | 2023-11-24 09:56 | PHA.MEDREC ---
Addendum entered by Cristina Garg [facility] 11/24/23 12:14: Spoke to patient after surgery, only change reported was daily multivitamin as reflected on med rec. Original Note: Pharmacy Consult ? Medication Reconciliation Pharmacy has reviewed the medication reconciliation done by nursing.
--- NOTE | 2023-11-24 10:28 | P.BOP_ITS ---
Brief Operative Note Date of Service: 11/24/23 Pre-op diagnosis: Left shoulder OA Post-op diagnosis: same Procedure: Left TSA Implants: Tournier 3b Dylan echavarria Surgeon: Jaya Barros MD Anesthesia: GETA and regional Was an Regional Environmental Manager used for this Procedure?: Yes Regional Environmental Manager: John Jamison Estimated blood loss (mL): 200 IV fluids (mL): 1,000 Pathology: none sent Condition: stable Disposition: PACU
--- NOTE | 2023-11-24 12:12 | P.DS_ITS ---
DS: Providers Provider Date of Service: 11/25/23 Date of admission: 11/24/23 05:56 Primary care physician: Raman Shields MD Consults: 11/24/23 11:30 Consult to Hospitalist Routine Comment: Consulting Provider: Hospitalist Reason For Exam: CAD DS: Summary Hospital Course Hospital Course: The patient underwent a successful left total shoulder arthroplasty, they were transferred to PACU and then to the floor to recover. During their stay, their vitals were stable, afebrile at 97.6. POD 1 they received Occupational Therapy services twice a day. Prior to discharge, their dressing was clean dry and intact, and the plan was to be discharged home with VNA services. Time Attestation Discharge coordination time: Less than 30 minutes Quality: Safe Use of Opioids Does Pt have an Active Cancer Diagnosis on the Problem List?: No Quality: Stroke Does the patient have a stroke diagnosis?: No Physical Exam Vital Signs: Vital Signs: Last Vital Signs Temp 97.0 F 11/24/23 11:27 Pulse 65 11/24/23 11:27 Resp 20 11/24/23 11:27 BP 128/59 L 11/24/23 11:27 Pulse Ox 98 11/24/23 11:27 O2 Del Method Room Air 11/24/23 11:27 BMI result Body Mass Index 29.9 Const: General: cooperative, healthy appearing and no acute distress Resp: Effort & Inspection: normal respiratory effort and able to speak in complete sentences Cardio: Rate: regular rate Peripheral pulses: Peripheral pulses 2+ throughout GI: Palpation (GI): Soft to palpation Skin: Lesions: no lesions Rashes: no rashes Extrem: Other: Left shoulder dressing is c/d/i. Able to flex and extend at the wrist. Sensation intact. Radial pulse intact. DS: Data Data Completed and Pending Pending studies at discharge: Pending at discharge 11/24/23 08:38 Surgical [PTH] Routine Discharge Plan Discharge Anticipated Discharge Date/Time: 11/25/23 15:00 Patient Disposition: Home Health Service Discharge Diagnosis: s/p LT TSA Referrals: Cassy Ambriz PA-C [Physician Asphalt Paving Superintendent] - 12/10/23 1:15 pm Discharge Medications: New celecoxib 200 mg Capsule 200 mg PO BID 30 Days Qty: 60 0RF acetaminophen 325 mg Tablet 650 mg PO Q6H PRN (Reason: Pain, Mild (Pain Scale 1-3)) 30 Days Qty: 240 0RF oxycodone 5 mg Tablet 5 mg PO Q4H PRN (Reason: Pain, Moderate(Pain Scale 4-6)) 7 Days Qty: 42 0RF Rx Instructions: Partial Fill upon patient request. Continued rosuvastatin 40 mg tablet 40 mg PO DAILY Qty: 90 8RF pantoprazole 40 mg tablet,delayed release (DR/EC) 40 mg PO BID Qty: 180 1RF propranolol 120 mg capsule,extended release 24 hr 120 mg PO DAILY Qty: 90 4RF (DME) blood pressure monitor Kit See Rx Instructions .Route Qty: 1 0RF Rx Instructions: As directed meclizine 25 mg tablet 25 mg PO QID PRN (Reason: Vertigo) albuterol sulfate 90 mcg/actuation HFA aerosol inhaler 2 puff inhalation QID PRN (Reason: Shortness Of Breath Or Wheezing) multivitamin Tablet 1 tab PO DAILY fluticasone propionate 50 mcg/actuation spray,suspension 50 mcg intranasal DAILY MDD allergies hydroxyzine HCl 25 mg tablet 25 mg PO TID PRN (Reason: itching) Qty: 30 0RF loratadine 10 mg tablet 10 mg PO DAILY Qty: 90 8RF tizanidine 4 mg tablet 4 mg PO Q8H PRN (Reason: muscle spasticity) 30 Days Qty: 60 3RF Citrucel 500 mg tablet 500 mg PO TID 30 Days Qty: 90 5RF docusate sodium [Colace] 100 mg capsule 200 mg PO BEDTIME Qty: 60 5RF sennosides [senna] 8.6 mg tablet 17.2 mg PO BEDTIME PRN (Reason: constipation) Discontinued acetaminophen [Tylenol Arthritis Pain] 650 mg tablet extended release 650 mg PO Q8H PRN (Reason: Pain) Discharge Orders: Discharge Order (Routine); Ordered 11/25/23 Ordered By: Cassy Ambriz Diet: Advance to usual diet Activity on Discharge: Use Splints or Immobilizers Stand Alone Forms: Patient Portal Discharge page Care Plan Goals: restore fxn to left shoulder Health Concerns: None Plan of Treatment: Wear sling at all times, including sleeping No lifting-OK to move arm at elbow and wrist Do not bathe or shower--Leve the dressing clean, dry, and intact Call [facility] orthopedics with any questions or concerns. Follow up with orthopedics in 7-10 days post op Assessment: Stable for d/c
--- NOTE | 2023-11-24 12:14 | W.MHC.F2F ---
Service Date Service Date: 11/24/23 Encounter Date of encounter: 11/25/23 Reasons for Services Signs and symptoms assessed: s/p LTSA. Pt. is considered homebound due to recent surgery. Unable to drive, poor balance, poor gait mechanics. Reason for occupational therapy: home safety and mobility, therapeutic exercises, restore joint function, gait/transfer training, assess need for DME and ADL training Homebound: Leaving the home is medically contraindicated at this time without the asist of a device and/or another person due th the listed conditions above and below. Reason homebound: pain with transfers and unable to drive Certification: Based on the above findings, I certify that this patient is confined to the home and needs intermittent retirement care, physical therapy and/or speech therapy, or continues to need occupational therapy. The patient is under my care, and I have initiated the establishment of the plan of care. The patient will be followed by a physician who will periodically review the plan of care. Time Spent With Patient Time: Total time managing care of this patient today ____ minutes.
[2023-11-24] MEDS: Acetaminophen 325 MG TABLET 650 MG PO (12:29)
--- NOTE | 2023-11-24 13:10 | P.CONHOSP_ITS ---
History of Present Illness Data of Consult Service Date: 11/24/23 Requesting physician: John Jamison Primary Care Provider: Raman Shields MD HPI Reason for consult: CAd 72-year-old female with history of GERD, hypertension, hyperlipidemia, mild intermittent asthma, anxiety, fibromyalgia, and non obstructive coronary artery disease with history several cardiac cath x2 most recent 3 years ago admitted to orthopedic surgery for left TSA with consult placed hospitalist service for medical management. She tells me she continues have recurrent atypical chest pains prompting multiple ER visits and ultimately diagnosed as costochondritis, fibromyalgia, or r/t anxiety. Trops below detectable limits. EKG's non ischemic. She currently denies any chest pain, sob, palpitations, nausea, vomiting, abd pain. Reports a mild headache and some lightheadedness. She is a former smoker (quit 1998), denies etoh use, denies illicit drug/mj use. Review of Systems Review of Systems: Yes all other systems are reviewed and are negative [facility] Medical History Seasonal allergies Asthma GERD (gastroesophageal reflux disease) HTN (hypertension) Cystocele with prolapse Fibromyalgia Generalized osteoarthritis Chronic pain syndrome Spondylosis of cervical spine Obesity Post-menopausal Screening for breast cancer Screening for diabetes mellitus Obesity Hyperlipidemia Vertigo Lumbar spondylosis Anal pruritus Family History Father Angina at rest Mother Hypothyroidism Hypertension Osteoarthritis Heart disease Panic disorder Glaucoma Brother Stroke Sister Alcoholic liver disease HIV (human immunodeficiency virus infection) Surgical History History of bilateral knee replacement History of right knee surgery History of colonoscopy History of varicose veins History of left knee surgery History of hysterectomy Social History Household Members: None Housing: Condominium Are you a primary healthcare social worker to a significant other at home: No Do you presently have visiting nurse or other home services: Yes ([employer]PER[employer] 41 per week) Alcohol intake: never Comment: pt medicated with po tylenol Patient Tobacco Use Status: Former Tobacco user Quit Date: 1998 Tobacco use type: Cigarette e-Cigarette/Vaping Use: Never Used Second Hand Smoke Exposure: No Use of substances other than those prescribed or required for medical reasons: No Have you been hit, kicked, punched, or otherwise hurt by someone within the past year? If so, by whom?: No Do you feel safe in your current relationship?: Yes Spiritual Healthcare Practices: anabaptism Are you DNR?: No Advance Directives: No Advance Directives Information Provided: Yes Advance Directives on File: No Do you have thoughts of harming others: None Do you have a plan to hurt others: No Plan Recently lost weight without trying: Yes How much weight loss: 14-23 pounds Eating poorly because of decreased appetite: Yes Nutrition screen score: 5 Nutrition Risks: No Nutritional Risk Patient : No : No Poor oral hygiene: No service: No Current occupational status: retired Current occupation: Right Handed Cognitive needs: Yes (walk/cane) Hearing needs: No Vision needs: Yes (Glasses) Meds Allergies Allergy/AdvReac Type Severity Reaction Status Date / Time amoxicillin Allergy Severe Anaphylaxis Verified 11/24/23 06:04 codeine [Codeine] Allergy Severe Anaphylaxis Verified 11/24/23 06:04 gabapentin [From Neurontin] Allergy Severe Anaphylaxis Verified 11/24/23 06:04 Penicillins Allergy Severe Anaphylaxis Verified 11/24/23 06:04 Sulfa (Sulfonamide Allergy Severe Anaphylaxis Verified 11/24/23 06:04 Antibiotics) [SULFA (SULFONAMIDE ANTIBIOTICS)] pregabalin [From LYRICA] Allergy Intermediate SWELLING Verified 11/24/23 06:04 Active Medications: Current Medications Acetaminophen (Acetaminophen 325 Mg Tablet) 650 mg PO Q6H PRN PRN Reason: Pain, Mild (Pain Scale 1-3) Last Admin: 11/24/23 12:29 Dose: 650 mg Albuterol Sulfate (Albuterol Sulfate 90 Mcg 8 Gm Inhaler) 2 puff INHALE QID PRN PRN Reason: Shortness Of Breath Or Wheezing Celecoxib (Celecoxib 200 Mg Capsule) 200 mg PO BID CASSIUS Fluticasone Propionate (Fluticasone Propionate Nasal 16 Gm [place]) 1 spray NOSTRIL-B BID PRN PRN Reason: allergies Hydromorphone HCl (Hydromorphone Hcl 0.5 Mg/0.5 Ml Syringe) 0.25 mg IVPUSH Q4H PRN; Protocol PRN Reason: Pain, Severe (Pain Scale 7-10) Hydroxyzine HCl (Hydroxyzine Hcl 25 Mg Tablet) 25 mg PO TID PRN PRN Reason: itching Lactated Ringer's (Lr) 1,000 mls @ 100 mls/hr IVCONT .Q10H CASSIUS Stop: 11/25/23 10:20 Last Admin: 11/24/23 12:41 Dose: 100 mls/hr Vancomycin HCl 1,000 mg/ (Sodium Chloride) 270 mls @ 270 mls/hr IV POSTOP ONE Stop: 11/24/23 12:29 Loratadine (Loratadine 10 Mg Tablet) 10 mg PO DAILY [facility] Meclizine HCl (Meclizine Hcl 25 Mg Tablet) 25 mg PO QID PRN PRN Reason: Vertigo Omeprazole (Omeprazole 20 Mg Capsule.Dr) 20 mg PO BID [facility] Ondansetron HCl (Ondansetron Hcl 4 Mg/2 Ml Vial) 4 mg IVPUSH Q8H PRN PRN Reason: Nausea and Vomiting Oxycodone HCl (Oxycodone Hcl Immed Release 5 Mg Tablet) 5 mg PO Q4H PRN PRN Reason: Pain, Moderate(Pain Scale 4-6) Oxycodone HCl (Oxycodone Hcl Er 10 Mg Tab.Er.12h) 10 mg PO BID [facility] Propranolol HCl (Propranolol Hcl La 60 Mg Cap.Sa.24h) 120 mg PO DAILY [facility]; Protocol Senna (Sennosides 8.6 Mg Tablet) 17.2 mg PO BEDTIME PRN PRN Reason: Constipation Sodium Chloride (0.9 % Sodium Chloride Flush 3 Ml Syringe) 3 ml IVFLUSH QSHIFT [facility] Tizanidine HCl (Tizanidine Hcl 4 Mg Tablet) 4 mg PO Q8H PRN PRN Reason: muscle spasticity Home Medications Medication Instructions Recorded Confirmed Last Taken Type fluticasone propionate 50 50 mcg intranasal DAILY 07/27/20 11/24/23 Unknown History mcg/actuation nasal spray,suspension sennosides 8.6 mg tablet (senna) 17.2 mg PO BEDTIME PRN constipation 07/28/23 11/24/23 11/23/23 History acetaminophen 650 mg 650 mg PO Q8H PRN Pain 11/12/23 11/19/23 Unknown History tablet,extended release (Tylenol Arthritis Pain) albuterol sulfate 90 mcg/actuation 2 puff inhalation QID PRN 11/12/23 11/19/23 Unknown History aerosol inhaler Shortness Of Breath Or Wheezing meclizine 25 mg tablet 25 mg PO QID PRN Vertigo 11/12/23 11/19/23 Unknown History multivitamin 1 tab PO DAILY 11/24/23 11/24/23 Unknown History Physical Exam Vital Signs and Narrative: Vital Signs: Last Vital Signs Temp 97.0 F 11/24/23 11:27 Pulse 65 11/24/23 11:27 Resp 20 11/24/23 11:27 BP 128/59 L 11/24/23 11:27 Pulse Ox 98 11/24/23 11:27 O2 Del Method Room Air 11/24/23 11:27 BMI result Body Mass Index 29.9 Constitutional - Awake and Alert, No apparent distress Eyes - PERRLA, EOMI Cardiovascular - S1S2, RRR, No edema Respiratory - Normal lung expansion, Normal respiratory effort, No respiratory distress, CTA bilaterally Gastrointestinal - NT / ND; +BS; No rebound or guarding Extremities - no calf tenderness bilaterally, no swelling Skin - Warm/Dry Neurological - Alert & oriented x3 Assessment and Plan (1) Arthritis of left acromioclavicular joint: Status: Acute Plan 72-year-old female with history of GERD, hypertension, hyperlipidemia, mild intermittent asthma, anxiety, fibromyalgia, and non obstructive coronary artery disease with history several cardiac cath x2 most recent 3 years ago admitted to orthopedic surgery for left TSA with consult placed hospitalist service for medical management. #OA left shoulder s/p TSA pod0 -plan per ortho surgery #Lightheadness -likely r/t anesthesia. No near syncope/syncope, no chest pain -VSS -continue fluids, monitor for improvement #CAD/HLD -nonobstructive with cardiac cath x 2 (1986 and 3 years ago per patient- records not available) -currently asymptomatic -statin #HTN -bp reasonably controlled -continue propranolol #MIld intermittent asthma -no acute exacerbation -albuterol prn #GERD -ppi #Anxiety/fibromyaglia -continue home meds Thank you for allowing me to participate in this consult. Signing off at this time. Please do not hesitate to call for further questions.
[2023-11-24] MEDS: HYDROmorphone HCl 0.5 MG/0.5 ML SYRINGE 0.25 MG IVPUSH ×2 (14:51→23:49)
[2023-11-24] MEDS: oxyCODONE HCl Immed Release 5 MG TABLET PO (19:22)
[2023-11-24] MEDS: Celecoxib 200 MG CAPSULE PO (20:33)
[2023-11-24] MEDS: Omeprazole 20 MG CAPSULE.DR PO (20:33)
[2023-11-24] MEDS: oxyCODONE HCl ER 10 MG TAB.ER.12H PO (20:33)
[2023-11-25 03:00] VITALS: BP 125/58; PULSE 72; RESP 18; TEMP 36.4; O2SAT 97
[2023-11-25] MEDS: Acetaminophen 325 MG TABLET 650 MG PO (03:09)
[2023-11-25] MEDS: oxyCODONE HCl Immed Release 5 MG TABLET PO ×3 (03:09→10:51)
[2023-11-25] MEDS: oxyCODONE HCl ER 10 MG TAB.ER.12H PO (07:08)
[2023-11-25] MEDS: Omeprazole 20 MG CAPSULE.DR PO (07:09)
[2023-11-25] MEDS: Celecoxib 200 MG CAPSULE PO (07:10)
[2023-11-25] MEDS: Loratadine 10 MG TABLET PO (07:10)
[2023-11-25] MEDS: Propranolol HCL LA 60 MG CAP.SA.24H 120 MG PO (07:10)
[2023-11-25 07:17] VITALS: BP 107/63; PULSE 64; RESP 18; TEMP 36.3; O2SAT 96
--- NOTE | 2023-11-25 09:06 | MHC.CM.PN ---
pt has a balloon sander has own ride home is dcd today with chandan
[2023-11-25] MEDS: HYDROmorphone HCl 0.5 MG/0.5 ML SYRINGE 0.25 MG IVPUSH (09:07)
[2023-11-25 10:19] LABS: MANUAL DIFF FLAG NO
[2023-11-25 10:23] LABS: Basophils Percent Auto 0.4 % (0-2); Eosinophils Percent Auto 0.2 % (0-4); Hematocrit 35.2 % (37.0-47.0); Hemoglobin 11.4 g/dl (12.0-16.0); Imm Gran Abs Auto 0.03 X10*3/uL (0.00-0.03); Imm Gran Pct Auto 0.3 % (0.0-0.4); Lymphocytes Absolute Auto 2.1 X10*3/uL (1.2-4.9); Lymphocytes Percent Auto 21.9 % (20-40); Mean Corpuscular HGB Conc 32.4 g/dl (31.0-35.0); Mean Corpuscular Hemoglobin 29.1 pg (27.0-33.0); Mean Corpuscular Volume 89.8 fL (80.0-98.0); Mean Platelet Volume 10.8 fL (9.4-12.3); Monocytes Absolute Auto 0.9 X10*3/uL (0.1-1.2); Monocytes Percent Auto 9.1 % (2-11); Neutrophils Absolute Auto 6.6 x10*3/uL (2.0-8.3); Neutrophils Percent Auto 68.1 % (45-73); Platelet Count 220 X10*3/uL (160-400); Red Blood Count 3.92 X10*6/uL (4.20-5.50); Red Cell Distribution Width 13.3 % (11.0-16.0); White Blood Count 9.7 X10*3/uL (4.8-10.8)
[2023-11-25 10:39] LABS: Anion Gap 9 (12-20); Blood Urea Nitrogen 12 mg/dL (9-16); Carbon Dioxide 28 mmol/L (22-29); Chloride 110 mmol/L (96-108); Creatinine Clr Calc Pharmacy 73.4; Estimated Glomerular Filt Rate > 60; Glucose Fasting 139 mg/dL (60-99); Potassium 4.2 mmol/L (3.3-5.1); Sodium 143 mmol/L (135-145)
--- NOTE | 2023-11-25 15:22 | HO.POSTANES ---
Post Anesthesia Evaluation Post Anesthesia Evaluation Date of Service: 11/25/23 Vital Signs: Vital Signs Temp Pulse Resp BP Pulse Ox O2 Del Method 11/25/23 07:17 97.3 F 64 18 107/63 96 Room Air Anesthesia: Nerve Block and General Mental Status: Awake Pain Control: Satisfactory Nausea/Vomiting: None Hydration: Adequate Anesthesia-Related Issues: No Anes. Related Issues
--- NOTE | 2023-12-01 16:40 | P.OP_ITS ---
Operative Note Operative Note Date of Service: 11/24/23 Narrative: Date of Service: 11/24/23 Pre-op diagnosis: Left shoulder OA Post-op diagnosis: same Procedure: Left TSA Implants: Tournier 3b Dylan echavarria Surgeon: Jaya Barros MD Anesthesia: GETA and regional Was an Mortgage Consultant used for this Procedure?: Yes Mortgage Consultant: John Jamison Estimated blood loss (mL): 200 IV fluids (mL): 1,000 Pathology: none sent Condition: stable Disposition: PACU Procedure in detail: Patient was brought to the operating room and placed in the beach chair position on the surgical table. The limb was prepped and draped in standard sterile fashion and a time out was called to identify proper site, proper procedure and IV antibiotics per weight were administered. I began by making a deltopectoral incision from the coracoid to the pectoralis insertion.? Blunt dissection identified the cephalic vein which was retracted laterally.? Blunt dissection was taken down to the 3 sisters which were cauterized.? I then made a full- thickness capsulotomy including the subscapularis. A 1 cm cuff was left for repair.? This was tagged and the arm was externally rotated and extended and the head was dislocated.? The humeral head was eburnated and there was a large inferior osteophyte that was removed with an osteotome.? The RTC was intact. An anatomic head cut was made in patient's natural inclination (approximately 132 degree) .? A starter awl was used to identify the canal and then I broached up to a size #2 at 30 degrees of version.? I then placed my head protector and turned my attention to the glenoid.? Posterior anterior and superior glenoid retractors were placed and labral tissue was removed.? Based on the preoperative CT and templating a guide pin was placed in approximately 5 degrees of retroversion and neutral inclination.? Using a wedge Reamer I reamed down to bleeding bone circumferentially and placed the size 40M glenoid drill guide. My final glenoid was cemented in place while applying axial compression. Once the cement was dry all excess cement was removed. I then returned to the humerus where I trialed a? 4b stem with a low offset 19 head. I was satisfied with the height and the stability. I irrigated copiously and then implanted in the final implants. I was satisfied with the stability of the implants. I then irrigated and repaired the subscapularis with fiberwire.? I closed in a layered fashion with absorbable suture and rosanne and the patient was placed in a sterile dressing and an abduction sling.? She was extubated brought to recovery room stable condition there were no known complications.
== END 2023-11-25 10:55 | disposition home health service (06) | DRG 483 ==
LOC: HO.SSSA 05:59 → HO.S3 10:48
PROVIDERS: Physician Assistant; Admitting Provider Orthopaedic Surgery; PCP Internal Medicine; Visit Provider Orthopaedic Surgery
PROC: 0RRK0JZ Replacement of Left Shoulder Joint with Synthetic Substitute, Open Approach (ICD-10-PCS; CPT 23472; principal; 2023-11-24 07:30)
DX: M19.012 Primary osteoarthritis, left shoulder (principal); M79.7 Fibromyalgia; G89.18 Other acute postprocedural pain; I25.10 Atherosclerotic heart disease of native coronary artery without angina pectoris; I10 Essential (primary) hypertension; F41.9 Anxiety disorder, unspecified; J45.20 Mild intermittent asthma, uncomplicated; Z87.891 Personal history of nicotine dependence; Z88.0 Allergy status to penicillin; Z88.2 Allergy status to sulfonamides; Z79.51 Long term (current) use of inhaled steroids; Z79.899 Other long term (current) drug therapy
CPT/HCPCS: 36415; 73030; 80048; 85025; 86850; 86900; 86901; 87640; 87641; 88304; 88311; 97110; 97166; 97535; C1713; C1776; J1100; J1170; J2250; J2405; J2704; J2795; J3010; J3370; J7120

== ENCOUNTER → 2023-11-24 05:56 | Outpatient (BNV) | payer OTHER, SELFPAY | PROVIDERS: Admitting Provider Orthopaedic Surgery; PCP Internal Medicine; Visit Provider Orthopaedic Surgery | DX: Z47.1 Aftercare following joint replacement surgery (principal); Z96.612 Presence of left artificial shoulder joint | CPT/HCPCS: 23472; 99024; G0180 ==

== ENCOUNTER → 2023-11-24 05:56 | Outpatient (BNV) | payer OTHER, SELFPAY | PROVIDERS: Admitting Provider Orthopaedic Surgery; PCP Internal Medicine; Visit Provider Physician Assistant | DX: M19.012 Primary osteoarthritis, left shoulder (principal) | CPT/HCPCS: 99222 ==

== ENCOUNTER 2023-12-10 13:10 | Outpatient (AMB) | payer OTHER, SELFPAY ==
--- NOTE | 2023-12-10 13:19 | A.OFFVIS_ITS ---
Intake Intake Visit Reasons: PO-LT TSA 11/24/23 NE Intake Note: Kanwal magana 73 year old female presents today for a post op appointment s/p LT TSA on 11/04/23 NE. Patient reports she is doing well, she is working with physical therapy. She has been taking her pain medication at night. Allergies amoxicillin Allergy (Severe, Verified 12/10/23 13:19) Anaphylaxis codeine [Codeine] Allergy (Severe, Verified 12/10/23 13:19) Anaphylaxis gabapentin [From Neurontin] Allergy (Severe, Verified 12/10/23 13:19) Anaphylaxis Penicillins Allergy (Severe, Verified 12/10/23 13:19) Anaphylaxis Sulfa (Sulfonamide Antibiotics) [SULFA (SULFONAMIDE ANTIBIOTICS)] Allergy (Severe, Verified 12/10/23 13:19) Anaphylaxis pregabalin [From LYRICA] Allergy (Intermediate, Verified 12/10/23 13:19) SWELLING HPI PO-LT TSA 11/24/23 NE HPI Details 73-year-old female who presents in the o ice today 16 days status post left total shoulder arthroplasty, which was performed on 11/24/[address] Barros. The patient reports she is doing well. [facility] Medical History Seasonal allergies Asthma GERD (gastroesophageal reflux disease) HTN (hypertension) Cystocele with prolapse Fibromyalgia Generalized osteoarthritis Chronic pain syndrome Spondylosis of cervical spine Obesity Post-menopausal Screening for breast cancer Screening for diabetes mellitus Obesity Hyperlipidemia Vertigo Lumbar spondylosis Anal pruritus Surgical History History of bilateral knee replacement History of right knee surgery History of colonoscopy History of varicose veins History of left knee surgery History of hysterectomy Family History Father Angina at rest Mother Hypothyroidism Hypertension Osteoarthritis Heart disease Panic disorder Glaucoma Brother Stroke Sister Alcoholic liver disease HIV (human immunodeficiency virus infection) Social History Household Members: None Housing: Condominium Are you a primary school child care attendant to a significant other at home: No Do you presently have visiting nurse or other home services: Yes ([employer]IDE FURNACE TENDER 41 per week) Alcohol intake: never Comment: pt medicated with po tylenol Patient Tobacco Use Status: Former Tobacco user Quit Date: 1998 Tobacco use type: Cigarette e-Cigarette/Vaping Use: Never Used Second Hand Smoke Exposure: No service: No Current occupational status: retired Current occupation: Right Handed Cognitive needs: Yes (walk/cane) Hearing needs: No Vision needs: Yes (Glasses) Female Reproductive History Menstrual Age of Menarche: 9 Review of Systems Const All systems reviewed & are unremarkable except as noted in HPI and below Physical Exam Const General: cooperative, healthy appearing and no acute distress Resp Effort & Inspection: normal respiratory effort and able to speak in complete sentences Cardio Rate: regular rate Peripheral pulses: Peripheral pulses 2+ throughout GI Palpation (GI): Soft to palpation Skin Lesions: no lesions Rashes: no rashes Extrem Other: Left shoulder: Incision site is clean, dry, and intact. Reva intact. No surrounding erythema or drainage. No signs of infection. Assessment & Plan Assessment & Plan (1) Status post total shoulder arthroplasty: Onset Date: ~11/24/23 Comment: NE Code(s): Z96.619 - Presence of unspecified artificial shoulder joint Plan Ms. Juarez is a 73-year-old female who presents in the office today 16 days status post left total shoulder arthroplasty, which was performed on 11/24/[address] Barros. The patient reports she is doing well. Glen were removed and steri-stripes were applied. The patient will transition to out patient physical therapy. Follow up will be in 4 weeks with repeat x-rays with Dr. Barros, or sooner if needed. Patient Instructions: Scribed by Tanika Crespo biomedical equipment specialist, for Cassy Ambriz PA-C on 12/10/2023 at 1:16 pm, EST. Coding Level of Care Code Global (49890) Diagnoses Status post total shoulder arthroplasty Z96.619
== END 2023-12-10 13:28 | disposition home or self-care (01) ==
PROVIDERS: PCP Internal Medicine; Visit Provider Physician Assistant
DX: Z96.619 Presence of unspecified artificial shoulder joint (principal)
CPT/HCPCS: 99024

== ENCOUNTER → 2023-12-10 13:10 | Outpatient (BNVA) | payer OTHER, SELFPAY | PROVIDERS: PCP Internal Medicine; Visit Provider Physician Assistant | DX: Z47.1 Aftercare following joint replacement surgery (principal); Z96.619 Presence of unspecified artificial shoulder joint | CPT/HCPCS: 99212 ==

== ENCOUNTER 2023-12-24 01:42 | Emergency (ER) | payer OTHER, SELFPAY ==
--- NOTE | 2023-12-24 | ECG_ITS ---
Test Reason : CHEST PAIN Blood Pressure : / mmHG Vent. Rate : 063 BPM Atrial Rate : 063 BPM P-R Int : 154 ms QRS Dur : 082 ms QT Int : 394 ms P-R-T Axes : 055 019 041 degrees QTc Int : 403 ms Normal sinus rhythm Nonspecific ST abnormality Abnormal ECG When compared with ECG of 18-NOV-2023 11:05, No significant change was found Referred By: Generic ED Physician Electronically Signed By:Prabhu Potts
[2023-12-24 01:52] VITALS: BP 134/72; PULSE 76; RESP 20; O2SAT 97; BMI 29.3
[2023-12-24 01:57] VITALS: TEMP 36.7
--- NOTE | 2023-12-24 01:57 | ED_ITS ---
HPI - Chest Pain General Chief Complaint: Chest Pain Stated Complaint: Chest Pain Time Seen by Provider: 12/24/23 01:56 Source: patient and family (Daughter) Mode of arrival: ambulatory History of Present Illness HPI narrative: 73-year-old female with history of CAD presents with onset of waxing and waning chest pain that she describes as pressure without associated dizziness or nausea and no radiation but also has a history significant for acid reflux and had an ice cream cone and an orange prior to this occurrence. Her symptoms started at 20:00 this evening and her daughter had instructed her to try to go to sleep, she has had her evening medications which include pantoprazole. Related Data Home Medications Medication Instructions Recorded Confirmed fluticasone propionate 50 50 mcg intranasal DAILY 07/27/20 11/24/23 mcg/actuation nasal spray,suspension sennosides 8.6 mg tablet (senna) 17.2 mg PO BEDTIME PRN constipation 07/28/23 11/24/23 albuterol sulfate 90 mcg/actuation 2 puff inhalation QID PRN 11/12/23 11/19/23 aerosol inhaler Shortness Of Breath Or Wheezing meclizine 25 mg tablet 25 mg PO QID PRN Vertigo 11/12/23 11/19/23 multivitamin 1 tab PO DAILY 11/24/23 11/24/23 Previous Rx's Medication Instructions Recorded hydroxyzine HCl 25 mg tablet 25 mg PO TID PRN itching #30 tabs 05/27/22 propranolol 120 mg capsule,24 120 mg PO DAILY #90 caps 06/12/23 hr,extended release docusate sodium 100 mg capsule 200 mg (2 x 100 mg) PO BEDTIME #60 07/08/23 (Colace) caps methylcellulose (laxative) 500 mg 500 mg PO TID 30 days #90 tabs 07/08/23 tablet (Citrucel) loratadine 10 mg tablet 10 mg PO DAILY #90 tabs 08/28/23 tizanidine 4 mg tablet 4 mg PO Q8H PRN muscle spasticity 08/28/23 30 days #60 tabs blood pressure monitor #1 ea 11/19/23 acetaminophen 325 mg tablet 650 mg (2 x 325 mg) PO Q6H PRN 11/24/23 Pain, Mild (Pain Scale 1-3) 30 days #240 tabs celecoxib 200 mg capsule 200 mg PO BID 30 days #60 caps 11/24/23 oxycodone 5 mg tablet 5 mg PO Q4H PRN Pain, 11/24/23 Moderate(Pain Scale 4-6) 7 days #42 tabs rosuvastatin 40 mg tablet 40 mg PO DAILY #90 tabs 11/26/23 pantoprazole 40 mg tablet,delayed 40 mg PO BID #180 tabs 12/04/23 release Allergies Allergy/AdvReac Type Severity Reaction Status Date / Time amoxicillin Allergy Severe Anaphylaxis Verified 12/24/23 01:44 codeine [Codeine] Allergy Severe Anaphylaxis Verified 12/24/23 01:44 gabapentin [From Neurontin] Allergy Severe Anaphylaxis Verified 12/24/23 01:44 Penicillins Allergy Severe Anaphylaxis Verified 12/24/23 01:44 Sulfa (Sulfonamide Allergy Severe Anaphylaxis Verified 12/24/23 01:44 Antibiotics) [SULFA (SULFONAMIDE ANTIBIOTICS)] pregabalin [From LYRICA] Allergy Intermediate SWELLING Verified 12/24/23 01:44 Review of Systems Review of Systems: Pertinent positives and negatives as stated in HPI [facility] Past Medical History Source: nursing notes reviewed Medical History Arthritis of left acromioclavicular joint Seasonal allergies Asthma GERD (gastroesophageal reflux disease) HTN (hypertension) Cystocele with prolapse Fibromyalgia Generalized osteoarthritis Chronic pain syndrome Spondylosis of cervical spine Obesity Post-menopausal Screening for breast cancer Screening for diabetes mellitus Obesity Hyperlipidemia Vertigo Lumbar spondylosis Anal pruritus Surgical History History of bilateral knee replacement History of right knee surgery History of colonoscopy History of varicose veins History of left knee surgery History of hysterectomy Family History Family History Father Angina at rest Mother Hypothyroidism Hypertension Osteoarthritis Heart disease Panic disorder Glaucoma Brother Stroke Sister Alcoholic liver disease HIV (human immunodeficiency virus infection) Social History Social History Household Members: None Housing: Condominium Are you a primary care rep to a significant other at home: No Do you presently have visiting nurse or other home services: Yes ([employer] 41 per week) Alcohol intake: never Comment: pt medicated with po tylenol Patient Tobacco Use Status: Former Tobacco user Quit Date: 1998 Tobacco use type: Cigarette e-Cigarette/Vaping Use: Never Used Second Hand Smoke Exposure: No Advance Directives: No Advance Directives Information Provided: No service: No Current occupational status: retired Current occupation: Right Handed Cognitive needs: Yes (walk/cane) Hearing needs: No Vision needs: Yes (Glasses) Physical Exam Vital Signs: Vital Signs: Last Vital Signs Temp 98.1 F 12/24/23 01:57 Pulse 76 12/24/23 01:52 Resp 20 12/24/23 01:52 BP 134/72 12/24/23 01:52 Pulse Ox 97 12/24/23 01:52 O2 Del Method Room Air 12/24/23 01:52 BMI result Body Mass Index 29.3 VITAL SIGNS: Reviewed. GENERAL: Well developed, well nourished, in no acute distress. HEAD: Normocephalic/atraumatic EYES: PERRLA, EOMI EARS: Ext canals without abnormality NOSE: Nares patent bilateral OROPHARYNX: no oral lesions noted, posterior pharynx clear NECK: Supple, no adenopathy LUNGS: Normal breath sounds. No adventitious sounds or accessory muscle use. SpO2<97> CARDIOVASCULAR: Regular rate and rhythm without noted murmurs ABDOMEN: Soft, non-tender, non-distended with bowel sounds. MUSCULOSKELETAL: No tenderness, deformities, or effusions noted on gross inspection. EXTREMITIES: No cyanosis, clubbing or edema. LEFT SHOULDER: There is no surrounding erythema or induration, Steri-Strips are in good place SKIN: Inspection of the skin reveals no rashes NEUROLOGIC: Alert and oriented x 4. Strength and sensation to light touch were grossly intact x 4. Medications Administered Discontinued Medications Generic Name Dose Route Start Last Admin Trade Name Freq PRN Reason Stop Dose Admin Al Hydroxide/Mg Hydroxide 30 ml 12/24/23 01:57 12/24/23 02:12 Magnesium Hydrox/Alum Hydrox 30 Ml Oral.Susp PO 12/24/23 01:58 30 ml ONCE ONE Administration Lidocaine HCl 10 ml 12/24/23 01:57 12/24/23 02:12 Lidocaine Hcl Viscous 2 % 15 Ml Solution MUCOUS MEM 12/24/23 01:58 10 ml ONCE ONE Administration Sucralfate 1 gm 12/24/23 01:57 12/24/23 02:12 Sucralfate Oral Suspension 1 Gm/10 Ml Oral.Susp PO 12/24/23 01:58 1 gm ONCE ONE Administration Medical Decision Making Medical Decision Making [facility] Narrative: 73-year-old female with history and clinical presentation, DDX: Suspect noncardiac chest pain and instead feel that this is likely secondary to acid reflux/GERD, no other symptoms to suggest a pneumonia or viral illness. Component is undetectable, patient received GI cocktail Carafate and on re- evaluation feels much better and EKG does not demonstrate any acute changes or ischemic findings and high sensitivity troponin is undetectable. Patient is otherwise discharged home. Differential Diagnosis Differential Diagnoses: The differential diagnosis associated with the presentation includes Please see the discussion above Admission/Observation Consideration of admission/observation: Escalation of care including admission/observation considered Please see the discussion above Lab Data [facility] Lab Attestation statement: I reviewed the patient's lab results. Please see the discussion above Labs: Lab Results 12/24/23 Range/Units 02:01 Troponin I High Sens < 2.7 (<3.5-17.0) ng/L Independent Interpretation I performed an independent interpretation of an: EKG Interpretation: Normal sinus rhythm, HR -63, no STEMI, NC/QRS/QTC is within normal limits. External Record Review External record reviewed: Outpatient record and Prior outpatient labs Chronic Conditions Patient?s care impacted by: Hypertension CAD Critical Care Time Critical Care Time Critical Care Time: Yes Total Critical Care Time: 45 Attestation: I personally attest to this time spent taking care of the patient. Discharge Plan Discharge Clinical Impression: Atypical chest pain, Chest pain due to GERD Instructions: Diet for Stomach Ulcers and Gastritis (ED), Gastroesophageal Ref lux Disease (ED) Additional Instructions: 1. Reanudar todos los medicamentos caseros seg?n lo recetado. 2. Evite los productos c?tricos, picantes, grasos, carbonatados y con cafe?na. 3. Richar un seguimiento con garrison m?dico de atenci?n primaria. Regrese a la sharon de emergencias si los s?ntomas empeoran. 1. Resume all home medications as prescribed. 2. Please avoid citrus, spicy, fatty, carbonated and caffeinated products. 3. Please follow-up with primary care doctor. Return to the ER for any worsening symptoms. Prescriptions: No Action propranolol 120 mg capsule,extended release 24 hr 120 mg PO DAILY Qty: 90 4RF (DME) blood pressure monitor Kit See Rx Instructions .Route Qty: 1 0RF Rx Instructions: As directed rosuvastatin 40 mg tablet 40 mg PO DAILY Qty: 90 8RF pantoprazole 40 mg tablet,delayed release (DR/EC) 40 mg PO BID Qty: 180 1RF meclizine 25 mg tablet 25 mg PO QID PRN (Reason: Vertigo) albuterol sulfate 90 mcg/actuation HFA aerosol inhaler 2 puff inhalation QID PRN (Reason: Shortness Of Breath Or Wheezing) multivitamin Tablet 1 tab PO DAILY celecoxib 200 mg Capsule 200 mg PO BID 30 Days Qty: 60 0RF acetaminophen 325 mg Tablet 650 mg PO Q6H PRN (Reason: Pain, Mild (Pain Scale 1-3)) 30 Days Qty: 240 0RF oxycodone 5 mg Tablet 5 mg PO Q4H PRN (Reason: Pain, Moderate(Pain Scale 4-6)) 7 Days Qty: 42 0RF Rx Instructions: Partial Fill upon patient request. fluticasone propionate 50 mcg/actuation spray,suspension 50 mcg intranasal DAILY MDD allergies hydroxyzine HCl 25 mg tablet 25 mg PO TID PRN (Reason: itching) Qty: 30 0RF loratadine 10 mg tablet 10 mg PO DAILY Qty: 90 8RF tizanidine 4 mg tablet 4 mg PO Q8H PRN (Reason: muscle spasticity) 30 Days Qty: 60 3RF Citrucel 500 mg tablet 500 mg PO TID 30 Days Qty: 90 5RF docusate sodium [Colace] 100 mg capsule 200 mg PO BEDTIME Qty: 60 5RF sennosides [senna] 8.6 mg tablet 17.2 mg PO BEDTIME PRN (Reason: constipation) Referrals: Raman Shields MD [Primary Care Provider] - Print Language: Cymraes
[2023-12-24] MEDS: Magnesium Hydrox/Alum Hydrox 30 ML ORAL.SUSP PO (02:12)
[2023-12-24] MEDS: Lidocaine HCl Viscous 2 % 15 ML SOLUTION 10 ML MUCOUS MEM (02:12)
[2023-12-24] MEDS: Sucralfate Oral Suspension 1 GM/10 ML ORAL.SUSP PO (02:12)
[2023-12-24 02:25] LABS: Troponin-I High Sensitivity < 2.7 ng/L (<3.5-17.0)
== END 2023-12-24 03:15 | disposition home or self-care (01) ==
PROVIDERS: Emergency Provider Student in an Organized Health Care Education/Training Program; PCP Internal Medicine
DX: R07.89 Other chest pain (principal); K21.9 Gastro-esophageal reflux disease without esophagitis; R11.0 Nausea; Z79.899 Other long term (current) drug therapy
CPT/HCPCS: 36415; 84484; 93005; 99283; 99285

== ENCOUNTER → 2023-12-24 01:46 | Outpatient (BNV) | payer OTHER, SELFPAY | PROVIDERS: Emergency Provider Student in an Organized Health Care Education/Training Program; PCP Internal Medicine; Visit Provider Internal Medicine Cardiovascular Disease | DX: R07.9 Chest pain, unspecified (principal) | CPT/HCPCS: 93010 ==

== ENCOUNTER 2024-01-07 08:18 | Outpatient (REF) | payer OTHER, SELFPAY ==
--- NOTE | ~2024-01-07 | XR_ITS ---
EXAMINATION: XR SHOULDER, LEFT CLINICAL INFORMATION: Left shoulder pain COMPARISON: 11/25/2019 TECHNIQUE: AP external rotation, Grashey, scapular Y, and axillary views of the left shoulder. FINDINGS: Patient is status post left shoulder arthroplasty with well-positioned prosthesis and no fractures. XR/XR shoulder LT min 2V IMPRESSION: Well-positioned left shoulder prosthesis
== END 2024-01-07 08:19 | disposition home or self-care (01) ==
LOC: HO.HOSX 08:18
PROVIDERS: Visit Provider Orthopaedic Surgery
DX: Z47.1 Aftercare following joint replacement surgery (principal); Z96.612 Presence of left artificial shoulder joint
CPT/HCPCS: 73030; 99212

== ENCOUNTER 2024-01-07 10:50 | Outpatient (AMB) | payer OTHER, SELFPAY ==
--- NOTE | 2024-01-07 11:18 | A.OFFVIS_ITS ---
Intake Vital Signs 01/07/24 11:19 Height 5 ft 4 in Weight 171 lb BMI 29.3 Intake Visit Reasons: PO-LT TSA 11/24/23 NE-w/Xray Intake Note: Kanwal magana 73 year old right hand dominant female presents today for a post op appointment s/p LT TSA on 11/04/23 NE. Patient reports she is doing well, she is working with physical therapy. Allergies amoxicillin Allergy (Severe, Verified 01/07/24 11:19) Anaphylaxis codeine [Codeine] Allergy (Severe, Verified 01/07/24 11:19) Anaphylaxis gabapentin [From Neurontin] Allergy (Severe, Verified 01/07/24 11:19) Anaphylaxis Penicillins Allergy (Severe, Verified 01/07/24 11:19) Anaphylaxis Sulfa (Sulfonamide Antibiotics) [SULFA (SULFONAMIDE ANTIBIOTICS)] Allergy (Severe, Verified 01/07/24 11:19) Anaphylaxis pregabalin [From LYRICA] Allergy (Intermediate, Verified 01/07/24 11:19) SWELLING HPI PO-LT TSA 11/24/23 NE-w/Xray HPI Details Kanwal a 73 year old right hand dominant female presents today for a post op appointment s/p LT TSA on 11/04/23 NE. Patient reports she is doing well, she is working with physical therapy. [facility] Medical History Arthritis of left acromioclavicular joint Seasonal allergies Asthma GERD (gastroesophageal reflux disease) HTN (hypertension) Cystocele with prolapse Fibromyalgia Generalized osteoarthritis Chronic pain syndrome Spondylosis of cervical spine Obesity Post-menopausal Screening for breast cancer Screening for diabetes mellitus Obesity Hyperlipidemia Vertigo Lumbar spondylosis Anal pruritus Surgical History History of bilateral knee replacement History of right knee surgery History of colonoscopy History of varicose veins History of left knee surgery History of hysterectomy Family History Father Angina at rest Mother Hypothyroidism Hypertension Osteoarthritis Heart disease Panic disorder Glaucoma Brother Stroke Sister Alcoholic liver disease HIV (human immunodeficiency virus infection) Social History Household Members: None [facility] Are you a primary rn transitional care to a significant other at home: No Do you presently have visiting nurse or other home services: 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) Alcohol intake: never Comment: pt medicated with po tylenol Patient Tobacco Use Status: Former Tobacco user Quit Date: 1998 Tobacco use type: Cigarette e-Cigarette/Vaping Use: Never Used Second Hand Smoke Exposure: No service: No Current occupational status: retired Current occupation: Right Handed Cognitive needs: Yes (walk/cane) Hearing needs: No Vision needs: Yes (Glasses) Female Reproductive History Menstrual Age of Menarche: 9 Physical Exam Vital Signs: BMI result Body Mass Index 29.3 Extrem Other: inc c/d/i SILT lateral deltoid 20 deg ER 75 deg passive abd Results Reviewed Results Reviewed: I personally reviewed relevant radiographs. Left total shoulder arthroplasty in expected post operative position with no hardware complications or evidence of loosening Assessment & Plan Assessment & Plan (1) Status post total shoulder arthroplasty: Onset Date: ~11/24/23 Comment: NE Code(s): Z96.619 - Presence of unspecified artificial shoulder joint Plan: Doing well s/p left TSA May d/c sling Continue PT Orders: Orders XR shoulder LT min 2V Today M25.519 - Pain in unspecified shoulder Coding Level of Care Code Global (81516) Diagnoses Status post total shoulder arthroplasty Z96.619
[2024-01-07 11:19] VITALS: BMI 29.3
== END 2024-01-07 11:44 | disposition home or self-care (01) ==
LOC: HO.HOS 10:50
PROVIDERS: PCP Internal Medicine; Visit Provider Orthopaedic Surgery
DX: Z96.619 Presence of unspecified artificial shoulder joint (principal)
CPT/HCPCS: 99024

== ENCOUNTER 2024-01-14 09:52 | Day surgery (SDC) | payer OTHER, SELFPAY ==
--- NOTE | 2024-01-13 10:06 | P.CONAN_ITS ---
HPI - Anesthesia Eval Consult details Narrative: 73yo F for Upper Endoscopy and Colonoscopy [facility] Active Problems Active Problems: All Active Problems (Updated 12/25/23 @ 00:03 by Katrin Menard) Status post total shoulder arthroplasty (Acute ~11/24/23) Preop exam for internal medicine (Acute) History of colon polyps (Acute) Left shoulder pain (Acute) Carpal tunnel syndrome on both sides (Acute) Osteoarthritis of left glenohumeral joint (Acute) Asthma (Acute) Constipation (Acute) Allergic rhinitis (Acute) Chronic GERD (Acute) Hypertension (Acute) Vertigo (Acute) Cystocele (Acute) Cystocele (Acute) Cystocele with prolapse (Acute) Fibromyalgia (Acute) Spondylosis of cervical spine (Acute) Obesity (Acute) Hyperlipidemia (Acute) Lumbar spondylosis (Acute) Past Medical History Medical History Arthritis of left acromioclavicular joint Seasonal allergies Asthma GERD (gastroesophageal reflux disease) HTN (hypertension) Cystocele with prolapse Fibromyalgia Generalized osteoarthritis Chronic pain syndrome Spondylosis of cervical spine Obesity Post-menopausal Screening for breast cancer Screening for diabetes mellitus Obesity Hyperlipidemia Vertigo Lumbar spondylosis Anal pruritus Family History Family History Father Angina at rest Mother Hypothyroidism Hypertension Osteoarthritis Heart disease Panic disorder Glaucoma Brother Stroke Sister Alcoholic liver disease HIV (human immunodeficiency virus infection) Family history of problems with anesthesia: No Surgical History Surgical History History of bilateral knee replacement History of right knee surgery History of colonoscopy History of varicose veins History of left knee surgery History of hysterectomy History of Problems with Anesthesia: No Social History Social History Household Members: None Housing: Condominium Are you a primary restorative care technician to a significant other at home: No Do you presently have visiting nurse or other home services: Yes (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) Alcohol intake: never Comment: pt medicated with po tylenol Patient Tobacco Use Status: Former Tobacco user Quit Date: 1998 Tobacco use type: Cigarette e-Cigarette/Vaping Use: Never Used Second Hand Smoke Exposure: No Advance Directives: No Advance Directives Information Provided: Yes Advance Directives on File: No Healthcare Proxy: No Recently lost weight without trying: Yes How much weight loss: 34pounds or more Eating poorly because of decreased appetite: Yes Nutrition screen score: 7 service: No Current occupational status: retired Current occupation: Right Handed Cognitive needs: Yes (walk/cane) Hearing needs: No Vision needs: Yes (Glasses) Meds Allergies Allergy/AdvReac Type Severity Reaction Status Date / Time amoxicillin Allergy Severe Anaphylaxis Verified 01/07/24 11:19 codeine [Codeine] Allergy Severe Anaphylaxis Verified 01/07/24 11:19 gabapentin [From Neurontin] Allergy Severe Anaphylaxis Verified 01/07/24 11:19 Penicillins Allergy Severe Anaphylaxis Verified 01/07/24 11:19 Sulfa (Sulfonamide Allergy Severe Anaphylaxis Verified 01/07/24 11:19 Antibiotics) [SULFA (SULFONAMIDE ANTIBIOTICS)] pregabalin [From LYRICA] Allergy Intermediate SWELLING Verified 01/07/24 11:19 Home Medications Medication Instructions Recorded Confirmed Last Taken Type fluticasone propionate 50 50 mcg intranasal DAILY 07/27/20 11/24/23 Unknown History mcg/actuation nasal spray,suspension sennosides 8.6 mg tablet (senna) 17.2 mg PO BEDTIME PRN constipation 07/28/23 11/24/23 11/23/23 History albuterol sulfate 90 mcg/actuation 2 puff inhalation QID PRN 11/12/23 11/19/23 Unknown History aerosol inhaler Shortness Of Breath Or Wheezing meclizine 25 mg tablet 25 mg PO QID PRN Vertigo 11/12/23 11/19/23 Unknown History multivitamin 1 tab PO DAILY 11/24/23 11/24/23 Unknown History Exam Pertinent Lab Results Pertinent Lab Results: Laboratory Tests 11/25/23 09:52 WBC 9.7 Hgb 11.4 L Hct 35.2 L Plt Count 220 Sodium 143 Potassium 4.2 Chloride 110 H Carbon Dioxide 28 BUN 12 Creatinine 0.72 Narrative Narrative: EKG 12/2023 Vent. Rate : 063 BPM Atrial Rate : 063 BPM P-R Int : 154 ms QRS Dur : 082 ms QT Int : 394 ms P-R-T Axes : 055 019 041 degrees QTc Int : 403 ms Normal sinus rhythm Nonspecific ST abnormality Abnormal ECG When compared with ECG of 18-NOV-2023 11:05, No significant change was found NM bjorn perf SPECT rest & str 09/2023 Impression: 1. Myocardial perfusion imaging study shows fixed inferior defect suspected to be from diaphragmatic attenuation artifact. Otherwise, no clear evidence of any ischemia or infarction. 2. Gated LVEF is 42% during stress but visually appears normal. 68% during rest. 3. Transient ischemic dilatation not present. EKG component of the test reported separately. Assessment and Plan Assessment Anesthesia Assessment: Chart Reviewed Final Anesthetic Review Family History of Problems with Anesthesia: No History of Problems with Anesthesia: No
[2024-01-14 10:10] VITALS: BMI 29.0
[2024-01-14 10:27] VITALS: BP 126/62; PULSE 65; RESP 15; TEMP 36.4; O2SAT 99
[2024-01-14] MEDS: Lactated Ringers 1,000 ML 100 ML IVCONT (10:39)
--- NOTE | 2024-01-14 11:55 | P.CONAN_ITS ---
[facility] Active Problems Active Problems: All Active Problems (Updated 01/14/24 @ 10:02 by Maya Levine RN) Status post total shoulder arthroplasty (Acute ~11/24/23) Preop exam for internal medicine (Acute) History of colon polyps (Acute) Left shoulder pain (Acute) Carpal tunnel syndrome on both sides (Acute) Osteoarthritis of left glenohumeral joint (Acute) Asthma (Acute) Constipation (Acute) Allergic rhinitis (Acute) Chronic GERD (Acute) Hypertension (Acute) Vertigo (Acute) Cystocele (Acute) Cystocele (Acute) Cystocele with prolapse (Acute) Fibromyalgia (Acute) Spondylosis of cervical spine (Acute) Obesity (Acute) Hyperlipidemia (Acute) Lumbar spondylosis (Acute) Past Medical History Medical History Myocardial infarction Seasonal allergies Asthma GERD (gastroesophageal reflux disease) HTN (hypertension) Arthritis of left acromioclavicular joint Cystocele with prolapse Fibromyalgia Generalized osteoarthritis Chronic pain syndrome Spondylosis of cervical spine Obesity Post-menopausal Screening for breast cancer Screening for diabetes mellitus Obesity Hyperlipidemia Vertigo Lumbar spondylosis Anal pruritus Functional capacity: independent ambulation Patient : No Family History Family History Father Angina at rest Mother Hypothyroidism Hypertension Osteoarthritis Heart disease Panic disorder Glaucoma Brother Stroke Sister Alcoholic liver disease HIV (human immunodeficiency virus infection) Family history of problems with anesthesia: No Surgical History Surgical History Hx of shoulder replacement Hx of hand surgery History of bilateral knee replacement History of colonoscopy History of varicose veins History of hysterectomy History of Problems with Anesthesia: No Social History Social History Household Members: None Housing: Condominium Are you a primary geriatric personal care aide to a significant other at home: No Do you presently have visiting nurse or other home services: Yes (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) Alcohol intake: never Comment: pt medicated with po tylenol Patient Tobacco Use Status: Former Tobacco user Quit Date: 1998 Tobacco use type: Cigarette e-Cigarette/Vaping Use: Never Used Second Hand Smoke Exposure: No Use of substances other than those prescribed or required for medical reasons: No Are you DNR?: No Advance Directives: No Advance Directives Information Provided: Yes Advance Directives on File: No Healthcare Proxy: No Recently lost weight without trying: Yes How much weight loss: 34pounds or more Eating poorly because of decreased appetite: Yes Nutrition screen score: 7 service: No Current occupational status: retired Current occupation: Right Handed Cognitive needs: Yes (walk/cane) Hearing needs: No Vision needs: Yes (Glasses) Meds Allergies Allergy/AdvReac Type Severity Reaction Status Date / Time amoxicillin Allergy Severe Anaphylaxis Verified 01/14/24 10:10 codeine [Codeine] Allergy Severe Anaphylaxis Verified 01/14/24 10:10 gabapentin [From Neurontin] Allergy Severe Anaphylaxis Verified 01/14/24 10:10 Penicillins Allergy Severe Anaphylaxis Verified 01/14/24 10:10 Sulfa (Sulfonamide Allergy Severe Anaphylaxis Verified 01/14/24 10:10 Antibiotics) [SULFA (SULFONAMIDE ANTIBIOTICS)] pregabalin [From LYRICA] Allergy Intermediate SWELLING Verified 01/14/24 10:10 Active Medications: Current Medications Albuterol Sulfate (Albuterol Sulfate (0.083%) 2.5 Mg/3 Ml Vial.Neb) 2.5 mg INHALE ONCE PRN PRN Reason: Shortness of Breath/Wheezing Lactated Ringer's (Lr) 1,000 mls @ 100 mls/hr IVCONT .Q10H CASSIUS Last Admin: 01/14/24 10:39 Dose: 100 mls/hr Home Medications Medication Instructions Recorded Confirmed Last Taken Type fluticasone propionate 50 50 mcg intranasal DAILY 07/27/20 01/14/24 Unknown History mcg/actuation nasal spray,suspension sennosides 8.6 mg tablet (senna) 17.2 mg PO BEDTIME PRN constipation 07/28/23 01/14/24 11/23/23 History albuterol sulfate 90 mcg/actuation 2 puff inhalation QID PRN 11/12/23 01/14/24 01/14/24 07:30 History aerosol inhaler Shortness Of Breath Or Wheezing meclizine 25 mg tablet 25 mg PO QID PRN Vertigo 11/12/23 01/14/24 Unknown History multivitamin 1 tab PO DAILY 11/24/23 01/14/24 Unknown History Exam Height,Weight and Vital Signs: Height 5 ft 3 in Weight 74.389 kg Last Vital Signs Temp 97.6 F 01/14/24 10:27 Pulse 65 01/14/24 10:27 Resp 15 01/14/24 10:27 BP 126/62 01/14/24 10:27 Pulse Ox 99 01/14/24 10:27 O2 Del Method Room Air 01/14/24 10:27 Airway Mallampati Class: II TM Dist: >3cm Neck ROM: Full Heart: RRR Lungs: CTA Assessment and Plan Assessment Anesthesia Assessment: Anesthesia Plan Discussed Final Anesthetic Review Family History of Problems with Anesthesia: No History of Problems with Anesthesia: No ASA Class: II Final Preanesthetic Review: Meds/Allgs Chart Reviewed, Consent Obtained/Reviewed and Anes Risks/Benef Reviewed Patient Risk: Low Procedure Risk: Low Anesthetic Plan Anesthetic Plan: MAC: Disposition: Standard PACU
--- NOTE | 2024-01-14 12:40 | MHC.SHP ---
Pre-Procedural Eval Section A - 24 Hr Update-Section A only Date of Service: 01/14/24 Section B - Complete if H&P > 30 days Chief Complaint: GERD, hx of polyps Details of Present Illness: Cystocele with prolapse Fibromyalgia Generalized osteoarthritis Chronic pain syndrome Spondylosis of cervical spine Obesity Post-menopausal Screening for breast cancer Screening for diabetes mellitus Obesity Hyperlipidemia Vertigo Lumbar spondylosis Anal pruritus Surgical History History of right knee surgery History of colonoscopy History of varicose veins History of left knee surgery History of hysterectomy Allergies: Allergies Allergy/AdvReac Type Severity Reaction Status Date / Time amoxicillin Allergy Severe Anaphylaxis Verified 01/14/24 10:10 codeine [Codeine] Allergy Severe Anaphylaxis Verified 01/14/24 10:10 gabapentin [From Neurontin] Allergy Severe Anaphylaxis Verified 01/14/24 10:10 Penicillins Allergy Severe Anaphylaxis Verified 01/14/24 10:10 Sulfa (Sulfonamide Allergy Severe Anaphylaxis Verified 01/14/24 10:10 Antibiotics) [SULFA (SULFONAMIDE ANTIBIOTICS)] pregabalin [From LYRICA] Allergy Intermediate SWELLING Verified 01/14/24 10:10 Review of Systems Review of Systems Comment: Ten point ROS as previously documented Exam Exam Comment: Gen appear: No acute distress HEENT: no icterus Chest: No overt resp distress Abd: soft, nontender, nondistended Psych: Stable affect, answering questions appropriately Neuro: A/Ox3 noted to move all extremities spontaneously Ext: no peripheral edema Plan Diagnosis/Plan: Unchanged I have reviewed the history and physical and performed a pertinent physical examination on my patient. No changes have occurred unless specified. Time Spent With Patient Time: Total time managing care of this patient today ____ minutes.
--- NOTE | 2024-01-14 13:06 | HO.ANESPROP2 ---
FORM[facility]LY [facility] Active Problems Active Problems: All Active Problems (Updated 01/14/24 @ 10:02 by Maya Levine RN) Status post total shoulder arthroplasty (Acute ~11/24/23) Preop exam for internal medicine (Acute) History of colon polyps (Acute) Left shoulder pain (Acute) Carpal tunnel syndrome on both sides (Acute) Osteoarthritis of left glenohumeral joint (Acute) Asthma (Acute) Constipation (Acute) Allergic rhinitis (Acute) Chronic GERD (Acute) Hypertension (Acute) Vertigo (Acute) Cystocele (Acute) Cystocele (Acute) Cystocele with prolapse (Acute) Fibromyalgia (Acute) Spondylosis of cervical spine (Acute) Obesity (Acute) Hyperlipidemia (Acute) Lumbar spondylosis (Acute) Past Medical History Medical History Myocardial infarction Seasonal allergies Asthma GERD (gastroesophageal reflux disease) HTN (hypertension) Arthritis of left acromioclavicular joint Cystocele with prolapse Fibromyalgia Generalized osteoarthritis Chronic pain syndrome Spondylosis of cervical spine Obesity Post-menopausal Screening for breast cancer Screening for diabetes mellitus Obesity Hyperlipidemia Vertigo Lumbar spondylosis Anal pruritus Functional capacity: independent ambulation Family History Family History Father Angina at rest Mother Hypothyroidism Hypertension Osteoarthritis Heart disease Panic disorder Glaucoma Brother Stroke Sister Alcoholic liver disease HIV (human immunodeficiency virus infection) Family history of problems with anesthesia: No Surgical History Surgical History Hx of shoulder replacement Hx of hand surgery History of bilateral knee replacement History of colonoscopy History of varicose veins History of hysterectomy History of Problems with Anesthesia: No Social History Social History Household Members: None Housing: Condominium Are you a primary care services manager to a significant other at home: No Do you presently have visiting nurse or other home services: Yes (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) Alcohol intake: never Comment: pt medicated with po tylenol Patient Tobacco Use Status: Former Tobacco user Quit Date: 1998 Tobacco use type: Cigarette e-Cigarette/Vaping Use: Never Used Second Hand Smoke Exposure: No Use of substances other than those prescribed or required for medical reasons: No Are you DNR?: No Advance Directives: No Advance Directives Information Provided: Yes Advance Directives on File: No Healthcare Proxy: No Recently lost weight without trying: Yes How much weight loss: 34pounds or more Eating poorly because of decreased appetite: Yes Nutrition screen score: 7 Patient : No service: No Current occupational status: retired Current occupation: Right Handed Cognitive needs: Yes (walk/cane) Hearing needs: No Vision needs: Yes (Glasses) Meds Allergies Allergy/AdvReac Type Severity Reaction Status Date / Time amoxicillin Allergy Severe Anaphylaxis Verified 01/14/24 10:10 codeine [Codeine] Allergy Severe Anaphylaxis Verified 01/14/24 10:10 gabapentin [From Neurontin] Allergy Severe Anaphylaxis Verified 01/14/24 10:10 Penicillins Allergy Severe Anaphylaxis Verified 01/14/24 10:10 Sulfa (Sulfonamide Allergy Severe Anaphylaxis Verified 01/14/24 10:10 Antibiotics) [SULFA (SULFONAMIDE ANTIBIOTICS)] pregabalin [From LYRICA] Allergy Intermediate SWELLING Verified 01/14/24 10:10 Active Medications: Current Medications Albuterol Sulfate (Albuterol Sulfate (0.083%) 2.5 Mg/3 Ml Vial.Neb) 2.5 mg INHALE ONCE PRN PRN Reason: Shortness of Breath/Wheezing Lactated Ringer's (Lr) 1,000 mls @ 100 mls/hr IVCONT .Q10H CASSIUS Last Admin: 01/14/24 10:39 Dose: 100 mls/hr Home Medications Medication Instructions Recorded Confirmed Last Taken Type fluticasone propionate 50 50 mcg intranasal DAILY 07/27/20 01/14/24 Unknown History mcg/actuation nasal spray,suspension sennosides 8.6 mg tablet (senna) 17.2 mg PO BEDTIME PRN constipation 07/28/23 01/14/24 11/23/23 History albuterol sulfate 90 mcg/actuation 2 puff inhalation QID PRN 11/12/23 01/14/24 01/14/24 07:30 History aerosol inhaler Shortness Of Breath Or Wheezing meclizine 25 mg tablet 25 mg PO QID PRN Vertigo 11/12/23 01/14/24 Unknown History multivitamin 1 tab PO DAILY 11/24/23 01/14/24 Unknown History Exam Height,Weight and Vital Signs: Height 5 ft 3 in Weight 74.389 kg Last Vital Signs Temp 97.6 F 01/14/24 10:27 Pulse 65 01/14/24 10:27 Resp 15 01/14/24 10:27 BP 126/62 01/14/24 10:27 Pulse Ox 99 01/14/24 10:27 O2 Del Method Room Air 01/14/24 10:27 Airway Mallampati Class: III TM Dist: >3cm Neck ROM: Full Heart: RRR Lungs: CTA Assessment and Plan Assessment Anesthesia Assessment: Anesthesia Plan Discussed Final Anesthetic Review Family History of Problems with Anesthesia: No History of Problems with Anesthesia: No NPO: Yes ASA Class: III and Final Preanesthetic Review: Meds/Allgs Chart Reviewed, Consent Obtained/Reviewed and Anes Risks/Benef Reviewed Patient Risk: Low Procedure Risk: Low Anesthetic Plan Anesthetic Plan: MAC: Disposition: Standard PACU
--- NOTE | 2024-01-14 13:15 | P.OP_ITS ---
Operative Note Operative Note Date of Service: 01/14/24 Narrative: Procedure: Esophagogastroduodenoscopy and colonoscopy Endoscopist: Luyc Franks MD Indication: GERD, personal hx of polyps Anesthesia Provider: Dr Pauline Venutra Anesthesia Type: MAC Instrument: Olympus GIF-H190 and PCF-[id number] ?? EGD Procedure:?? The procedure, indications, preparation and potential complications were reviewed with the patient, who indicated understanding and gave written informed consent to proceed. A physical exam was performed. The endoscope was introduced through the mouth, and advanced to the duodenum. The mucosa was carefully examined on slow withdrawal of the endoscope. The patient tolerated the procedure well. There were no immediate complications.? ? EGD Findings:? * Esophagus:? Normal mucosa noted in the entire esophagus. The Z line was at 37 cm. * Stomach:? Scant erosions and heme noted in the fundus and body. Small numerous polyps in the fundus. Few of these were biopsied with forceps. Random cold forceps biopsies were taken to rule out H pylori. * Duodenum:? Normal to the extent examined. Colonoscopy Procedure: The patient was then turned for the colonoscopy. A digital rectal exam was performed which was normal. A distal attachment cap was affixed to the tip of the colonoscope which was then inserted through the anus and advanced through the colon to the cecum at 80 cm and terminal ileum. Appendiceal orifice and ileocecal valve were identified. Mucosa was carefully examined under high definition white light as the instrument was slowly withdrawn in a retrograde panoramic fashion. Retroflexion was performed in ascending colon and rectum. The procedure was not difficult. There were no immediate obvious complications. The quality of the prep was BBPS: 2+3+3 = adequate Withdrawal time 11 minutes. Limitations: No limitations. Findings: Mucosa: Normal to cecum and terminal ileum. Protruding lesions: * A subepithelial nodule of size 2 cm was noted in the ascending colon. Cushion sign position. Bite on bite cold forceps biopsies were performed that revealed an underlying lipoma. * A sessile polyp of size 2 mm in the transverse colon. Cold forceps polypectomy was performed. The polyp was completely removed and retrieved. * Large internal hemorrhoids without stigmata of recent bleeding. Impression: * Normal esophagus * Gastritis (biopsy) * Fundic gland polyps (biopsy) * Normal duodenum * Normal colon and terminal ileum mucosa * Subepithelial nodule in AC - likely lipoma * Total of 1 polyp removed * Internal hemorrhoids Recommendations * Follow biopsy results. Our office will call or send a letter with results within 7-10 days. * Switch pantoprazole to Nexium. * If H pylori positive, will favor treatment given gastritis * Repeat colonoscopy in 7-10 years depending on the results of the polyp.
[2024-01-14 13:20] VITALS: BP 97/60; PULSE 81; RESP 18; TEMP 36.4; O2SAT 99
[2024-01-14 13:35] VITALS: BP 114/64; PULSE 82; RESP 18; TEMP 36.9; O2SAT 100
== END 2024-01-14 14:20 | disposition home or self-care (01) ==
PROVIDERS: PCP Internal Medicine; Visit Provider Internal Medicine
PROC: (CPT 45380; principal; 2024-01-14 12:00)
DX: Z12.11 Encounter for screening for malignant neoplasm of colon (principal); Z86.010 Personal history of colon polyps; K63.5 Polyp of colon; D17.5 Benign lipomatous neoplasm of intra-abdominal organs; K64.8 Other hemorrhoids; K59.00 Constipation, unspecified; K21.9 Gastro-esophageal reflux disease without esophagitis; K29.60 Other gastritis without bleeding; K31.7 Polyp of stomach and duodenum; K44.9 Diaphragmatic hernia without obstruction or gangrene; I10 Essential (primary) hypertension; E78.5 Hyperlipidemia, unspecified; G89.4 Chronic pain syndrome; M79.7 Fibromyalgia; M47.816 Spondylosis without myelopathy or radiculopathy, lumbar region; N81.4 Uterovaginal prolapse, unspecified; R42 Dizziness and giddiness; Z79.899 Other long term (current) drug therapy; Z88.0 Allergy status to penicillin; Z88.1 Allergy status to other antibiotic agents; Z88.2 Allergy status to sulfonamides; Z88.5 Allergy status to narcotic agent; Z88.8 Allergy status to other drugs, medicaments and biological substances; Z87.891 Personal history of nicotine dependence
CPT/HCPCS: 45380; 43239; 88305; 88313; 88342; J2704

== ENCOUNTER → 2024-01-14 09:52 | Outpatient (BNV) | payer OTHER, SELFPAY | PROVIDERS: PCP Internal Medicine; Visit Provider Internal Medicine | DX: K21.9 Gastro-esophageal reflux disease without esophagitis (principal); K31.7 Polyp of stomach and duodenum; Z12.11 Encounter for screening for malignant neoplasm of colon; Z86.010 Personal history of colon polyps; K63.5 Polyp of colon; K64.8 Other hemorrhoids | CPT/HCPCS: 43239; 45380 ==

== ENCOUNTER 2024-01-19 10:23 | Outpatient (AMB) | payer OTHER, SELFPAY ==
--- NOTE | 2024-01-19 10:31 | MHC.OFFVIS ---
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 Intake Note: no concerns Whip Operator Required: No Information Interpreted: non-clinical & clinical High Pressure Cleaner: High Pressure Cleaner Present (Joslyn Gallegos OBDULIA) Accompanied by: Self / Same As Patient Allergies amoxicillin Allergy (Severe, Verified 01/19/24 10:35) Anaphylaxis codeine [Codeine] Allergy (Severe, Verified 01/19/24 10:35) Anaphylaxis gabapentin [From Neurontin] Allergy (Severe, Verified 01/19/24 10:35) Anaphylaxis Penicillins Allergy (Severe, Verified 01/19/24 10:35) Anaphylaxis Sulfa (Sulfonamide Antibiotics) [SULFA (SULFONAMIDE ANTIBIOTICS)] Allergy (Severe, Verified 01/19/24 10:35) Anaphylaxis pregabalin [From LYRICA] Allergy (Intermediate, Verified 01/19/24 10:35) SWELLING Post menopausal: Yes HPI HPI Comments History of Present Illness Details Presenting for annual exam. No complaints. Last Pap/HPV was many years ago with no history of abnormal Pap smear for last 25 years, the patient is status post hysterectomy for benign disease Last Mammogram was in 08/10 was BI-RADS 2 Last Colonoscopy was in 01/09, the recommendation was to repeat in 7-10 years Last DEXA scan was in 08/10 with no evidence of osteoporosis PFSH Medical History Myocardial infarction Seasonal allergies Asthma GERD (gastroesophageal reflux disease) HTN (hypertension) Arthritis of left acromioclavicular joint Cystocele with prolapse Fibromyalgia Generalized osteoarthritis Chronic pain syndrome Spondylosis of cervical spine Obesity Post-menopausal Screening for breast cancer Screening for diabetes mellitus Obesity Hyperlipidemia Vertigo Lumbar spondylosis Anal pruritus Surgical History Hx of shoulder replacement Hx of hand surgery History of bilateral knee replacement History of colonoscopy History of varicose veins History of hysterectomy Family History Father Angina at rest Mother Hypothyroidism Hypertension Osteoarthritis Heart disease Panic disorder Glaucoma Brother Stroke Sister Alcoholic liver disease HIV (human immunodeficiency virus infection) Social History Household Members: None Housing: Condominium Are you a primary child care attendant to a significant other at home: No Do you presently have visiting nurse or other home services: Yes (POCKET MARKER 41 per week) Alcohol intake: never Comment: pt medicated with po tylenol Patient Tobacco Use Status: Former Tobacco user Quit Date: 1998 Tobacco use type: Cigarette e-Cigarette/Vaping Use: Never Used Second Hand Smoke Exposure: No service: No Current occupational status: retired Current occupation: Right Handed Cognitive needs: Yes (walk/cane) Hearing needs: No Vision needs: Yes (Glasses) Female Reproductive History Menstrual Age of Menarche: 9 Total pregnancies: 5 Full term: 4 Number of Living Children: 2 Ab induced: 1 Date of Mammogram: 07/24/23 Review of Systems Const All systems reviewed & are unremarkable except as noted in HPI and below Card Reports as per HPI and Reports no additional complaints Resp Reports as per HPI and Reports no additional complaints GI Reports as per HPI and Reports no additional complaints Reports as per HPI Physical Exam Vital Signs: Last Vital Signs BP 112/52 L 01/19/24 10:32 BMI result Body Mass Index 28.9 Const General: cooperative, healthy appearing and comfortable General: Yes bladder normal to palpation External Female Exam: No lesion Speculum Exam - Vagina: normal appearance of the vagina, normal vaginal discharge and not erythematous Speculum Exam - Cervix: Cervix absent Bimanual exam- vagina & uterus: bladder normal to palpation and uterus absent Bimanual Exam- Adnexa, other: Other (No masses detected) Assessment & Plan Assessment & Plan (1) Well woman exam: Code(s): Z01.419 - Encounter for gynecological examination (general) (routine) without abnormal findings Plan: Co testing not indicated since the patient 's age is above 65 with no history of abnormal Pap smears last 25 years and status post hysterectomy for myomas. Counseled the patient about the recommended dietary allowance of 1200 mg of Calcium & 800 IU of vitamin D. Instructions given to patient to schedule next screening Mammogram in 08/11. The patient was instructed to perform monthly self-breast exams and to schedule an annual exam in a year; All questions answered and the patient verbalized understanding. Coding Level of Care Code Est Pt Prev Care >65y(46085) Diagnoses Well woman exam Z01.419
[2024-01-19 10:32] VITALS: BP 112/52; BMI 28.9
== END 2024-01-19 10:55 | disposition home or self-care (01) ==
LOC: HO.HWS 10:23
PROVIDERS: PCP Internal Medicine; Visit Provider Obstetrics & Gynecology
DX: Z01.419 Encounter for gynecological examination (general) (routine) without abnormal findings (principal)
CPT/HCPCS: 99397

== ENCOUNTER → 2024-01-19 10:23 | Outpatient (BNVA) | payer OTHER, SELFPAY | PROVIDERS: PCP Internal Medicine; Visit Provider Obstetrics & Gynecology ==

== ENCOUNTER 2024-02-04 13:25 | Outpatient (AMB) | payer OTHER, SELFPAY ==
--- NOTE | 2024-02-04 13:27 | A.OFFVIS_ITS ---
Vital Signs 02/04/24 13:28 Height 5 ft 3 in Weight 169 lb 12.095 oz BMI 30.1 BP 119/63 Blood Pressure Location Lt brachial Position Sitting Pulse 66 Intake Visit Reasons: S/p egd/colon Golden Intake Note: Kanwal presents in the office as a follow up for an EGD and COLO. CC: She states that she still has constipation and there is something in the west of her stomach. Scientific Systems Analyst Required: No Allergies amoxicillin Allergy (Severe, Verified 02/04/24 13:30) Anaphylaxis codeine [Codeine] Allergy (Severe, Verified 02/04/24 13:30) Anaphylaxis gabapentin [From Neurontin] Allergy (Severe, Verified 02/04/24 13:30) Anaphylaxis Penicillins Allergy (Severe, Verified 02/04/24 13:30) Anaphylaxis Sulfa (Sulfonamide Antibiotics) [SULFA (SULFONAMIDE ANTIBIOTICS)] Allergy (Severe, Verified 02/04/24 13:30) Anaphylaxis pregabalin [From LYRICA] Allergy (Intermediate, Verified 02/04/24 13:30) SWELLING Medication List - Last Reconciled 02/04/24 by Elana Wynn PA-C acetaminophen 650 mg (2 x 325 mg) PO Q6H PRN 30 days albuterol sulfate 90 mcg/actuation 2 puffs inhalation QID PRN blood pressure monitor As directed docusate sodium (Colace) 200 mg (2 x 100 mg) PO BEDTIME esomeprazole magnesium (Nexium) 20 mg PO DAILY 90 days fluticasone propionate 50 mcg/actuation 50 mcg intranasal DAILY MDD allergies hydroxyzine HCl 25 mg PO TID PRN loratadine 10 mg PO DAILY meclizine 25 mg PO QID PRN methylcellulose (laxative) (Citrucel) 500 mg PO TID 30 days multivitamin 1 tab PO DAILY propranolol ER 120 mg PO DAILY rosuvastatin 40 mg PO DAILY sennosides (senna) 17.2 mg PO BEDTIME PRN tizanidine 4 mg PO Q8H PRN 30 days HPI Comments Details: A pleasant 73-year-old female follows up after recent EGD and colonoscopy with Dr. Franks She tolerated procedures She had switch from pantoprazole to esomeprazole-with good response She is made dietary modifications Reviewed procedure, pathology and recommendation Questions asked answered to her satisfaction She is very happy with the results Appetite is good bowels are normal She has no nausea, vomiting, abdominal pain fever or chills PFS Medical History (Updated 02/04/24 @ 13:56 by Elana Wynn PA-C) Myocardial infarction Seasonal allergies Asthma GERD (gastroesophageal reflux disease) HTN (hypertension) Arthritis of left acromioclavicular joint Cystocele with prolapse Fibromyalgia Generalized osteoarthritis Chronic pain syndrome Spondylosis of cervical spine Obesity Post-menopausal Screening for breast cancer Screening for diabetes mellitus Obesity Hyperlipidemia Vertigo Lumbar spondylosis Anal pruritus Surgical History History of esophagogastroduodenoscopy (EGD) Hx of shoulder replacement Hx of hand surgery History of bilateral knee replacement History of colonoscopy History of varicose veins History of hysterectomy Family History Father Angina at rest Mother Hypothyroidism Hypertension Osteoarthritis Heart disease Panic disorder Glaucoma Brother Stroke Sister Alcoholic liver disease HIV (human immunodeficiency virus infection) Social History Household Members: None Housing: Condominium Are you a primary personal care attendant to a significant other at home: No Do you presently have visiting nurse or other home services: Yes (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) Alcohol intake: never Comment: pt medicated with po tylenol Patient Tobacco Use Status: Former Tobacco user Quit Date: 1998 Tobacco use type: Cigarette e-Cigarette/Vaping Use: Never Used Second Hand Smoke Exposure: No service: No Current occupational status: retired Current occupation: Right Handed Cognitive needs: Yes (walk/cane) Hearing needs: No Vision needs: Yes (Glasses) Female Reproductive History Menstrual Age of Menarche: 9 Review of Systems Const All systems reviewed & are unremarkable except as noted in HPI and below Physical Exam Vital Signs: Last Vital Signs Pulse 66 02/04/24 13:28 BP 119/63 02/04/24 13:28 BMI result Body Mass Index 30.1 Const General: cooperative, healthy appearing, comfortable, no acute distress and well groomed Orientation/consciousness: patient oriented x3 Limitations: no limitations Resp Effort & Inspection: normal respiratory effort and able to speak in complete sentences Neuro General: patient oriented x3 Psych Appearance: grossly normal and well kempt Mental Status: mental status grossly normal Speech and movement: Normal speech and movement present Affect: normal affect Attitude: cooperative Thought process: Normal thought process present Thought content: Normal thought content present Insight: Good insight present (Psych) Judgement: Good judgement present (Psych) Results Reviewed Results Reviewed: Findings: Mucosa: Normal to cecum and terminal ileum. Protruding lesions: * A subepithelial nodule of size 2 cm was noted in the ascending colon. Cushion sign position. Bite on bite cold forceps biopsies were performed that revealed an underlying lipoma. * A sessile polyp of size 2 mm in the transverse colon. Cold forceps polypectomy was performed. The polyp was completely removed and retrieved. * Large internal hemorrhoids without stigmata of recent bleeding. Impression: * Normal esophagus * Gastritis (biopsy) * Fundic gland polyps (biopsy) * Normal duodenum * Normal colon and terminal ileum mucosa * Subepithelial nodule in AC - likely lipoma * Total of 1 polyp removed * Internal hemorrhoids Recommendations * Follow biopsy results. Our office will call or send a letter with results within 7-10 days. * Switch pantoprazole to Nexium. * If H pylori positive, will favor treatment given gastritis * Repeat colonoscopy in 7-10 years depending on the results of the polyp. allyson: Kanwal Juarez Age/Sex: 73/F Attending: Lucy Franks MD : 1950 Submitted by: Lucy Franks MD Copies to: Raman Shields MD MR #: [id number] Status: [facility] Collected: 01/14/24 Location: [facility] Received: 01/14/24 Diagnosis A. Stomach, random, biopsy: Oxyntic mucosa with mild chronic inactive inflammation; no Helicobacter organisms seen. B. Stomach, polyps, biopsy: Fundic gland polyps with background mild chronic inactive inflammation; no Helicobacter organisms seen. C. Colon, ascending subepithelial nodule: Colonic mucosa within normal limits; mature adipose tissue. D. Colon, transverse, polypectomy: Hyperplastic mucosal polyp. Comment: The adipose tissue in part C may represent a lipoma. Clinical History Pre-Op Dx: GERD, history of colonic polyps Post-Op Dx: Hiatal hernia, gastric polyps, gastritis, hemorrhoids, colon polyps Microscopic Description A-D. Microscopic sections examined. No metaplastic changes are seen, supported by AB/PAS stains (A and B); no Helicobacter organisms are seen, supported by H. pylori immunostain (A and B). Material Received A. Bx random gastric B. Bx gastric polyps C. Subepithelial nodule in ascending colon D. Polyp transverse colon Gross Description Received in 4 parts. Part A: Received in formalin labeled ?bx random gastric? are 2 brady-pink irregular tissue fragments each measuring 0.35 cm, submitted in toto in a cassette labeled A. Part B: Received in formalin labeled ?bx gastric polyps? are 2 brady-pink irregular tissue fragments each measuring 0.25 cm, submitted in toto in a cassette labeled B. Part C: Received in formalin labeled ?bx subepithelial nodule in ascending col on? is a 0.35 cm brady-pink irregular tissue fragment, submitted in toto in a cassette labeled C. Patient: Kanwal Juarez Age/Sex: 73/F MR#: [id number] Page 1 of 2 Assessment & Plan Assessment & Plan (1) Lipoma of colon: Comment: Reviewed pathology Code(s): D17.5 - Benign lipomatous neoplasm of intra-abdominal organs Category: Medical (2) Fundic gland polyps of stomach, benign: Comment: Reviewed pathology Code(s): D13.1 - Benign neoplasm of stomach Category: Medical (3) Hyperplastic colon polyp: Comment: previous hx adenomatous colon polyp Code(s): K63.5 - Polyp of colon Category: Medical Plan: Repeat asymptomatic colonoscopy 7 (4) Hemorrhoids: Code(s): K64.9 - Unspecified hemorrhoids Category: Medical Plan: declines surgical consult- if reconsider- (5) Gastritis: Code(s): K29.70 - Gastritis, unspecified, without bleeding Category: Medical Plan: Continue PPI Plan recall colonoscopy- 7 yrs Medications: Changed From esomeprazole magnesium (Nexium) 20 mg PO DAILY 90 caps 0RF K29.70 - Gastritis, unspecified, without bleeding To esomeprazole magnesium (Nexium) 20 mg PO DAILY 90 days 90 caps 3RF K29.70 - Gastritis, unspecified, without bleeding Refilled docusate sodium (Colace) 200 mg (2 x 100 mg) PO BEDTIME 60 caps 5RF Patient Instructions: Repeat asymptomatic colonoscopy 7 Reflux precautions review Continue PPI refill given Continue bowel regimen-avoid straining with hemorrhoids Encouraged to call questions or concerns
[2024-02-04 13:28] VITALS: BP 119/63; PULSE 66; BMI 30.1
== END 2024-02-04 14:55 | disposition home or self-care (01) ==
PROVIDERS: PCP Internal Medicine; Visit Provider Physician Assistant
DX: D17.5 Benign lipomatous neoplasm of intra-abdominal organs (principal); D13.1 Benign neoplasm of stomach; K63.5 Polyp of colon; K64.9 Unspecified hemorrhoids; K29.70 Gastritis, unspecified, without bleeding
CPT/HCPCS: 99213

== ENCOUNTER → 2024-02-04 13:25 | Outpatient (BNVA) | payer OTHER, SELFPAY | PROVIDERS: PCP Internal Medicine; Visit Provider Physician Assistant | DX: K29.70 Gastritis, unspecified, without bleeding (principal); K64.9 Unspecified hemorrhoids; K63.5 Polyp of colon; D13.1 Benign neoplasm of stomach; D17.5 Benign lipomatous neoplasm of intra-abdominal organs | CPT/HCPCS: 99212 ==

== ENCOUNTER 2024-02-18 10:06 | Outpatient (AMB) | payer OTHER, SELFPAY ==
--- NOTE | 2024-02-18 10:25 | A.OFFVIS_ITS ---
Intake Visit Reasons: PO-LT TSA 11/24/23 NE-w/Xray Intake Note: Kanwal a 73 year old right hand dominant female presents today for a post op appointment s/p LT TSA on 11/24/23 NE. Patient states she is currently in PT and they would like to give her 3 more weeks for additional strengthening. Her concern today is sharp, stabbing pain in the axilla area. Patient states she is on a new medication for her stomach but does not know the name. Allergies amoxicillin Allergy (Severe, Verified 02/18/24 10:29) Anaphylaxis codeine [Codeine] Allergy (Severe, Verified 02/18/24 10:29) Anaphylaxis gabapentin [From Neurontin] Allergy (Severe, Verified 02/18/24 10:29) Anaphylaxis Penicillins Allergy (Severe, Verified 02/18/24 10:29) Anaphylaxis Sulfa (Sulfonamide Antibiotics) [SULFA (SULFONAMIDE ANTIBIOTICS)] Allergy (Severe, Verified 02/18/24 10:29) Anaphylaxis pregabalin [From LYRICA] Allergy (Intermediate, Verified 02/18/24 10:29) SWELLING HPI HPI PO-LT TSA 11/24/23 NE-w/Xray: Details: Kanwal a 73 year old right hand dominant female presents today for a post op appointment s/p LT TSA on 11/24/23 NE. Patient states she is currently in PT and they would like to give her 3 more weeks for additional strengthening. Her concern today is occasional axilla pain. Patient states she is on a new medication for her stomach but does not know the name. PFSH Medical History Myocardial infarction Seasonal allergies Asthma GERD (gastroesophageal reflux disease) HTN (hypertension) Arthritis of left acromioclavicular joint Cystocele with prolapse Fibromyalgia Generalized osteoarthritis Chronic pain syndrome Spondylosis of cervical spine Obesity Post-menopausal Screening for breast cancer Screening for diabetes mellitus Obesity Hyperlipidemia Vertigo Lumbar spondylosis Anal pruritus Surgical History History of esophagogastroduodenoscopy (EGD) Hx of shoulder replacement Hx of hand surgery History of bilateral knee replacement History of colonoscopy History of varicose veins History of hysterectomy Family History Father Angina at rest Mother Hypothyroidism Hypertension Osteoarthritis Heart disease Panic disorder Glaucoma Brother Stroke Sister Alcoholic liver disease HIV (human immunodeficiency virus infection) Social History Household Members: None Housing: Condominium Are you a primary healthcare representative to a significant other at home: No Do you presently have visiting nurse or other home services: Yes ([employer] 41 per week) Alcohol intake: never Comment: pt medicated with po tylenol Patient Tobacco Use Status: Former Tobacco user Quit Date: 1998 Tobacco use type: Cigarette e-Cigarette/Vaping Use: Never Used Second Hand Smoke Exposure: No service: No Current occupational status: retired Current occupation: Right Handed Cognitive needs: Yes (walk/cane) Hearing needs: No Vision needs: Yes (Glasses) Female Reproductive History Menstrual Age of Menarche: 9 Physical Exam Extrem Other: inc c/d/i 90/120/30/S1 neg lift off neg EC Results Reviewed Results Reviewed: Left total shoulder arthroplasty in expected post operative position with no hardware complications or evidence of loosening Assessment & Plan Assessment & Plan (1) Status post total shoulder arthroplasty: Onset Date: ~11/24/23 Comment: NE Code(s): Z96.619 - Presence of unspecified artificial shoulder joint Category: Surgical Plan: Doing well Continue HEP May follow as needed or in 9 months Orders: Orders XR shoulder LT min 2V 02/18/24 M25.519 - Pain in unspecified shoulder Coding Level of Care Code Global (28560) Diagnoses Status post total shoulder arthroplasty Z96.619
== END 2024-02-18 11:06 | disposition home or self-care (01) ==
PROVIDERS: PCP Internal Medicine; Visit Provider Orthopaedic Surgery
DX: Z96.619 Presence of unspecified artificial shoulder joint (principal)
CPT/HCPCS: 99024

== ENCOUNTER 2024-02-18 10:06 | Outpatient (REF) | payer OTHER, SELFPAY ==
--- NOTE | ~2024-02-18 | XR_ITS ---
EXAMINATION: XR SHOULDER, LEFT CLINICAL INFORMATION: Left shoulder pain COMPARISON: 01/07/2024 TECHNIQUE: 3 view of the left shoulder. FINDINGS: A left humeral arthroplasty is unchanged in alignment and position with associated postsurgical deformity of the left glenoid. The appearance is stable. No acute fracture or subluxation. XR/XR shoulder LT min 2V IMPRESSION: Stable appearance of left humeral arthroplasty since 01/07/2024.
== END 2024-02-18 10:07 | disposition home or self-care (01) ==
LOC: HO.HOSX 10:06
PROVIDERS: PCP Internal Medicine; Visit Provider Orthopaedic Surgery
DX: Z96.612 Presence of left artificial shoulder joint (principal)
CPT/HCPCS: 73030; 99212

== ENCOUNTER 2024-03-18 12:00 | Outpatient (RCR) | payer OTHER, SELFPAY ==
[2023-12-09 11:03] VITALS: BP 120/59; PULSE 70
--- NOTE | 2023-12-09 11:56 | MHC.PT.EP ---
[facility] [place] Office [place] [facility] [place] [facility] [address] Gato Brown [address] [phone] F: [phone] F: [phone] F: [phone] F: [phone] Physical Therapy Plan of Care Date of Evaluation: 12/09/23 Date of Surgery: 11/24/23 Diagnosis: Presence of unspecified artificial shoulder joint S/P L TSA with subscap repair, protect the subscap Assessment: Kanwal is a 73 year old female who is referred to PT for Presence of unspecified artificial shoulder joint, S/P L TSA with subscap repair, protect the subscap . She is 2 weeks post op. On PT examination she presented with TTP over L UT, L levator scap, L shoulder joint line, L medial border of scapula, 5/10 pain in L shoulder, decreased L shoulder ROM, decreased L shoulder and scap strength, and altered posture. She lives alone but has a SENIOR ANALYST who assists her with all ADLS. She would benefit from skilled PT to address the aforementioned impairments and improve tolerance to functional activities. Frequency and Duration: The patient will be seen 2/week for 10 weeks. Short Term Goals: 1. Pt will have 50% decrease in pain which will enable her to sleep through the night without pain in 3 weeks. 2. Pt will be able to move L shoulder through all planes of motion with a pain no more than 2/10 which will enable her to use her L UE for dressing in 5 weeks. Demand Inspector Goals: 1. Pt will demonstrate an increase in muscle strength by 1 grade which will enable to part take in IADSL with a pain no more than 2/10 in 7 weeks. 2. Pt will be able to move shoulder through all planes of motion without pain which will enable her to use her L UE for activities like cleaning, cooking and grocery without pain in 10 weeks. 3. Pt will be independent with all HEP for symptom management and maintenance following d/c in 13 weeks. Treatment Plan: Modalities to reduce pain, spasms and effusion. Manual therapy to restore motion and function. Therapeutic exercise to improve strength and flexibility. Neuromuscular re-education for posture and balance. Therapeutic activities to return to functional activities of daily living. Electronically signed by: Yohana Shine PT DPT Please sign and return to therapist. Thank you for your referral.
--- NOTE | 2024-03-25 09:41 | MHC.PT.DC ---
[facility] [place] Office [place] [facility] [place] Office [address] [place] Brown [address] [phone] F: [phone] F: [phone] F: [phone] F: [phone] Physical Therapy Discharge Report Diagnosis: Presence of unspecified artificial shoulder joint S/P L TSA with subscap repair, protect the subscap Date of Surgery: 11/24/23 Date of Evaluation: 12/09/23 Date of Discharge: 03/25/24 Treatments to Date: 24 Cancellations to Date: 6 No Shows to Date: 0 Discharge Status: Improved Function Independent with HEP Discharge Summary: Pt has made good progress throughout PT POC. She has demonstrated improvements in ROM and strength noted throughout exercise. She demonstrates independence with HEP. She is being D/C from skilled PT. Provided pt with printed, updated copy of HEP. Pt reports no further questions for PT at this time Electronically signed by: Yvonne Liu PT, DPT Please sign and return to therapist. Thank you for your referral.
== END 2024-03-25 09:41 | disposition home or self-care (01) ==
LOC: HO.PT 12:00
PROVIDERS: PCP Internal Medicine; Visit Provider Physician Assistant
DX: Z96.612 Presence of left artificial shoulder joint (principal)
CPT/HCPCS: 97110; 97140; 97162; 97530

== ENCOUNTER 2024-04-15 14:17 | Outpatient (AMB) | payer OTHER, SELFPAY ==
[2024-04-15 14:26] VITALS: BP 114/62; BMI 29.7
--- NOTE | 2024-04-15 14:26 | A.OFFVIS_ITS ---
Vital Signs 04/15/24 14:26 Height 5 ft 3 in Weight 167 lb 8.821 oz BMI 29.7 BP 114/62 Blood Pressure Location Rt brachial Position Sitting Intake Visit Reasons: OA/cm Intake Note: Pt last seen 07/29/[address] Castillo presents today for follow up Converting Supervisor Required: No Accompanied by: Self / Same As Patient Allergies amoxicillin Allergy (Severe, Verified 04/15/24 14:36) Anaphylaxis codeine [Codeine] Allergy (Severe, Verified 04/15/24 14:36) Anaphylaxis gabapentin [From Neurontin] Allergy (Severe, Verified 04/15/24 14:36) Anaphylaxis Penicillins Allergy (Severe, Verified 04/15/24 14:36) Anaphylaxis Sulfa (Sulfonamide Antibiotics) [SULFA (SULFONAMIDE ANTIBIOTICS)] Allergy (Severe, Verified 04/15/24 14:36) Anaphylaxis pregabalin [From LYRICA] Allergy (Intermediate, Verified 04/15/24 14:36) SWELLING Medication List - Last Reconciled 04/15/24 by Natalie Delgado MD acetaminophen 650 mg (2 x 325 mg) PO Q6H PRN 30 days albuterol sulfate 90 mcg/actuation 2 puffs inhalation QID PRN blood pressure monitor As directed docusate sodium (Colace) 200 mg (2 x 100 mg) PO BEDTIME esomeprazole magnesium (Nexium) 20 mg PO DAILY 90 days fluticasone propionate 50 mcg/actuation 50 mcg intranasal DAILY MDD allergies hydroxyzine HCl 25 mg PO TID PRN loratadine 10 mg PO DAILY meclizine 25 mg PO QID PRN methylcellulose (laxative) (Citrucel) 500 mg PO TID 30 days multivitamin 1 tab PO DAILY propranolol ER 120 mg PO DAILY rosuvastatin 40 mg PO DAILY sennosides (senna) 17.2 mg PO BEDTIME PRN tizanidine 4 mg PO Q8H PRN 30 days HPI Comments Details: This is a 73-year-old female with osteoarthritis who presents for follow-up. She is s/p left shoulder replacement. She states that she has some improvement, she completed physical therapy for her shoulder. She did not think PT was helpful. Today her main complaint is her neck pain. She takes Tylenol nightly which does provide some relief. She was prescribed tizanidine but it made her lightheaded. She is worried about combining Tylenol and tizanidine. She also uses ice. [facility] Medical History Myocardial infarction Seasonal allergies Asthma GERD (gastroesophageal reflux disease) HTN (hypertension) Arthritis of left acromioclavicular joint Cystocele with prolapse Fibromyalgia Generalized osteoarthritis Chronic pain syndrome Spondylosis of cervical spine Obesity Post-menopausal Screening for breast cancer Screening for diabetes mellitus Obesity Hyperlipidemia Vertigo Lumbar spondylosis Anal pruritus Surgical History History of esophagogastroduodenoscopy (EGD) Hx of shoulder replacement Hx of hand surgery History of bilateral knee replacement History of colonoscopy History of varicose veins History of hysterectomy Family History Father Angina at rest Mother Hypothyroidism Hypertension Osteoarthritis Heart disease Panic disorder Glaucoma Brother Stroke Sister Alcoholic liver disease HIV (human immunodeficiency virus infection) Social History Household Members: None Housing: Condominium Are you a primary pet care assistant to a significant other at home: No Do you presently have visiting nurse or other home services: 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) Alcohol intake: never Comment: pt medicated with po tylenol Patient Tobacco Use Status: Former Tobacco user Tobacco use type: Cigarette e-Cigarette/Vaping Use: Never Used Second Hand Smoke Exposure: No service: No Current occupational status: retired Current occupation: Right Handed Cognitive needs: Yes (walk/cane) Hearing needs: No Vision needs: Yes (Glasses) Female Reproductive History Menstrual Age of Menarche: 9 Review of Systems ENT Reports neck pain Musc Reports limited range of motion and Reports neck pain Physical Exam Vital Signs: Last Vital Signs BP 114/62 04/15/24 14:26 BMI result Body Mass Index 29.7 Const General: cooperative, healthy appearing and comfortable Nutritional Appearance: overweight Orientation/consciousness: patient oriented x3 Limitations: no limitations HEENT Head: Yes normal to inspection, Yes normocephalic and Yes atraumatic Mouth: moist mucous membranes Resp Effort & Inspection: normal respiratory effort and able to speak in complete sentences Cardio Rate: regular rate Skin General skin exam: no rashes or lesions noted Neuro General: patient oriented x3 Extrem Other: No active synovitis Limited range of motion of left shoulder Limited range of motion of neck in all directions, some discomfort in the cervical paraspinal muscles and trapezius muscle bilaterally Assessment & Plan Assessment & Plan (1) Spondylosis of cervical spine: Code(s): M47.812 - Spondylosis without myelopathy or radiculopathy, cervical region Category: Medical Plan: 73-year-old female with generalized osteoarthritis returns for follow-up. Her main complaint today is her neck pain. No symptoms suggestive of radiculopathy on exam. Patient is not interested in pain management evaluation or physical therapy. Advised patient to try a TENS unit. Can continue with Tylenol. She felt lightheaded with tizanidine 4 mg. Advised patient to cut the tablet in half and try taking it at night. Reassured patient that tizanidine can be combined with Tylenol. Follow-up p.r.n. Plan I spent 15 minutes reviewing patient's chart, evaluating patient, counseling patient and documenting in the chart Coding Level of Care Code Est Pt Level 3 (47229) Diagnoses Spondylosis of cervical spine M47.812
== END 2024-04-15 15:06 | disposition home or self-care (01) ==
PROVIDERS: PCP Internal Medicine; Visit Provider Student in an Organized Health Care Education/Training Program
DX: M47.812 Spondylosis without myelopathy or radiculopathy, cervical region (principal)
CPT/HCPCS: 99213

== ENCOUNTER → 2024-04-15 14:17 | Outpatient (BNVA) | payer OTHER, SELFPAY | PROVIDERS: PCP Internal Medicine; Visit Provider Student in an Organized Health Care Education/Training Program | DX: M47.812 Spondylosis without myelopathy or radiculopathy, cervical region (principal) | CPT/HCPCS: 99212 ==

== ENCOUNTER 2024-05-31 10:31 | Outpatient (AMB) | payer OTHER, SELFPAY ==
[2024-05-31 10:35] VITALS: BP 114/62; PULSE 68; O2SAT 99; BMI 30.1
--- NOTE | 2024-05-31 10:35 | A.OFFPC_ITS ---
Vital Signs 05/31/24 10:35 Height 5 ft 3 in Blood Pressure Location Lt brachial Position Sitting Pulse Source Pulse Oximeter Oxygen Delivery Method Room Air Intake Visit Reasons: SWV [id number] Allergies amoxicillin Allergy (Severe, Verified 05/31/24 10:35) Anaphylaxis codeine [Codeine] Allergy (Severe, Verified 05/31/24 10:35) Anaphylaxis gabapentin [From Neurontin] Allergy (Severe, Verified 05/31/24 10:35) Anaphylaxis Penicillins Allergy (Severe, Verified 05/31/24 10:35) Anaphylaxis Sulfa (Sulfonamide Antibiotics) [SULFA (SULFONAMIDE ANTIBIOTICS)] Allergy (Severe, Verified 05/31/24 10:35) Anaphylaxis pregabalin [From LYRICA] Allergy (Intermediate, Verified 05/31/24 10:35) SWELLING Tobacco use date assessed: 11/18/23 Fall risk assessment: No Falls in past year Last assessed Fall Risk: 05/31/24 Dental Screening Dental Screen Date: 05/31/24 Did you have a dental visit in the last 12 months?: Yes Did you have a dental problem in the last 6 months where you did not have access to dental care?: No Was dental information given to patient?: Patient has dentist [facility] Medical History Myocardial infarction Seasonal allergies Asthma GERD (gastroesophageal reflux disease) HTN (hypertension) Arthritis of left acromioclavicular joint Cystocele with prolapse Fibromyalgia Generalized osteoarthritis Chronic pain syndrome Spondylosis of cervical spine Obesity Post-menopausal Screening for breast cancer Screening for diabetes mellitus Obesity Hyperlipidemia Vertigo Lumbar spondylosis Anal pruritus Surgical History History of esophagogastroduodenoscopy (EGD) Hx of shoulder replacement Hx of hand surgery History of bilateral knee replacement History of colonoscopy History of varicose veins History of hysterectomy Family History Father Angina at rest Mother Hypothyroidism Hypertension Osteoarthritis Heart disease Panic disorder Glaucoma Brother Stroke Sister Alcoholic liver disease HIV (human immunodeficiency virus infection) Social History Household Members: None Housing: Condominium Are you a primary direct care specialist to a significant other at home: No Do you presently have visiting nurse or other home services: Yes ([employer] 41 per week) Alcohol intake: never Comment: pt medicated with po tylenol Patient Tobacco Use Status: Former Tobacco user Tobacco use type: Cigarette e-Cigarette/Vaping Use: Never Used Second Hand Smoke Exposure: No service: No Current occupational status: retired Current occupation: Right Handed Cognitive needs: Yes (walk/cane) Hearing needs: No Vision needs: Yes (Glasses) Female Reproductive History Menstrual Age of Menarche: 9 Questionnaire PHQ-9 Over the last 2 weeks, how often have you been bothered by any of the following problems? 1. Little interest or pleasure in doing things: not at all 2. Feeling down, depressed, or hopeless: not at all 3. Trouble falling or staying asleep, or sleeping too much: not at all 4. Feeling tired or having little energy: not at all 5. Poor appetite or overeating: not at all 6. Feeling bad about yourself - or that you are a failure or have let yourself or your family down: not at all 7. Trouble concentrating on things, such as reading the newspaper or watching television: not at all 8. Moving or speaking so slowly that other people could have noticed. Or the opposite - being so fidgety or restless that you have been moving around a lot more than usual: not at all 9. Thoughts that you would be better off or of hurting yourself in some way: not at all Total score: 0 Depression Screening Interpretation: Negative Depression Screening Done: Yes Source: Developed by Drs. Jose Antonio Ugarte, Tomi Walsh and colleagues, with an educational tommy from [employer]. Thrive Questionnaire Date Thrive assessed: 11/25/23 AUDIT C Alcohol Use Questionnaire (AUDIT-C) 1. How often do you have a drink containing alcohol?: Never 3. How often do you have six or more drinks on one occasion?: Never Total Score: 0 Score Reviewed/Action Taken: No RYAN-7 AMB Questionnaire RYAN-7 Date RYAN - 7 assessed: 11/18/23 Source: Developed by Drs. Jose Antonio Ugarte, Tomi Walsh and colleagues, with an educational tommy from [employer]. Physical exam (Primary Care) Tobacco/Smoking Status: Tobacco use Status Tobacco use date assessed 11/18/23 11/18/23 10:45 Patient Tobacco Use Status Former Tobacco user 01/14/24 13:22 Tobacco use type Cigarette 11/18/23 10:45 e-Cigarette/Vaping Use Never Used 11/18/23 10:45 Depression Screening Interpretation: Negative Thrive Assessment: Date of Thrive Assessment Date Thrive assessed 11/25/23 11/25/23 09:08 Coding
--- NOTE | 2024-05-31 10:40 | AM.OFFVISMDC ---
Intake Vital Signs 05/31/24 10:35 Height 5 ft 3 in Weight 170 lb BMI 30.1 BP 114/62 Blood Pressure Location Lt brachial Position Sitting Pulse 68 Pulse Source Pulse Oximeter Pulse Oximetry (%) 99 Oxygen Delivery Method Room Air Intake Visit Reasons: [facility] [id number] Fiberglasser Required: No Accompanied by: Self / Same As Patient Allergies amoxicillin Allergy (Severe, Verified 05/31/24 10:38) Anaphylaxis codeine [Codeine] Allergy (Severe, Verified 05/31/24 10:38) Anaphylaxis gabapentin [From Neurontin] Allergy (Severe, Verified 05/31/24 10:38) Anaphylaxis Penicillins Allergy (Severe, Verified 05/31/24 10:38) Anaphylaxis Sulfa (Sulfonamide Antibiotics) [SULFA (SULFONAMIDE ANTIBIOTICS)] Allergy (Severe, Verified 05/31/24 10:38) Anaphylaxis pregabalin [From LYRICA] Allergy (Intermediate, Verified 05/31/24 10:38) SWELLING Medication List - Last Reconciled 06/01/24 by Raman Shields MD acetaminophen 650 mg (2 x 325 mg) PO Q6H PRN 30 days albuterol sulfate 90 mcg/actuation 2 puffs inhalation QID PRN blood pressure monitor As directed docusate sodium (Colace) 200 mg (2 x 100 mg) PO BEDTIME esomeprazole magnesium (Nexium) 20 mg PO DAILY 90 days fluticasone propionate 50 mcg/actuation 50 mcg intranasal DAILY MDD allergies hydroxyzine HCl 25 mg PO TID PRN loratadine 10 mg PO DAILY meclizine 25 mg PO QID PRN methylcellulose (laxative) (Citrucel) 500 mg PO TID 30 days multivitamin 1 tab PO DAILY propranolol ER 120 mg PO DAILY rosuvastatin 40 mg PO DAILY sennosides (senna) 17.2 mg PO BEDTIME PRN tizanidine 4 mg PO Q8H PRN 30 days HPI SWV G0439 HPI Details hyperlipidemia and asthma; doing well; compliant [facility] Medical History (Updated 06/01/24 @ 09:04 by Raman Shields MD) Myocardial infarction Seasonal allergies Asthma GERD (gastroesophageal reflux disease) HTN (hypertension) Arthritis of left acromioclavicular joint Cystocele with prolapse Fibromyalgia Generalized osteoarthritis Chronic pain syndrome Spondylosis of cervical spine Obesity Post-menopausal Screening for breast cancer Screening for diabetes mellitus Obesity Hyperlipidemia Vertigo Lumbar spondylosis Anal pruritus Surgical History History of esophagogastroduodenoscopy (EGD) Hx of shoulder replacement Hx of hand surgery History of bilateral knee replacement History of colonoscopy History of varicose veins History of hysterectomy Family History Father Angina at rest Mother Hypothyroidism Hypertension Osteoarthritis Heart disease Panic disorder Glaucoma Brother Stroke Sister Alcoholic liver disease HIV (human immunodeficiency virus infection) Social History Household Members: None Housing: Condominium Are you a primary human services care specialist to a significant other at home: No Do you presently have visiting nurse or other home services: Yes ([employer] 41 per week) Alcohol intake: never Comment: pt medicated with po tylenol Patient Tobacco Use Status: Former Tobacco user Tobacco use type: Cigarette e-Cigarette/Vaping Use: Never Used Second Hand Smoke Exposure: No service: No Current occupational status: retired Current occupation: Right Handed Cognitive needs: Yes (walk/cane) Hearing needs: No Vision needs: Yes (Glasses) Female Reproductive History Menstrual Age of Menarche: 9 Questionnaire Medicare Wellness Checkup [age] What gender do you identify with?: female During the past 4 weeks, how much have you been bothered by emotional problems such as feeling anxious, depressed, irritable, sad or downhearted, and blue?: moderately During the past 4 weeks, has your physical & emotional health limited your social activities with family, friends, neighbors, or groups?: not at all During the past 4 weeks, how much bodily pain have you generally had?: severe pain During the past 4 weeks, was someone available to help you if you needed & wanted help?: yes, quite a bit During the past 4 weeks, what was the hardest physical activity you could do for at least 2 minutes?: moderate Can you get to places out of walking distance without help? (For eg., can you travel alone on buses, taxis or drive your car?): Yes Can you go shopping for groceries or clothes without someone's help?: No Can you prepare your own meals?: Yes Can you do your housework without help?: No Because of any health problems, do you need the help of another person with your personal care needs such as eating, bathing, dressing or getting around the house?: Yes Can you handle your own money without help?: Yes During the past 4 weeks, how would you rate your health in general?: fair During the past 4 weeks how have things been going for you?: good & bad parts about equal Are you having difficulties driving your car?: no Do you always fasten your seat belt when you are in a car?: yes, usually During past 4 weeks, have you been bothered by the following: never: Falling or dizzy when standing up, Sexual problems?, Trouble eating well?, Teeth or denture problems? and Problems using the telephone? and often: Tiredness or fatigue? Have you fallen 2 or more times in the past year?: No Are you afraid of falling?: Yes Are you a smoker?: no During the past 4 weeks, how many drinks of wine, beer, or other alcoholic beverages did you have?: no alcohol at all Do you exercise for about 20 minutes 3 or more times a week?: yes, some of the time Have you been given information to help with the following?: yes: Keeping track of your medications? and no: Hazards in your house that might hurt you? How often do you have trouble taking medicines the way you have been told to take them?: I always take medicine as prescribed How confident are you that you can control & manage most of your health problems?: somewhat confident What is your race?: or origin or descent Mini Mental State Exam (MMSE) Orientation What is the (year) (season) (date) (day) (month)?: year, season, date, day and month Where are we (state) (county) (town or city) (hospital) (floor)?: state Registration Name of 3 unrelated objects clearly and slowly, then ask patient to repeat all 3 of them. (1st repeat determines score. Make sure they can repeat all three): object 1, object 2 and object 3 Recall Ask patient to repeat the 3 items from question #3.: object 1 Score Score: 10 Activity of Daily Living Bathing - sponge bath, tub bath or shower: receives no assistance (gets in/out by self, if usual bathing means Dressing - getting clothes from closets & drawers, including inner/outer garments & fasteners.: gets clothes & gets completely dressed without help Toileting - going to the 'toilet room' for urine/bowel elimination & cleaning self/arranging clothes: goes to toilet room, cleans self, arranges clothes without help Transfer: moves in & out of bed and chair without help (may use support object) Continence: controls urination/bowel movements completely by self Feeding: feeds self without help Total Score: 0 Information obtained from: patient Using telephone: independent Traveling: independent Shopping: independent Preparing meals: independent Housework: independent Taking medicine: independent Managing money: independent PHQ-9 Over the last 2 weeks, how often have you been bothered by any of the following problems? 1. Little interest or pleasure in doing things: not at all 2. Feeling down, depressed, or hopeless: several days 3. Trouble falling or staying asleep, or sleeping too much: more than half the days 4. Feeling tired or having little energy: more than half the days 5. Poor appetite or overeating: more than half the days 6. Feeling bad about yourself - or that you are a failure or have let yourself or your family down: not at all 7. Trouble concentrating on things, such as reading the newspaper or watching television: not at all 8. Moving or speaking so slowly that other people could have noticed. Or the opposite - being so fidgety or restless that you have been moving around a lot more than usual: not at all 9. Thoughts that you would be better off or of hurting yourself in some way: not at all Total score: 7 Depression Screening Interpretation: Positive Depression Screening Follow-up: Existing condition Depression Screening Done: Yes 31590 - PHQ-9 Billing: Yes Source: Developed by Drs. Jose Antonio Ugarte, Romy Tse, Tomi Finley and colleagues, with an educational tommy from [employer]. Review of Systems Const Denies chills, Denies fatigue, Denies headache(s) and Denies weight loss Eyes Denies change in vision, Denies diplopia and Denies eye pain ENT Reports Normal hearing present, Denies vertigo, Denies dizziness, Denies headache(s) and Denies nasal discharge Card Denies chest pain, Denies rapid heart rate and Denies dyspnea on exertion Resp Denies chest congestion, Denies cough, Denies pain with cough and Denies dyspnea on exertion GI Denies abdominal pain, Denies hematochezia and Denies change in bowel habits Musc Denies myalgias, Denies arthralgias and Denies joint swelling Skin/Breast Denies lesions and Denies unusual bruising Neuro Reports Normal hearing present, Denies vertigo, Denies dizziness, Denies headache(s) and Denies focal weakness Endo Denies fatigue Physical Exam Vital Signs: Last Vital Signs Pulse 68 05/31/24 10:35 BP 114/62 05/31/24 10:35 Pulse Ox 99 05/31/24 10:35 Oxygen Delivery Method Room Air 05/31/24 10:35 BMI result Body Mass Index 30.1 Neuro Cranial nerves: Yes Normal hearing present Assessment & Plan Assessment & Plan (1) Encounter for subsequent annual wellness visit (AWV) in Medicare patient: Code(s): Z00.00 - Encounter for general adult medical examination without abnormal findings Plan: rhomberg and whisper tests normal; awv forms given to patient (2) Hyperlipidemia: Code(s): E78.5 - Hyperlipidemia, unspecified Plan: stable; same rx (3) Asthma: Code(s): J45.909 - Unspecified asthma, uncomplicated Plan: stable; same rx Orders: Orders Lipid Panel 05/31/24 Z13.220 - Encounter for screening for lipoid disorders Thyroid Stimulating Hormone 05/31/24 Z13.29 - Encounter for screening for other suspected endocrine disorder Complete Blood Count Auto Diff 05/31/24 Z13.0 - Encounter for screening for diseases of the blood and blood-forming organs and certain disorders involving the immune mechanism Comprehensive [place]. Panel Fast 05/31/24 Z13.9 - Encounter for screening, unspecified Quality Reporting (2019) Depression/Bipolar (159/160/161/177) PHQ-9: Total score: 7 Coding Level of Care Code Medicare Subsequent (G0439) Diagnoses Encounter for subsequent annual wellness visit (AWV) in Medicare patient Z00.00 Hyperlipidemia E78.5 Asthma J45.909 CPT Codes Advance Care Planning - Advance Care Planning discussion: On file, no changes ([id number]) Advance Care Planning Advance Care Planning discussion: On file, no changes Forms completed: Health Care Proxy
== END 2024-05-31 10:51 | disposition home or self-care (01) ==
PROVIDERS: PCP Internal Medicine; Visit Provider Internal Medicine
DX: Z00.00 Encounter for general adult medical examination without abnormal findings (principal); E78.5 Hyperlipidemia, unspecified; J45.909 Unspecified asthma, uncomplicated
CPT/HCPCS: 1123F; G0439

== ENCOUNTER 2024-06-13 11:13 | Outpatient (AMB) | payer OTHER, SELFPAY ==
[2024-06-13 11:25] VITALS: BP 140/82; BMI 29.8
--- NOTE | 2024-06-13 11:25 | A.OFFPC_ITS ---
Vital Signs 06/13/24 11:25 Height 5 ft 3 in Weight 168 lb BMI 29.8 BP 140/82 H Blood Pressure Location Lt brachial Position Sitting Intake Visit Reasons: Back Pain Front End Developer Required: No Accompanied by: Self / Same As Patient Allergies amoxicillin Allergy (Severe, Verified 06/13/24 11:26) Anaphylaxis codeine [Codeine] Allergy (Severe, Verified 06/13/24 11:26) Anaphylaxis gabapentin [From Neurontin] Allergy (Severe, Verified 06/13/24 11:26) Anaphylaxis Penicillins Allergy (Severe, Verified 06/13/24 11:26) Anaphylaxis Sulfa (Sulfonamide Antibiotics) [SULFA (SULFONAMIDE ANTIBIOTICS)] Allergy (Severe, Verified 06/13/24 11:26) Anaphylaxis pregabalin [From LYRICA] Allergy (Intermediate, Verified 06/13/24 11:) SWELLING Medication List - Last Reconciled 06/13/24 by Raman Shields MD acetaminophen 650 mg (2 x 325 mg) PO Q6H PRN 30 days albuterol sulfate 90 mcg/actuation 2 puffs inhalation QID PRN blood pressure monitor As directed docusate sodium (Colace) 200 mg (2 x 100 mg) PO BEDTIME esomeprazole magnesium (Nexium) 20 mg PO DAILY 90 days fluticasone propionate 50 mcg/actuation 50 mcg intranasal DAILY MDD allergies hydroxyzine HCl 25 mg PO TID PRN loratadine 10 mg PO DAILY meclizine 25 mg PO QID PRN methylcellulose (laxative) (Citrucel) 500 mg PO TID 30 days multivitamin 1 tab PO DAILY propranolol ER 120 mg PO DAILY rosuvastatin 40 mg PO DAILY sennosides (senna) 17.2 mg PO BEDTIME PRN tizanidine 4 mg PO Q8H PRN 30 days Tobacco use date assessed: 11/18/23 Fall risk assessment: No Falls in past year Last assessed Fall Risk: 06/13/24 Dental Screening Dental Screen Date: 11/18/23 HPI Back Pain HPI Details right low back pain for a week; injured lifting [facility] Medical History (Updated 06/01/24 @ 09:04 by Raman Sheilds MD) Myocardial infarction Seasonal allergies Asthma GERD (gastroesophageal reflux disease) HTN (hypertension) Arthritis of left acromioclavicular joint Cystocele with prolapse Fibromyalgia Generalized osteoarthritis Chronic pain syndrome Spondylosis of cervical spine Obesity Post-menopausal Screening for breast cancer Screening for diabetes mellitus Obesity Hyperlipidemia Vertigo Lumbar spondylosis Anal pruritus Surgical History History of esophagogastroduodenoscopy (EGD) Hx of shoulder replacement Hx of hand surgery History of bilateral knee replacement History of colonoscopy History of varicose veins History of hysterectomy Family History Father Angina at rest Mother Hypothyroidism Hypertension Osteoarthritis Heart disease Panic disorder Glaucoma Brother Stroke Sister Alcoholic liver disease HIV (human immunodeficiency virus infection) Social History Household Members: None Housing: Condominium Are you a primary acute care surgeon to a significant other at home: No Do you presently have visiting nurse or other home services: Yes ([employer] 41 per week) Alcohol intake: never Comment: pt medicated with po tylenol Patient Tobacco Use Status: Former Tobacco user Tobacco use type: Cigarette e-Cigarette/Vaping Use: Never Used Second Hand Smoke Exposure: No service: No Current occupational status: retired Current occupation: Right Handed Cognitive needs: Yes (walk/cane) Hearing needs: No Vision needs: Yes (Glasses) Female Reproductive History Menstrual Age of Menarche: 9 Questionnaire PHQ-9 Over the last 2 weeks, how often have you been bothered by any of the following problems? 1. Little interest or pleasure in doing things: not at all 2. Feeling down, depressed, or hopeless: several days 3. Trouble falling or staying asleep, or sleeping too much: more than half the days 4. Feeling tired or having little energy: more than half the days 5. Poor appetite or overeating: more than half the days 6. Feeling bad about yourself - or that you are a failure or have let yourself or your family down: not at all 7. Trouble concentrating on things, such as reading the newspaper or watching television: not at all 8. Moving or speaking so slowly that other people could have noticed. Or the opposite - being so fidgety or restless that you have been moving around a lot more than usual: not at all 9. Thoughts that you would be better off or of hurting yourself in some way: not at all Total score: 7 Depression Screening Interpretation: Positive Depression Screening Follow-up: Existing condition Depression Screening Done: Yes 90257 - PHQ-9 Billing: Yes Source: Developed by Drs. Jose Antonio Ugarte, Romy Tse, Tomi Finley and colleagues, with an educational tommy from [employer]. Thrive Questionnaire Date Thrive assessed: 11/25/23 AUDIT C Alcohol Use Questionnaire (AUDIT-C) 1. How often do you have a drink containing alcohol?: Never 3. How often do you have six or more drinks on one occasion?: Never Total Score: 0 Score Reviewed/Action Taken: No RYAN-7 AMB Questionnaire RYAN-7 Date RYAN - 7 assessed: 11/18/23 Source: Developed by Romy Roberts, Tomi Finley and colleagues, with an educational tommy from [employer]. Review of Systems Const Denies chills, Denies headache(s) and Denies weight loss ENT Denies headache(s) Card Denies chest pain, Denies syncope, Denies irregular heart rhythm and Denies dyspnea Resp Denies chest congestion, Denies cough and Denies dyspnea GI Denies abdominal pain, Denies change in stool character, Denies nausea and Denies vomiting Musc Denies deformity and Denies joint swelling Neuro Denies syncope and Denies headache(s) Physical exam (Primary Care) Vital Signs: Last Vital Signs BP 140/82 H 06/13/24 11:25 BMI result Body Mass Index 29.8 Tobacco/Smoking Status: Tobacco use Status Tobacco use date assessed 11/18/23 06/13/24 11:31 Patient Tobacco Use Status Former Tobacco user 06/13/24 11:31 Tobacco use type Cigarette 06/13/24 11:31 e-Cigarette/Vaping Use Never Used 06/13/24 11:31 PHQ-9: PHQ-9 Score PHQ-9: Total score 7 06/13/24 11:31 Depression Screening Interpretation: Positive Depression Screening Follow-up: Existing condition Thrive Assessment: Date of Thrive Assessment Date Thrive assessed 11/25/23 06/13/24 11:31 Const General: cooperative, comfortable, no acute distress and alert Neck Neck: Yes no lymphadenopathy Thyroid: Thyroid normal Resp Effort & Inspection: normal respiratory effort Auscultation: clear to auscultation bilaterally Percussion: percussion normal Cardio Jugular venous distension: no JVD Palpation: normal PMI Rate: regular rate Rhythm: regular rhythm Heart sounds: S1 normal heart sound present and S2 normal heart sound present GI Inspection: Yes normal to inspection Palpation (GI): No hepatosplenomegaly present Skin General skin exam: no rashes or lesions noted Extrem General: Yes no clubbing, cyanosis or edema Assessment and Plan Assessment & Plan (1) Low back pain: Code(s): M54.50 - Low back pain, unspecified Plan: xr and rx ordered Orders: Orders XR lumbar spine 2-3V Today M54.9 - Dorsalgia, unspecified Medications: New cyclobenzaprine 10 mg PO TID PRN 30 tabs 2RF muscle spasm Coding Level of Care Code Est Pt Level 3 (08595) Diagnoses Low back pain M54.50
== END 2024-06-13 11:39 | disposition home or self-care (01) ==
PROVIDERS: PCP Internal Medicine; Visit Provider Internal Medicine
DX: M54.50 Low back pain, unspecified (principal)
CPT/HCPCS: 99213

== ENCOUNTER 2024-06-13 11:43 | Outpatient (REF) | payer OTHER, SELFPAY ==
--- NOTE | ~2024-06-13 | XR_ITS ---
EXAMINATION: XR LUMBOSACRAL SPINE CLINICAL INFORMATION: Back pain. COMPARISON: Most recent lumbar spine radiographs dated 06/22/2020. TECHNIQUE: Three views of the lumbosacral spine. FINDINGS: Dextrocurvature of the lumbar spine, increased when compared to the prior examination. The lumbar lordosis is maintained. No acute fracture or subluxation. No loss of vertebral body height. Multilevel loss of intervertebral disc height with degenerative endplate changes, most prominent at L5-S1. Prominent lower lumbar spine facet arthropathy at L3 through S1. Findings have increased when compared to the prior examination. No concerning lytic or blastic osseous lesion. No abnormal soft tissue calcification. XR/XR lumbar spine 2-3V IMPRESSION: 1. Dextrocurvature of the lumbar spine, increased when compared to the prior examination. 2. Multilevel degenerative disc disease, most prominent at L5-S1, increased when compared to the prior examination. 3. Prominent lower lumbar spine facet arthropathy, increased when compared to the prior examination. Electronically signed by: Dev Walker MD 07/04/2024 08:57 PM EDT
== END 2024-06-13 11:44 | disposition home or self-care (01) ==
LOC: HO.XRAY 11:43
PROVIDERS: PCP Internal Medicine; Visit Provider Internal Medicine
DX: M54.9 Dorsalgia, unspecified (principal)
CPT/HCPCS: 72100

== ENCOUNTER 2024-08-02 09:48 | Outpatient (REF) | payer OTHER, SELFPAY ==
--- NOTE | ~2024-08-02 | MM_ITS ---
EXAMINATION: MM SCREENING DIGITAL BREAST TOMOSYNTHESIS, BILATERAL CLINICAL INFORMATION: Screening. Asymptomatic. COMPARISON: Mammography: Comparison is made with available priors TECHNIQUE: Digital breast mammography with tomosynthesis is performed in both the craniocaudal and mediolateral oblique views along with computer-aided detection (CAD). FINDINGS: There are scattered areas of fibroglandular density (ACR BI-RADS breast composition Category b). Right marker clip. There are no significant masses, abnormal calcifications, or other abnormalities. MM/MM tomosynthesis screening BI IMPRESSION: No mammographic evidence of malignancy. ASSESSMENT: BI-RADS BI-RADS 2 - Benign Findings RECOMMENDATION: Routine annual mammography screening. 1 year F/U This examination should not preclude the clinical evaluation of a suspicious palpable abnormality. This patient's information was entered into a reminder system with a target due date for their next mammogram. Electronically signed by: Randa Vasquez DO 08/15/2024 05:22 PM EDT
== END 2024-08-02 09:49 | disposition home or self-care (01) ==
LOC: HO.MAMMO 09:48
PROVIDERS: PCP Internal Medicine; Visit Provider Internal Medicine
DX: Z12.31 Encounter for screening mammogram for malignant neoplasm of breast (principal)
CPT/HCPCS: 77063; 77067

== ENCOUNTER → 2024-08-02 10:00 | Outpatient (BNV) | payer OTHER, SELFPAY | PROVIDERS: PCP Internal Medicine; Visit Provider Internal Medicine | DX: Z12.31 Encounter for screening mammogram for malignant neoplasm of breast (principal) | CPT/HCPCS: 77063; 77067 ==

== ENCOUNTER 2024-08-03 11:03 | Outpatient (AMB) | payer OTHER, SELFPAY ==
[2024-08-03 11:06] VITALS: BP 110/68; PULSE 72; O2SAT 99; BMI 29.4
--- NOTE | 2024-08-03 11:06 | MHC.PC.OV ---
Vital Signs 08/03/24 11:06 Height 5 ft 3 in Weight 166 lb BMI 29.4 BP 110/68 Blood Pressure Location Lt brachial Position Sitting Pulse 72 Pulse Source Pulse Oximeter Pulse Oximetry (%) 99 Oxygen Delivery Method Room Air Intake Visit Reasons: Shoulder Pain Intake Note: Pt complains of nose pain and feeling drowsy/dizzy. 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 Accompanied by: Self / Same As Patient Allergies amoxicillin Allergy (Severe, Verified 08/03/24 11:06) Anaphylaxis codeine [Codeine] Allergy (Severe, Verified 08/03/24 11:06) Anaphylaxis gabapentin [From Neurontin] Allergy (Severe, Verified 08/03/24 11:06) Anaphylaxis Penicillins Allergy (Severe, Verified 08/03/24 11:06) Anaphylaxis Sulfa (Sulfonamide Antibiotics) [SULFA (SULFONAMIDE ANTIBIOTICS)] Allergy (Severe, Verified 08/03/24 11:06) Anaphylaxis pregabalin [From LYRICA] Allergy (Intermediate, Verified 08/03/24 11:06) SWELLING Medication List - Last Reconciled 08/03/24 by Raman Shields MD acetaminophen 650 mg (2 x 325 mg) PO Q6H PRN 30 days albuterol sulfate 90 mcg/actuation 2 puffs inhalation QID PRN blood pressure monitor As directed cyclobenzaprine 10 mg PO TID PRN docusate sodium (Colace) 200 mg (2 x 100 mg) PO BEDTIME esomeprazole magnesium (Nexium) 20 mg PO DAILY 90 days fluticasone propionate 50 mcg/actuation 50 mcg intranasal DAILY MDD allergies hydroxyzine HCl 25 mg PO TID PRN loratadine 10 mg PO DAILY meclizine 25 mg PO QID PRN methylcellulose (laxative) (Citrucel) 500 mg PO TID 30 days multivitamin 1 tab PO DAILY propranolol ER 120 mg PO DAILY rosuvastatin 40 mg PO DAILY sennosides (senna) 17.2 mg PO BEDTIME PRN tizanidine 4 mg PO Q8H PRN 30 days Tobacco use date assessed: 08/03/24 Fall risk assessment: No Falls in past year Last assessed Fall Risk: 08/03/24 Dental Screening Dental Screen Date: 11/18/23 HPI Shoulder Pain HPI Details had shoulder surgery in November; doing very well and pain resolved; unclear whay she is here [facility] Medical History (Updated 06/01/24 @ 09:04 by Raman Shields MD) Myocardial infarction Seasonal allergies Asthma GERD (gastroesophageal reflux disease) HTN (hypertension) Arthritis of left acromioclavicular joint Cystocele with prolapse Fibromyalgia Generalized osteoarthritis Chronic pain syndrome Spondylosis of cervical spine Obesity Post-menopausal Screening for breast cancer Screening for diabetes mellitus Obesity Hyperlipidemia Vertigo Lumbar spondylosis Anal pruritus Surgical History (Updated 08/03/24 @ 13:16 by Raman Shields MD) History of esophagogastroduodenoscopy (EGD) Hx of shoulder replacement Hx of hand surgery History of bilateral knee replacement History of colonoscopy History of varicose veins History of hysterectomy Family History Father Angina at rest Mother Hypothyroidism Hypertension Osteoarthritis Heart disease Panic disorder Glaucoma Brother Stroke Sister Alcoholic liver disease HIV (human immunodeficiency virus infection) Social History Household Members: None [facility] Are you a primary physician primary care sports medicine to a significant other at home: No Do you presently have visiting nurse or other home services: Yes ([employer]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 1. Little interest or pleasure in doing things: not at all 2. Feeling down, depressed, or hopeless: several days 3. Trouble falling or staying asleep, or sleeping too much: more than half the days 4. Feeling tired or having little energy: more than half the days 5. Poor appetite or overeating: more than half the days 6. Feeling bad about yourself - or that you are a failure or have let yourself or your family down: not at all 7. Trouble concentrating on things, such as reading the newspaper or watching television: not at all 8. Moving or speaking so slowly that other people could have noticed. Or the opposite - being so fidgety or restless that you have been moving around a lot more than usual: not at all 9. Thoughts that you would be better off or of hurting yourself in some way: not at all Total score: 7 Depression Screening Interpretation: Positive Depression Screening Follow-up: Existing condition Depression Screening Done: Yes 45697 - PHQ-9 Billing: Yes Source: Developed by Drs. Jose Antonio Ugarte, Tomi Walsh and colleagues, with an educational tommy from [employer]. Thrive Questionnaire Date Thrive assessed: 11/25/23 Are you currently unemployed and looking for a job?: No AUDIT C Alcohol Use Questionnaire (AUDIT-C) 1. How often do you have a drink containing alcohol?: Never 3. How often do you have six or more drinks on one occasion?: Never Total Score: 0 Score Reviewed/Action Taken: No RYAN-7 AMB Questionnaire RYAN-7 Date RYAN - 7 assessed: 11/18/23 Source: Developed by Drs. Jose Antonio Ugarte, Tomi Walsh and colleagues, with an educational tommy from [employer]. Review of Systems Const Denies chills, Denies headache(s) and Denies weight loss ENT Denies headache(s) Card Denies chest pain, Denies syncope, Denies irregular heart rhythm and Denies dyspnea Resp Denies chest congestion, Denies cough and Denies dyspnea GI Denies abdominal pain, Denies change in stool character, Denies nausea and Denies vomiting Musc Denies deformity and Denies joint swelling Neuro Denies syncope and Denies headache(s) Physical exam (Primary Care) Vital Signs: Last Vital Signs Pulse 72 08/03/24 11:06 BP 110/68 08/03/24 11:06 Pulse Ox 99 08/03/24 11:06 Oxygen Delivery Method Room Air 08/03/24 11:06 BMI result Body Mass Index 29.4 Tobacco/Smoking Status: Tobacco use Status Tobacco use date assessed 08/03/24 08/03/24 11:09 Patient Tobacco Use Status Former Tobacco user 08/03/24 11:06 Tobacco use type Cigarette 08/03/24 11:06 e-Cigarette/Vaping Use Never Used 08/03/24 11:06 PHQ-9: PHQ-9 Score PHQ-9: Total score 7 08/03/24 11:12 Depression Screening Interpretation: Positive Depression Screening Follow-up: Existing condition Thrive Assessment: Date of Thrive Assessment Date Thrive assessed 11/25/23 08/03/24 11:06 Const General: cooperative, comfortable, no acute distress and alert Neck Neck: Yes no lymphadenopathy Thyroid: Thyroid normal Resp Effort & Inspection: normal respiratory effort Auscultation: clear to auscultation bilaterally Percussion: percussion normal Cardio Jugular venous distension: no JVD Palpation: normal PMI Rate: regular rate Rhythm: regular rhythm Heart sounds: S1 normal heart sound present and S2 normal heart sound present GI Inspection: Yes normal to inspection Palpation (GI): No hepatosplenomegaly present Skin General skin exam: no rashes or lesions noted Extrem General: Yes no clubbing, cyanosis or edema Coding Level of Care Code Est Pt Level 3 (96359) Diagnoses Status post total shoulder arthroplasty Z96.619 Assessment & Plan Assessment & Plan (1) Status post total shoulder arthroplasty: Onset Date: ~11/24/23 Code(s): Z96.619 - Presence of unspecified artificial shoulder joint Category: Surgical Plan: improved; f/u prn
== END 2024-08-03 11:35 | disposition home or self-care (01) ==
PROVIDERS: PCP Internal Medicine; Visit Provider Internal Medicine
DX: Z96.619 Presence of unspecified artificial shoulder joint (principal)

== ENCOUNTER → 2024-08-03 11:03 | Outpatient (BNVA) | payer OTHER, SELFPAY | PROVIDERS: PCP Internal Medicine; Visit Provider Internal Medicine | DX: Z96.619 Presence of unspecified artificial shoulder joint (principal) | CPT/HCPCS: 96127; 99212 ==

== ENCOUNTER 2024-09-12 09:45 | Outpatient (AMB) | payer OTHER, SELFPAY ==
--- NOTE | 2024-09-12 09:48 | A.OFFVIS_ITS ---
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 Accompanied by: Self / Same As Patient Allergies amoxicillin Allergy (Severe, Verified 09/12/24 10:07) Anaphylaxis codeine [Codeine] Allergy (Severe, Verified 09/12/24 10:07) Anaphylaxis gabapentin [From Neurontin] Allergy (Severe, Verified 09/12/24 10:07) Anaphylaxis Penicillins Allergy (Severe, Verified 09/12/24 10:07) Anaphylaxis Sulfa (Sulfonamide Antibiotics) [SULFA (SULFONAMIDE ANTIBIOTICS)] Allergy (Severe, Verified 09/12/24 10:07) Anaphylaxis pregabalin [From LYRICA] Allergy (Intermediate, Verified 09/12/24 10:07) SWELLING Medication List - Last Reconciled 09/12/24 by GAGE Rojas-TRACEE acetaminophen 650 mg (2 x 325 mg) PO Q6H PRN 30 days albuterol sulfate 90 mcg/actuation 2 puffs inhalation QID PRN blood pressure monitor As directed cyclobenzaprine 10 mg PO TID PRN docusate sodium (Colace) 200 mg (2 x 100 mg) PO BEDTIME esomeprazole magnesium (Nexium) 20 mg PO DAILY 90 days fluticasone propionate 50 mcg/actuation 50 mcg intranasal DAILY MDD allergies hydroxyzine HCl 25 mg PO TID PRN loratadine 10 mg PO DAILY meclizine 25 mg PO QID PRN methylcellulose (laxative) (Citrucel) 500 mg PO TID 30 days multivitamin 1 tab PO DAILY propranolol ER 120 mg PO DAILY rosuvastatin 40 mg PO DAILY sennosides (senna) 17.2 mg PO BEDTIME PRN tizanidine 4 mg PO Q8H PRN 30 days HPI Comments Details: Kanwal is a very pleasant 73-year-old female patient of Dr. Shields. She has a past medical history of chronic pain syndrome, fibromyalgia, osteoarthritis, hyperlipidemia, lumbar spondylosis, obesity, and vertigo. She presents to the office today for follow-up of her cystocele. In discussion with the patient today she reports to be doing and feeling well. When asked she denies any bothersome urinary issues or concerns since her last office visit here approximately 1 year ago. She has previously followed up with Dr. Maricarmen Marquez and recommendations were made for pessary and or surgical intervention of patient's cystocele however she does not feel she has any bothersome urinary issues or concerns in does not wish to undergo either of these treatment options. In office urinalysis results reviewed with the patient today. PVR 22 mL. She denies urinary urgency, urinary frequency, incontinence, nocturia, hematuria, dysuria, foul smelling urine, changes to urinary stream, flank pain, fever, and or chills. She is happy with her current voiding parameters. She otherwise denies any issues or concerns at this time. [facility] Medical History Myocardial infarction Seasonal allergies Asthma GERD (gastroesophageal reflux disease) HTN (hypertension) Arthritis of left acromioclavicular joint Cystocele with prolapse Fibromyalgia Generalized osteoarthritis Chronic pain syndrome Spondylosis of cervical spine Obesity Post-menopausal Screening for breast cancer Screening for diabetes mellitus Obesity Hyperlipidemia Vertigo Lumbar spondylosis Anal pruritus Surgical History History of esophagogastroduodenoscopy (EGD) Hx of shoulder replacement Hx of hand surgery History of bilateral knee replacement History of colonoscopy History of varicose veins History of hysterectomy Family History Father Angina at rest Mother Hypothyroidism Hypertension Osteoarthritis Heart disease Panic disorder Glaucoma Brother Stroke Sister Alcoholic liver disease HIV (human immunodeficiency virus infection) Social History Household Members: None Housing: Condominium Are you a primary resident care assistant to a significant other at home: No Do you presently have visiting nurse or other home services: 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) Alcohol intake: never Comment: pt medicated with po tylenol Patient Tobacco Use Status: Former Tobacco user Tobacco use type: Cigarette e-Cigarette/Vaping Use: Never Used Second Hand Smoke Exposure: No service: No Current occupational status: retired Current occupation: Right Handed Cognitive needs: Yes (walk/cane) Hearing needs: No Vision needs: Yes (Glasses) Female Reproductive History Menstrual Age of Menarche: 9 Review of Systems Const Reports as per HPI Eyes Reports no additional complaints ENT Reports no additional complaints Card Reports as per HPI Resp Reports no additional complaints GI Reports as per HPI Reports as per HPI Musc Reports no additional complaints Neuro Reports no additional complaints Psych Reports no additional complaints Endo Reports no additional complaints Young/Lymph Reports no additional complaints Aller/Immun Reports no additional complaints Physical Exam Const General: cooperative, healthy appearing, comfortable, no acute distress, well de veloped, alert and awake Orientation/consciousness: patient oriented x3 Limitations: no limitations HEENT Head: Yes normal to inspection, Yes normocephalic and Yes atraumatic Ears: hearing grossly normal bilaterally Eyes General: appearance normal, both eyes and all related structures Neck Neck: Yes normal visual inspection and Yes trachea midline Chest Chest palpation & inspection: normal inspection of the chest Resp Effort & Inspection: normal respiratory effort and able to speak in complete sentences Cardio Rate: regular rate GI Inspection: Yes normal to inspection General: Yes no CVA tenderness Back/Spine/Pelvis Back: no CVA tenderness Skin General skin exam: no rashes or lesions noted Neuro General: patient oriented x3 Extrem General: Yes normal to inspection Psych Appearance: grossly normal and well kempt Mental Status: mental status grossly normal Speech and movement: Normal speech and movement present and Clear speech present Affect: normal affect Attitude: cooperative Thought process: Normal thought process present Thought content: Normal thought content present Insight: Fair insight present (Psych) Judgement: Fair judgement present (Psych) Office Procedures Post Void Residual Post Residual Void Post Void Residual (PVR): 22 [id number] Void Residual by ultrasound Results AMB Urinalysis, Automated UA Leukoctes 15 Hua/uL Last Edit by Dana Gr on 09/12/24 10:08 UA Nitrite Last Edit by Dana Gr on 09/12/24 10:08 UA Urobilinogen 0.2 mg/dL Last Edit by Dana Gr on 09/12/24 10:08 UA Protein 0 mg/dL Last Edit by Dana Gr on 09/12/24 10:08 UA pH 6.0 Last Edit by Dana Mckeonmaura on 09/12/24 10:08 UA Blood 0 Seth/uL Last Edit by Dana Gr on 09/12/24 10:08 UA Specific [place] 1.030 Last Edit by Dana Gr on 09/12/24 10:08 UA Ketone Last Edit by Dana Gr on 09/12/24 10:08 UA Bilirubin 0 mg/dL Last Edit by Dana Gr on 09/12/24 10:08 UA Glucose 0 mg/dL Last Edit by Dana Gr on 09/12/24 10:08 Results Reviewed Results Reviewed: Laboratory Last Values Urine pH (Auto) 6.0 09/12/24 09:53 Specific [place] (Auto) 1.030 09/12/24 09:53 Urine Protein (Auto) 0 mg/dL 09/12/24 09:53 Glucose (UA)(Auto) 0 mg/dL 09/12/24 09:53 Urine Blood (Auto) 0 Seth/uL 09/12/24 09:53 Urine Bilirubin (Auto) 0 mg/dL 09/12/24 09:53 Urine Urobilinogen (Auto) 0.2 mg/dL 09/12/24 09:53 Leukocyte Esterase (Auto) 15 Hua/uL 09/12/24 09:53 Assessment & Plan Assessment & Plan (1) Cystocele: Comment: [id number] central was paravaginal defect Category: Medical Plan In office urinalysis results reviewed with the patient today; as noted above. PVR 22 mL. She currently denies any bothersome urinary issues. She reports be happy with current voiding parameters. Discussed further interventions of cystocele Follow-up in 1 year with PVR; or sooner with any issues, concerns, and or questions. Orders: Orders AMB Post Void Residual by ultrasound Today N81.4 - Uterovaginal prolapse, unspecified AMB Urinalysis Automated Today Z13.9 - Encounter for screening, unspecified Patient Instructions: The patient had an opportunity to ask questions regarding the treatment plan. All questions were answered. Physical exam, labs, and imaging were discussed and reviewed in detail. As well as risks, benefits, and discussion of treatment choices. No major barriers to understanding were identified. The patient expressed understanding and agreement with the above treatment plan. The patient was made aware they should contact our office by phone for worsening of their current condition, the appearance of new symptoms, or with any questions or concerns. Compliance is encouraged with any medications and follow up testing that is ordered. It is a privilege to be allowed the opportunity to participate in? your urological care.? Again, if you have any questions or concerns If you have any questions or concerns please do not hesitate to contact me. The office is [phone]. This note is constructed using voice recognition software. While every effort has been made to ensure accuracy cylinder die machine operator errors may have been included. Yours sincerely, MICHAEL Rojas Coding Level of Care Code Est Pt Level 3 (71589) Diagnoses Cystocele CPT Codes Post Residual Void - PVR CPT Code: 69854-Vmjo Void Residual by ultrasound ([id number])
== END 2024-09-12 10:11 | disposition home or self-care (01) ==
PROVIDERS: PCP Internal Medicine; Visit Provider Nurse Practitioner Family
DX: N81.10 Cystocele, unspecified (principal); Z13.9 Encounter for screening, unspecified
CPT/HCPCS: 99213

== ENCOUNTER → 2024-09-12 09:45 | Outpatient (BNVA) | payer OTHER, SELFPAY | PROVIDERS: PCP Internal Medicine; Visit Provider Nurse Practitioner Family | DX: N81.10 Cystocele, unspecified (principal) | CPT/HCPCS: 51798; 81003; 99212 ==

== ENCOUNTER 2024-11-15 10:51 | Outpatient (AMB) | payer OTHER, SELFPAY ==
[2024-11-15 10:58] VITALS: BP 102/58; PULSE 70; TEMP 36.1; O2SAT 97; BMI 29.3
--- NOTE | 2024-11-15 10:58 | A.OFFPC_ITS ---
Vital Signs 11/15/24 10:58 Height 5 ft 3 in Weight 165 lb 8 oz BMI 29.3 BP 102/58 L Blood Pressure Location Lt brachial Position Sitting Pulse 70 Pulse Source Pulse Oximeter Temp 96.9 F Temp Source Temporal Artery Scan Pulse Oximetry (%) 97 Oxygen Delivery Method Room Air Intake Visit Reasons: 3mth f/u Dielectric Tester Required: No Accompanied by: Self / Same As Patient Allergies amoxicillin Allergy (Severe, Verified 11/15/24 11:03) Anaphylaxis codeine [Codeine] Allergy (Severe, Verified 11/15/24 11:03) Anaphylaxis gabapentin [From Neurontin] Allergy (Severe, Verified 11/15/24 11:03) Anaphylaxis Penicillins Allergy (Severe, Verified 11/15/24 11:03) Anaphylaxis Sulfa (Sulfonamide Antibiotics) [SULFA (SULFONAMIDE ANTIBIOTICS)] Allergy (Severe, Verified 11/15/24 11:03) Anaphylaxis pregabalin [From LYRICA] Allergy (Intermediate, Verified 11/15/24 11:03) SWELLING Medication List - Last Reconciled 11/15/24 by Raman Shields MD acetaminophen 650 mg (2 x 325 mg) PO Q6H PRN 30 days albuterol sulfate 90 mcg/actuation 2 puffs inhalation QID PRN blood pressure monitor As directed cyclobenzaprine 10 mg PO TID PRN docusate sodium (Colace) 200 mg (2 x 100 mg) PO BEDTIME esomeprazole magnesium (Nexium) 20 mg PO DAILY 90 days fluticasone propionate 50 mcg/actuation 50 mcg intranasal DAILY MDD allergies hydroxyzine HCl 25 mg PO TID PRN loratadine 10 mg PO DAILY meclizine 25 mg PO QID PRN methylcellulose (laxative) (Citrucel) 500 mg PO TID 30 days multivitamin 1 tab PO DAILY propranolol ER 120 mg PO DAILY rosuvastatin 40 mg PO DAILY sennosides (senna) 17.2 mg PO BEDTIME PRN tizanidine 4 mg PO Q8H PRN 30 days Tobacco use date assessed: 11/15/24 Fall risk assessment: No Falls in past year Last assessed Fall Risk: 11/15/24 Dental Screening Dental Screen Date: 11/15/24 Did you have a dental visit in the last 12 months?: Yes Did you have a dental problem in the last 6 months where you did not have access to dental care?: No Was dental information given to patient?: Patient has dentist HPI 3mth f/u HPI Details Hypertension hyperlipidemia and asthma; stable on rx; compliant [facility] Medical History Myocardial infarction Seasonal allergies Asthma GERD (gastroesophageal reflux disease) HTN (hypertension) Arthritis of left acromioclavicular joint Cystocele with prolapse Fibromyalgia Generalized osteoarthritis Chronic pain syndrome Spondylosis of cervical spine Obesity Post-menopausal Screening for breast cancer Screening for diabetes mellitus Obesity Hyperlipidemia Vertigo Lumbar spondylosis Anal pruritus Surgical History History of esophagogastroduodenoscopy (EGD) Hx of shoulder replacement Hx of hand surgery History of bilateral knee replacement History of colonoscopy History of varicose veins History of hysterectomy Family History Father Angina at rest Mother Hypothyroidism Hypertension Osteoarthritis Heart disease Panic disorder Glaucoma Brother Stroke Sister Alcoholic liver disease HIV (human immunodeficiency virus infection) Social History Household Members: None Housing: Condominium Are you a primary wound care nurse to a significant other at home: No Do you presently have visiting nurse or other home services: Yes ([employer] 41 per week) Alcohol intake: never Comment: pt medicated with po tylenol Patient Tobacco Use Status: Former Tobacco user Tobacco use type: Cigarette e-Cigarette/Vaping Use: Never Used Second Hand Smoke Exposure: No service: No Current occupational status: retired Current occupation: Right Handed Cognitive needs: Yes (walk/cane) Hearing needs: No Vision needs: Yes (Glasses) Female Reproductive History Menstrual Age of Menarche: 9 Questionnaire PHQ-9 Over the last 2 weeks, how often have you been bothered by any of the following problems? 1. Little interest or pleasure in doing things: not at all 2. Feeling down, depressed, or hopeless: not at all 3. Trouble falling or staying asleep, or sleeping too much: not at all 4. Feeling tired or having little energy: not at all 5. Poor appetite or overeating: not at all 6. Feeling bad about yourself - or that you are a failure or have let yourself or your family down: not at all 7. Trouble concentrating on things, such as reading the newspaper or watching television: not at all 8. Moving or speaking so slowly that other people could have noticed. Or the opposite - being so fidgety or restless that you have been moving around a lot more than usual: not at all 9. Thoughts that you would be better off or of hurting yourself in some way: not at all Total score: 0 Depression Screening Interpretation: Negative Depression Screening Done: Yes 76268 - PHQ-9 Billing: Yes Source: Developed by Drs. Jose Antonio Ugarte, Romy Tse, Tomi Finley and colleagues, with an educational tommy from [employer]. Thrive Questionnaire Date Thrive assessed: 11/15/24 I am a: Patient What is your living situation today?: I have a steady place to live Within the past 12 months, did the food you bought not last and you didn't have the money to get more?: Never true Within the past 12 months, did you worry whether your food would run out before you got money to buy more?: Never true Do you have trouble paying for medicines?: No Do you have trouble getting transportation to medical appointments?: No Do you have trouble paying your heating and electricity bill?: No Do you have trouble taking care of your child, family member or friend?: No Do you have trouble with day-to-day activities such as bathing, preparing meals, shopping, managing finances, etc.?: No Are you currently unemployed and looking for a job?: No Are you interested in more education?: No Please select the resources that you would like help with: None Currently or been in a relationship where the following occur: No concerns reported THRIVE Score: 0 AUDIT C Alcohol Use Questionnaire (AUDIT-C) 1. How often do you have a drink containing alcohol?: Never 3. How often do you have six or more drinks on one occasion?: Never Total Score: 0 Score Reviewed/Action Taken: No RYAN-7 AMB Questionnaire RYAN-7 Date RYAN - 7 assessed: 11/15/24 Feeling nervous, anxious, or on edge: 0 = Not at all Not being able to stop or control worryin = Not at all Worrying too much about different things: 0 = Not at all Trouble relaxin = Not at all Being so restless that it is hard to sit still: 0 = Not at all Becoming easily annoyed or irritable: 0 = Not at all Feeling afraid as if something awful might happen: 0 = Not at all Total RYAN-7 score (0-4 normal; 5-9 mild; 10-14 moderate; 15-21 severe): 0 Source: Developed by Drs. Jose Antonio Ugarte, Romy Tse, Tomi Finley and colleagues, with an educational tommy from [employer]. RYAN-7 Assessment Billing RYAN-7 Assessment Tool: RYAN-7 Assessment 16938 Review of Systems Const Denies chills, Denies headache(s) and Denies weight loss ENT Denies headache(s) Card Denies chest pain, Denies syncope, Denies irregular heart rhythm and Denies dyspnea Resp Denies chest congestion, Denies cough and Denies dyspnea GI Denies abdominal pain, Denies change in stool character, Denies nausea and Denies vomiting Musc Denies deformity and Denies joint swelling Neuro Denies syncope and Denies headache(s) Physical exam (Primary Care) Vital Signs: Last Vital Signs Temp 96.9 F 11/15/24 10:58 Pulse 70 11/15/24 10:58 BP 102/58 L 11/15/24 10:58 Pulse Ox 97 11/15/24 10:58 Oxygen Delivery Method Room Air 11/15/24 10:58 BMI result Body Mass Index 29.3 Tobacco/Smoking Status: Tobacco use Status Tobacco use date assessed 11/15/24 11/15/24 11:03 Patient Tobacco Use Status Former Tobacco user 11/15/24 11:03 Tobacco use type Cigarette 11/15/24 11:03 e-Cigarette/Vaping Use Never Used 11/15/24 11:03 PHQ-9: PHQ-9 Score PHQ-9: Total score 0 11/15/24 11:03 Depression Screening Interpretation: Negative Thrive Assessment: Date of Thrive Assessment Date Thrive assessed 11/15/24 11/15/24 11:03 Currently or been in a relationship where the following occur: No concerns reported Const General: cooperative, comfortable, no acute distress and alert Neck Neck: Yes no lymphadenopathy Thyroid: Thyroid normal Resp Effort & Inspection: normal respiratory effort Auscultation: clear to auscultation bilaterally Percussion: percussion normal Cardio Jugular venous distension: no JVD Palpation: normal PMI Rate: regular rate Rhythm: regular rhythm Heart sounds: S1 normal heart sound present and S2 normal heart sound present GI Inspection: Yes normal to inspection Palpation (GI): No hepatosplenomegaly present Skin General skin exam: no rashes or lesions noted Extrem General: Yes no clubbing, cyanosis or edema Coding Level of Care Code Est Pt Level 3 (04621) Diagnoses Hyperlipidemia E78.5 Additional Codes RYAN-7 Assessment Billing - RYAN-7 Assessment Tool: RYAN-7 Assessment [id number] ([id number]) PHQ-9 - 53944 - PHQ-9 Billing: Yes ([id number]) Assessment & Plan Assessment & Plan (1) Hyperlipidemia: Code(s): E78.5 - Hyperlipidemia, unspecified Category: Medical Plan: stable; same rx Orders: Orders Lipid Panel Today Z13.220 - Encounter for screening for lipoid disorders Comprehensive [place]. Panel Fast Today Z13.9 - Encounter for screening, unspecified Thyroid Stimulating Hormone Today Z13.29 - Encounter for screening for other garrison spected endocrine disorder Complete Blood Count Auto Diff Today Z13.0 - Encounter for screening for diseases of the blood and blood-forming organs and certain disorders involving the immune mechanism
== END 2024-11-15 11:07 | disposition home or self-care (01) ==
PROVIDERS: PCP Internal Medicine; Visit Provider Internal Medicine
DX: E78.5 Hyperlipidemia, unspecified (principal)

== ENCOUNTER → 2024-11-15 10:51 | Outpatient (BNVA) | payer OTHER, SELFPAY | PROVIDERS: PCP Internal Medicine; Visit Provider Internal Medicine | DX: E78.5 Hyperlipidemia, unspecified (principal) | CPT/HCPCS: 96127; 99212 ==

== ENCOUNTER 2024-12-08 14:43 | Outpatient (AMB) | payer OTHER, SELFPAY ==
--- NOTE | 2024-12-08 14:48 | A.OFFPC_ITS ---
Vital Signs 12/08/24 14:49 Height 5 ft 3 in Weight 165 lb BMI 29.2 BP 108/62 Blood Pressure Location Lt brachial Position Sitting Pulse 75 Pulse Source Pulse Oximeter Temp 98.2 F Temp Source Oral Pulse Oximetry (%) 100 Oxygen Delivery Method Room Air Intake Visit Reasons: sick cough raspy Intake Note: Pt is here for wheezing, chest pain due to ongoing cough for the past 7 days. Director Of Neighborhood Service Center Required: No Director Of Neighborhood Service Center Name: Cely Boggs PA-C Information Interpreted: non-clinical & clinical Accompanied by: Self / Same As Patient Allergies amoxicillin Allergy (Severe, Verified 12/08/24 15:54) Anaphylaxis codeine [Codeine] Allergy (Severe, Verified 12/08/24 15:54) Anaphylaxis gabapentin [From Neurontin] Allergy (Severe, Verified 12/08/24 15:54) Anaphylaxis Penicillins Allergy (Severe, Verified 12/08/24 15:54) Anaphylaxis Sulfa (Sulfonamide Antibiotics) [SULFA (SULFONAMIDE ANTIBIOTICS)] Allergy (Severe, Verified 12/08/24 15:54) Anaphylaxis pregabalin [From LYRICA] Allergy (Intermediate, Verified 12/08/24 15:54) SWELLING Medication List - Last Reconciled 12/08/24 by Cely Boggs PA-C acetaminophen 650 mg (2 x 325 mg) PO Q6H PRN 30 days albuterol sulfate 90 mcg/actuation 2 puffs inhalation QID PRN albuterol sulfate 90 mcg/actuation 1 inh inhalation QID PRN blood pressure monitor As directed cyclobenzaprine 10 mg PO TID PRN dextromethorphan-guaifenesin 5-50 mg/5 mL (Robitussin Cough-Chest Congestion DM) 20 mL PO Q6H docusate sodium (Colace) 200 mg (2 x 100 mg) PO BEDTIME esomeprazole magnesium (Nexium) 20 mg PO DAILY 90 days fluticasone propionate 50 mcg/actuation 50 mcg intranasal DAILY MDD allergies hydroxyzine HCl 25 mg PO TID PRN ipratropium-albuterol 0.5 mg-3 mg(2.5 mg base)/3 mL 3 mL inhalation Q20M PRN levofloxacin 750 mg PO DAILY 7 days loratadine 10 mg PO DAILY meclizine 25 mg PO QID PRN methylcellulose (laxative) (Citrucel) 500 mg PO TID 30 days multivitamin 1 tab PO DAILY nebulizers (Altera Nebulizer System) As directed. Please provide accessories for nebulizer machine prednisone 40 mg (2 x 20 mg) PO DAILY 5 days propranolol ER 120 mg PO DAILY rosuvastatin 40 mg PO DAILY sennosides (senna) 17.2 mg PO BEDTIME PRN tizanidine 4 mg PO Q8H PRN 30 days Tobacco use date assessed: 11/15/24 Dental Screening Dental Screen Date: 11/15/24 [facility] Medical History Upper respiratory symptom Myocardial infarction Seasonal allergies Asthma GERD (gastroesophageal reflux disease) HTN (hypertension) Arthritis of left acromioclavicular joint Cystocele with prolapse Fibromyalgia Generalized osteoarthritis Chronic pain syndrome Spondylosis of cervical spine Obesity Post-menopausal Screening for breast cancer Screening for diabetes mellitus Obesity Hyperlipidemia Vertigo Lumbar spondylosis Anal pruritus Surgical History History of esophagogastroduodenoscopy (EGD) Hx of shoulder replacement Hx of hand surgery History of bilateral knee replacement History of colonoscopy History of varicose veins History of hysterectomy Family History Father Angina at rest Mother Hypothyroidism Hypertension Osteoarthritis Heart disease Panic disorder Glaucoma Brother Stroke Sister Alcoholic liver disease HIV (human immunodeficiency virus infection) Social History Household Members: None Housing: Condominium Are you a primary critical care educator to a significant other at home: No Do you presently have visiting nurse or other home services: Yes ([employer]DEP[employer]ENT LIVING ADVISOR 41 per week) Alcohol intake: never Comment: pt medicated with po tylenol Patient Tobacco Use Status: Former Tobacco user Tobacco use type: Cigarette e-Cigarette/Vaping Use: Never Used Second Hand Smoke Exposure: No service: No Current occupational status: retired Current occupation: Right Handed Cognitive needs: Yes (walk/cane) Hearing needs: No Vision needs: Yes (Glasses) Female Reproductive History Menstrual Age of Menarche: 9 Questionnaire Thrive Questionnaire Date Thrive assessed: 11/15/24 RYAN-7 AMB Questionnaire RYAN-7 Date RYAN - 7 assessed: 11/15/24 Source: Developed by Drs. Jose Antonio Ugarte, Romy Tse, oTmi Finley and colleagues, with an educational tommy from [employer]. Physical exam (Primary Care) Vital Signs: Last Vital Signs Temp 98.2 F 12/08/24 14:49 Pulse 75 12/08/24 14:49 BP 108/62 12/08/24 14:49 Pulse Ox 100 12/08/24 14:49 Oxygen Delivery Method Room Air 12/08/24 14:49 Care Plan Goal for BP management: 130/80 at goal BMI result Body Mass Index 29.2 BMI Assessment/Plan discussion: High BMI High, discussed plan: lifestyle, weight reduction, dietary, physical activity and alcohol moderation Tobacco/Smoking Status: Tobacco use Status Tobacco use date assessed 11/15/24 12/08/24 14:53 Patient Tobacco Use Status Former Tobacco user 12/08/24 14:53 Tobacco use type Cigarette 12/08/24 14:53 e-Cigarette/Vaping Use Never Used 12/08/24 14:53 Thrive Assessment: Date of Thrive Assessment Date Thrive assessed 11/15/24 12/08/24 14:53 Coding Level of Care Code Est Pt Level 4 (70381) Complex EM visit Add On G2211 Diagnoses Upper respiratory symptom R09.89 Asthma J45.909 Chronic GERD K21.9 Hypertension I10 Fibromyalgia M79.7 Hyperlipidemia E78.5 Assessment & Plan Assessment & Plan (1) Upper respiratory symptom: Code(s): R09.89 - Other specified symptoms and signs involving the circulatory and respiratory systems Category: Medical Plan: Patient given updraft while she was here in the clinic and symptoms improved significantly. Patient will be sent home with Levaquin 750 mg once daily for t he next 7 days. Prednisone 40 mg for the next 5 days. Cough medicine. Albuterol inhaler. DuoNeb with a nebulizer for at-home treatments. With instructions to go to the main hospital for COVID/RSV/flu swab and a chest x- ray. Patient will follow-up in 2 weeks. Will continue to monitor. (2) Asthma: Code(s): J45.909 - Unspecified asthma, uncomplicated Category: Medical Plan: Albuterol inhaler prescribed. Nebulizer with DuoNeb prescribed. Condition is chronic and stable continue to monitor. (3) Chronic GERD: Code(s): K21.9 - Gastro-esophageal reflux disease without esophagitis Category: Medical Plan: Condition is chronic and stable while patient is on 20 mg of Nexium. Will continue to monitor. (4) Hypertension: Code(s): I10 - Essential (primary) hypertension Category: Medical Plan: Continue propranolol 120 mg p.o. daily and rosuvastatin 40 mg daily. Condition is chronic and stable continue to monitor. (5) Fibromyalgia: Code(s): M79.7 - Fibromyalgia Category: Medical Plan: Continue Tizanidine 4 mg as needed. Condition is chronic and stable continue to monitor. (6) Hyperlipidemia: Code(s): E78.5 - Hyperlipidemia, unspecified Category: Medical Plan: Continue lovastatin 40 mg daily. Condition is chronic and stable continue to monitor. Plan Plan - patient received a updraft while she was here in the clinic. Reassessment patient now has decreased wheezing with increased air movement. She is no longer in respiratory distress. There are no accessory muscles noted at this time. No abdominal retractions are noted. Oxygen saturation is 100% on room air. - A outpatient chest x-ray will be conducted to assess respiratory function and possible lung infection. - Swabbing for COVID-19 and influenza to ensure accurate diagnosis. - Prescribed antibiotics and steroids to manage respiratory symptoms. - A discussion will determine whether hospital admission is necessary. - Follow-up appointment scheduled in two weeks for reassessment and continuation of care. Orders: Orders AMB Hemoglobin A1c Today Z13.1 - Encounter for screening for diabetes mellitus SARS-CoV2/FLU/RSV Today R09.89 - Other specified symptoms and signs involving the circulatory and respiratory systems XR chest 2V Today R09.89 - Other specified symptoms and signs involving the circulatory and respiratory systems Medications: New prednisone 40 mg (2 x 20 mg) PO DAILY 10 tabs 0RF 5 days levofloxacin 750 mg PO DAILY 7 tabs 0RF 7 days dextromethorphan-guaifenesin 5-50 mg/5 mL (Robitussin Cough-Chest Congestion DM) 20 mL PO Q6H 118 mL 0RF cough albuterol sulfate 90 mcg/actuation 1 inh inhalation QID PRN 8.5 grams 0RF shortness of breath or wheezing nebulizers (Altera Nebulizer System) As directed. Please provide accessories for nebulizer machine 1 ea 0RF Wheezing ipratropium-albuterol 0.5 mg-3 mg(2.5 mg base)/3 mL for 3 doses 3 mL inhalation Q20M PRN 90 mL 3RF shortness of breath or wheezing Patient Instructions: Patient Instructions - Proceed to have the chest x-ray and swabs for COVID-19 and influenza done as instructed. - Follow prescription guidelines for antibiotics and steroids; complete the full course. - Be vigilant about symptom progression and seek medical attention if symptoms worsen. - Attend the follow-up appointment in two weeks to review test results and treatment efficacy. - Maintain hydration and rest to support recovery. Scribe Plan - Not visible on output: History of Present Illness The patient is a 74-year-old female with a past medical history of asthma, hypertension, fibromyalgia, obesity, history of myocardial infarction, allergic rhinitis who presenting with difficulty breathing and a persistent cough. The symptoms commenced last , with the cough being particularly severe. The patient reports experiencing fever since the onset of symptoms, along with alternating cold chills and sweating, which exacerbate when she is at work. The sputum was initially brown in color. The patient denies any episodes of nausea or diarrhea. She has a grandchild who is very caring and involved in her health concerns. No hospital visits have occurred due to these symptoms prior to this visit. Social History - The patient has a granddaughter who is actively involved in her care and responsibilities. Review of Systems - Respiratory: Reports significant coughing and shortness of breath. - General: Reports fever, chills, and sweating. Physical Exam Appearance: Alert. Oriented X3. No acute distress. Head: Normal external exam. Normocephalic. Atraumatic. Eyes: Pupils are equal, round, and reactive to light. Extraocular movements intact. Conjunctiva and sclera normal. Eyelids normal. Ears: External auditory canal normal. Tympanic membranes normal. Throat: Pharynx normal. Uvula midline. Moist mucous membranes. Neck: Normal inspection. Neck supple. Full range of motion. No adenopathy. Thyroid Normal. No meningeal signs. No neck mass noted. Cardiovascular: Normal heart rate and rhythm. Heart sound normal. No murmurs noted. Pulses normal throughout. Respiratory: Respiratory distress noted. Patient noted to report pain upon i nspiration expiration. Patient noted to have wheezing upon inspiration expiration. With accessory muscle usage noted. Along with decreased air movement. There is no tracheal tugging or abdominal retractions noted. No rales/rhonchi is noted. Chest is nontender. Abdomen: Soft and nontender. Bowel sounds normal in all 4 quadrants. No distention noted. No organomegaly noted. No visible injury noted. Back: No costovertebral angle tenderness. Full range of motion noted. Skin: Skin warm and dry. Normal skin color. Normal skin turgor. No rashes/lesions/lacerations noted. Extremities: No lower extremity edema. Extremities exhibit normal range of motion. Extremities nontender. Neuro: Oriented X 3. No motor deficit. No sensory deficit. Reflexes normal. Results - Tests and diagnostics: Pending chest x-ray and swabs for COVID-19 and influenza. Plan - patient received a updraft while she was here in the clinic. Reassessment patient now has decreased wheezing with increased air movement. She is no longer in respiratory distress. There are no accessory muscles noted at this time. No abdominal retractions are noted. Oxygen saturation is 100% on room air. - A outpatient chest x-ray will be conducted to assess respiratory function and possible lung infection. - Swabbing for COVID-19 and influenza to ensure accurate diagnosis. - Prescribed antibiotics and steroids to manage respiratory symptoms. - A discussion will determine whether hospital admission is necessary. - Follow-up appointment scheduled in two weeks for reassessment and continuation of care. Patient was informed and verbally consented to the use of an ambient scribe for clinic note documentation during this visit. Discussion Notes I discussed with the patient about her current respiratory condition, emphasiz ing the need for a chest x-ray and swabs to ascertain the precise diagnosis of potential COVID-19 or influenza infection. I outlined the management strategy including the prescription of antibiotics and steroids, detailing the risks and benefits associated with these treatments. I also ensured the patient understood the option and necessity for potential hospital admission based on the results of the diagnostic tests. We discussed scheduling a follow-up visit in two weeks to monitor her progress. She was informed to seek immediate medical attention if there is any significant deterioration of her symptoms. Patient Instructions - Proceed to have the chest x-ray and swabs for COVID-19 and influenza done as instructed. - Follow prescription guidelines for antibiotics and steroids; complete the full course. - Be vigilant about symptom progression and seek medical attention if symptoms worsen. - Attend the follow-up appointment in two weeks to review test results and treatment efficacy. - Maintain hydration and rest to support recovery.
[2024-12-08 14:49] VITALS: BP 108/62; PULSE 75; TEMP 36.8; O2SAT 100; BMI 29.2
== END 2024-12-08 15:22 | disposition home or self-care (01) ==
PROVIDERS: PCP Internal Medicine; Visit Provider Physician Assistant Medical
DX: R09.89 Other specified symptoms and signs involving the circulatory and respiratory systems (principal); J45.909 Unspecified asthma, uncomplicated; K21.9 Gastro-esophageal reflux disease without esophagitis; I10 Essential (primary) hypertension; M79.7 Fibromyalgia; E78.5 Hyperlipidemia, unspecified

== ENCOUNTER 2024-12-08 14:43 | Outpatient (REF) | payer OTHER, SELFPAY ==
--- NOTE | ~2024-12-08 | XR_ITS ---
CLINICAL HISTORY: R09.89 - Other specified symptoms and signs involving the circulatory an... Chest Radiographs, 2 views Comparison: CR/SR - XR CHEST 1V - 08/08/23 12:[address]/[place]/SR - CT ANGIO CHEST PE PROTOCOL - 10/07/22 09:06 EST Findings: No cardiomegaly. Normal mediastinal contours. No pneumothorax. No opacity. No pleural effusion. Normal upper abdomen. No acute fracture. Impression: No acute findings. This document has been electronically signed by: Ana العلي MD on 12/08/2024 16:51:45
[2024-12-08 16:17] LABS: MANUAL DIFF FLAG NO
[2024-12-08 16:22] LABS: Basophils Percent Auto 0.3 % (0-2); Eosinophils Percent Auto 0.3 % (0-4); Hematocrit 41.3 % (37.0-47.0); Hemoglobin 14.2 g/dl (12.0-16.0); Imm Gran Abs Auto 0.02 X10*3/uL (0.00-0.03); Imm Gran Pct Auto 0.3 % (0.0-0.4); Lymphocytes Percent Auto 50.1 % (20-40); Mean Corpuscular HGB Conc 34.4 g/dl (31.0-35.0); Mean Corpuscular Hemoglobin 29.2 pg (27.0-33.0); Mean Corpuscular Volume 84.8 fL (80.0-98.0); Mean Platelet Volume 10.4 fL (9.4-12.3); Monocytes Absolute Auto 0.7 X10*3/uL (0.1-1.2); Monocytes Percent Auto 11.8 % (2-11); Neutrophils Absolute Auto 2.2 x10*3/uL (2.0-8.3); Neutrophils Percent Auto 37.2 % (45-73); Platelet Count 218 X10*3/uL (160-400); Red Blood Count 4.87 X10*6/uL (4.20-5.50); Red Cell Distribution Width 12.4 % (11.0-16.0); White Blood Count 5.9 X10*3/uL (4.8-10.8)
[2024-12-08 17:13] LABS: Alanine Aminotransferase 29 U/L (0-31); Alkaline Phosphatase 86 U/L (39-117); Anion Gap 14 (12-20); Aspartate Amino Transferase 46 U/L (5-31); Bilirubin Total 0.6 mg/dL (0.0-1.0); Blood Urea Nitrogen 16 mg/dL (9-16); Calcium 9.7 mg/dL (8.4-10.2); Carbon Dioxide 26 mmol/L (22-29); Chloride 105 mmol/L (96-108); Cholesterol 120 mg/dL (<200); Estimated Glomerular Filt Rate > 60; Glucose Fasting 105 mg/dL (60-99); HDL Cholesterol 46 mg/dL (>40); LDL Cholesterol Calculated 59 mg/dL (<100); Potassium 4.4 mmol/L (3.3-5.1); Sodium 141 mmol/L (135-145); Total Protein 7.9 g/dL (6.5-8.0); Triglycerides 78 mg/dL (<150)
[2024-12-08 17:30] LABS: Thyroid Stimulating Hormone 0.41 uIU/mL (0.32-4.0)
[2024-12-08 17:38] LABS: Influenza A PCR POSITIVE (Negative); Influenza B PCR NEGATIVE (Negative); Resp Syncy Virus RNA Qual PCR NEGATIVE (Negative); SARS COV2 PCR INHOUSE NEGATIVE (Negative)
== END 2024-12-08 14:44 | disposition home or self-care (01) ==
LOC: HO.XRAY 14:43
PROVIDERS: PCP Internal Medicine; Visit Provider Physician Assistant Medical
DX: R09.89 Other specified symptoms and signs involving the circulatory and respiratory systems (principal); J45.909 Unspecified asthma, uncomplicated; K21.9 Gastro-esophageal reflux disease without esophagitis; I10 Essential (primary) hypertension; M79.7 Fibromyalgia; E78.5 Hyperlipidemia, unspecified; Z79.899 Other long term (current) drug therapy; Z13.0 Encounter for screening for diseases of the blood and blood-forming organs and certain disorders involving the immune mechanism; Z13.220 Encounter for screening for lipoid disorders; Z13.29 Encounter for screening for other suspected endocrine disorder; Z13.1 Encounter for screening for diabetes mellitus
CPT/HCPCS: 0241U; 36415; 71046; 80053; 80061; 84443; 85025; 99212

== ENCOUNTER → 2024-12-08 16:17 | Outpatient (BNV) | payer OTHER, SELFPAY | PROVIDERS: PCP Internal Medicine; Visit Provider Radiology Diagnostic Radiology | DX: R05.9 Cough, unspecified (principal) | CPT/HCPCS: 71046 ==

== ENCOUNTER 2024-12-11 16:59 | Emergency (ER) | payer OTHER, SELFPAY ==
--- NOTE | ~2024-12-11 | XR_ITS ---
CLINICAL HISTORY: worsenig sob, r o pna 1 view chest x-ray Comparison: Chest x-ray from 12/08/2024 Findings: No consolidation or effusion. No pneumothorax. Mild emphysematous changes. Imaged mediastinum appears unchanged. Left shoulder hardware redemonstrated. IMPRESSION: No consolidation. This document has been electronically signed by: Drake Frey MD on 12/11/2024 21:33:46
--- NOTE | 2024-12-11 17:04 | ED_ITS ---
HPI - General Adult General Chief complaint: Dizziness Stated complaint: SOB + flu since nt any better Time Seen by Provider: 12/11/24 21:04 Source: patient Mode of arrival: ambulatory Limitations: no limitations History of Present Illness ED Provider: Dr. Judith Stewart HPI narrative: Patient comes to the emergency room complaining of 10 days of dry cough. Patient states that she was recently diagnosed with pneumonia after being diagnosed with influenza. Patient complaining of cough. Patient states that sometimes she coughs so violently that she feels like she is choking. Patient denies shortness of breath. Patient also reports few episodes of diarrhea and initially she reported dizziness, described as generalized malaise Related Data Home Medications ?Medication ?Instructions ?Recorded ?Confirmed sennosides 8.6 mg tablet (senna) 17.2 mg PO BEDTIME PRN constipation 07/28/23 12/08/24 meclizine 25 mg tablet 25 mg PO QID PRN Vertigo 11/12/23 12/08/24 multivitamin 1 tab PO DAILY 11/24/23 12/08/24 Previous Rx's ?Medication ?Instructions ?Recorded hydroxyzine HCl 25 mg tablet 25 mg PO TID PRN itching #30 tabs 05/27/22 methylcellulose (laxative) 500 mg 500 mg PO TID 30 days #90 tabs 07/08/23 tablet (Citrucel) blood pressure monitor #1 ea 11/19/23 acetaminophen 325 mg tablet 650 mg (2 x 325 mg) PO Q6H PRN 11/24/23 Pain, Mild (Pain Scale 1-3) 30 days #240 tabs rosuvastatin 40 mg tablet 40 mg PO DAILY #90 tabs 11/26/23 docusate sodium 100 mg capsule 200 mg (2 x 100 mg) PO BEDTIME #60 02/04/24 (Colace) caps loratadine 10 mg tablet 10 mg PO DAILY #90 tabs 05/02/24 esomeprazole magnesium 20 mg 20 mg PO DAILY 90 days #90 caps 05/16/24 capsule,delayed release (Nexium) tizanidine 4 mg tablet 4 mg PO Q8H PRN muscle spasticity 05/24/24 30 days #60 tabs albuterol sulfate 90 mcg/actuation 2 puff inhalation QID PRN 05/27/24 aerosol inhaler Shortness Of Breath Or Wheezing #8.5 grams cyclobenzaprine 10 mg tablet 10 mg PO TID PRN muscle spasm #30 06/13/24 tabs propranolol 120 mg capsule,24 120 mg PO DAILY #90 caps 09/07/24 hr,extended release fluticasone propionate 50 50 mcg intranasal DAILY #16 grams 11/27/24 mcg/actuation nasal spray,suspension albuterol sulfate 90 mcg/actuation 1 inh inhalation QID PRN shortness 12/08/24 aerosol inhaler of breath or wheezing #8.5 grams dextromethorphan 5 mg-guaifenesin 20 ml PO Q6H cough #118 mL 12/08/24 50 mg/5 mL oral liquid (Robitussin Cough-Chest Congestion DM) ipratropium 0.5 mg-albuterol 3 mg 3 ml inhalation Q20M PRN shortness 12/08/24 (2.5 mg base)/3 mL nebulization of breath or wheezing #90 mL soln levofloxacin 750 mg tablet 750 mg PO DAILY 7 days #7 tabs 12/08/24 nebulizers (AeroEclipse II #1 ea 12/08/24 Nebulizer) prednisone 20 mg tablet 40 mg (2 x 20 mg) PO DAILY 5 days 12/08/24 #10 tabs azithromycin 250 mg tablet See Rx Instructions PO .COMPLEX #6 12/09/24 tabs benzonatate 100 mg capsule 100 mg PO TID PRN cough #12 caps 12/11/24 Allergies Allergy/AdvReac Type Severity Reaction Status Date / Time amoxicillin Allergy Severe Anaphylaxis Verified 12/11/24 17:07 codeine [Codeine] Allergy Severe Anaphylaxis Verified 12/11/24 17:07 gabapentin [From Neurontin] Allergy Severe Anaphylaxis Verified 12/11/24 17:07 Penicillins Allergy Severe Anaphylaxis Verified 12/11/24 17:07 Sulfa (Sulfonamide Allergy Severe Anaphylaxis Verified 12/11/24 17:07 Antibiotics) [SULFA (SULFONAMIDE ANTIBIOTICS)] pregabalin [From LYRICA] Allergy Intermediate SWELLING Verified 12/11/24 17:07 Review of Systems 2 Review of Systems: Constitutional : No Weight loss, No Fever, No Chills, No Night Sweats, No Fatigue, No Malaise ENT/Mouth : No Hearing loss, No Ear Pain, No Nasal Congestion, No Sinus Pain, No Hoarseness, No sore throat, No Rhinorrhea, No Swallowing Difficulty Eyes: No Eye Pain, No Swelling, No Redness, No Foreign Body, No Discharge, No Vision Changes Cardiovascular : No Chest Pain, No SOB, No Dyspnea on Exertion, No Orthopnea, No Edema, No Palpitations Respiratory : c/o dry Cough, No Sputum, No Wheezing, No Smoke Exposure, No Dyspnea Gastrointestinal : No Nausea, No Vomiting, No Diarrhea, No Constipation, No abdominal Pain, No Hematochezia, No Melena Genitourinary : no irregular bleeding, No Dysuria, No Urinary Frequency, No Hematuria, No Urinary Incontinence, No Urgency, No Flank Pain, No Urinary Flow Changes, No Hesitancy Musculoskeletal : No joint pain, No Myalgias, No Joint Swelling Skin : No Skin Lesions, No rash Neuro : No Weakness, No Numbness, No Paresthesias, No Loss of Consciousness, No Dizziness, No Headache Psych : No Anxiety/Panic, No Depression, No SI/HI/AH/VH, No Social Issues, Heme/Lymph: No Bruising, No Bleeding,No Lymphadenopathy Endocrine : No Polyuria, No Polydipsia, No Temperature Intolerance PMF Past Medical History Medical History Upper respiratory symptom Myocardial infarction Seasonal allergies Asthma GERD (gastroesophageal reflux disease) HTN (hypertension) Arthritis of left acromioclavicular joint Cystocele with prolapse Fibromyalgia Generalized osteoarthritis Chronic pain syndrome Spondylosis of cervical spine Obesity Post-menopausal Screening for breast cancer Screening for diabetes mellitus Obesity Hyperlipidemia Vertigo Lumbar spondylosis Anal pruritus Surgical History History of esophagogastroduodenoscopy (EGD) Hx of shoulder replacement Hx of hand surgery History of bilateral knee replacement History of colonoscopy History of varicose veins History of hysterectomy Family History Family History Father Angina at rest Mother Hypothyroidism Hypertension Osteoarthritis Heart disease Panic disorder Glaucoma Brother Stroke Sister Alcoholic liver disease HIV (human immunodeficiency virus infection) Social History Social History Household Members: None Housing: Condominium Are you a primary child caregiver to a significant other at home: No Do you presently have visiting nurse or other home services: Yes ([employer] 41 per week) Alcohol intake: never Comment: pt medicated with po tylenol Patient Tobacco Use Status: Former Tobacco user Tobacco use type: Cigarette e-Cigarette/Vaping Use: Never Used Second Hand Smoke Exposure: No Advance Directives: No Advance Directives Information Provided: Yes service: No Current occupational status: retired Current occupation: Right Handed Cognitive needs: Yes (walk/cane) Hearing needs: No Vision needs: Yes (Glasses) Physical Exam ED Vital Signs: Vital Signs - 24 hr 12/11/24 17:05 Temperature 97.8 F Pulse Rate 73 Respiratory Rate 16 Blood Pressure 136/76 Pulse Oximetry 98 Oxygen Delivery Method Room Air BMI result Body Mass Index 27.8 Const Other: Appearance: Alert. Oriented X3. No acute distress. Eyes: Pupils equal, round and reactive to light. ENT: Pharynx normal. Neck: Normal inspection. Neck supple. No lymph nodes noted. No crepitus CVS: Normal heart rate and rhythm. Pulses normal. Normal S1 and S2 Respiratory: No respiratory distress. Breath sounds normal. No Wheezing. No rales Abdomen: Soft and nontender. No rigidity. No distention. Skin: Skin warm and dry. Normal skin color. Normal skin turgor. Extremities: No lower extremity edema. No Lacerations. No Rash Neuro: Oriented X 3. No motor deficit. No sensory deficit. Moving all extremities. No slurred speech. CN 2 through 12 grossly intact Psych: calm, cooperative, normal affect Course Course Course Narrative: This is an RME performed by Dominik Ellington CNP: Additional HPI, ROS, PE not included below will be deferred to primary provider. Patient is a 74-year-old female who presents emergency department for evaluation, he was diagnosed with flu 12/01/2024, reports not feeling any better. Four days ago was found to have pneumonia on CXR, started on Levaquin, has taken over the past 4 days without difficulty. Today she is having dizziness, and multiple episodes of diarrhea with epigastric pain, nausea, poor oral intake. Plan: Serum labs, urinalysis Medical Decision Making Medical Decision Making [facility] Narrative: My interpretation of labs: Normal hematology, white blood cell count 7.5, hemoglobin 13.5, hematocrit 39.3, platelets 327. Chemistry does not show any acute abnormalities. Troponin 5.3, lipase 45. Three days ago patient tested positive for influenza A. Also, 3 days ago patient's chest x-ray was negative for influenza. Today we will repeat x-rays to make sure that there is no worsening or new infiltrates. Chest x-ray from today does not show any acute abnormalities. Ambulation trial went well, patient's oxygen saturation in the steady high 90s. No oxygen desaturations no wheezing or shortness of breath, no lightheadedness. I discussed with the patient that she will be coughing for a few more weeks, patient has bronchitis due to previous viral illness Differential Diagnosis Differential Diagnoses: The differential diagnosis associated with the presentation includes (COVID, influenza, pneumonia, bronchitis) Lab Data MDM Lab Attestation statement: I reviewed the patient's lab results. 12/11/24 17:24 12/11/24 17:24 Labs: Lab Results 12/11/24 Range/Units 17:24 WBC 7.5 (4.8-10.8) X10*3/uL RBC 4.70 (4.20-5.50) X10*6/uL Hgb 13.5 (12.0-16.0) g/dl Hct 39.3 (37.0-47.0) % MCV 83.6 (80.0-98.0) fL MCH 28.7 (27.0-33.0) pg MCHC 34.4 (31.0-35.0) g/dl RDW 12.4 (11.0-16.0) % Plt Count 327 D (160-400) X10*3/uL MPV 10.2 (9.4-12.3) fL Immature Gran % (Auto) 0.7 H (0.0-0.4) % Neut % (Auto) 83.5 H (45-73) % Lymph % (Auto) 12.4 L (20-40) % [place] % (Auto) 2.7 (2-11) % Eos % (Auto) 0.4 (0-4) % Baso % (Auto) 0.3 (0-2) % Lymph # (Auto) 0.9 L (1.2-4.9) X10*3/uL [place] # (Auto) 0.2 (0.1-1.2) X10*3/uL Eos # (Auto) 0.0 (0.0-0.4) X10*3/uL Baso # (Auto) 0.0 (0.0-0.2) X10*3/uL Abs Immat Gran (auto) 0.05 H (0.00-0.03) X10*3/uL Absolute Neuts (auto) 6.3 (2.0-8.3) x10*3/uL Absolute Nucleated RBC 0.000 (0.0-0.012) X10*3/uL Nucleated RBC % (auto) 0.0 (0.0-0.2) /100WBC PT 12.6 H (10.9-12.4) SEC INR 1.1 (0.9-1.1) Sodium 141 (135-145) mmol/L Potassium 3.6 (3.3-5.1) mmol/L Chloride 109 H (96-108) mmol/L Carbon Dioxide 19 L (22-29) mmol/L Anion Gap 17 (12-20) BUN 18 H (9-16) mg/dL Creatinine 0.84 (0.5-1.4) mg/dL Estim Creat Clear Calc 54.7 Estimated GFR > 60 Random Glucose 146 H (60-115) mg/dL Lactic Acid 1.4 (0.5-2.0) mmol/L Calcium 9.5 (8.4-10.2) mg/dL Magnesium 1.9 (1.6-2.6) mg/dL Total Bilirubin 0.5 (0.0-1.0) mg/dL AST 38 H (5-31) U/L ALT 30 (0-31) U/L Alkaline Phosphatase 78 (39-117) U/L Troponin I High Sens 5.3 D (<3.5-17.0) ng/L Total Protein 7.7 (6.5-8.0) g/dL Albumin 4.0 (3.5-5.0) g/dL Lipase 45 (8-78) U/L Independent Interpretation I performed an independent interpretation of an: EKG and Plain X-Ray Radiology Impression Discussion of test interpretation with radiology: I have reviewed the radiologist's reading. Radiologist Impression: No consolidation or effusion. No pneumothorax. Mild emphysematous changes. Imaged mediastinum appears unchanged. Left shoulder hardware redemonstrated. IMPRESSION: No consolidation. Discharge Plan Discharge Clinical Impression: Bronchitis Patient Disposition: Home, Self-Care Instructions: Acute Bronchitis (ED) Additional Instructions: Please follow-up with your primary care physician tomorrow. If you have any worsening or new symptoms, please return to the emergency room or call 911 Prescriptions: New benzonatate 100 mg capsule 100 mg PO TID PRN (Reason: cough) Qty: 12 0RF No Action (DME) blood pressure monitor Kit See Rx Instructions .Route Qty: 1 0RF Rx Instructions: As directed rosuvastatin 40 mg tablet 40 mg PO DAILY Qty: 90 8RF loratadine 10 mg tablet 10 mg PO DAILY Qty: 90 8RF esomeprazole magnesium [Nexium] 20 mg capsule,delayed release(DR/EC) 20 mg PO DAILY 90 Days Qty: 90 3RF tizanidine 4 mg tablet 4 mg PO Q8H PRN (Reason: muscle spasticity) 30 Days Qty: 60 1RF albuterol sulfate 90 mcg/actuation HFA aerosol inhaler 2 puff inhalation QID PRN (Reason: Shortness Of Breath Or Wheezing) Qty: 8.5 3RF propranolol 120 mg capsule,extended release 24hr 120 mg PO DAILY Qty: 90 4RF fluticasone propionate 50 mcg/actuation spray,suspension 50 mcg intranasal DAILY MDD allergies Qty: 16 1RF (DME) nebulizers [AeroEclipse II Nebulizer[place] [facility] [place] Inst[place] .Route Qty: 1 0RF Rx Instructions: As directed azithromycin 250 mg tablet See Rx Instructions PO .COMPLEX Qty: 6 0RF Rx Instructions: For 250 mg dose pack: take 500 mg today (day 1), then 250 mg for 4 days (days 2-5) PO meclizine 25 mg tablet 25 mg PO QID PRN (Reason: Vertigo) multivitamin Tablet 1 tab PO DAILY acetaminophen 325 mg Tablet 650 mg PO Q6H PRN (Reason: Pain, Mild (Pain Scale 1-3)) 30 Days Qty: 240 0RF hydroxyzine HCl 25 mg tablet 25 mg PO TID PRN (Reason: itching) Qty: 30 0RF cyclobenzaprine 10 mg tablet 10 mg PO TID PRN (Reason: muscle spasm) Qty: 30 2RF Citrucel 500 mg tablet 500 mg PO TID 30 Days Qty: 90 5RF docusate sodium [Colace] 100 mg capsule 200 mg PO BEDTIME Qty: 60 5RF sennosides [senna] 8.6 mg tablet 17.2 mg PO BEDTIME PRN (Reason: constipation) albuterol sulfate 90 mcg/actuation HFA aerosol inhaler 1 inh inhalation QID PRN (Reason: shortness of breath or wheezing) Qty: 8.5 0RF prednisone 20 mg tablet 40 mg PO DAILY 5 Days Qty: 10 0RF ipratropium-albuterol 0.5 mg-3 mg(2.5 mg base)/3 mL solution for nebulization 3 ml inhalation Q20M PRN (Reason: shortness of breath or wheezing) Qty: 90 3RF Rx Instructions: for 3 doses levofloxacin 750 mg tablet 750 mg PO DAILY 7 Days Qty: 7 0RF Robitussin Cough-Chest [place] DM 5-50 mg/5 mL liquid 20 ml PO Q6H Qty: 118 0RF Print Language: Divehi
[2024-12-11 17:05] VITALS: BP 136/76; PULSE 73; RESP 16; TEMP 36.6; O2SAT 98; BMI 27.8
--- NOTE | 2024-12-11 17:08 | ECG_ITS ---
Test Reason : CHEST PAIN Blood Pressure : */* mmHG Vent. Rate : 67 BPM Atrial Rate : 67 BPM P-R Int : 152 ms QRS Dur : 82 ms QT Int : 412 ms P-R-T Axes : 46 0 48 degrees QTcB Int : 435 ms Normal sinus rhythm Normal ECG When compared with ECG of 24-Dec-2023 01:46, No significant change was found Referred By: Margy Ellington Electronically Signed By: RONY ESCALERA
[2024-12-11 17:32] LABS: MANUAL DIFF FLAG NO
[2024-12-11 17:36] LABS: Basophils Percent Auto 0.3 % (0-2); Eosinophils Percent Auto 0.4 % (0-4); Hematocrit 39.3 % (37.0-47.0); Hemoglobin 13.5 g/dl (12.0-16.0); Imm Gran Abs Auto 0.05 X10*3/uL (0.00-0.03); Imm Gran Pct Auto 0.7 % (0.0-0.4); Lymphocytes Absolute Auto 0.9 X10*3/uL (1.2-4.9); Lymphocytes Percent Auto 12.4 % (20-40); Mean Corpuscular HGB Conc 34.4 g/dl (31.0-35.0); Mean Corpuscular Hemoglobin 28.7 pg (27.0-33.0); Mean Corpuscular Volume 83.6 fL (80.0-98.0); Mean Platelet Volume 10.2 fL (9.4-12.3); Monocytes Absolute Auto 0.2 X10*3/uL (0.1-1.2); Monocytes Percent Auto 2.7 % (2-11); Neutrophils Absolute Auto 6.3 x10*3/uL (2.0-8.3); Neutrophils Percent Auto 83.5 % (45-73); Platelet Count 327 X10*3/uL (160-400); Red Cell Distribution Width 12.4 % (11.0-16.0); White Blood Count 7.5 X10*3/uL (4.8-10.8)
[2024-12-11 17:40] LABS: INTERNATIONAL NORM RATIO 1.1 (0.9-1.1); Prothrombin Time 12.6 SEC (10.9-12.4)
[2024-12-11 17:49] LABS: Lactic Acid 1.4 mmol/L (0.5-2.0)
[2024-12-11 18:02] LABS: Troponin-I High Sensitivity 5.3 ng/L (<3.5-17.0)
[2024-12-11 18:03] LABS: Alanine Aminotransferase 30 U/L (0-31); Alkaline Phosphatase 78 U/L (39-117); Anion Gap 17 (12-20); Aspartate Amino Transferase 38 U/L (5-31); Bilirubin Total 0.5 mg/dL (0.0-1.0); Blood Urea Nitrogen 18 mg/dL (9-16); Calcium 9.5 mg/dL (8.4-10.2); Carbon Dioxide 19 mmol/L (22-29); Chloride 109 mmol/L (96-108); Creatinine Clr Calc Pharmacy 54.7; Estimated Glomerular Filt Rate > 60; Glucose Random 146 mg/dL (60-115); Lipase 45 U/L (8-78); Magnesium 1.9 mg/dL (1.6-2.6); Potassium 3.6 mmol/L (3.3-5.1); Sodium 141 mmol/L (135-145); Total Protein 7.7 g/dL (6.5-8.0)
[2024-12-11 22:25] VITALS: BP 136/76; PULSE 73; RESP 16; TEMP 36.6; O2SAT 98
== END 2024-12-11 22:25 | disposition home or self-care (01) ==
PROVIDERS: Nurse Practitioner Family; Emergency Provider Emergency Medicine; PCP Internal Medicine
DX: J40 Bronchitis, not specified as acute or chronic (principal); R06.02 Shortness of breath; R05.9 Cough, unspecified; R07.89 Other chest pain; Z79.899 Other long term (current) drug therapy
CPT/HCPCS: 36415; 71045; 80053; 83605; 83690; 83735; 84484; 85025; 85610; 93005; 99283

== ENCOUNTER → 2024-12-11 17:08 | Outpatient (BNV) | payer OTHER, SELFPAY | PROVIDERS: Emergency Provider Emergency Medicine; PCP Internal Medicine; Visit Provider Internal Medicine | DX: R07.9 Chest pain, unspecified (principal) | CPT/HCPCS: 93010 ==

== ENCOUNTER → 2024-12-11 21:11 | Outpatient (BNV) | payer OTHER, SELFPAY | PROVIDERS: Emergency Provider Emergency Medicine; PCP Internal Medicine; Visit Provider Radiology Neuroradiology | DX: R06.02 Shortness of breath (principal) | CPT/HCPCS: 71045 ==

== ENCOUNTER 2024-12-22 11:13 | Outpatient (AMB) | payer OTHER, SELFPAY ==
--- NOTE | 2024-12-22 11:24 | MHC.PC.OV ---
Vital Signs 12/22/24 11:26 Height 5 ft 3 in Weight 154 lb 4 oz BMI 27.3 BP 120/60 Blood Pressure Location Lt brachial Position Sitting Pulse 75 Pulse Source Pulse Oximeter Temp 97.3 F Temp Source Temporal Artery Scan Pulse Oximetry (%) 97 Oxygen Delivery Method Room Air Intake Visit Reasons: Follow Up Intake Note: Patient is here to follow up on . 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 Required: No Mail Truck Driver: Not Required per policy Accompanied by: Self / Same As Patient Allergies amoxicillin Allergy (Severe, Verified 12/22/24 12:04) Anaphylaxis codeine [Codeine] Allergy (Severe, Verified 12/22/24 12:04) Anaphylaxis gabapentin [From Neurontin] Allergy (Severe, Verified 12/22/24 12:04) Anaphylaxis Penicillins Allergy (Severe, Verified 12/22/24 12:04) Anaphylaxis Sulfa (Sulfonamide Antibiotics) [SULFA (SULFONAMIDE ANTIBIOTICS)] Allergy (Severe, Verified 12/22/24 12:04) Anaphylaxis pregabalin [From LYRICA] Allergy (Intermediate, Verified 12/22/24 12:04) SWELLING Medication List - Last Reconciled 12/22/24 by Cely Boggs PA-C acetaminophen 650 mg (2 x 325 mg) PO Q6H PRN 30 days albuterol sulfate 90 mcg/actuation 2 puffs inhalation QID PRN albuterol sulfate 90 mcg/actuation 1 inh inhalation QID PRN blood pressure monitor As directed budesonide-formoterol 160-4.5 mcg/actuation (Symbicort) 2 inhalations inhalation BID cyclobenzaprine 10 mg PO TID PRN docusate sodium (Colace) 200 mg (2 x 100 mg) PO BEDTIME esomeprazole magnesium (Nexium) 20 mg PO DAILY 90 days fluticasone propionate 50 mcg/actuation 50 mcg intranasal DAILY MDD allergies hydrocortisone 2.5% 1 appl topical BID-TID PRN hydroxyzine HCl 25 mg PO TID PRN ipratropium-albuterol 0.5 mg-3 mg(2.5 mg base)/3 mL 3 mL inhalation Q20M PRN levofloxacin 750 mg PO DAILY 7 days loratadine 10 mg PO DAILY meclizine 25 mg PO QID PRN methylcellulose (laxative) (Citrucel) 500 mg PO TID 30 days multivitamin 1 tab PO DAILY nebulizers (AeroEclipse II Nebulizer) As directed nystatin 100,000 units PO DAILY propranolol ER 120 mg PO DAILY rosuvastatin 40 mg PO DAILY sennosides (senna) 17.2 mg PO BEDTIME PRN tizanidine 4 mg PO Q8H PRN 30 days Tobacco use date assessed: 12/22/24 Fall risk assessment: No Falls in past year Last assessed Fall Risk: 12/22/24 Dental Screening Dental Screen Date: 11/15/24 [facility] Medical History (Updated 12/22/24 @ 12:10 by Cely Boggs PA-C) Contact dermatitis Chronic venous insufficiency Thrush, oral Pre-diabetes Upper respiratory symptom Myocardial infarction Seasonal allergies Asthma GERD (gastroesophageal reflux disease) HTN (hypertension) Arthritis of left acromioclavicular joint Cystocele with prolapse Fibromyalgia Generalized osteoarthritis Chronic pain syndrome Spondylosis of cervical spine Obesity Post-menopausal Screening for breast cancer Screening for diabetes mellitus Obesity Hyperlipidemia Vertigo Lumbar spondylosis Anal pruritus Surgical History History of esophagogastroduodenoscopy (EGD) Hx of shoulder replacement Hx of hand surgery History of bilateral knee replacement History of colonoscopy History of varicose veins History of hysterectomy Family History Father Angina at rest Mother Hypothyroidism Hypertension Osteoarthritis Heart disease Panic disorder Glaucoma Brother Stroke Sister Alcoholic liver disease HIV (human immunodeficiency virus infection) Social History Household Members: None Housing: Condominium Are you a primary health care law specialist to a significant other at home: No Do you presently have visiting nurse or other home services: Yes (S[employer]IOR [employer]CH[employer] 41 per week) Alcohol intake: never Comment: pt medicated with po tylenol Patient Tobacco Use Status: Former Tobacco user Tobacco use type: Cigarette e-Cigarette/Vaping Use: Never Used Second Hand Smoke Exposure: No service: No Current occupational status: retired Current occupation: Right Handed Cognitive needs: Yes (walk/cane) Hearing needs: No Vision needs: Yes (Glasses) Female Reproductive History Menstrual Age of Menarche: 9 Questionnaire Thrive Questionnaire Date Thrive assessed: 11/15/24 RYAN-7 AMB Questionnaire RYAN-7 Date RYAN - 7 assessed: 11/15/24 Source: Developed by Drs. Jose Antonio Ugarte, Romy Tse, Tomi Finley and colleagues, with an educational tommy from [employer]. Physical exam (Primary Care) Vital Signs: Last Vital Signs Temp 97.3 F 12/22/24 11:26 Pulse 75 12/22/24 11:26 BP 120/60 12/22/24 11:26 Pulse Ox 97 12/22/24 11:26 Oxygen Delivery Method Room Air 12/22/24 11:26 BMI result Body Mass Index 27.3 Tobacco/Smoking Status: Tobacco use Status Tobacco use date assessed 12/22/24 12/22/24 11:29 Patient Tobacco Use Status Former Tobacco user 12/22/24 11:25 Tobacco use type Cigarette 12/22/24 11:25 e-Cigarette/Vaping Use Never Used 12/22/24 11:25 Thrive Assessment: Date of Thrive Assessment Date Thrive assessed 11/15/24 12/22/24 11:25 Results AMB Hemoglobin A1c AMB Hemoglobin A1c 6.2 % Last Edit by OBDULIA Trejo on 12/22/24 12:02 Results Reviewed Results Reviewed: Laboratory Last Values Hgb A1c (Clinic) 6.2 % (4.0-6.0) H 12/22/24 11:56 Coding Level of Care Code Est Pt Level 4 (52372) Complex EM visit Add On G2211 Diagnoses Asthma J45.909 Pre-diabetes R73.03 Hypertension I10 Hyperlipidemia E78.5 Thrush, oral B37.0 Chronic venous insufficiency I87.2 Contact dermatitis L25.9 Assessment & Plan Assessment & Plan (1) Asthma: Code(s): J45.909 - Unspecified asthma, uncomplicated Category: Medical Plan: Asthma has been improved since patient has been taking p.r.n. albuterol inhaler and p.r.n. albuterol nebulizers. Although she does report she occasionally does still have the cough, shortness of breath wheezing. Will start patient on Symbicort b.i.d. daily. She was also complaining of white spots on her side of her tongue which is related to thrush. Patient will be prescribed oral nystatin. Condition is chronic and stable continue to monitor. (2) Pre-diabetes: Code(s): R73.03 - Prediabetes Category: Medical Plan: Patient is a prediabetic with A1c level 6.2. She will be started on metformin 500 mg daily. Patient to return in 3 months for A1c check. A1c level go to remain under 7.0. Condition is chronic and stable continue to monitor. (3) Hypertension: Code(s): I10 - Essential (primary) hypertension Category: Medical Plan: Blood pressure goal less than 130/80. Patient currently on propranolol 120 mg p.o. daily and rosuvastatin 40 mg daily. Condition is chronic and stable continue to monitor. (4) Hyperlipidemia: Code(s): E78.5 - Hyperlipidemia, unspecified Category: Medical Plan: LDL level goal less than 70. Patient currently on rosuvastatin 40 mg daily. Condition is chronic and stable continue to monitor. (5) Thrush, oral: Code(s): B37.0 - Candidal stomatitis Category: Medical Plan: Mild oral thrush on exam most likely related to steroid usage from her inhaler. I explained to the patient after she used any inhaler she will have to rinse and spit. Will prescribe nystatin oral. Condition is stable continue to monitor. (6) Chronic venous insufficiency: Code(s): I87.2 - Venous insufficiency (chronic) (peripheral) Category: Medical Plan: Patient reports a history of vein stripping with vascular. Being followed by vascular and Cardiology. Currently has compression stockings and lymphedema pumps at home. Condition is chronic and stable continue to monitor. (7) Contact dermatitis: Code(s): L25.9 - Unspecified contact dermatitis, unspecified cause Category: Medical Plan: Patient with contact dermatitis to lower extremities. Most likely related to eczema. No signs of infection. Will prescribe hydrocortisone ointment. Condition is chronic and stable continue to monitor. Plan Plan To manage the asthma and chronic respiratory distress, I have recommended a steroid inhaler and long-acting bronchodilator for daily use. This should help in controlling her symptoms effectively. As there are concerns about possible prediabetes, we'll ensure that her HbA1c levels are monitored closely and she will be started on 500 mg metformin daily. In terms of circulatory issues, the continued use of compression stockings is advised to combat swelling. For her skin condition, topical emollients are recommended to manage eczema-like symptoms. Finally, adherence to environmental allergy management measures is crucial. Orders: Orders AMB Hemoglobin A1c Today E11.9 - Type 2 diabetes mellitus without complications Medications: New budesonide-formoterol 160-4.5 mcg/actuation (Symbicort) 2 inhalations inhalation BID 10.2 grams 3RF hydrocortisone 2.5% 1 appl topical BID-TID PRN 454 grams 1RF itching nystatin administer 1/2 of dose in each side of the mouth 100,000 units PO DAILY 60 mL 1RF Refilled hydroxyzine HCl 25 mg PO TID PRN 90 tabs 1RF itching Patient Instructions: Patient Instructions - Use prescribed inhalers every morning and night to manage asthma. - Prediabetes noted patient to be started on metformin 500 mg daily. - Wear compression stockings daily for leg swelling. - Apply topical emollients to manage skin dryness and rash. - Continue using allergy medication as needed and manage environmental triggers. - Schedule and attend follow-up appointment in three months. Scribe Plan - Not visible on output: History of Present Illness The patient is a 74-year-old female presenting with asthma and chronic respiratory distress, along with ongoing management of allergic rhinitis and concerns regarding potential prediabetes. Her primary encounter revolves around substantial difficulty in managing her respiratory symptoms, compounded by an unclear medication regimen for asthma control, including the use of inhalers and a nebulizer. She experienced multiple episodes of shortness of breath, cough, and discomfort which often worsened at night. The patient's history includes a past emergency room visit resulting in treatment with unspecified medications that did not lead to significant symptom relief. She has also been managing chronic allergic rhinitis for years and recently highlighted concern over prediabetic status based on prior blood glucose readings, albeit without a formal diagnosis. Venous circulatory issues remain a persistent challenge, particularly following earlier surgical intervention. She is compliant with wearing compression stockings as advised by her business office coordinator for chronic vascular insufficiency. Social History - Family Status: Information on household situation or family support not explicitly mentioned. - Functional Status: Patient mobility appears impacted by leg swelling and circulation issues. - Level of Activity: Patient described limited physical functionality due to respiratory and venous symptoms, leading to restricted activities. - Current Nutritional Intake: No specific details on dietary habits were provided. - Substance Use: Not discussed. Review of Systems - Respiratory: Reports chronic shortness of breath and cough, worsens at night. - Cardiovascular: Reports leg swelling and issues with circulation. - Endocrine: Concerns about blood glucose levels and possibility of prediabetes. - Dermatological: Mentioned eczema-like symptoms with leg dryness and itching. Physical Exam Appearance: Alert. Oriented X3. No acute distress. Head: Normal external exam. Normocephalic. Atraumatic. Eyes: Pupils are equal, round, and reactive to light. Extraocular movements intact. Conjunctiva and sclera normal. Eyelids normal. Ears: External auditory canal normal. Tympanic membranes normal. Throat: Pharynx normal. Uvula midline. Moist mucous membranes. Mild thrush noted to tongue. Posterior pharynx within normal limits. Neck: Normal inspection. Neck supple. Full range of motion. No adenopathy. Thyroid Normal. No meningeal signs. No neck mass noted. Cardiovascular: Normal heart rate and rhythm. Heart sound normal. No murmurs noted. Pulses normal throughout. Respiratory: No respiratory distress. Painless inspiration. Breath sounds normal. No wheezes/rales/rhonchi noted. Chest nontender. No accessory muscle usage noted or decreased air movement noted. Abdomen: Soft and nontender. Bowel sounds normal in all 4 quadrants. No distention noted. No organomegaly noted. No visible injury noted. Back: No costovertebral angle tenderness. Full range of motion noted. Skin: Skin warm and dry. Normal skin color. Normal skin turgor. Mild contact dermatitis to right knee. No additional rashes/lesions/lacerations noted. Extremities: No lower extremity edema. Extremities exhibit normal range of motion. Extremities nontender. Neuro: Oriented X 3. No motor deficit. No sensory deficit. Reflexes normal. Results - Labs: Previous abnormal blood glucose readings indicating potential prediabetes. - Tests and Diagnostics: Earlier evaluation of cardiovascular system and leg circulation concerns. Plan To manage the asthma and chronic respiratory distress, I have recommended a steroid inhaler and long-acting bronchodilator for daily use. This should help in controlling her symptoms effectively. As there are concerns about possible prediabetes, we'll ensure that her HbA1c levels are monitored closely and she will be started on 500 mg metformin daily. In terms of circulatory issues, the continued use of compression stockings is advised to combat swelling. For her skin condition, topical emollients are recommended to manage eczema-like symptoms. Finally, adherence to environmental allergy management measures is crucial. Patient was informed and verbally consented to the use of an ambient scribe for clinic note documentation during this visit. Discussion Notes I discussed the importance of daily use of prescribed inhalers to effectively manage her asthma symptoms with the patient. We reviewed the need for potential prediabetes monitoring, explaining the role of HbA1c in assessing her condition. For her vascular insufficiency, I emphasized the significance of compression stockings, explaining how these assist with circulation. We talked about managing her eczema symptoms using topical treatments. I instructed her on allergy management, encouraging her to continue environmental control measures. She was informed about follow-up appointments, notably in three months, to assess the efficacy of current treatments. Patient Instructions - Use prescribed inhalers every morning and night to manage asthma. - Prediabetes noted patient to be started on metformin 500 mg daily. - Wear compression stockings daily for leg swelling. - Apply topical emollients to manage skin dryness and rash. - Continue using allergy medication as needed and manage environmental triggers. - Schedule and attend follow-up appointment in three months.
[2024-12-22 11:26] VITALS: BP 120/60; PULSE 75; TEMP 36.3; O2SAT 97; BMI 27.3
== END 2024-12-22 12:02 | disposition home or self-care (01) ==
PROVIDERS: PCP Internal Medicine; Visit Provider Physician Assistant Medical
DX: E11.9 Type 2 diabetes mellitus without complications (principal)

== ENCOUNTER → 2024-12-22 11:13 | Outpatient (BNVA) | payer OTHER, SELFPAY | PROVIDERS: PCP Internal Medicine; Visit Provider Physician Assistant Medical | DX: J45.909 Unspecified asthma, uncomplicated (principal); R73.01 Impaired fasting glucose; E78.5 Hyperlipidemia, unspecified; I10 Essential (primary) hypertension; B37.0 Candidal stomatitis; L25.9 Unspecified contact dermatitis, unspecified cause; I87.2 Venous insufficiency (chronic) (peripheral) | CPT/HCPCS: 83036; 99212 ==

== ENCOUNTER 2025-01-24 10:33 | Outpatient (AMB) | payer OTHER, SELFPAY ==
--- NOTE | 2025-01-24 10:49 | A.OFFVIS_ITS ---
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 Required: No Information Interpreted: non-clinical & clinical Clinical Services Assistant: Clinical Services Assistant Present (Joslyn STEINER) Accompanied by: Self / Same As Patient Allergies amoxicillin Allergy (Severe, Verified 01/24/25 10:56) Anaphylaxis codeine [Codeine] Allergy (Severe, Verified 01/24/25 10:56) Anaphylaxis gabapentin [From Neurontin] Allergy (Severe, Verified 01/24/25 10:56) Anaphylaxis Penicillins Allergy (Severe, Verified 01/24/25 10:56) Anaphylaxis Sulfa (Sulfonamide Antibiotics) [SULFA (SULFONAMIDE ANTIBIOTICS)] Allergy (Severe, Verified 01/24/25 10:56) Anaphylaxis pregabalin [From LYRICA] Allergy (Intermediate, Verified 01/24/25 10:56) SWELLING Post menopausal: Yes HPI Comments Details: Presenting for annual exam. No complaints. Last Pap/HPV was in , the patient is status post hysterectomy for benign disease Last Mammogram was BI-RADS 2 in 08/11 Last Colonoscopy was in 01/09 Last DEXA scan was in 08/10 [facility] Medical History History of mammogram (~08/02/24) Contact dermatitis Chronic venous insufficiency Thrush, oral Pre-diabetes Upper respiratory symptom Myocardial infarction Seasonal allergies Asthma GERD (gastroesophageal reflux disease) HTN (hypertension) Arthritis of left acromioclavicular joint Cystocele with prolapse Fibromyalgia Generalized osteoarthritis Chronic pain syndrome Spondylosis of cervical spine Obesity Post-menopausal Screening for breast cancer Screening for diabetes mellitus Obesity Hyperlipidemia Vertigo Lumbar spondylosis Anal pruritus Surgical History History of esophagogastroduodenoscopy (EGD) Hx of shoulder replacement Hx of hand surgery History of bilateral knee replacement History of colonoscopy History of varicose veins History of hysterectomy Family History Father Angina at rest Mother Hypothyroidism Hypertension Osteoarthritis Heart disease Panic disorder Glaucoma Brother Stroke Sister Alcoholic liver disease HIV (human immunodeficiency virus infection) Social History Household Members: None Housing: Condominium Are you a primary primary care physician to a significant other at home: No Do you presently have visiting nurse or other home services: Yes (STAMPER BLOCKER 41 per week) Alcohol intake: never Comment: pt medicated with po tylenol Patient Tobacco Use Status: Former Tobacco user Tobacco use type: Cigarette e-Cigarette/Vaping Use: Never Used Second Hand Smoke Exposure: No service: No Current occupational status: retired Current occupation: Right Handed Cognitive needs: Yes (walk/cane) Hearing needs: No Vision needs: Yes (Glasses) Female Reproductive History Menstrual Age of Menarche: 9 Menopause type: surgical Date of Mammogram: 08/02/24 Review of Systems Const All systems reviewed & are unremarkable except as noted in HPI and below Card Reports as per HPI and Reports no additional complaints Resp Reports as per HPI and Reports no additional complaints GI Reports as per HPI and Reports no additional complaints Reports as per HPI Physical Exam Vital Signs: Last Vital Signs BP 122/76 01/24/25 10:55 BMI result Body Mass Index 27.3 Const General: cooperative, healthy appearing and comfortable General: Yes bladder normal to palpation External Female Exam: No lesion Speculum Exam - Vagina: normal appearance of the vagina, normal vaginal d ischarge and not erythematous Speculum Exam - Cervix: Cervix absent Bimanual exam- vagina & uterus: bladder normal to palpation and uterus absent Bimanual Exam- Adnexa, other: Other (No masses detected) Assessment & Plan Assessment & Plan (1) Well woman exam: Code(s): Z01.419 - Encounter for gynecological examination (general) (routine) without abnormal findings Category: Medical Plan: Co testing not indicated since the patient is status post hysterectomy with no history of abnormal Pap smears in the past Counseled the patient about the recommended dietary allowance of 1200 mg of Calcium & 800 IU of vitamin D. Instructions given the patient is schedule next screening Mammogram in 08/12 DEXA scan ordered for 08/12 The patient was instructed to perform monthly self-breast exams and to schedule a 2 week DEXA scan follow-up appointment and an annual exam in a year; All questions answered and the patient verbalized understanding. Orders: Orders XR DEXA axial skeleton 6 Months Z78.0 - Asymptomatic menopausal state Coding Level of Care Code Est Pt Prev Care >65y(26566) Diagnoses Well woman exam Z01.419
[2025-01-24 10:55] VITALS: BP 122/76; BMI 27.3
== END 2025-01-24 11:15 | disposition home or self-care (01) ==
LOC: HO.HWS 10:33
PROVIDERS: PCP Internal Medicine; Visit Provider Obstetrics & Gynecology
DX: Z01.419 Encounter for gynecological examination (general) (routine) without abnormal findings (principal)
CPT/HCPCS: 99397; 99459

== ENCOUNTER → 2025-01-24 10:33 | Outpatient (BNVA) | payer OTHER, SELFPAY | PROVIDERS: PCP Internal Medicine; Visit Provider Obstetrics & Gynecology | DX: Z01.419 Encounter for gynecological examination (general) (routine) without abnormal findings (principal) | CPT/HCPCS: 99397; 99459 ==

== ENCOUNTER 2025-03-08 02:40 | Emergency (ER) | payer OTHER, SELFPAY ==
--- NOTE | 2025-03-08 | ECG_ITS ---
Test Reason : CHEST PAIN Blood Pressure : */* mmHG Vent. Rate : 78 BPM Atrial Rate : 78 BPM P-R Int : 144 ms QRS Dur : 84 ms QT Int : 398 ms P-R-T Axes : 66 13 40 degrees QTcB Int : 453 ms Sinus rhythm with Premature atrial complexes Septal infarct , age undetermined Abnormal ECG When compared with ECG of 11-Dec-2024 17:27, Septal infarct is now Present Nonspecific T wave abnormality now evident in Anterior leads Referred By: Generic ED Physician Electronically Signed By: Prabhu Potts
[2025-03-08 02:46] VITALS: BP 130/58; PULSE 76; RESP 16; TEMP 36.2; O2SAT 99; BMI 24.5
[2025-03-08 03:15] LABS: Basophils Absolute Auto 0.1 X10*3/uL (0.0-0.2); Hematocrit 39.8 % (37.0-47.0); Hemoglobin 13.3 g/dl (12.0-16.0); Imm Gran Abs Auto 0.02 X10*3/uL (0.00-0.03); Imm Gran Pct Auto 0.3 % (0.0-0.4); MANUAL DIFF FLAG SCAN; Mean Corpuscular HGB Conc 33.4 g/dl (31.0-35.0); PLT CLUMP 1; SCAN SMEAR FLAG 1
[2025-03-08 03:17] LABS: Eosinophils Absolute Auto 0.2 X10*3/uL (0.0-0.4); Eosinophils Percent Auto 3.6 % (0-4); Lymphocytes Absolute Auto 2.3 X10*3/uL (1.2-4.9); Lymphocytes Percent Auto 38.2 % (20-40); Mean Corpuscular Hemoglobin 29.4 pg (27.0-33.0); Mean Corpuscular Volume 87.9 fL (80.0-98.0); Monocytes Absolute Auto 0.6 X10*3/uL (0.1-1.2); Monocytes Percent Auto 10.2 % (2-11); Neutrophils Absolute Auto 2.9 x10*3/uL (2.0-8.3); Neutrophils Percent Auto 46.7 % (45-73); Red Blood Count 4.53 X10*6/uL (4.20-5.50); Red Cell Distribution Width 13.3 % (11.0-16.0)
[2025-03-08 03:19] LABS: White Blood Count 6.1 X10*3/uL (4.8-10.8)
[2025-03-08 03:33] LABS: Platelet Count 182 X10*3/uL (160-400); SLIDE REVIEW VERIFIED
[2025-03-08 03:35] LABS: Troponin-I High Sensitivity < 2.7 ng/L (<3.5-17.0)
--- NOTE | 2025-03-08 03:35 | ED.GENADULT ---
HPI - General Adult General Chief complaint: General Medical Stated complaint: headache-chest pains Time Seen by Provider: 03/08/25 03:35 History of Present Illness ED Provider: Kya SHEARER narrative: The patient is a 74-year-old woman who presents to the emergency room with a complaint of headache and also of chest pains. She has been having a headache for about 2 days and has been fairly persistent and associated with photophobia and similar to previous headaches. She has also had intermittent chest pains during the last 1-2 days as well. She has had nausea but no vomiting. No shortness a breath. No fever. Related Data Home Medications ?Medication ?Instructions ?Recorded ?Confirmed sennosides 8.6 mg tablet (senna) 17.2 mg PO BEDTIME PRN constipation 07/28/23 12/22/24 meclizine 25 mg tablet 25 mg PO QID PRN Vertigo 11/12/23 12/22/24 multivitamin 1 tab PO DAILY 11/24/23 12/22/24 Previous Rx's ?Medication ?Instructions ?Recorded methylcellulose (laxative) 500 mg 500 mg PO TID 30 days #90 tabs 07/08/23 tablet (Citrucel) blood pressure monitor #1 ea 11/19/23 acetaminophen 325 mg tablet 650 mg (2 x 325 mg) PO Q6H PRN 11/24/23 Pain, Mild (Pain Scale 1-3) 30 days #240 tabs docusate sodium 100 mg capsule 200 mg (2 x 100 mg) PO BEDTIME #60 02/04/24 (Colace) caps loratadine 10 mg tablet 10 mg PO DAILY #90 tabs 05/02/24 esomeprazole magnesium 20 mg 20 mg PO DAILY 90 days #90 caps 05/16/24 capsule,delayed release (Nexium) tizanidine 4 mg tablet 4 mg PO Q8H PRN muscle spasticity 05/24/24 30 days #60 tabs albuterol sulfate 90 mcg/actuation 2 puff inhalation QID PRN 05/27/24 aerosol inhaler Shortness Of Breath Or Wheezing #8.5 grams cyclobenzaprine 10 mg tablet 10 mg PO TID PRN muscle spasm #30 06/13/24 tabs propranolol 120 mg capsule,24 120 mg PO DAILY #90 caps 09/07/24 hr,extended release albuterol sulfate 90 mcg/actuation 1 inh inhalation QID PRN shortness 12/08/24 aerosol inhaler of breath or wheezing #8.5 grams ipratropium 0.5 mg-albuterol 3 mg 3 ml inhalation Q20M PRN shortness 12/08/24 (2.5 mg base)/3 mL nebulization of breath or wheezing #90 mL soln levofloxacin 750 mg tablet 750 mg PO DAILY 7 days #7 tabs 12/08/24 budesonide-formoterol HFA 160 2 inh inhalation BID #10.2 grams 12/22/24 mcg-4.5 mcg/actuation aerosol inhaler (Symbicort) hydrocortisone 2.5 % topical 1 appl topical BID-TID PRN itching 12/22/24 ointment #454 grams nystatin 100,000 unit/mL oral 100,000 unit PO DAILY #60 mL 12/22/24 suspension rosuvastatin 40 mg tablet 40 mg PO DAILY #90 tabs 12/30/24 nebulizers (AeroEclipse II #1 ea 01/12/25 Nebulizer) hydroxyzine HCl 25 mg tablet 25 mg PO TID for itch #270 tabs 01/13/25 fluticasone propionate 50 1 spray intranasal DAILY #48 mL 02/15/25 mcg/actuation nasal spray,suspension Allergies Allergy/AdvReac Type Severity Reaction Status Date / Time amoxicillin Allergy Severe Anaphylaxis Verified 03/08/25 02:47 codeine [Codeine] Allergy Severe Anaphylaxis Verified 03/08/25 02:47 gabapentin [From Neurontin] Allergy Severe Anaphylaxis Verified 03/08/25 02:47 Penicillins Allergy Severe Anaphylaxis Verified 03/08/25 02:47 Sulfa (Sulfonamide Allergy Severe Anaphylaxis Verified 03/08/25 02:47 Antibiotics) [SULFA (SULFONAMIDE ANTIBIOTICS)] pregabalin [From LYRICA] Allergy Intermediate SWELLING Verified 03/08/25 02:47 [facility] Past Medical History Medical History History of mammogram (~08/02/24) Contact dermatitis Chronic venous insufficiency Thrush, oral Pre-diabetes Upper respiratory symptom Myocardial infarction Seasonal allergies Asthma GERD (gastroesophageal reflux disease) HTN (hypertension) Arthritis of left acromioclavicular joint Cystocele with prolapse Fibromyalgia Generalized osteoarthritis Chronic pain syndrome Spondylosis of cervical spine Obesity Post-menopausal Screening for breast cancer Screening for diabetes mellitus Obesity Hyperlipidemia Vertigo Lumbar spondylosis Anal pruritus Surgical History History of esophagogastroduodenoscopy (EGD) Hx of shoulder replacement Hx of hand surgery History of bilateral knee replacement History of colonoscopy History of varicose veins History of hysterectomy Family History Family History Father Angina at rest Mother Hypothyroidism Hypertension Osteoarthritis Heart disease Panic disorder Glaucoma Brother Stroke Sister Alcoholic liver disease HIV (human immunodeficiency virus infection) Social History Social History Household Members: None Housing: Condominium Are you a primary healthcare financial analyst to a significant other at home: No Do you presently have 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 nurse or 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) Alcohol intake: never Comment: pt medicated with po tylenol Patient Tobacco Use Status: Former Tobacco user Tobacco use type: Cigarette e-Cigarette/Vaping Use: Never Used Second Hand Smoke Exposure: No Use of substances other than those prescribed or required for medical reasons: No Advance Directives: No Do you have a plan to hurt others: No Plan service: No Current occupational status: retired Current occupation: Right Handed Cognitive needs: Yes (walk/cane) Hearing needs: No Vision needs: Yes (Glasses) Physical Exam ED Vital Signs: Vital Signs - 24 hr 03/08/25 02:46 Temperature 97.1 F Pulse Rate 76 Respiratory Rate 16 Blood Pressure 130/58 L Pulse Oximetry 99 Oxygen Delivery Method Room Air BMI result Body Mass Index 24.5 Const Other: The patient is awake and alert. She was tearful but pleasant. HENMT Other: Face is symmetrical. Mucous membranes moist. Eyes General: appearance normal, both eyes and all related structures Neck Neck: Yes normal visual inspection, Yes full ROM and Yes no JVD Chest Other: The patient had chest wall tenderness. Resp Effort & Inspection: normal respiratory effort Auscultation: clear to auscultation bilaterally Cardio Rate: regular rate Rhythm: regular rhythm Heart sounds: S1 normal heart sound present and S2 normal heart sound present GI Other: The abdomen is soft and nontender Skin Other: Skin is dry and unremarkable Neuro Other: The patient was tearful as if in discomfort but otherwise she was awake and alert with a normal mental status. Face is symmetrical. Eye movements are normal. Pupils are normal. Speech is clear. Neck is supple. She moves her extremities normally and appropriately. She seems neurologically intact. Extrem Other: No calf swelling or tenderness. No asymmetry, no edema Medications Administered Discontinued Medications Generic Name Dose Route Start Last Admin Trade Name Vance PRN Reason Stop Dose Admin Diphenhydramine HCl 12.5 mg 03/08/25 03:47 03/08/25 04:23 Diphenhydramine Hcl 50 Mg/Ml Vial IVPUSH 03/08/25 03:48 12.5 mg ONCE ONE Administration Sodium Chloride 1,000 mls @ 999 mls/hr 03/08/25 04:00 03/08/25 04:27 Ns IV 03/08/25 05:00 999 mls/hr .Q1H1M CASSIUS Administration Ketorolac Tromethamine 10 mg 03/08/25 03:47 03/08/25 04:25 Ketorolac Tromethamine 15 Mg/Ml Vial IVPUSH 03/08/25 03:48 10 mg ONCE ONE Administration Metoclopramide HCl 10 mg 03/08/25 03:47 03/08/25 04:26 Metoclopramide Hcl 10 Mg/2 Ml Vial IVPUSH 03/08/25 03:48 10 mg ONCE ONE Administration Medical Decision Making Medical Decision Making [facility] Narrative: The patient is a 74-year-old female who presents with 2 days of a headache that she says is similar to previous headaches. She has also had chest pains. She has a nonischemic EKG. She has a negative troponin. She was treated for a possible migraine and felt considerably better. She was smiling and ready to go home. I think her headache is probably a migraine or current headache syndrome. Her chest pains may be primarily chest wall pain. I do not have a significant suspicion for an acute coronary syndrome. I think she may be discharged to follow up with her PCP or return if worse. Lab Data 03/08/25 03:09 03/08/25 03:09 Labs: Lab Results 03/08/25 03/08/25 Range/Units 03:09 03:10 WBC 6.1 (4.8-10.8) X10*3/uL RBC 4.53 (4.20-5.50) X10*6/uL Hgb 13.3 (12.0-16.0) g/dl Hct 39.8 (37.0-47.0) % MCV 87.9 (80.0-98.0) fL MCH 29.4 (27.0-33.0) pg MCHC 33.4 (31.0-35.0) g/dl RDW 13.3 (11.0-16.0) % Plt Count 182 D (160-400) X10*3/uL MPV 11.0 (9.4-12.3) fL Immature Gran % (Auto) 0.3 (0.0-0.4) % Neut % (Auto) 46.7 (45-73) % Lymph % (Auto) 38.2 (20-40) % [place] % (Auto) 10.2 (2-11) % Eos % (Auto) 3.6 (0-4) % Baso % (Auto) 1.0 (0-2) % Lymph # (Auto) 2.3 (1.2-4.9) X10*3/uL [place] # (Auto) 0.6 (0.1-1.2) X10*3/uL Eos # (Auto) 0.2 (0.0-0.4) X10*3/uL Baso # (Auto) 0.1 (0.0-0.2) X10*3/uL Abs Immat Gran (auto) 0.02 (0.00-0.03) X10*3/uL Absolute Neuts (auto) 2.9 (2.0-8.3) x10*3/uL Absolute Nucleated RBC 0.000 (0.0-0.012) X10*3/uL Nucleated RBC % (auto) 0.0 (0.0-0.2) /100WBC Smear Tech's Comments VERIFIED Sodium 141 (135-145) mmol/L Potassium 3.7 (3.3-5.1) mmol/L Chloride 112 H (96-108) mmol/L Carbon Dioxide 19 L (22-29) mmol/L Anion Gap 14 (12-20) BUN 16 (9-16) mg/dL Creatinine 0.64 (0.5-1.4) mg/dL Estim Creat Clear Calc 68.3 Estimated GFR > 60 Random Glucose 108 (60-115) mg/dL Calcium 9.4 (8.4-10.2) mg/dL Total Bilirubin 0.4 (0.0-1.0) mg/dL AST 33 H (5-31) U/L ALT 27 (0-31) U/L Alkaline Phosphatase 76 (39-117) U/L Troponin I High Sens < 2.7 (<3.5-17.0) ng/L Total Protein 7.2 (6.5-8.0) g/dL Albumin 4.1 (3.5-5.0) g/dL Influenza Type A (PCR) NEGATIVE (Negative) Influenza Type B (PCR) NEGATIVE (Negative) RSV RNA Qual (PCR) NEGATIVE (Negative) SARS-CoV-2 RNA (RT-PCR) NEGATIVE (Negative) Independent Interpretation I performed an independent interpretation of an: EKG Interpretation: EKG at 01/23/2002 shows sinus rhythm at 78 beats per minute. No definite acute ischemic changes. Discharge Plan Discharge Clinical Impression: Migraine headache, Chest pain Patient Disposition: Home, Self-Care Additional Instructions: Your symptoms seemed to improve with treatment of a migraine headache. Please rest and take it easy today. Please follow up soon with your regular doctor for re-evaluation and to discuss these symptoms further. Return to the emergency room if you feel significantly worse. Prescriptions: No Action (DME) blood pressure monitor Kit See Rx Instructions .Route Qty: 1 0RF Rx Instructions: As directed loratadine 10 mg tablet 10 mg PO DAILY Qty: 90 8RF esomeprazole magnesium [Nexium] 20 mg capsule,delayed release(DR/EC) 20 mg PO DAILY 90 Days Qty: 90 3RF tizanidine 4 mg tablet 4 mg PO Q8H PRN (Reason: muscle spasticity) 30 Days Qty: 60 1RF albuterol sulfate 90 mcg/actuation HFA aerosol inhaler 2 puff inhalation QID PRN (Reason: Shortness Of Breath Or Wheezing) Qty: 8.5 3RF propranolol 120 mg capsule,extended release 24hr 120 mg PO DAILY Qty: 90 4RF rosuvastatin 40 mg tablet 40 mg PO DAILY Qty: 90 8RF (DME) nebulizers [AeroEclipse II Nebulizer] Misc See Rx Instructions .Route Qty: 1 0RF Rx Instructions: As directed hydroxyzine HCl 25 mg tablet 25 mg PO TID Qty: 270 1RF fluticasone propionate 50 mcg/actuation spray,suspension 1 spray intranasal DAILY Qty: 48 1RF meclizine 25 mg tablet 25 mg PO QID PRN (Reason: Vertigo) multivitamin Tablet 1 tab PO DAILY acetaminophen 325 mg Tablet 650 mg PO Q6H PRN (Reason: Pain, Mild (Pain Scale 1-3)) 30 Days Qty: 240 0RF cyclobenzaprine 10 mg tablet 10 mg PO TID PRN (Reason: muscle spasm) Qty: 30 2RF Citrucel 500 mg tablet 500 mg PO TID 30 Days Qty: 90 5RF docusate sodium [Colace] 100 mg capsule 200 mg PO BEDTIME Qty: 60 5RF sennosides [senna] 8.6 mg tablet 17.2 mg PO BEDTIME PRN (Reason: constipation) albuterol sulfate 90 mcg/actuation HFA aerosol inhaler 1 inh inhalation QID PRN (Reason: shortness of breath or wheezing) Qty: 8.5 0RF ipratropium-albuterol 0.5 mg-3 mg(2.5 mg base)/3 mL solution for nebulization 3 ml inhalation Q20M PRN (Reason: shortness of breath or wheezing) Qty: 90 3RF Rx Instructions: for 3 doses levofloxacin 750 mg tablet 750 mg PO DAILY 7 Days Qty: 7 0RF budesonide-formoterol [Symbicort] 160-4.5 mcg/actuation HFA aerosol inhaler 2 inh inhalation BID Qty: 10.2 3RF nystatin 100,000 unit/mL suspension 100,000 unit PO DAILY Qty: 60 1RF Rx Instructions: administer 1/2 of dose in each side of the mouth hydrocortisone 2.5 % ointment 1 appl topical BID-TID PRN (Reason: itching) Qty: 454 1RF Referrals: Cely Boggs PA-C [Physician Retail Specialist] - (Migraine, chest pains) Print Language: Belgian
[2025-03-08 03:39] LABS: Alanine Aminotransferase 27 U/L (0-31); Albumin Level 4.1 g/dL (3.5-5.0); Anion Gap 14 (12-20); Aspartate Amino Transferase 33 U/L (5-31); Bilirubin Total 0.4 mg/dL (0.0-1.0); Blood Urea Nitrogen 16 mg/dL (9-16); Calcium 9.4 mg/dL (8.4-10.2); Carbon Dioxide 19 mmol/L (22-29); Chloride 112 mmol/L (96-108); Creatinine Clr Calc Pharmacy 68.3; Estimated Glomerular Filt Rate > 60; Glucose Random 108 mg/dL (60-115); Potassium 3.7 mmol/L (3.3-5.1); Sodium 141 mmol/L (135-145); Total Protein 7.2 g/dL (6.5-8.0)
[2025-03-08 03:51] LABS: Influenza A PCR NEGATIVE (Negative); Influenza B PCR NEGATIVE (Negative); Resp Syncy Virus RNA Qual PCR NEGATIVE (Negative); SARS COV2 PCR INHOUSE NEGATIVE (Negative)
[2025-03-08 04:15] LABS: Alkaline Phosphatase 76 U/L (39-117)
[2025-03-08] MEDS: diphenhydrAMINE HCL 50 MG/ML VIAL 12.5 MG IVPUSH (04:23)
[2025-03-08] MEDS: Ketorolac Tromethamine 15 MG/ML VIAL 10 MG IVPUSH (04:25)
[2025-03-08] MEDS: Metoclopramide HCl 10 MG/2 ML VIAL IVPUSH (04:26)
[2025-03-08] MEDS: 0.9 % Sodium Chloride 1,000 ML 999 ML IV (04:27)
--- NOTE | 2025-03-08 05:00 | PC.NURSE ---
provider into assess pt, pt medicated by Kunal Shore and IV placed, pt resting in bed with spouce at the bed side.
[2025-03-08 05:33] VITALS: BP 125/67; PULSE 77; RESP 13; TEMP 36.7; O2SAT 98
--- NOTE | 2025-03-08 06:01 | PC.NURSE ---
Reviewed discharge instructions with pt. pt verbalized understanding, no sign of distress, pt assisted to lobby with .
== END 2025-03-08 06:02 | disposition home or self-care (01) ==
PROVIDERS: Emergency Provider Emergency Medicine
DX: G43.909 Migraine, unspecified, not intractable, without status migrainosus (principal); R07.89 Other chest pain; H53.143 Visual discomfort, bilateral; R11.2 Nausea with vomiting, unspecified; Z03.818 Encounter for observation for suspected exposure to other biological agents ruled out; Z79.899 Other long term (current) drug therapy
CPT/HCPCS: 0241U; 80053; 84484; 85025; 93005; 96361; 96374; 96375; 99284; J1200; J1885; J2765

== ENCOUNTER → 2025-03-08 02:47 | Outpatient (BNV) | payer OTHER, SELFPAY | PROVIDERS: Emergency Provider Emergency Medicine; Visit Provider Internal Medicine Cardiovascular Disease | DX: I49.1 Atrial premature depolarization (principal) | CPT/HCPCS: 93010 ==

== ENCOUNTER 2025-03-22 08:44 | Outpatient (AMB) | payer OTHER, SELFPAY ==
--- NOTE | 2025-03-22 08:53 | MHC.PC.OV ---
Vital Signs 03/22/25 08:55 Height 5 ft 3 in Weight 158 lb 6.4 oz BMI 28.1 BP 114/66 Blood Pressure Location Lt brachial Position Sitting Respiration 16 Pulse 80 Pulse Source Pulse Oximeter Temp 98.7 F Temp Source Oral Pulse Oximetry (%) 98 Oxygen Delivery Method Room Air Intake Visit Reasons: [facility] 03/08 headache Intake Note: Patient is here to follow-up after a visit the emergency department at [facility] in [place], [place] on 03/08/2025. Semiconductor Technician Required: No Accompanied by: Self / Same As Patient Allergies amoxicillin Allergy (Severe, Verified 03/22/25 09:23) Anaphylaxis codeine [Codeine] Allergy (Severe, Verified 03/22/25 09:23) Anaphylaxis gabapentin [From Neurontin] Allergy (Severe, Verified 03/22/25 09:23) Anaphylaxis Penicillins Allergy (Severe, Verified 03/22/25 09:23) Anaphylaxis Sulfa (Sulfonamide Antibiotics) [SULFA (SULFONAMIDE ANTIBIOTICS)] Allergy (Severe, Verified 03/22/25 09:23) Anaphylaxis pregabalin [From LYRICA] Allergy (Intermediate, Verified 03/22/25 09:23) SWELLING Tobacco use date assessed: 03/22/25 Fall risk assessment: No Falls in past year Last assessed Fall Risk: 03/22/25 Dental Screening Dental Screen Date: 03/22/25 Did you have a dental visit in the last 12 months?: No Did you have a dental problem in the last 6 months where you did not have access to dental care?: No Was dental information given to patient?: Patient has dentist HPI [facility] 03/08 headache HPI Details The patient is a 74-year-old female presenting for [facility] follow. She had went the with c/o headache and chest pain. She has a longstanding history of migraine headaches that occur almost daily, for which she previously used a specific medication, now and not refilled. During a recent episode involving headache and chest pain, the patient sought emergency care and was treated with an NSAID injection, alleviating her symptoms. The patient describes her chest pain as recurrent and has experienced similar episodes previously, including two heart attacks. She is concerned about differentiating migraine symptoms from cardiac-related symptoms, noting associated nausea, vomiting, and numbing sensations in the mouth during episodes of combined headache and chest pain. The patient labs for unremarkable an EKG was nonischemic. After being treated for migraine, the patient felt better and was discharged in stable condition. Today in office, the patient reports that she used to take a migraine medication but has not taken it in a while. After she was having the symptoms at home, she attempted to take this medication but it was . No migraine medication is noted in the patient chart at this time. Ordered magnesium oxide 400 mg at bedtime and B2 vitamin 400 mg daily. Sumatriptan 50 mg p.r.n. ordered, instructed the patient to only use this when she is having a severe migraine and she should always start with the most conservative treatments first: Tylenol prn PFSH Medical History History of mammogram (~08/02/24) Contact dermatitis Chronic venous insufficiency Thrush, oral Pre-diabetes Upper respiratory symptom Myocardial infarction Seasonal allergies Asthma GERD (gastroesophageal reflux disease) HTN (hypertension) Arthritis of left acromioclavicular joint Cystocele with prolapse Fibromyalgia Generalized osteoarthritis Chronic pain syndrome Spondylosis of cervical spine Obesity Post-menopausal Screening for breast cancer Screening for diabetes mellitus Obesity Hyperlipidemia Vertigo Lumbar spondylosis Anal pruritus Surgical History History of esophagogastroduodenoscopy (EGD) Hx of shoulder replacement Hx of hand surgery History of bilateral knee replacement History of colonoscopy History of varicose veins History of hysterectomy Family History Father Angina at rest Mother Hypothyroidism Hypertension Osteoarthritis Heart disease Panic disorder Glaucoma Brother Stroke Sister Alcoholic liver disease HIV (human immunodeficiency virus infection) Social History Household Members: None Housing: Condominium Are you a primary personal care attendant to a significant other at home: No Do you presently have 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) Alcohol intake: never Comment: pt medicated with po tylenol Patient Tobacco Use Status: Former Tobacco user Tobacco use type: Cigarette e-Cigarette/Vaping Use: Never Used Second Hand Smoke Exposure: No service: No Current occupational status: retired Current occupation: Right Handed Cognitive needs: Yes (cane) Hearing needs: No Vision needs: Yes (Glasses) Female Reproductive History Menstrual Age of Menarche: 9 Questionnaire Thrive Questionnaire Date Thrive assessed: 03/22/25 I am a: Patient What is your living situation today?: I have a steady place to live Within the past 12 months, did the food you bought not last and you didn't have the money to get more?: Never true Within the past 12 months, did you worry whether your food would run out before you got money to buy more?: Never true Do you have trouble paying for medicines?: No Do you have trouble getting transportation to medical appointments?: No Do you have trouble paying your heating and electricity bill?: No Do you have trouble taking care of your child, family member or friend?: No Do you have trouble with day-to-day activities such as bathing, preparing meals, shopping, managing finances, etc.?: No Are you currently unemployed and looking for a job?: No Are you interested in more education?: No Please select the resources that you would like help with: None Currently or been in a relationship where the following occur: No concerns reported THRIVE Score: 0 AUDIT C Alcohol Use Questionnaire (AUDIT-C) 1. How often do you have a drink containing alcohol?: Never Total Score: 0 Score Reviewed/Action Taken: No RYAN-7 AMB Questionnaire RYAN-7 Date RYAN - 7 assessed: 11/15/24 Source: Developed by Drs. Jose Antonio Ugarte, Romy Tse, Tomi Finley and colleagues, with an educational tommy from [employer]. Review of Systems Const Reports headache(s) (recurrent, mild in nature) Eyes Denies loss of vision ENT Denies vertigo, Denies dizziness, Reports headache(s) (recurrent, mild in nature) and Denies sore throat Card Denies chest pain, Denies leg edema and Denies lightheadedness Resp Denies cough, Denies hemoptysis and Denies wheezing GI Denies abdominal pain, Denies melena, Denies constipation, Denies diarrhea and Denies vomiting Neuro Denies Abnormal speech present, Denies vertigo, Denies dizziness, Reports headache(s) (recurrent, mild in nature) and Denies loss of vision Young/Lymph Denies easy bleeding and Denies easy bruising Aller/Immun Denies wheezing Physical exam (Primary Care) Vital Signs: Last Vital Signs Temp 98.7 F 03/22/25 08:55 Pulse 80 03/22/25 08:55 Resp 16 03/22/25 08:55 BP 114/66 03/22/25 08:55 Pulse Ox 98 03/22/25 08:55 Oxygen Delivery Method Room Air 03/22/25 08:55 BMI result Body Mass Index 28.1 Tobacco/Smoking Status: Tobacco use Status Tobacco use date assessed 03/22/25 03/22/25 09:08 Patient Tobacco Use Status Former Tobacco user 03/22/25 08:53 Tobacco use type Cigarette 03/22/25 08:53 e-Cigarette/Vaping Use Never Used 03/22/25 08:53 Thrive Assessment: Date of Thrive Assessment Date Thrive assessed 03/22/25 03/22/25 09:08 Currently or been in a relationship where the following occur: No concerns reported Const General: healthy appearing, no acute distress, alert and awake Nutritional Appearance: well nourished Orientation/consciousness: oriented to person, oriented to place and oriented to time HENMT Ears: external ears normal General nose exam: Normal external nose present Eyes Conjunctivae: conjunctivae normal Sclerae: sclerae normal Pupils: Equal, round and reactive pupils present Neck Neck: Yes no lymphadenopathy and Yes no JVD Thyroid: Thyroid normal Carotids: no bruits Resp Effort & Inspection: normal respiratory effort and not tachypneic Auscultation: no crackles, no rales, no rhonchi and no wheezes Cardio Rate: regular rate Rhythm: regular rhythm Heart sounds: no murmurs and normal S1 and S2 GI Palpation (GI): Soft to palpation, nontender, no hepatomegaly and no splenomegaly Auscultation: normal bowel sounds Neuro General: oriented to person, oriented to place and oriented to time Cranial nerves: Yes Equal, round and reactive pupils present Speech: No Abnormal speech present Gait exam (Neuro): Normal gait present Motor exam (neuro): no tremor noted Extrem Right upper extremity: full ROM Left upper extremity: full ROM Right lower extremity: full ROM; no edema Left lower extremity: full ROM; no edema Coding Level of Care Code Est Pt Level 3 (10738) Diagnoses Intractable chronic migraine with aura with status migrainosus G43.E11 Migraine type: chronic migraine (15 or more days per month) with aura Intractability: intractable Status migrainosus presence: with status migrainosus Chest pain R07.9 Chest pain type: unspecified Time Spent (min) 36 Assessment & Plan Assessment & Plan (1) Migraine headache: Code(s): G43.909 - Migraine, unspecified, not intractable, without status migrainosus Category: Medical Qualifiers: Migraine type: chronic migraine (15 or more days per month) with aura Intractability: intractable Status migrainosus presence: with status migrainosus Qualified Code(s): G43.E11 - Chronic migraine with aura, intractable, with status migrainosus Plan: Reports that her previous ordered migraine medication was . She does not remember the name and no orders recognized in her chart. Encouraged the patient to take Tylenol PRN, magnesium 400 mg at bedtime, vitamin B2 400mg daily, and sumatriptan 50 PRN ordered. Encouraged fluids hydration (2) Chest pain: Code(s): R07.9 - Chest pain, unspecified Category: Medical Qualifiers: Chest pain type: unspecified Qualified Code(s): R07.9 - Chest pain, unspecified Plan: Recurrent chest pain, this was nonischemia on EKG in the ER. Labs were unremarkable. Reports that she had two MA in the past and she sees her cardiology frequent, next appt is next month, per patient. Not sure if this was anxiety driven after her migraine started, which was associated with nausea and vomiting. Will try to control the patient anxiety and see if this helps. Explained to the patient that anytime she has these types of symptoms, she has to take it serious and go the ER. CHEST PAIN WITH VOMITING Plan The patient has transfer of care scheduled for 06/03/25, keeps this appt Medications: New sumatriptan succinate do not exceed 4 doses per 24 hrs 50 mg PO Q2-4H PRN 14 tabs 1RF migraine headache magnesium oxide 400 mg PO BEDTIME 90 tabs 2RF riboflavin (vitamin B2) 400 mg PO DAILY 90 tabs 2RF
[2025-03-22 08:55] VITALS: BP 114/66; PULSE 80; RESP 16; TEMP 37.1; O2SAT 98; BMI 28.1
== END 2025-03-22 09:49 | disposition home or self-care (01) ==
LOC: HO.HMCH 08:47
DX: G43.E11 Chronic migraine with aura, intractable, with status migrainosus (principal); R07.9 Chest pain, unspecified

== ENCOUNTER → 2025-03-22 08:44 | Outpatient (BNVA) | payer OTHER, SELFPAY | DX: G43.E11 Chronic migraine with aura, intractable, with status migrainosus (principal); R07.9 Chest pain, unspecified; Z79.899 Other long term (current) drug therapy | CPT/HCPCS: 99212 ==

== ENCOUNTER 2025-04-11 23:25 | Emergency (ER) | payer OTHER, SELFPAY ==
--- NOTE | ~2025-04-11 | CT_ITS ---
CLINICAL HISTORY: pleuritic chest pain CT angiography chest using contrast. 3-D postprocessing Comparison: CR - XR CHEST 1V - 12/11/24 21:[address]/MS/SR - CT ANGIO CHEST PE PROTOCOL - 10/07/22 09:06 EST Findings: No pulmonary embolism. No thoracic aorta aneurysm. There is suboptimal contrast enhancement of the thoracic aorta, limiting further evaluation. Heart size within normal limits. No focal pulmonary consolidation, pneumothorax, or pleural effusion visualized. The right posterior costophrenic sulcus has been excluded from this exam. Visualized upper abdomen unremarkable. No acute fractures. Extensive multilevel degenerative endplate changes are present at the thoracic spine. Left shoulder prosthesis partially visualized. Impression: 1. Negative for pulmonary embolism. No focal pulmonary consolidation, pneumothorax, or pleural effusion. This document has been electronically signed by: Ariel Amos MD on 04/12/2025 04:01:24
--- NOTE | 2025-04-11 23:27 | ECG_ITS ---
Test Reason : CP Blood Pressure : */* mmHG Vent. Rate : 64 BPM Atrial Rate : 64 BPM P-R Int : 144 ms QRS Dur : 84 ms QT Int : 400 ms P-R-T Axes : 65 9 49 degrees QTcB Int : 412 ms Artifact in tracing Normal sinus rhythm Normal ECG When compared with ECG of 08-Mar-2025 02:47, No significant changes seen Referred By: Generic ED Physician Electronically Signed By: RONY ESCALERA
[2025-04-11 23:29] VITALS: BP 131/61; PULSE 73; RESP 16; TEMP 36.4; O2SAT 98; BMI 28.0
[2025-04-11 23:54] LABS: MANUAL DIFF FLAG NO
[2025-04-11 23:56] LABS: Basophils Absolute Auto 0.1 X10*3/uL (0.0-0.2); Basophils Percent Auto 0.7 % (0-2); Eosinophils Absolute Auto 0.2 X10*3/uL (0.0-0.4); Eosinophils Percent Auto 3.3 % (0-4); Hematocrit 35.8 % (37.0-47.0); Hemoglobin 12.2 g/dl (12.0-16.0); Imm Gran Abs Auto 0.02 X10*3/uL (0.00-0.03); Imm Gran Pct Auto 0.3 % (0.0-0.4); Lymphocytes Absolute Auto 3.1 X10*3/uL (1.2-4.9); Lymphocytes Percent Auto 45.7 % (20-40); Mean Corpuscular HGB Conc 34.1 g/dl (31.0-35.0); Mean Corpuscular Hemoglobin 29.6 pg (27.0-33.0); Mean Corpuscular Volume 86.9 fL (80.0-98.0); Mean Platelet Volume 10.3 fL (9.4-12.3); Monocytes Absolute Auto 0.8 X10*3/uL (0.1-1.2); Monocytes Percent Auto 11.6 % (2-11); Neutrophils Absolute Auto 2.6 x10*3/uL (2.0-8.3); Neutrophils Percent Auto 38.4 % (45-73); Platelet Count 215 X10*3/uL (160-400); Red Blood Count 4.12 X10*6/uL (4.20-5.50); Red Cell Distribution Width 12.9 % (11.0-16.0); White Blood Count 6.7 X10*3/uL (4.8-10.8)
[2025-04-11 23:58] VITALS: BP 116/64; PULSE 69; RESP 13; TEMP 36.7; O2SAT 99
[2025-04-12 00:10] LABS: Anion Gap 12 (12-20); Blood Urea Nitrogen 18 mg/dL (9-16); Calcium 9.1 mg/dL (8.4-10.2); Carbon Dioxide 22 mmol/L (22-29); Chloride 112 mmol/L (96-108); Creatinine Clr Calc Pharmacy 63.2; Estimated Glomerular Filt Rate > 60; Glucose Random 107 mg/dL (60-115); Potassium 3.6 mmol/L (3.3-5.1); Sodium 142 mmol/L (135-145)
[2025-04-12 00:33] LABS: Troponin-I High Sensitivity < 2.7 ng/L (<3.5-17.0)
[2025-04-12 02:23] VITALS: BP 113/51; PULSE 68; RESP 18; TEMP 36.4; O2SAT 100
--- NOTE | 2025-04-12 02:57 | ED_ITS ---
HPI - Chest Pain General Chief Complaint: Chest Pain Stated Complaint: Chest Pain Time Seen by Provider: 04/12/25 00:22 History of Present Illness ED Provider: Evan Cuello MD HPI narrative: Endorses pleasant 74-year-old female who reports a history of [place] in the past. Earlier today she felt brief transient palpitations with mild central discomfort and left parasternal discomfort. At triage she tells them pain radiated to the back she does not note any back pain but felt left hand paresthesia. Nausea no vomiting. No other GI symptoms denies headache or focal neurologic complaints. P.o. aspirin prior to arrival. No other therapy. Comfortable during my interview no active complaints Related Data Home Medications ?Medication ?Instructions ?Recorded ?Confirmed sennosides 8.6 mg tablet (senna) 17.2 mg PO BEDTIME MA N constipation 07/28/23 12/22/24 meclizine 25 mg tablet 25 mg PO QID PRN Vertigo 12/22/24 multivitamin 1 tab PO DAILY 11/24/23 0304/12 Previous Rx's ?Medication ?Instructions ?Recorded methylcellulose (laxative) 500 mg 500 mg PO TID 30 day s #90 tabs 07/08/23 tablet (Citrucel) blood pressure monitor #1 ea 11/19/23 acetaminophen 325 mg tablet 650 mg (2 x 325 mg) PO Q6H PRN 11/24/23 Pain, Mild (Pain Scale 1-3) 30 days #240 tabs docusate sodium 100 mg capsule 200 mg (2 x 100 mg) PO BEDTIME #60 02/04/24 (Colace) caps loratadine 10 mg tablet 10 mg PO DAILY #90 tabs 04/18 03/11 esomeprazole magnesium 20 mg 20 mg PO DAILY 90 days #9 0 caps 05/16/24 capsule,delayed release (Nexium) tizanidine 4 mg tablet 4 mg PO Q8H PRN muscle spast icity 05/24/24 30 days #60 tabs cyclobenzaprine 10 mg tablet 10 mg PO TID PRN muscle s pasm #30 06/13/24 tabs propranolol 120 mg capsule,24 120 mg PO DAILY #90 caps 09/07/24 hr,extended release albuterol sulfate 90 mcg/actuation 1 inh inhalation QI D PRN shortness 12/08/24 aerosol inhaler of breath or wheezing #8.5 g sofía ipratropium 0.5 mg-albuterol 3 mg 3 ml inhalation Q20M PRN shortness 12/08/24 (2.5 mg base)/3 mL nebulization of breath or wheezing #90 mL soln hydrocortisone 2.5 % topical 1 appl topical BID-TID MA N itching 12/22/24 ointment #454 grams rosuvastatin 40 mg tablet 40 mg PO DAILY #90 tabs 12/17 02/10 nebulizers (AeroEclipse II #1 ea 01/12/25 Nebulizer) hydroxyzine HCl 25 mg tablet 25 mg PO TID for itch #27 0 tabs 01/13/25 fluticasone propionate 50 1 spray intranasal DAILY #48 mL 02/15/25 mcg/actuation nasal spray,suspension magnesium oxide 400 mg (241.3 mg 400 mg PO BEDTIME #90 tabs 03/22/25 magnesium) tablet riboflavin (vitamin B2) 400 mg 400 mg PO DAILY #90 tab s 03/22/25 tablet sumatriptan succinate 50 mg tablet 50 mg PO Q2-4H PRN migraine 03/22/25 headache #14 tabs budesonide-formoterol HFA 160 2 puff PO BID #10.2 ea 0 04/14/25 mcg-4.5 mcg/actuation aerosol inhaler Allergies Allergy/AdvReac Type Severity Reaction Status Date / Time amoxicillin Allergy Severe Anaphylaxis Verified 04/11/25 23:34 codeine (Codeine) Allergy Severe Anaphylaxis Verified 04/11/25 23:34 gabapentin (From Neurontin) Allergy Severe Anaphylaxis Verified 04/11/25 23:34 Penicillins Allergy Severe Anaphylaxis Verified 04/11/25 23:34 Sulfa (Sulfonamide Allergy Severe Anaphylaxis Verified 04/11/25 23:34 Antibiotics) (SULFA (SULFONAMIDE ANTIBIOTICS)) pregabalin (From LYRICA) Allergy Intermediate SWELLING Verified 04/11/25 23:34 [facility] Past Medical History Medical History History of mammogram (~08/02/24) Contact dermatitis Chronic venous insufficiency Thrush, oral Pre-diabetes Upper respiratory symptom Myocardial infarction Seasonal allergies Asthma GERD (gastroesophageal reflux disease) HTN (hypertension) Arthritis of left acromioclavicular joint Cystocele with prolapse Fibromyalgia Generalized osteoarthritis Chronic pain syndrome Spondylosis of cervical spine Obesity Post-menopausal Screening for breast cancer Screening for diabetes mellitus Obesity Hyperlipidemia Vertigo Lumbar spondylosis Anal pruritus Surgical History History of esophagogastroduodenoscopy (EGD) Hx of shoulder replacement Hx of hand surgery History of bilateral knee replacement History of colonoscopy History of varicose veins History of hysterectomy Family History Family History Father Angina at rest Mother Hypothyroidism Hypertension Osteoarthritis Heart disease Panic disorder Glaucoma Brother Stroke Sister Alcoholic liver disease HIV (human immunodeficiency virus infection) Social History Social History Household Members: None [facility] Are you a primary personal carer to a significant other at home: No Do you presently have visiting nurse or other home services: Yes ([employer] 41 per week) Alcohol intake: never Comment: pt medicated with po tylenol Patient Tobacco Use Status: Former Tobacco user Tobacco use type: Cigarette e-Cigarette/Vaping Use: Never Used Second Hand Smoke Exposure: No service: No Current occupational status: retired Current occupation: Right Handed Cognitive needs: Yes (cane) Hearing needs: No Vision needs: Yes (Glasses) Physical Exam 2 Vital Signs: Vital Signs: Last Vital Signs Temp 97.8 F 04/12/25 06:00 Pulse 65 04/12/25 06:00 Resp 17 04/12/25 06:00 BP 116/53 L 04/12/25 06:00 Pulse Ox 100 04/12/25 06:00 O2 Del Method Room Air 04/12/25 06:00 BMI result Body Mass Index 28.0 Const: Other: EXAM: Gen: Alert, awake, well appearing, well hydrated. Head: Atraumatic Eyes: Anicteric, Normal conjunctiva. ENT: Moist mucosa, no pallor. ? Neck: Supple. Skin: ?No observable rash or bruising on exposed or examined skin Respiratory: Breathing comfortably, No distress.Clear to auscultation bilaterally, symmetric chest expansion, No wheeze, rales, ronchi. Cardiovascular: Regular rate and rhythm. No murmurs or rub. Well perfused periphery, warm extremities. No edema. ? Abdominal: No FOCAL TENDERNESS. Soft, no objective distension. No palpable masses or obvious organomegaly. ?No guarding, no rebound tenderness or other peritoneal findings. : No flank tenderness. Neuro: Alert. Gross movement of all extremities intact. ? Psych: Calm. Cooperative. MSK: No grossly visible deformity. Vital signs: See flowsheet Medications Administered Discontinued Medications Generic Name Dose Route Start Last Admin Trade Name Freq PRN Reason Stop Dose Admin Iohexol 100 ml 04/12/25 03:27 04/12/25 03:27 Iohexol 350 Mg/Ml 100 Ml Infus..Btl IV 04/12/25 03:28 65 ml ONCE ONE Administration Medical Decision Making Medical Decision Making MDM Narrative: 74-year-old female with a history of fibromyalgia, vertigo, obesity, hyperlipidemia, CAD/[place] in the past. PCP visit after a previous similar episode was on March 22. At that time she had anxiety and concerned about migraine and/or chest pain or differentiating the 2. She looks well as pain-free. Character type of pain not suggestive of ACS. Troponin x2 negative. [place] excluded. ECG sinus rhythm without acute ischemic changes. No dynamic or ischemic changes compared to previous in February Differential Diagnosis ACS, musculoskeletal pain, GERD, pericarditis, pleuritis, PE Lab Data MDM Lab Attestation statement: I reviewed the patient's lab results. 04/11/25 23:42 04/11/25 23:42 Labs: Lab Results 04/11/25 04/12/25 Range/Units 23:42 04:38 WBC 6.7 (4.8-10.8) X10*3/uL RBC 4.12 L (4.20-5.50) X10*6/uL Hgb 12.2 (12.0-16.0) g/dl Hct 35.8 L (37.0-47.0) % MCV 86.9 (80.0-98.0) fL MCH 29.6 (27.0-33.0) pg MCHC 34.1 (31.0-35.0) g/dl RDW 12.9 (11.0-16.0) % Plt Count 215 (160-400) X10*3/uL MPV 10.3 (9.4-12.3) fL Immature Gran % (Auto) 0.3 (0.0-0.4) % Neut % (Auto) 38.4 L (45-73) % Lymph % (Auto) 45.7 H (20-40) % Brooks % (Auto) 11.6 H (2-11) % Eos % (Auto) 3.3 (0-4) % Baso % (Auto) 0.7 (0-2) % Lymph # (Auto) 3.1 (1.2-4.9) X10*3/uL Brooks # (Auto) 0.8 (0.1-1.2) X10*3/uL Eos # (Auto) 0.2 (0.0-0.4) X10*3/uL Baso # (Auto) 0.1 (0.0-0.2) X10*3/uL Abs Immat Gran (auto) 0.02 (0.00-0.03) X10*3/uL Absolute Neuts (auto) 2.6 (2.0-8.3) x10*3/uL Absolute Nucleated RBC 0.000 (0.0-0.012) X10*3/uL Nucleated RBC % (auto) 0.0 (0.0-0.2) /100WBC Sodium 142 (135-145) mmol/L Potassium 3.6 (3.3-5.1) mmol/L Chloride 112 H (96-108) mmol/L Carbon Dioxide 22 (22-29) mmol/L Anion Gap 12 (12-20) BUN 18 H (9-16) mg/dL Creatinine 0.73 (0.5-1.4) mg/dL Estim Creat Clear Calc 63.2 Estimated GFR > 60 Random Glucose 107 (60-115) mg/dL Calcium 9.1 (8.4-10.2) mg/dL Troponin I High Sens < 2.7 < 2.7 (<3.5-17.0) ng/L Independent Interpretation I performed an independent interpretation of an: EKG (Sinus rhythm. Rate 64, QTC 412, artifact lead 2 and 3. No acute ischemic changes or dynamic changes from previous in February) Radiology Impression Discussion of test interpretation with radiology: I have reviewed the radiologist's reading. Discharge Plan Discharge Clinical Impression: Chest pain Patient Disposition: Home, Self-Care Instructions: Chest Pain (DC) Additional Instructions: _ DISCHARGE DIAGNOSES: Chest pain HISTORY OF PRESENTATION: ?Central chest pain EMERGENCY DEPARTMENT COURSE,TESTS, TREATMENTS: While in the ED today we excluded heart attack and a blood clot in your lung DISCHARGE MEDICATIONS: ?[We have made no changes to your regular medication regimen] FOLLOW-UP: ?Call your primary or general physician soon as possible to discuss your symptoms, your ED visit and to discuss follow up plans INSTRUCTIONS ?& RETURN PRECAUTIONS: If any symptoms change first call your primary physician, if it is after-hours your primary doctors office should have a provider respiratory care practitioner you can speak with. If the symptoms are severe or very concerning to you then call 911 or return to the ED. Evan Cuello MD Emergency Physician [facility] Prescriptions: No Action (DME) blood pressure monitor Kit See Rx Instructions .Route Qty: 1 0RF Rx Instructions: As directed loratadine 10 mg tablet 10 mg PO DAILY Qty: 90 8RF esomeprazole magnesium [Nexium] 20 mg capsule,delayed release(DR/EC) 20 mg PO DAILY 90 Days Qty: 90 3RF tizanidine 4 mg tablet 4 mg PO Q8H PRN (Reason: muscle spasticity) 30 Days Qty: 60 1RF propranolol 120 mg capsule,extended release 24hr 120 mg PO DAILY Qty: 90 4RF rosuvastatin 40 mg tablet 40 mg PO DAILY Qty: 90 8RF (DME) nebulizers [AeroEclipse II Nebulizer] [facility] [place] See Rx Instructions .Route Qty: 1 0RF Rx Instructions: As directed hydroxyzine HCl 25 mg tablet 25 mg PO TID Qty: 270 1RF fluticasone propionate 50 mcg/actuation spray,suspension 1 spray intranasal DAILY Qty: 48 1RF budesonide-formoterol 160-4.5 mcg/actuation HFA aerosol inhaler 2 puff PO BID Qty: 10.2 3RF meclizine 25 mg tablet 25 mg PO QID PRN (Reason: Vertigo) multivitamin Tablet 1 tab PO DAILY acetaminophen 325 mg Tablet 650 mg PO Q6H PRN (Reason: Pain, Mild (Pain Scale 1-3)) 30 Days Qty: 240 0RF cyclobenzaprine 10 mg tablet 10 mg PO TID PRN (Reason: muscle spasm) Qty: 30 2RF Citrucel 500 mg tablet 500 mg PO TID 30 Days Qty: 90 5RF docusate sodium [Colace] 100 mg capsule 200 mg PO BEDTIME Qty: 60 5RF sennosides [senna] 8.6 mg tablet 17.2 mg PO BEDTIME PRN (Reason: constipation) albuterol sulfate 90 mcg/actuation HFA aerosol inhaler 1 inh inhalation QID PRN (Reason: shortness of breath or wheezing) Qty: 8.5 0RF ipratropium-albuterol 0.5 mg-3 mg(2.5 mg base)/3 mL solution for nebulization 3 ml inhalation Q20M PRN (Reason: shortness of breath or wheezing) Qty: 90 3RF Rx Instructions: for 3 doses hydrocortisone 2.5 % ointment 1 appl topical BID-TID PRN (Reason: itching) Qty: 454 1RF sumatriptan succinate 50 mg tablet 50 mg PO Q2-4H PRN (Reason: migraine headache) Qty: 14 1RF Rx Instructions: do not exceed 4 doses per 24 hrs magnesium oxide 400 mg (241.3 mg magnesium) tablet 400 mg PO BEDTIME Qty: 90 2RF riboflavin (vitamin B2) 400 mg tablet 400 mg PO DAILY Qty: 90 2RF Interventions: ED Discharge Assessment Last Done: 04/12/25 06:00 Discharge Date/Time: 04/12/25 06:05 Print Language: Sami
[2025-04-12] MEDS: iohexoL 350 MG/ML 100 ML INFUS..BTL IV (03:27)
[2025-04-12 04:00] VITALS: BP 105/54; PULSE 62; RESP 17; TEMP 36.4; O2SAT 98
[2025-04-12 05:09] LABS: Troponin-I High Sensitivity < 2.7 ng/L (<3.5-17.0)
[2025-04-12 06:00] VITALS: BP 116/53; PULSE 65; RESP 17; TEMP 36.6; O2SAT 100
== END 2025-04-12 06:05 | disposition home or self-care (01) ==
PROVIDERS: Emergency Provider Emergency Medicine
DX: R07.9 Chest pain, unspecified (principal); E11.9 Type 2 diabetes mellitus without complications; J45.909 Unspecified asthma, uncomplicated; I10 Essential (primary) hypertension; E78.5 Hyperlipidemia, unspecified; Z79.02 Long term (current) use of antithrombotics/antiplatelets; Z79.899 Other long term (current) drug therapy
CPT/HCPCS: 36415; 71275; 80048; 84484; 85025; 93005; 99284; Q9967

== ENCOUNTER → 2025-04-11 23:27 | Outpatient (BNV) | payer OTHER, SELFPAY | PROVIDERS: Emergency Provider Emergency Medicine; Visit Provider Internal Medicine | DX: R07.9 Chest pain, unspecified (principal) | CPT/HCPCS: 93010 ==

== ENCOUNTER → 2025-04-12 02:58 | Outpatient (BNV) | payer OTHER, SELFPAY | PROVIDERS: Emergency Provider Emergency Medicine; Visit Provider Radiology Diagnostic Radiology | DX: R07.81 Pleurodynia (principal) | CPT/HCPCS: 71275 ==

== ENCOUNTER 2025-06-01 10:02 | Outpatient (AMB) | payer OTHER, SELFPAY ==
--- NOTE | 2025-06-01 10:06 | A.OFFPC_ITS ---
Vital Signs 06/01/25 10:07 Height 5 ft 3 in Weight 157 lb 8 oz BMI 27.9 BP 110/62 Blood Pressure Location Lt brachial Position Sitting Respiration 18 Pulse 73 Pulse Source Pulse Oximeter Temp Source Temporal Artery Scan Pulse Oximetry (%) 97 Oxygen Delivery Method Room Air Intake Visit Reasons: JANICE DR Shields Stone Hand Required: No Accompanied by: Self / Same As Patient Allergies amoxicillin Allergy (Severe, Verified 06/01/25 10:28) Anaphylaxis codeine (Codeine) Allergy (Severe, Verified 06/01/25 10:28) Anaphylaxis gabapentin (From Neurontin) Allergy (Severe, Verified 06/01/25 10:28) Anaphylaxis Penicillins Allergy (Severe, Verified 06/01/25 10:28) Anaphylaxis Sulfa (Sulfonamide Antibiotics) (SULFA (SULFONAMIDE ANTIBIOTICS)) Allergy (Severe, Verified 06/01/25 10:28) Anaphylaxis pregabalin (From LYRICA) Allergy (Intermediate, Verified 06/01/25 10:28) SWELLING Medication List - Last Reconciled 06/01/25 by ARMANDO Ku acetaminophen 650 mg (2 x 325 mg) PO Q6H PRN 30 days albuterol sulfate 90 mcg/actuation 1 inh inhalation QID PRN blood pressure monitor As directed budesonide-formoterol 160-4.5 mcg/actuation 2 puffs PO BID cyclobenzaprine 10 mg PO TID PRN docusate sodium (Colace) 200 mg (2 x 100 mg) PO BEDTIME esomeprazole magnesium (Nexium) 20 mg PO DAILY 90 days fluticasone propionate 50 mcg/actuation 1 spray intranasal DAILY hydrocortisone 2.5% 1 appl topical BID-TID PRN hydroxyzine HCl 25 mg PO TID ipratropium-albuterol 0.5 mg-3 mg(2.5 mg base)/3 mL 3 mL inhalation Q20M PRN loratadine 10 mg PO DAILY magnesium oxide 400 mg PO BEDTIME meclizine 25 mg PO QID PRN methylcellulose (laxative) (Citrucel) 500 mg PO TID 30 days multivitamin 1 tab PO DAILY nebulizers (AeroEclipse II Nebulizer) As directed propranolol ER 120 mg PO DAILY riboflavin (vitamin B2) 400 mg PO DAILY rosuvastatin 40 mg PO DAILY sennosides (senna) 17.2 mg PO BEDTIME PRN sumatriptan succinate 50 mg PO Q2-4H PRN tizanidine 4 mg PO Q8H PRN 30 days Tobacco use date assessed: 06/01/25 Fall risk assessment: No Falls in past year Last assessed Fall Risk: 06/01/25 Dental Screening Dental Screen Date: 06/01/25 Did you have a dental visit in the last 12 months?: No Did you have a dental problem in the last 6 months where you did not have access to dental care?: No Was dental information given to patient?: Patient has dentist HPI JANICE DR Shields HPI Details The patient is a 74-year-old female who was presenting to transition care from Dr. Shields who retired 5 months ago. Past medical history of chronic venous insufficiency, prediabetes, asthma, migraines, hyperplastic colon polyp, total shoulder arthroplasty, carpal tunnel on both sides, hypertension, cystocele, fibromyalgia, obesity, hyperlipidemia, lumbar spondylosis She is presenting today with concerns of musculoskeletal pain, constipation, and asthma management. The patient reports musculoskeletal pain, particularly in the back and fingers, attributed to osteoarthritis. She has a history of L5 to S1 arthritis and herniated discs, contributing to her back pain, with occasional leg radiation consistent with sciatica. The patient has chronic constipation, taking docusate sodium daily, yet experiences infrequent bowel movements and abdominal discomfort. Asthma symptoms occur daily, especially at night, managed with regular inhaler use. Patient reports that she has not been evaluated by an [employer] certified network professional before and her asthma has always been an issue. Pre-diabetes has been identified, with advice to reduce sugar intake to prevent diabetes progression. The patient complained of right thumb pain and swollen. Denies any trauma. Unclear onset of pain, per patient, she has been ignoring the pain due to her history of arthritis. She has a little more concerned due to the swollen at this time. Patient also asked about DEXA scan. This was completed 07/2023 and was shown to be normal. This could be evaluated between 2-5 years. Given the patient normal result, this could be checked closer to 3 years. [facility] Medical History History of mammogram (~08/02/24) Contact dermatitis Chronic venous insufficiency Thrush, oral Pre-diabetes Upper respiratory symptom Myocardial infarction Seasonal allergies Asthma GERD (gastroesophageal reflux disease) HTN (hypertension) Arthritis of left acromioclavicular joint Cystocele with prolapse Fibromyalgia Generalized osteoarthritis Chronic pain syndrome Spondylosis of cervical spine Obesity Post-menopausal Screening for breast cancer Screening for diabetes mellitus Obesity Hyperlipidemia Vertigo Lumbar spondylosis Anal pruritus Surgical History History of esophagogastroduodenoscopy (EGD) Hx of shoulder replacement Hx of hand surgery History of bilateral knee replacement History of colonoscopy History of varicose veins History of hysterectomy Family History Father Angina at rest Mother Hypothyroidism Hypertension Osteoarthritis Heart disease Panic disorder Glaucoma Brother Stroke Sister Alcoholic liver disease HIV (human immunodeficiency virus infection) Social History Household Members: None Housing: [facility] Are you a primary technical healthcare consultant to a significant other at home: No Do you presently have visiting nurse or other home services: Yes ([employer] 41 per week) Alcohol intake: never Comment: pt medicated with po tylenol Patient Tobacco Use Status: Former Tobacco user Tobacco use type: Cigarette e-Cigarette/Vaping Use: Never Used Second Hand Smoke Exposure: No service: No Current occupational status: retired Current occupation: Right Handed Cognitive needs: Yes (cane) Hearing needs: No Vision needs: Yes (Glasses) Female Reproductive History Menstrual Age of Menarche: 9 Questionnaire PHQ-9 Over the last 2 weeks, how often have you been bothered by any of the following problems? 1. Little interest or pleasure in doing things: not at all 2. Feeling down, depressed, or hopeless: not at all 3. Trouble falling or staying asleep, or sleeping too much: not at all 4. Feeling tired or having little energy: not at all 5. Poor appetite or overeating: not at all 6. Feeling bad about yourself - or that you are a failure or have let yourself or your family down: not at all 7. Trouble concentrating on things, such as reading the newspaper or watching television: not at all 8. Moving or speaking so slowly that other people could have noticed. Or the opposite - being so fidgety or restless that you have been moving around a lot more than usual: not at all 9. Thoughts that you would be better off or of hurting yourself in some way: not at all Total score: 0 Depression Screening Interpretation: Negative Depression Screening Done: Yes Source: Developed by Drs. Jose Antonio Ugarte, Romy Tse, Tomi Finley and colleagues, with an educational tommy from [employer]. Thrive Questionnaire Date Thrive assessed: 06/01/25 I am a: Patient What is your living situation today?: I have a steady place to live Within the past 12 months, did the food you bought not last and you didn't have the money to get more?: Never true Within the past 12 months, did you worry whether your food would run out before you got money to buy more?: Never true Do you have trouble paying for medicines?: No Do you have trouble getting transportation to medical appointments?: No Do you have trouble paying your heating and electricity bill?: No Do you have trouble taking care of your child, family member or friend?: No Do you have trouble with day-to-day activities such as bathing, preparing meals, shopping, managing finances, etc.?: No Are you currently unemployed and looking for a job?: No Are you interested in more education?: No Please select the resources that you would like help with: None Currently or been in a relationship where the following occur: No concerns reported THRIVE Score: 0 AUDIT C Alcohol Use Questionnaire (AUDIT-C) 1. How often do you have a drink containing alcohol?: Never Total Score: 0 Score Reviewed/Action Taken: No RYAN-7 AMB Questionnaire RYAN-7 Date RYAN - 7 assessed: 06/01/25 Feeling nervous, anxious, or on edge: 0 = Not at all Not being able to stop or control worryin = Not at all Worrying too much about different things: 0 = Not at all Trouble relaxin = Not at all Being so restless that it is hard to sit still: 0 = Not at all Becoming easily annoyed or irritable: 0 = Not at all Feeling afraid as if something awful might happen: 0 = Not at all Total RYAN-7 score (0-4 normal; 5-9 mild; 10-14 moderate; 15-21 severe): 0 Source: Developed by Drs. Jose Antonio Ugarte, Romy Tse, Tomi Finley and colleagues, with an educational tommy from [employer]. Review of Systems Const Reports headache(s) (On and off-has been stable) Eyes Denies loss of vision ENT Denies vertigo, Denies dizziness, Reports headache(s) (On and off-has been stable) and Denies sore throat Card Denies chest pain, Denies leg edema, Denies lightheadedness and Reports dyspnea (Mostly at night attributed asthma symptoms) Resp Denies cough, Denies hemoptysis, Reports dyspnea (Mostly at night attributed asthma symptoms) and Denies wheezing GI Denies abdominal pain, Denies melena, Reports constipation (Chronic), Reports heartburn (Depending on what she eats), Denies diarrhea and Denies vomiting Denies urinary frequency, Denies dysuria and Denies urinary urgency Musc Reports back pain (Lower back pain), Reports arthralgias (Right thumb), Reports joint swelling (Right thumb), Denies numbness and Denies tingling Neuro Denies Abnormal speech present, Denies behavioral changes, Denies vertigo, Denies dizziness, Reports headache(s) (On and off-has been stable), Denies loss of vision, Denies memory loss, Denies numbness and Denies tingling Psych Denies anxiety, Denies behavioral changes, Denies depression, Denies memory loss and Denies panic attacks Young/Lymph Denies easy bleeding and Denies easy bruising Aller/Immun Denies wheezing Physical exam (Primary Care) Vital Signs: Last Vital Signs Pulse 73 06/01/25 10:07 Resp 18 06/01/25 10:07 BP 110/62 06/01/25 10:07 Pulse Ox 97 06/01/25 10:07 Oxygen Delivery Method Room Air 06/01/25 10:07 BMI result Body Mass Index 27.9 Tobacco/Smoking Status: Tobacco use Status Tobacco use date assessed 06/01/25 06/01/25 10:18 Patient Tobacco Use Status Former Tobacco user 06/01/25 10:18 Tobacco use type Cigarette 06/01/25 10:18 e-Cigarette/Vaping Use Never Used 06/01/25 10:18 PHQ-9: PHQ-9 Score PHQ-9: Total score 0 06/01/25 21:12 Depression Screening Interpretation: Negative Thrive Assessment: Date of Thrive Assessment Date Thrive assessed 06/01/25 06/01/25 10:18 Currently or been in a relationship where the following occur: No concerns reported Const General: healthy appearing, no acute distress, alert and awake Nutritional Appearance: well nourished Orientation/consciousness: oriented to person, oriented to place and oriented to time HENMT Ears: TM's normal bilaterally General nose exam: Normal nasal mucous membranes and turbinates present Eyes Conjunctivae: conjunctivae normal Sclerae: sclerae normal Pupils: Equal, round and reactive pupils present Neck Neck: Yes no lymphadenopathy and Yes no JVD Thyroid: Thyroid normal Carotids: no bruits Resp Effort & Inspection: normal respiratory effort and not tachypneic Auscultation: no crackles, no rales, no rhonchi and no wheezes Cardio Rate: regular rate Rhythm: regular rhythm Heart sounds: no murmurs and normal S1 and S2 GI Palpation (GI): Soft to palpation, nontender, no hepatomegaly and no splenomegaly Auscultation: normal bowel sounds Back/Spine/Pelvis Thoracic/Lumbar Spine: No lumbar spinal tenderness Skin General skin exam: no rashes or lesions noted and dry skin Neuro General: oriented to person, oriented to place and oriented to time Cranial nerves: Yes Equal, round and reactive pupils present Speech: No Abnormal speech present Gait exam (Neuro): Normal gait present Motor exam (neuro): no tremor noted Extrem Right upper extremity: full ROM and Extremity exam: right hand Details: tenderness Location: of the thumb Location: at the MCP joint Left upper extremity: full ROM Right lower extremity: full ROM; no edema Left lower extremity: full ROM; no edema Psych Mental Status: mental status grossly normal Speech and movement: Normal speech and movement present Affect: normal affect Attitude: cooperative Thought process: Normal thought process present Results Reviewed Results Reviewed: Laboratory Tests 04/11/25 23:42 WBC 6.7 RBC 4.12 L Hgb 12.2 Hct 35.8 L MCV 86.9 MCH 29.6 MCHC 34.1 RDW 12.9 Plt Count 215 MPV 10.3 Sodium 142 Potassium 3.6 Chloride 112 H Carbon Dioxide 22 Anion Gap 12 BUN 18 H Creatinine 0.73 Estim Creat Clear Calc 63.2 Estimated GFR > 60 Random Glucose 107 Calcium 9.1 Coding Level of Care Code Est Pt Level 4 (11200) Diagnoses Hypertension, unspecified type I10 Hypertension type: unspecified Pre-diabetes R73.03 Allergic rhinitis, unspecified seasonality, unspecified trigger J30.9 Allergic rhinitis trigger: unspecified Allergic rhinitis seasonality: unspecified Chronic GERD K21.9 Constipation, unspecified constipation type K59.00 Constipation type: unspecified constipation type Fibromyalgia M79.7 Lumbar spondylosis M47.816 Asthma, unspecified asthma severity, unspecified whether complicated, unspecified whether persistent J45.909 Asthma severity: unspecified severity Asthma persistence: unspecified Asthma complication type: unspecified Pain of right thumb M79.644 Swelling of right thumb M79.89 Overweight (BMI 25.0-29.9) E66.3 Time Spent (min) 41 Assessment & Plan Assessment & Plan (1) Hypertension: Code(s): I10 - Essential (primary) hypertension Category: Medical Qualifiers: Hypertension type: unspecified Qualified Code(s): I10 - Essential (primary) hypertension (2) Pre-diabetes: Code(s): R73.03 - Prediabetes Category: Medical (3) Allergic rhinitis: Code(s): J30.9 - Allergic rhinitis, unspecified Category: Medical Qualifiers: Allergic rhinitis trigger: unspecified Allergic rhinitis seasonality: unspecified Qualified Code(s): J30.9 - Allergic rhinitis, unspecified (4) Chronic GERD: Code(s): K21.9 - Gastro-esophageal reflux disease without esophagitis Category: Medical (5) Constipation: Comment: Very pleasant 72-year-old female- Much improved pattern consistent with bowel regimen Code(s): K59.00 - Constipation, unspecified Category: Medical Qualifiers: Constipation type: unspecified constipation type Qualified Code(s): K59.00 - Constipation, unspecified (6) Fibromyalgia: Code(s): M79.7 - Fibromyalgia Category: Medical (7) Lumbar spondylosis: Code(s): M47.816 - Spondylosis without myelopathy or radiculopathy, lumbar region Category: Medical (8) Asthma: Code(s): J45.909 - Unspecified asthma, uncomplicated Category: Medical Qualifiers: Asthma severity: unspecified severity Asthma persistence: unspecified Asthma complication type: unspecified Qualified Code(s): J45.909 - Unspecified asthma, uncomplicated (9) Pain of right thumb: Code(s): M79.644 - Pain in right finger(s) Category: Medical (10) Swelling of right thumb: Code(s): M79.89 - Other specified soft tissue disorders Category: Medical (11) Overweight (BMI 25.0-29.9): Code(s): E66.3 - Overweight Category: Medical Plan The patient will continue managing osteoarthritis with current medications and monitor for any changes in symptoms. For sciatica, the patient is advised to continue current management and report any worsening of symptoms. Constipation management includes continuing docusate sodium and considering the addition of fiber supplements such as Metamucil. The patient is encouraged to maintain hydration and dietary modifications to improve bowel regularity. Asthma management involves regular use of inhalers and monitoring symptoms, with a referral to a [employer] certified network professional for further evaluation. For pre-diabetes, the patient is advised to reduce sugar intake and will have follow-up testing in three months to monitor glucose levels. Blood pressure within goal. Continue propranolol ER 120 daily and low-salt diet Reinforced low-cholesterol diet and activity as tolerated. Continue rosuvastatin 40 mg daily Reports improvement in headaches. Continues B2 400 mg daily, magnesium oxide 400 mg at bedtime Chronic constipation. The patient reports taking Colace but has not been taking her methylcellulose 500mg tid RX refilled. Increase fluids intake. Continue senna 2 tabs at bedtime p.r.n. We will do an x-ray of the patient right thumb. We will repeat her DEXA scan next year July. Patient was informed and verbally consented to the use of an ambient scribe for clinic note documentation during this visit. Orders: Orders UA CC w/rflx Micro + Cult 3 Months E66.9 - Obesity, unspecified, E78.5 - Hyperlipidemia, unspecified, I10 - Essential (primary) hypertension, I87.2 - Venous insufficiency (chronic) (peripheral), J45.909 - Unspecified asthma, uncomplicated, K21.9 - Gastro-esophageal reflux disease without esophagitis, K59.00 - Constipation, unspecified, M47.816 - Spondylosis without myelopathy or radiculopathy, lumbar region, M79.7 - Fibromyalgia, R73.03 - Prediabetes Vitamin D 25-OH Total 3 Months E66.9 - Obesity, unspecified, E78.5 - Hyperlipidemia, unspecified, I10 - Essential (primary) hypertension, I87.2 - Venous insufficiency (chronic) (peripheral), J45.909 - Unspecified asthma, uncomplicated, K21.9 - Gastro-esophageal reflux disease without esophagitis, K59.00 - Constipation, unspecified, M47.816 - Spondylosis without myelopathy or radiculopathy, lumbar region, M79.7 - Fibromyalgia, R73.03 - Prediabetes Hemoglobin A1c 3 Months E66.9 - Obesity, unspecified, E78.5 - Hyperlipidemia, unspecified, I10 - Essential (primary) hypertension, I87.2 - Venous insufficiency (chronic) (peripheral), J45.909 - Unspecified asthma, uncomplicated, K21.9 - Gastro-esophageal reflux disease without esophagitis, K59.00 - Constipation, unspecified, M47.816 - Spondylosis without myelopathy or radiculopathy, lumbar region, M79.7 - Fibromyalgia, R73.03 - Prediabetes XR finger RT min 2V Today M79.644 - Pain in right finger(s), M79.89 - Other specified soft tissue disorders Complete Blood Count Auto Diff 3 Months E66.9 - Obesity, unspecified, E78.5 - Hyperlipidemia, unspecified, I10 - Essential (primary) hypertension, I87.2 - Venous insufficiency (chronic) (peripheral), J45.909 - Unspecified asthma, uncomplicated, K21.9 - Gastro-esophageal reflux disease without esophagitis, K59.00 - Constipation, unspecified, M47.816 - Spondylosis without myelopathy or radiculopathy, lumbar region, M79.7 - Fibromyalgia, R73.03 - Prediabetes Comprehensive [place]. Panel Fast 3 Months E66.9 - Obesity, unspecified, E78.5 - Hyperlipidemia, unspecified, I10 - Essential (primary) hypertension, I87.2 - Venous insufficiency (chronic) (peripheral), J45.909 - Unspecified asthma, uncomplicated, K21.9 - Gastro-esophageal reflux disease without esophagitis, K59.00 - Constipation, unspecified, M47.816 - Spondylosis without myelopathy or radiculopathy, lumbar region, M79.7 - Fibromyalgia, R73.03 - Prediabetes Lipase 3 Months E66.9 - Obesity, unspecified, E78.5 - Hyperlipidemia, unspecified, I10 - Essential (primary) hypertension, I87.2 - Venous insufficiency (chronic) (peripheral), J45.909 - Unspecified asthma, uncomplicated, K21.9 - Gastro-esophageal reflux disease without esophagitis, K59.00 - Constipation, unspecified, M47.816 - Spondylosis without myelopathy or radiculopathy, lumbar region, M79.7 - Fibromyalgia, R73.03 - Prediabetes TSH reflex Free T4 3 Months E66.9 - Obesity, unspecified, E78.5 - Hyperlipidemia, unspecified, I10 - Essential (primary) hypertension, I87.2 - Venous insufficiency (chronic) (peripheral), J45.909 - Unspecified asthma, uncomplicated, K21.9 - Gastro-esophageal reflux disease without esophagitis, K59.00 - Constipation, unspecified, M47.816 - Spondylosis without myelopathy or radiculopathy, lumbar region, M79.7 - Fibromyalgia, R73.03 - Prediabetes Uric Acid 3 Months E66.9 - Obesity, unspecified, E78.5 - Hyperlipidemia, unspecified, I10 - Essential (primary) hypertension, I87.2 - Venous insufficiency (chronic) (peripheral), J45.909 - Unspecified asthma, uncomplicated, K21.9 - Gastro-esophageal reflux disease without esophagitis, K59.00 - Constipation, unspecified, M47.816 - Spondylosis without myelopathy or radiculopathy, lumbar region, M79.7 - Fibromyalgia, R73.03 - Prediabetes Referrals Pulmonology Referral J45.909 - Unspecified asthma, uncomplicated Medications: New multivitamin 1 tab PO DAILY 90 tabs 3RF Changed From sennosides (senna) 17.2 mg PO BEDTIME PRN constipation To sennosides (senna) 17.2 mg (2 x 8.6 mg) PO BEDTIME PRN 60 tabs 3RF constipation 30 days Refilled methylcellulose (laxative) (Citrucel) 500 mg PO TID 90 tabs 5RF 30 days tizanidine 4 mg PO Q8H PRN 60 tabs 1RF muscle spasticity 30 days
[2025-06-01 10:07] VITALS: BP 110/62; PULSE 73; RESP 18; O2SAT 97; BMI 27.9
== END 2025-06-01 10:52 | disposition home or self-care (01) ==
DX: I10 Essential (primary) hypertension (principal); R73.03 Prediabetes; J30.9 Allergic rhinitis, unspecified; K21.9 Gastro-esophageal reflux disease without esophagitis; K59.00 Constipation, unspecified; M79.7 Fibromyalgia; M47.816 Spondylosis without myelopathy or radiculopathy, lumbar region; J45.909 Unspecified asthma, uncomplicated; M79.644 Pain in right finger(s); M79.89 Other specified soft tissue disorders; E66.3 Overweight

== ENCOUNTER → 2025-06-01 10:02 | Outpatient (BNVA) | payer OTHER, SELFPAY | DX: R73.03 Prediabetes (principal); J45.909 Unspecified asthma, uncomplicated; G43.909 Migraine, unspecified, not intractable, without status migrainosus; G56.03 Carpal tunnel syndrome, bilateral upper limbs; I10 Essential (primary) hypertension; M79.7 Fibromyalgia; E78.5 Hyperlipidemia, unspecified; M54.9 Dorsalgia, unspecified; K59.00 Constipation, unspecified; M79.645 Pain in left finger(s); M79.644 Pain in right finger(s); K59.09 Other constipation; K21.9 Gastro-esophageal reflux disease without esophagitis; M47.816 Spondylosis without myelopathy or radiculopathy, lumbar region; M79.89 Other specified soft tissue disorders; E66.3 Overweight; Z68.27 Body mass index [BMI] 27.0-27.9, adult | CPT/HCPCS: 96127; 99212 ==

== ENCOUNTER 2025-06-08 19:55 | Emergency (ER) | payer OTHER, SELFPAY ==
--- NOTE | 2025-06-08 19:57 | ED_ITS ---
HPI - General Adult General Chief complaint: General Medical Stated complaint: dizziness,nausea Time Seen by Provider: 06/08/25 20:59 Source: patient and family Mode of arrival: ambulatory Limitations: no limitations History of Present Illness ED Provider: ELISHA SHEARER narrative: 74 yo female with asthma, GERD, HTN, HLD here s/p accidentally taking tizanidine 4mg and hydroxyzine 25mg at 630pm. She just took the medications on accident as they were sitting next to each other. NO SI. She c/o some dry mouth and dizziness. No chest pain/dyspnea. She is urinating well. No confusion MD complaint: med error Onset (ago): day(s) (630pm today) Radiation: non-radiation Severity: mild Relieving factors: none Exacerbating factors: movement Associated symptoms: nausea/vomiting Treatments prior to arrival: none Related Data Home Medications ?Medication ?Instructions ?Recorded ?Confirmed meclizine 25 mg tablet 25 mg PO QID PRN Vertigo 06/01/25 Previous Rx's ?Medication ?Instructions ?Recorded blood pressure monitor #1 ea 11/19/23 acetaminophen 325 mg tablet 650 mg (2 x 325 mg) PO Q6H PRN 11/24/23 Pain, Mild (Pain Scale 1-3) 30 days #240 tabs docusate sodium 100 mg capsule 200 mg (2 x 100 mg) PO BEDTIME #60 02/04/24 (Colace) caps loratadine 10 mg tablet 10 mg PO DAILY #90 tabs 04/18 03/11 esomeprazole magnesium 20 mg 20 mg PO DAILY 90 days #9 0 caps 05/16/24 capsule,delayed release (Nexium) cyclobenzaprine 10 mg tablet 10 mg PO TID PRN muscle s pasm #30 06/13/24 tabs propranolol 120 mg capsule,24 120 mg PO DAILY #90 caps 09/07/24 hr,extended release albuterol sulfate 90 mcg/actuation 1 inh inhalation QI D PRN shortness 12/08/24 aerosol inhaler of breath or wheezing #8.5 g sofía ipratropium 0.5 mg-albuterol 3 mg 3 ml inhalation Q20M PRN shortness 12/08/24 (2.5 mg base)/3 mL nebulization of breath or wheezing #90 mL soln hydrocortisone 2.5 % topical 1 appl topical BID-TID AR N itching 12/22/24 ointment #454 grams rosuvastatin 40 mg tablet 40 mg PO DAILY #90 tabs 12/17 02/10 nebulizers (AeroEclipse II #1 ea 01/12/25 Nebulizer) hydroxyzine HCl 25 mg tablet 25 mg PO TID for itch #27 0 tabs 01/13/25 fluticasone propionate 50 1 spray intranasal DAILY #48 mL 02/15/25 mcg/actuation nasal spray,suspension magnesium oxide 400 mg (241.3 mg 400 mg PO BEDTIME #90 tabs 03/22/25 magnesium) tablet riboflavin (vitamin B2) 400 mg 400 mg PO DAILY #90 tab s 03/22/25 tablet budesonide-formoterol HFA 160 2 puff PO BID #10.2 ea 0 04/14/25 mcg-4.5 mcg/actuation aerosol inhaler sumatriptan succinate 50 mg tablet 50 mg PO Q2-4H PRN migraine 05/15/25 headache #14 tabs methylcellulose (laxative) 500 mg 500 mg PO TID 30 day s #90 tabs 06/01/25 tablet (Citrucel) multivitamin 1 tab PO DAILY #90 tabs 05/19 02/10 sennosides 8.6 mg tablet (senna) 17.2 mg (2 x 8.6 mg) PO BEDTIME 06/01/25 PRN constipation 30 days #60 tabs tizanidine 4 mg tablet 4 mg PO Q8H PRN muscle spast icity 06/01/25 30 days #60 tabs Allergies Allergy/AdvReac Type Severity Reaction Status Date / Time amoxicillin Allergy Severe Anaphylaxis Verified 06/08/25 20:01 codeine (Codeine) Allergy Severe Anaphylaxis Verified 06/08/25 20:01 gabapentin (From Neurontin) Allergy Severe Anaphylaxis Verified 06/08/25 20:01 Penicillins Allergy Severe Anaphylaxis Verified 06/08/25 20:01 Sulfa (Sulfonamide Allergy Severe Anaphylaxis Verified 06/08/25 20:01 Antibiotics) (SULFA (SULFONAMIDE ANTIBIOTICS)) pregabalin (From LYRICA) Allergy Intermediate SWELLING Verified 06/08/25 20:01 Review of Systems 2 Review of Systems: Constitutional : No Fever, No Chills, No Fatigue ENT/Mouth : No sore throat, No Rhinorrhea Eyes: No Eye Pain, No Swelling, No Redness Cardiovascular : No Chest Pain, No SOB, No Dyspnea on Exertion Respiratory : No Cough, No Sputum Gastrointestinal : pos Nausea, No Vomiting, No Diarrhea, No abdominal Pain Genitourinary : No Dysuria, No Urinary Frequency, No Hematuria, Musculoskeletal : No joint pain, No Myalgias, No Joint Swelling Skin : No Skin Lesions, No rash Neuro : No Weakness, No Numbness, pos Dizziness, no Headache All other systems reviewed and are negative [facility] Past Medical History Attestation statement: The following information was validated with the patient. Source: old records reviewed Medical History History of mammogram (~08/02/24) Contact dermatitis Chronic venous insufficiency Thrush, oral Pre-diabetes Upper respiratory symptom Myocardial infarction Seasonal allergies Asthma GERD (gastroesophageal reflux disease) HTN (hypertension) Arthritis of left acromioclavicular joint Cystocele with prolapse Fibromyalgia Generalized osteoarthritis Chronic pain syndrome Spondylosis of cervical spine Obesity Post-menopausal Screening for breast cancer Screening for diabetes mellitus Obesity Hyperlipidemia Vertigo Lumbar spondylosis Anal pruritus Surgical History History of esophagogastroduodenoscopy (EGD) Hx of shoulder replacement Hx of hand surgery History of bilateral knee replacement History of colonoscopy History of varicose veins History of hysterectomy Family History Family History Father Angina at rest Mother Hypothyroidism Hypertension Osteoarthritis Heart disease Panic disorder Glaucoma Brother Stroke Sister Alcoholic liver disease HIV (human immunodeficiency virus infection) Social History Social History Household Members: None Housing: Condominium Are you a primary housekeeper caregiver to a significant other at home: No Do you presently have visiting nurse or other home services: Yes ([employer] 41 per week) Unable to assess alcohol history related to: Unknown Alcohol intake: never Comment: pt medicated with po tylenol Patient Tobacco Use Status: Former Tobacco user Tobacco use type: Cigarette e-Cigarette/Vaping Use: Never Used Second Hand Smoke Exposure: No Use of substances other than those prescribed or required for medical reasons: Unknown Advance Directives: No Advance Directives Information Provided: No service: No Current occupational status: retired Current occupation: Right Handed Cognitive needs: Yes (cane) Hearing needs: No Vision needs: Yes (Glasses) Physical Exam ED Vital Signs: Vital Signs - 24 hr 06/08/25 19:58 Temperature 97.9 F Pulse Rate 66 Respiratory Rate 18 Blood Pressure 105/62 Pulse Oximetry 100 Oxygen Delivery Method Room Air BMI result Body Mass Index 27.6 Appearance: Alert. Oriented X3. No acute distress. Eyes: Pupils equal, round and reactive to light. 3mm ENT: Pharynx normal. Neck: Normal inspection. Neck supple. CVS: Normal heart rate and rhythm. Pulses normal. Respiratory: No respiratory distress. Breath sounds normal. Abdomen: Soft and nontender. Skin: Skin warm and dry. Normal skin color. Normal skin turgor. Extremities: No lower extremity edema. No calf ttp Neuro: Oriented X 3. No motor deficit. No sensory deficit. CN2-12 intact steady gait, no ataxia Course Course Course Narrative: This is a rapid medical exam performed by Charles Urias NP: Additional HPI, ROS, PE not included below will be deferred to primary provider. Patient is a 74-year-old female with history of asthma, GERD, HTN, vertigo, fibromyalgia presenting to the ED with complaint of dizziness and nausea after accidentally taking one 4mg tab of tizanidine and one 25mg tab of hydroxyzine together around 18:30-18:45. BP was low on home machine, around 80 systolic. BP in triage 105/62. Plan: EKG Medical Decision Making Medical Decision Making [facility] Narrative: 74 yo female with asthma, GERD, HTN, HLD here s/p accidental med ingestion took both tizanidine and atarax together at this time no clonus, normal pupils, no confusion, steady gait, at this time will need EKG, labs she looks really well stable for DC Differential Diagnosis Differential Diagnoses: The differential diagnosis associated with the presentation includes med error Admission/Observation Consideration of admission/observation: Escalation of care including admission/observation considered 3 hours after ingestion feels much better, tolerating PO, urinating, no abnormal pupil exam, EKG qtc normal, has safe family to DC with Lab Data [facility] Lab Attestation statement: I reviewed the patient's lab results. 06/08/25 20:13 06/08/25 20:13 Labs: Lab Results 08/21/25 Range/Units 20:13 WBC 5.7 (4.8-10.8) X10*3/uL RBC 4.30 (4.20-5.50) X10*6/uL Hgb 12.6 (12.0-16.0) g/dl Hct 37.4 (37.0-47.0) % MCV 87.0 (80.0-98.0) fL MCH 29.3 (27.0-33.0) pg MCHC 33.7 (31.0-35.0) g/dl RDW 13.0 (11.0-16.0) % Plt Count 207 (160-400) X10*3/uL MPV 10.8 (9.4-12.3) fL Immature Gran % (Auto) 0.2 (0.0-0.4) % Neut % (Auto) 43.0 L (45-73) % Lymph % (Auto) 41.7 H (20-40) % [place] % (Auto) 11.3 H (2-11) % Eos % (Auto) 3.1 (0-4) % Baso % (Auto) 0.7 (0-2) % Lymph # (Auto) 2.4 (1.2-4.9) X10*3/uL [place] # (Auto) 0.7 (0.1-1.2) X10*3/uL Eos # (Auto) 0.2 (0.0-0.4) X10*3/uL Baso # (Auto) 0.0 (0.0-0.2) X10*3/uL Abs Immat Gran (auto) 0.01 (0.00-0.03) X10*3/uL Absolute Neuts (auto) 2.5 (2.0-8.3) x10*3/uL Absolute Nucleated RBC 0.000 (0.0-0.012) X10*3/uL Nucleated RBC % (auto) 0.0 (0.0-0.2) /100WBC Sodium 138 (135-145) mmol/L Potassium 4.9 D (3.3-5.1) mmol/L Chloride 107 (96-108) mmol/L Carbon Dioxide 26 (22-29) mmol/L Anion Gap 10 L (12-20) BUN 18 H (9-16) mg/dL Creatinine 0.86 (0.5-1.4) mg/dL Estim Creat Clear Calc 53.3 Estimated GFR > 60 Random Glucose 91 (60-115) mg/dL Calcium 8.7 (8.4-10.2) mg/dL Total Bilirubin 0.4 (0.0-1.0) mg/dL AST 23 (5-31) U/L ALT 24 (0-31) U/L Alkaline Phosphatase 79 (39-117) U/L Troponin I High Sens < 2.7 (<3.5-17.0) ng/L Total Protein 7.0 (6.5-8.0) g/dL Albumin 4.1 (3.5-5.0) g/dL Independent Interpretation I performed an independent interpretation of an: EKG Interpretation: Rate: 65 Rhythm: NSR [place]: normal Normal P waves. Normal [place]ELY[place]. Normal QRS complex. ST T wave : inverted t wave V1 , normal qTC: 420 prior studies: no acute ischemia The study has been interpreted contemporaneously by me. . Independent Historian Clinical information obtained from an independent historian. History obtained from or confirmed by: Other External Record Review External record reviewed: Outpatient record Discharge Plan Discharge Clinical Impression: Dizziness Patient Disposition: Home, Self-Care Instructions: Dizziness (ED) Additional Instructions: please avoid any medication errors in the future return for any worsening symptoms or concerns stay with responsible adult tonight return for confusion, vomiting, falls, chest pain, heart racing or any other concerns. Prescriptions: No Action (DME) blood pressure monitor Kit See Rx Instructions .Route Qty: 1 0RF Rx Instructions: As directed loratadine 10 mg tablet 10 mg PO DAILY Qty: 90 8RF esomeprazole magnesium [Nexium] 20 mg capsule,delayed release(DR/EC) 20 mg PO DAILY 90 Days Qty: 90 3RF propranolol 120 mg capsule,extended release 24hr 120 mg PO DAILY Qty: 90 4RF rosuvastatin 40 mg tablet 40 mg PO DAILY Qty: 90 8RF (DME) nebulizers [AeroEclipse II Nebulizer] [facility] See Rx Instructions .Route Qty: 1 0RF Rx Instructions: As directed hydroxyzine HCl 25 mg tablet 25 mg PO TID Qty: 270 1RF fluticasone propionate 50 mcg/actuation spray,suspension 1 spray intranasal DAILY Qty: 48 1RF budesonide-formoterol 160-4.5 mcg/actuation HFA aerosol inhaler 2 puff PO BID Qty: 10.2 3RF sumatriptan succinate 50 mg tablet 50 mg PO Q2-4H PRN (Reason: migraine headache) Qty: 14 1RF Rx Instructions: do not exceed 4 doses per 24 hrs meclizine 25 mg tablet 25 mg PO QID PRN (Reason: Vertigo) acetaminophen 325 mg Tablet 650 mg PO Q6H PRN (Reason: Pain, Mild (Pain Scale 1-3)) 30 Days Qty: 240 0RF cyclobenzaprine 10 mg tablet 10 mg PO TID PRN (Reason: muscle spasm) Qty: 30 2RF docusate sodium [Colace] 100 mg capsule 200 mg PO BEDTIME Qty: 60 5RF albuterol sulfate 90 mcg/actuation HFA aerosol inhaler 1 inh inhalation QID PRN (Reason: shortness of breath or wheezing) Qty: 8.5 0RF ipratropium-albuterol 0.5 mg-3 mg(2.5 mg base)/3 mL solution for nebulization 3 ml inhalation Q20M PRN (Reason: shortness of breath or wheezing) Qty: 90 3RF Rx Instructions: for 3 doses hydrocortisone 2.5 % ointment 1 appl topical BID-TID PRN (Reason: itching) Qty: 454 1RF Citrucel 500 mg tablet 500 mg PO TID 30 Days Qty: 90 5RF sennosides [senna] 8.6 mg tablet 17.2 mg PO BEDTIME PRN (Reason: constipation) 30 Days Qty: 60 3RF tizanidine 4 mg tablet 4 mg PO Q8H PRN (Reason: muscle spasticity) 30 Days Qty: 60 1RF multivitamin Tablet 1 tab PO DAILY Qty: 90 3RF magnesium oxide 400 mg (241.3 mg magnesium) tablet 400 mg PO BEDTIME Qty: 90 2RF riboflavin (vitamin B2) 400 mg tablet 400 mg PO DAILY Qty: 90 2RF Print Language: Faroese
[2025-06-08 19:58] VITALS: BP 105/62; PULSE 66; RESP 18; TEMP 36.6; O2SAT 100; BMI 27.6
--- NOTE | 2025-06-08 19:59 | ECG_ITS ---
Test Reason : dizziness Blood Pressure : */* mmHG Vent. Rate : 65 BPM Atrial Rate : 65 BPM P-R Int : 144 ms QRS Dur : 84 ms QT Int : 404 ms P-R-T Axes : 25 3 43 degrees QTcB Int : 420 ms Normal sinus rhythm Normal ECG When compared with ECG of 11-Apr-2025 23:38, No significant change was found Referred By: Maday Urias Electronically Signed By: AUGUSTO LIMA MD
[2025-06-08 20:18] LABS: MANUAL DIFF FLAG NO
[2025-06-08 20:19] LABS: Hematocrit 37.4 % (37.0-47.0); Hemoglobin 12.6 g/dl (12.0-16.0); Imm Gran Abs Auto 0.01 X10*3/uL (0.00-0.03); Imm Gran Pct Auto 0.2 % (0.0-0.4); Lymphocytes Absolute Auto 2.4 X10*3/uL (1.2-4.9); Mean Corpuscular HGB Conc 33.7 g/dl (31.0-35.0); Mean Corpuscular Hemoglobin 29.3 pg (27.0-33.0); Mean Corpuscular Volume 87.0 fL (80.0-98.0); NRBC Abs Auto 0.000 X10*3/uL (0.0-0.012); NRBC Pct Auto 0.0 /100WBC (0.0-0.2); Platelet Count 207 X10*3/uL (160-400); Red Blood Count 4.30 X10*6/uL (4.20-5.50); White Blood Count 5.7 X10*3/uL (4.8-10.8)
[2025-06-08 20:31] LABS: Alanine Aminotransferase 24 U/L (0-31); Albumin Level 4.1 g/dL (3.5-5.0); Alkaline Phosphatase 79 U/L (39-117); Anion Gap 10 (12-20); Aspartate Amino Transferase 23 U/L (5-31); Blood Urea Nitrogen 18 mg/dL (9-16); Calcium 8.7 mg/dL (8.4-10.2); Carbon Dioxide 26 mmol/L (22-29); Chloride 107 mmol/L (96-108); Creatinine Clr Calc Pharmacy 53.3; Estimated Glomerular Filt Rate > 60; Potassium 4.9 mmol/L (3.3-5.1); Sodium 138 mmol/L (135-145); Total Protein 7.0 g/dL (6.5-8.0)
[2025-06-08 20:38] LABS: Troponin-I High Sensitivity < 2.7 ng/L (<3.5-17.0)
== END 2025-06-08 22:00 | disposition home or self-care (01) ==
PROVIDERS: Registered Nurse Emergency; Emergency Provider Emergency Medicine
DX: R42 Dizziness and giddiness (principal); R11.2 Nausea with vomiting, unspecified; Z79.899 Other long term (current) drug therapy; Z87.891 Personal history of nicotine dependence
CPT/HCPCS: 36415; 80053; 84484; 85025; 93005; 99283; 99284

== ENCOUNTER → 2025-06-08 19:59 | Outpatient (BNV) | payer OTHER, SELFPAY | PROVIDERS: Emergency Provider Emergency Medicine; Visit Provider Internal Medicine Cardiovascular Disease | DX: R42 Dizziness and giddiness (principal) | CPT/HCPCS: 93010 ==

== ENCOUNTER 2025-07-26 11:01 | Outpatient (REF) | payer OTHER, SELFPAY ==
--- NOTE | ~2025-07-26 | MM_ITS ---
EXAMINATION: DXA BONE DENSITY AXIAL HISTORY: Z78.0 - Asymptomatic menopausal state TECHNIQUE: Cyan Dual energy absorptiometry (DEXA) of the lumbar spine, total left hip, and femoral neck was performed. COMPARISON: Comparison is made with the prior examination dated 07/24/2023.. FINDINGS: The bone mineral density of the lumbar spine is 1.368 g/cm2, corresponding to a T-score of 1.6, and a Z-score of 3.2. This is indicative of normal bone mineral density. This represents a BMD change of -0.4% compared to the prior exam. This is not statistically significant. The bone mineral density of the left total hip is 1.052 g/cm2, corresponding to a T-score of 0.3, and a Z-score of 2.0. This is indicative of normal bone mineral density. This represents a BMD change of -3.8% compared to the prior exam. This is statistically significant. The bone mineral density of the left femoral neck is 0.876 g/cm2, corresponding to a T-score of -1.2, and a Z-score of 0.7. This is indicative of osteopenia. This represents a BMD change of -3.4% compared to the prior exam. FRACTURE RISK: The FRAX index suggests a ten year probability of major osteoporotic fracture of 6.0%, and of hip fracture 1.0%. MM/XR DEXA axial skeleton IMPRESSION: Based on bone mineral density, and according to World Health Organization (WHO) criteria, the diagnosis is consistent with osteopenia. Statistically, 68% of repeat scans fall within 1 SD (+/- 0.010 g/cm2 for AP spine L1-L4) and 1 SD (+/- 0.012 g/cm2 for femur total) FRAX is a trademark of the [employer] Met[employer] Disease, a World Health Organization (WHO) Collaborating Center. Electronically signed by: Jose Antonio Torres MD 07/26/2025 12:44 PM EDT
== END 2025-07-26 11:02 | disposition home or self-care (01) ==
LOC: HO.MAMMO 11:01
PROVIDERS: Visit Provider Obstetrics & Gynecology
DX: Z13.820 Encounter for screening for osteoporosis (principal); Z78.0 Asymptomatic menopausal state
CPT/HCPCS: 77080

== ENCOUNTER → 2025-07-26 11:30 | Outpatient (BNV) | payer OTHER, SELFPAY | PROVIDERS: Visit Provider Radiology Diagnostic Radiology | DX: E28.39 Other primary ovarian failure (principal) | CPT/HCPCS: 77080 ==

== ENCOUNTER 2025-08-16 14:18 | Outpatient (AMB) | payer OTHER, SELFPAY ==
[2025-08-16 14:28] VITALS: BP 106/62; PULSE 90; TEMP 36.3; O2SAT 98; BMI 26.5
--- NOTE | 2025-08-16 14:28 | MHC.PC.OV ---
Vital Signs 08/16/25 14:28 Height 5 ft 3 in Weight 149 lb 8 oz BMI 26.5 BP 106/62 Blood Pressure Location Lt brachial Position Sitting Pulse 90 Pulse Source Pulse Oximeter Temp 97.3 F Temp Source Temporal Artery Scan Pulse Oximetry (%) 98 Oxygen Delivery Method Room Air Intake Visit Reasons: Bad cough Allergies amoxicillin Allergy (Severe, Verified 08/16/25 14:30) Anaphylaxis codeine (Codeine) Allergy (Severe, Verified 08/16/25 14:30) Anaphylaxis gabapentin (From Neurontin) Allergy (Severe, Verified 08/16/25 14:30) Anaphylaxis Penicillins Allergy (Severe, Verified 08/16/25 14:30) Anaphylaxis Sulfa (Sulfonamide Antibiotics) (SULFA (SULFONAMIDE ANTIBIOTICS)) Allergy (Severe, Verified 08/16/25 14:30) Anaphylaxis pregabalin (From LYRICA) Allergy (Intermediate, Verified 08/16/25 14:30) SWELLING Tobacco use date assessed: 08/16/25 Fall risk assessment: No Falls in past year Last assessed Fall Risk: 08/16/25 Dental Screening Dental Screen Date: 08/16/25 Did you have a dental visit in the last 12 months?: Yes Did you have a dental problem in the last 6 months where you did not have access to dental care?: No Was dental information given to patient?: Patient has dentist HPI HPI Comments History of Present Illness Details Patient is a 74-year-old female presenting with severe lower back pain radiating to the right leg, ongoing for over a week. The pain started without an identifiable initiating incident and has intensified, confined mostly to the lower back's right side but occasionally involving the left. It presents as sharp and constant, associated with cramping sensations and numbness in the right leg, aggravated by movement or prolonged sitting. Tylenol, Advil and tizanidine did not help. [facility] Medical History History of mammogram (~08/02/24) Contact dermatitis Chronic venous insufficiency Thrush, oral Pre-diabetes Upper respiratory symptom Myocardial infarction Seasonal allergies Asthma GERD (gastroesophageal reflux disease) HTN (hypertension) Arthritis of left acromioclavicular joint Cystocele with prolapse Fibromyalgia Generalized osteoarthritis Chronic pain syndrome Spondylosis of cervical spine Obesity Post-menopausal Screening for breast cancer Screening for diabetes mellitus Obesity Hyperlipidemia Vertigo Lumbar spondylosis Anal pruritus Surgical History History of esophagogastroduodenoscopy (EGD) Hx of shoulder replacement Hx of hand surgery History of bilateral knee replacement History of colonoscopy History of varicose veins History of hysterectomy Family History Father Angina at rest Mother Hypothyroidism Hypertension Osteoarthritis Heart disease Panic disorder Glaucoma Brother Stroke Sister Alcoholic liver disease HIV (human immunodeficiency virus infection) Social History Household Members: None Housing: Condominium Are you a primary furnace caretaker to a significant other at home: No Do you presently have visiting nurse or other home services: Yes ([employer] 41 per week) Alcohol intake: never Comment: pt medicated with po tylenol Patient Tobacco Use Status: Former Tobacco user Tobacco use type: Cigarette e-Cigarette/Vaping Use: Never Used Second Hand Smoke Exposure: No service: No Current occupational status: retired Current occupation: Right Handed Cognitive needs: Yes (cane) Hearing needs: No Vision needs: Yes (Glasses) Female Reproductive History Menstrual Age of Menarche: 9 Questionnaire PHQ-9 Over the last 2 weeks, how often have you been bothered by any of the following problems? 1. Little interest or pleasure in doing things: not at all 2. Feeling down, depressed, or hopeless: not at all 3. Trouble falling or staying asleep, or sleeping too much: not at all 4. Feeling tired or having little energy: not at all 5. Poor appetite or overeating: not at all 6. Feeling bad about yourself - or that you are a failure or have let yourself or your family down: not at all 7. Trouble concentrating on things, such as reading the newspaper or watching television: not at all 8. Moving or speaking so slowly that other people could have noticed. Or the opposite - being so fidgety or restless that you have been moving around a lot more than usual: not at all 9. Thoughts that you would be better off or of hurting yourself in some way: not at all Total score: 0 Source: Developed by Drs. Jose Antonio Ugarte, Romy B.Tomi Taylor and colleagues, with an educational tommy from [employer]. Thrive Questionnaire Date Thrive assessed: 06/01/25 I am a: Patient What is your living situation today?: I have a steady place to live Within the past 12 months, did the food you bought not last and you didn't have the money to get more?: Never true Within the past 12 months, did you worry whether your food would run out before you got money to buy more?: Never true Do you have trouble paying for medicines?: No Do you have trouble getting transportation to medical appointments?: No Do you have trouble paying your heating and electricity bill?: No Do you have trouble taking care of your child, family member or friend?: No Do you have trouble with day-to-day activities such as bathing, preparing meals, shopping, managing finances, etc.?: No Are you currently unemployed and looking for a job?: No Are you interested in more education?: No Please select the resources that you would like help with: None Currently or been in a relationship where the following occur: No concerns reported THRIVE Score: 0 AUDIT C Alcohol Use Questionnaire (AUDIT-C) 1. How often do you have a drink containing alcohol?: Never 3. How often do you have six or more drinks on one occasion?: Never Total Score: 0 RYAN-7 AMB Questionnaire RYAN-7 Date RYAN - 7 assessed: 06/01/25 Feeling nervous, anxious, or on edge: 0 = Not at all Not being able to stop or control worryin = Not at all Worrying too much about different things: 0 = Not at all Trouble relaxin = Not at all Being so restless that it is hard to sit still: 0 = Not at all Becoming easily annoyed or irritable: 0 = Not at all Feeling afraid as if something awful might happen: 0 = Not at all Total RYAN-7 score (0-4 normal; 5-9 mild; 10-14 moderate; 15-21 severe): 0 Source: Developed by Drs. Jose Antonio Ugarte, Tomi Walsh and colleagues, with an educational tommy from [employer]. Review of Systems Narrative As per HPI Physical exam (Primary Care) Vital Signs: Last Vital Signs Temp 97.3 F 08/16/25 14:28 Pulse 90 08/16/25 14:28 BP 106/62 08/16/25 14:28 Pulse Ox 98 08/16/25 14:28 Oxygen Delivery Method Room Air 08/16/25 14:28 General: Well-appearing, alert, oriented ?3, in no acute distress. Cardiovascular: RRR, S1-S2 appreciated, no murmurs, rubs or gallops. Respiratory: Lungs clear to auscultation bilaterally, no wheezes, rales or rhonchi. Back: Limited range of motion in the lumbar region due to pain. Tenderness upon palpation of thoracolumbar paraspinal muscles. Positive right straight leg raise test. Neurologic: sensation and strength intact in bilateral lower extremities. BMI result Body Mass Index 26.5 Tobacco/Smoking Status: Tobacco use Status Tobacco use date assessed 08/16/25 08/16/25 14:31 Patient Tobacco Use Status Former Tobacco user 08/16/25 14:31 Tobacco use type Cigarette 08/16/25 14:31 e-Cigarette/Vaping Use Never Used 08/16/25 14:31 PHQ-9: PHQ-9 Score PHQ-9: Total score 0 08/16/25 14:31 Thrive Assessment: Date of Thrive Assessment Date Thrive assessed 06/01/25 08/16/25 14:31 Currently or been in a relationship where the following occur: No concerns reported Coding Level of Care Code Est Pt Level 4 (69993) Diagnoses Acute bilateral low back pain with right-sided sciatica M54.41 Back pain location: low back pain Back pain laterality: bilateral Sciatica presence: with sciatica Sciatica laterality: sciatica of right side Assessment & Plan Assessment & Plan (1) Back pain: Code(s): M54.9 - Dorsalgia, unspecified Category: Medical Qualifiers: Back pain location: low back pain Back pain laterality: bilateral Sciatica presence: with sciatica Sciatica laterality: sciatica of right side Qualified Code(s): M54.41 - Lumbago with sciatica, right side Plan: Patient presenting with bilateral lower back pain, radiating down her right leg, associated with numbness and tingling in the right leg, with positive straight leg raise test, suggesting sciatica. -start meloxicam 15 mg once a day after food for 7 days. Avoid taking any Advil, ibuprofen, Motrin or Aleve while on meloxicam. -may also use Tylenol 500 mg 3 times a day as needed for pain. May also use tizanidine at bedtime p.r.n. that patient already has from a prior visit -may use heat pack on the back for 10-15 minutes twice daily -physical therapy referral provide Orders: Orders PT Evaluation and Treatment Today M54.9 - Dorsalgia, unspecified Medications: New meloxicam 15 mg (2 x 7.5 mg) PO DAILY 14 tabs 0RF 7 days Discontinued cyclobenzaprine Discontinued Reason: Patient Completed Course 10 mg PO TID PRN 30 tabs 2RF muscle spasm Patient Instructions: You take meloxicam 15 mg once a day after food for 7 days. While taking meloxicam, don't take any advil, ibuprofen, motrin, aleve. You can also take tylenol 500 mg 3 times a day as needed for pain You may also take tizanidine once at bedtime as needed
== END 2025-08-16 15:03 | disposition home or self-care (01) ==
LOC: HO.HMCH 14:19
PROVIDERS: Visit Provider Student in an Organized Health Care Education/Training Program
DX: M54.41 Lumbago with sciatica, right side (principal)

== ENCOUNTER → 2025-08-16 14:18 | Outpatient (BNVA) | payer OTHER, SELFPAY | PROVIDERS: Visit Provider Student in an Organized Health Care Education/Training Program | DX: M54.41 Lumbago with sciatica, right side (principal) | CPT/HCPCS: 96127; 99212 ==

== ENCOUNTER 2025-08-22 10:53 | Outpatient (AMB) | payer OTHER, SELFPAY ==
[2025-08-22 11:14] VITALS: BP 120/52; PULSE 60; O2SAT 100; BMI 27.3
--- NOTE | 2025-08-22 11:14 | A.OFFVIS_ITS ---
Vital Signs 08/22/25 11:14 Height 5 ft 3 in Weight 154 lb BMI 27.3 BP 120/52 L Blood Pressure Location Lt brachial Position Sitting Pulse 60 Pulse Source Pulse Oximeter Pulse Oximetry (%) 100 Oxygen Delivery Method Room Air Intake Visit Reasons: Asthma Intake Note: pt is here as a new patient for shortness of breath when talking, lying down is very bad, and feels dry in throat and causes a cough Molybdenum Steamer Operator Required: No Molybdenum Steamer Operator Services: Molybdenum Steamer Operator Offered & Declined Ground Crew Linesman: Ground Crew Linesman offered & declined Allergies amoxicillin Allergy (Severe, Verified 08/22/25 11:44) Anaphylaxis codeine (Codeine) Allergy (Severe, Verified 08/22/25 11:44) Anaphylaxis gabapentin (From Neurontin) Allergy (Severe, Verified 08/22/25 11:44) Anaphylaxis Penicillins Allergy (Severe, Verified 08/22/25 11:44) Anaphylaxis Sulfa (Sulfonamide Antibiotics) (SULFA (SULFONAMIDE ANTIBIOTICS)) Allergy (Severe, Verified 08/22/25 11:44) Anaphylaxis pregabalin (From LYRICA) Allergy (Intermediate, Verified 08/22/25 11:44) SWELLING Medication List - Last Reconciled 08/22/25 by Vinnie Starkey MD acetaminophen 650 mg (2 x 325 mg) PO Q6H PRN 30 days albuterol sulfate 90 mcg/actuation 1 inh inhalation QID PRN blood pressure monitor As directed budesonide-formoterol 160-4.5 mcg/actuation 2 puffs PO BID docusate sodium (Colace) 200 mg (2 x 100 mg) PO BEDTIME esomeprazole magnesium (Nexium) 20 mg PO DAILY 90 days fluticasone propionate 50 mcg/actuation 1 spray intranasal DAILY hydrocortisone 2.5% 1 appl topical BID-TID PRN hydroxyzine HCl 25 mg PO TID ipratropium-albuterol 0.5 mg-3 mg(2.5 mg base)/3 mL 3 mL inhalation Q20M PRN loratadine 10 mg PO DAILY magnesium oxide 400 mg PO BEDTIME meclizine 25 mg PO QID PRN meloxicam 15 mg (2 x 7.5 mg) PO DAILY 7 days methylcellulose (laxative) (Citrucel) 500 mg PO TID 30 days multivitamin 1 tab PO DAILY nebulizers (AeroEclipse II Nebulizer) As directed propranolol ER 120 mg PO DAILY riboflavin (vitamin B2) 400 mg PO DAILY rosuvastatin 40 mg PO DAILY sennosides (senna) 17.2 mg (2 x 8.6 mg) PO BEDTIME PRN 30 days sumatriptan succinate 50 mg PO Q2-4H PRN tizanidine 4 mg PO Q8H PRN 30 days Do you need a note to return to daycare/school/sports/work: No HPI HPI Asthma: Details: This 74 years old very pleasant female is being seen for the 1st time for pulmonary evaluation and management. Her main problem is cough for the past few years. It is mostly at nighttime when she lies down. But also has cough off and on during the daytime. She does get flare ups of the cough when she has a cold due to change in the weather . Cough is mostly dry. She uses albuterol inhaler quite frequently which dampened since the severity of cough. She also supposed to have Symbicort inhaler to use twice a day but currently she is not using it. She is not aware of having had any pulmonary function test. Also does not remember having had any chest x-ray. She does have GERD symptoms and it is controlled with Nexium 20 mg daily . She has history of smoking in the remote past but quit in 1998 . She does have mild nasal congestion with postnasal drip off and on. She has mild dyspnea on walking on the stairs walking outdoors. [facility] Medical History History of mammogram (~08/02/24) Contact dermatitis Chronic venous insufficiency Thrush, oral Pre-diabetes Upper respiratory symptom Myocardial infarction Seasonal allergies Asthma GERD (gastroesophageal reflux disease) HTN (hypertension) Arthritis of left acromioclavicular joint Cystocele with prolapse Fibromyalgia Generalized osteoarthritis Chronic pain syndrome Spondylosis of cervical spine Obesity Post-menopausal Screening for breast cancer Screening for diabetes mellitus Obesity Hyperlipidemia Vertigo Lumbar spondylosis Anal pruritus Surgical History History of esophagogastroduodenoscopy (EGD) Hx of shoulder replacement Hx of hand surgery History of bilateral knee replacement History of colonoscopy History of varicose veins History of hysterectomy Family History Father Angina at rest Mother Hypothyroidism Hypertension Osteoarthritis Heart disease Panic disorder Glaucoma Brother Stroke Sister Alcoholic liver disease HIV (human immunodeficiency virus infection) Social History Household Members: None Housing: Condominium Are you a primary hospice care consultant to a significant other at home: No Do you presently have visiting nurse or other home services: Yes (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) Alcohol intake: never Comment: pt medicated with po tylenol Patient Tobacco Use Status: Former Tobacco user Tobacco use type: Cigarette e-Cigarette/Vaping Use: Never Used Second Hand Smoke Exposure: No service: No Current occupational status: retired Current occupation: Right Handed Cognitive needs: Yes (cane) Hearing needs: No Vision needs: Yes (Glasses) Female Reproductive History Menstrual Age of Menarche: 9 Review of Systems Const All systems reviewed & are unremarkable except as noted in HPI and below Eyes Reports no additional complaints ENT Reports nasal congestion (Mild, off and on) Card Denies chest pain, Denies edema, Denies irregular heart rhythm and Reports dyspnea on exertion (Only mild) Resp Reports as per HPI and Reports dyspnea on exertion (Only mild) GI Reports heartburn (GERD symptoms controlled with Nexium) Reports no additional complaints Musc Reports no additional complaints Skin/Breast Reports system reviewed and no additional complaints, except as documented Neuro Reports no additional complaints Psych Reports no additional complaints Endo Reports no additional complaints Young/Lymph Reports no additional complaints Aller/Immun Reports no additional complaints Physical Exam Vital Signs: Last Vital Signs Pulse 60 08/22/25 11:14 BP 120/52 L 08/22/25 11:14 Pulse Ox 100 08/22/25 11:14 Oxygen Delivery Method Room Air 08/22/25 11:14 BMI result Body Mass Index 27.3 Const General: healthy appearing, comfortable, no acute distress, alert and awake Orientation/consciousness: patient oriented x3 HEENT Head: Yes normal to inspection General nose exam: No nasal polyps present, No nasal discharge present and Other nasal findings present (Mild bilateral nasal congestion) Face and sinus: Yes sinuses nontender Mouth: oropharynx normal Throat: Yes posterior oropharynx normal Eyes General: appearance normal, both eyes and all related structures Neck Neck: Yes normal visual inspection, Yes no lymphadenopathy, Yes trachea midline and Yes no JVD Thyroid: Thyroid normal Chest Chest palpation & inspection: normal inspection of the chest, normal palpation of entire chest wall and no tenderness Resp Other: Percussion note is resonant. Breath sounds slightly distant. But no wheezes rhonchi or crepitations are heard. Cardio Palpation: normal PMI Rate: regular rate Rhythm: regular rhythm Heart sounds: no gallops and no murmurs Peripheral pulses: Peripheral pulses 2+ throughout GI Palpation (GI): Soft to palpation, nontender, No hepatosplenomegaly present and no masses Auscultation: normal bowel sounds Back/Spine/Pelvis Thoracic/Lumbar Spine: thoracic and lumbar spine normal to inspection Skin General skin exam: no rashes or lesions noted Neuro General: patient oriented x3 and no focal motor deficits Cranial nerves: Yes CN's II-XII intact bilaterally Extrem General: Yes normal to inspection, Yes no clubbing, cyanosis or edema and Yes no calf tenderness Psych Appearance: grossly normal and well kempt Speech and movement: Normal speech and movement present Office Procedures Spirometry Testing Spirometry Comments: [place] [address]- Spirometry Results Reviewed Results Reviewed: SPIROMETRY : ESSENTIALLY NORMAL THERE IS NO EVIDENCE OF OBSTRUCTIVE OR RESTRICTIVE PULMONARY DISEASE. IT SHOULD BE NOTED THAT SHE TOOK 2 PUFFS OF SYMBICORT THIS MORNING BEFORE COMING TO THE OFFICE CTA OF THE CHEST ON 04/12/2025, DONE BECAUSE SHE HAD NONSPECIFIC CHEST PAIN, IT WAS ESSENTIALLY NORMAL AND NEGATIVE FOR PULMONARY EMBOLISM. THERE WAS NO INFILTRATE IN THE LUNGS Assessment & Plan Assessment & Plan (1) Asthma: Comment: THIS PATIENT HAS ONGOING COUGH MOST LIKELY COUGH VARIANT OF BRONCHIAL ASTHMA, Code(s): J45.909 - Unspecified asthma, uncomplicated Category: Medical Qualifiers: Asthma complication type: unspecified Asthma persistence: unspecified Asthma severity: unspecified severity Qualified Code(s): J45.909 - Unspecified asthma, uncomplicated Plan: I EXPLAINED TO HER AND REASSURED THAT THERE IS NO SERIOUS DISEASE INVOLVING THE LUNGS. EXPLAINED TO HER THE REASON FOR ONGOING COUGH BEING DUE TO REACTIVE AIRWAYS. SHE SHOULD USE SYMBICORT 160-4.52 PUFFS B.I.D., AND WHEN COUGH IS MINIMAL THEN REDUCED TO 1 PUFF B.I.D.. ALSO MAY USE ALBUTEROL HFA 2 PUFFS Q 6 HOURS P.R.N. ONLY IF THE COUGH IS SEVERE AND PERSISTENT. (2) Allergic rhinitis: Comment: HAS MILD INTERMITTENT NASAL CONGESTION WITH POSTNASAL DISCHARGE. THIS IS SECONDARY TO NONSPECIFIC HOUSEHOLD ALLERGIES. IN MAY BE CONTRIBUTING TO HER COUGH. Code(s): J30.9 - Allergic rhinitis, unspecified Category: Medical Qualifiers: Allergic rhinitis seasonality: unspecified Allergic rhinitis trigger: unspecified Qualified Code(s): J30.9 - Allergic rhinitis, unspecified Plan: USE FLONASE -50 1 OR 2 SPRAYS IN EACH NOSTRIL B.I.D. P.R.N. MAY ALSO TAKE LORATADINE 10 MG ONCE A DAY P.R.N. IF THERE IS INCREASED NASAL CONGESTION . Orders: Orders AMB Spirometry Testing Today Priya Bruno, RT J45.909 - Unspecified asthma, uncomplicated Medications: Changed From budesonide-formoterol 160-4.5 mcg/actuation 2 puffs PO BID 10.2 ea 3RF To budesonide-formoterol 160-4.5 mcg/actuation 2 puffs PO BID 10.2 ea 3RF ASTHMA/COUGH 30 days Vinnie Starkey MD From albuterol sulfate 90 mcg/actuation 1 inh inhalation QID PRN 8.5 grams 0RF shortness of breath or wheezing To albuterol sulfate 90 mcg/actuation 1 inh inhalation QID PRN 8.5 grams 3RF shortness of breath or wheezing 30 days Vinnie Starkey MD Coding Level of Care Code New Pt Level 3 (79513) Diagnoses Asthma, unspecified asthma severity, unspecified whether complicated, unspecified whether persistent J45.909 Asthma complication type: unspecified Asthma persistence: unspecified Asthma severity: unspecified severity Allergic rhinitis, unspecified seasonality, unspecified trigger J30.9 Allergic rhinitis seasonality: unspecified Allergic rhinitis trigger: unspecified CPT Codes Spirometry - CPT: 48298- Spirometry ([id number])
== END 2025-08-22 12:04 | disposition home or self-care (01) ==
LOC: HO.HPS 10:53
PROVIDERS: Visit Provider Internal Medicine
DX: J45.909 Unspecified asthma, uncomplicated (principal); J30.9 Allergic rhinitis, unspecified
CPT/HCPCS: 94010; 99203

== ENCOUNTER → 2025-08-22 10:53 | Outpatient (BNVA) | payer OTHER, SELFPAY | PROVIDERS: Visit Provider Internal Medicine | DX: J45.909 Unspecified asthma, uncomplicated (principal) | CPT/HCPCS: 94010; 99202 ==

== ENCOUNTER 2025-08-29 11:05 | Outpatient (AMB) | payer OTHER, SELFPAY ==
--- NOTE | 2025-08-29 11:06 | MHC.OFFVIS ---
Vital Signs 08/29/25 11:14 Height 5 ft 3 in Weight 154 lb BMI 27.3 BP 118/70 Intake Visit Reasons: Dexa results Database Administration Project Manager Required: No Information Interpreted: non-clinical & clinical Accompanied by: Self / Same As Patient Allergies amoxicillin Allergy (Severe, Verified 08/29/25 11:14) Anaphylaxis codeine (Codeine) Allergy (Severe, Verified 08/29/25 11:14) Anaphylaxis gabapentin (From Neurontin) Allergy (Severe, Verified 08/29/25 11:14) Anaphylaxis Penicillins Allergy (Severe, Verified 08/29/25 11:14) Anaphylaxis Sulfa (Sulfonamide Antibiotics) (SULFA (SULFONAMIDE ANTIBIOTICS)) Allergy (Severe, Verified 08/29/25 11:14) Anaphylaxis pregabalin (From LYRICA) Allergy (Intermediate, Verified 08/29/25 11:14) SWELLING Post menopausal: Yes HPI Comments Details: Presenting for DEXA scan follow-up which showed the following: The bone mineral density of the lumbar spine is 1.368 g/cm2, corresponding to a T-score of 1.6, and a Z-score of 3.2. This is indicative of normal bone mineral density. This represents a BMD change of -0.4% compared to the prior exam. This is not statistically significant. The bone mineral density of the left total hip is 1.052 g/cm2, corresponding to a T-score of 0.3, and a Z-score of 2.0. This is indicative of normal bone mineral density. This represents a BMD change of -3.8% compared to the prior exam. This is statistically significant. The bone mineral density of the left femoral neck is 0.876 g/cm2, corresponding to a T-score of -1.2, and a Z-score of 0.7. This is indicative of osteopenia. This represents a BMD change of -3.4% compared to the prior exam. FRACTURE RISK: The FRAX index suggests a ten year probability of major osteoporotic fracture of 6.0%, and of hip fracture 1.0%. [facility] Medical History History of mammogram (~08/02/24) Contact dermatitis Chronic venous insufficiency Thrush, oral Pre-diabetes Upper respiratory symptom Myocardial infarction Seasonal allergies Asthma GERD (gastroesophageal reflux disease) HTN (hypertension) Arthritis of left acromioclavicular joint Cystocele with prolapse Fibromyalgia Generalized osteoarthritis Chronic pain syndrome Spondylosis of cervical spine Obesity Post-menopausal Screening for breast cancer Screening for diabetes mellitus Obesity Hyperlipidemia Vertigo Lumbar spondylosis Anal pruritus Surgical History History of esophagogastroduodenoscopy (EGD) Hx of shoulder replacement Hx of hand surgery History of bilateral knee replacement History of colonoscopy History of varicose veins History of hysterectomy Family History Father Angina at rest Mother Hypothyroidism Hypertension Osteoarthritis Heart disease Panic disorder Glaucoma Brother Stroke Sister Alcoholic liver disease HIV (human immunodeficiency virus infection) Social History Household Members: None [facility] Are you a primary home health care worker to a significant other at home: No Do you presently have visiting nurse or other home services: Yes ([employer]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) Alcohol intake: never Comment: pt medicated with po tylenol Patient Tobacco Use Status: Former Tobacco user Tobacco use type: Cigarette e-Cigarette/Vaping Use: Never Used Second Hand Smoke Exposure: No service: No Current occupational status: retired Current occupation: Right Handed Cognitive needs: Yes (cane) Hearing needs: No Vision needs: Yes (Glasses) Female Reproductive History Menstrual Age of Menarche: 9 Review of Systems Const All systems reviewed & are unremarkable except as noted in HPI and below Reports as per HPI and Reports no additional complaints GI Reports no additional complaints Reports no additional complaints Physical Exam Vital Signs: Last Vital Signs BP 118/70 08/29/25 11:14 BMI result Body Mass Index 27.3 Assessment & Plan Assessment & Plan (1) Osteopenia: Code(s): M85.80 - Other specified disorders of bone density and structure, unspecified site Category: Medical Plan: Discussed with the patient the DEXA results and FRAX risk. FRAX risk and T score showed no evidence of osteoporosis. Discussed with the patient all the options for osteoporosis prevention including lifestyle modifications including Ca+D supplements 1200 mg po qd/800 MIU, Weight bearing exercises and proteine supplements. The patient verbalized understanding and agreed plan will repeat DEXA in 2 years. Coding Level of Care Code Est Pt Level 3 (83112) Diagnoses Osteopenia M85.80
[2025-08-29 11:14] VITALS: BP 118/70; BMI 27.3
== END 2025-08-29 11:21 | disposition home or self-care (01) ==
PROVIDERS: Visit Provider Obstetrics & Gynecology
DX: M85.80 Other specified disorders of bone density and structure, unspecified site (principal)
CPT/HCPCS: 99213

== ENCOUNTER → 2025-08-29 11:05 | Outpatient (BNVA) | payer OTHER, SELFPAY | PROVIDERS: Visit Provider Obstetrics & Gynecology | DX: Z71.2 Person consulting for explanation of examination or test findings (principal); M85.80 Other specified disorders of bone density and structure, unspecified site | CPT/HCPCS: 99212 ==

== ENCOUNTER 2025-09-05 09:46 | Outpatient (AMB) | payer OTHER, SELFPAY ==
[2025-09-05 10:00] VITALS: BP 102/60; PULSE 68; RESP 18; TEMP 36.2; O2SAT 94; BMI 26.7
--- NOTE | 2025-09-05 10:00 | A.OFFPC_ITS ---
Vital Signs 09/05/25 10:00 Height 5 ft 3 in Weight 150 lb 8 oz BMI 26.7 BP 102/60 Blood Pressure Location Lt brachial Position Sitting Respiration 18 Pulse 68 Pulse Source Pulse Oximeter Temp 97.1 F Temp Source Temporal Artery Scan Pulse Oximetry (%) 94 Oxygen Delivery Method Room Air Intake Visit Reasons: asthma/hld/htn 3 month follow up Planning Assistant Required: Yes Planning Assistant Name: Young/Adriel Accompanied by: Self / Same As Patient Allergies amoxicillin Allergy (Severe, Verified 09/05/25 10:23) Anaphylaxis codeine (Codeine) Allergy (Severe, Verified 09/05/25 10:23) Anaphylaxis gabapentin (From Neurontin) Allergy (Severe, Verified 09/05/25 10:23) Anaphylaxis Penicillins Allergy (Severe, Verified 09/05/25 10:23) Anaphylaxis Sulfa (Sulfonamide Antibiotics) (SULFA (SULFONAMIDE ANTIBIOTICS)) Allergy (Severe, Verified 09/05/25 10:23) Anaphylaxis pregabalin (From LYRICA) Allergy (Intermediate, Verified 09/05/25 10:23) SWELLING Medication List - Last Reconciled 09/05/25 by ARMANDO Ku acetaminophen 650 mg (2 x 325 mg) PO Q6H PRN 30 days albuterol sulfate 90 mcg/actuation 1 inh inhalation QID PRN 30 days blood pressure monitor As directed budesonide-formoterol 160-4.5 mcg/actuation 2 puffs PO BID 30 days docusate sodium (Colace) 200 mg (2 x 100 mg) PO BEDTIME esomeprazole magnesium (Nexium) 20 mg PO DAILY 90 days fluticasone propionate 50 mcg/actuation 1 spray intranasal DAILY hydrocortisone 2.5% 1 appl topical BID-TID PRN hydroxyzine HCl 25 mg PO TID ipratropium-albuterol 0.5 mg-3 mg(2.5 mg base)/3 mL 3 mL inhalation Q20M PRN loratadine 10 mg PO DAILY magnesium oxide 400 mg PO BEDTIME meclizine 25 mg PO QID PRN meloxicam 15 mg (2 x 7.5 mg) PO DAILY 7 days methylcellulose (laxative) (Citrucel) 500 mg PO TID 30 days multivitamin 1 tab PO DAILY nebulizers (AeroEclipse II Nebulizer) As directed propranolol ER 120 mg PO DAILY riboflavin (vitamin B2) 400 mg PO DAILY rosuvastatin 40 mg PO DAILY sennosides (senna) 17.2 mg (2 x 8.6 mg) PO BEDTIME PRN 30 days sumatriptan succinate 50 mg PO Q2-4H PRN tizanidine 4 mg PO Q8H PRN 30 days Tobacco use date assessed: 09/05/25 Fall risk assessment: No Falls in past year Last assessed Fall Risk: 09/05/25 Dental Screening Dental Screen Date: 09/05/25 Did you have a dental visit in the last 12 months?: Yes Did you have a dental problem in the last 6 months where you did not have access to dental care?: No Was dental information given to patient?: Patient has dentist HPI asthma/hld/htn 3 month follow up HPI Details The patient this is a 74-year-old Pakistani-speaking female presenting for asthma, HLD, HTN, prediabetes, lumbar spondylosis The patient reports a sore throat, body aches, and chills. The symptoms started last Thursday and have been present for over a week. She describes intermittent chills that come and go. The patient reports body aches primarily affecting her neck and mid-back. She also notes feeling tired and experiencing some pressure in her face, but denies fever, nasal congestion, ear pain, chest pain, or increase shortness of breath. Swab negative in office. Nostrils erythematous, no edema. Mild appearing cobberstone to posterior pharynx. Patient is allergic to sulfa and penicillin antibiotics. The patient has a history of allergies and takes Flonase daily. She reports chronic constipation but denies heartburn or a history of diabetes. Patient reports mid back pain that is somewhat controlled now for flares up every so often. Reports that her migraines has been controlled, not often she gets heartburn, and he blood pressure is well controlled as well. Patient did not complete pre- ordered follow up labs as yet and plans to get them done before next appoi ntment. [facility] Medical History History of mammogram (~08/02/24) Contact dermatitis Chronic venous insufficiency Thrush, oral Pre-diabetes Upper respiratory symptom Myocardial infarction Seasonal allergies Asthma GERD (gastroesophageal reflux disease) HTN (hypertension) Arthritis of left acromioclavicular joint Cystocele with prolapse Fibromyalgia Generalized osteoarthritis Chronic pain syndrome Spondylosis of cervical spine Obesity Post-menopausal Screening for breast cancer Screening for diabetes mellitus Obesity Hyperlipidemia Vertigo Lumbar spondylosis Anal pruritus Surgical History History of esophagogastroduodenoscopy (EGD) Hx of shoulder replacement Hx of hand surgery History of bilateral knee replacement History of colonoscopy History of varicose veins History of hysterectomy Family History Father Angina at rest Mother Hypothyroidism Hypertension Osteoarthritis Heart disease Panic disorder Glaucoma Brother Stroke Sister Alcoholic liver disease HIV (human immunodeficiency virus infection) Social History Household Members: None [facility] Are you a primary child care leader to a significant other at home: No Do you presently have visiting nurse or other home services: Yes ([employer] per week) Alcohol intake: never Comment: pt medicated with po tylenol Patient Tobacco Use Status: Former Tobacco user Tobacco use type: Cigarette e-Cigarette/Vaping Use: Never Used Second Hand Smoke Exposure: No service: No Current occupational status: retired Current occupation: Right Handed Cognitive needs: Yes (cane) Hearing needs: No Vision needs: Yes (Glasses) Female Reproductive History Menstrual Age of Menarche: 9 Questionnaire PHQ-9 Over the last 2 weeks, how often have you been bothered by any of the following problems? Depression Screening Interpretation: Negative Depression Screening Done: Yes Source: Developed by Drs. Jose Antonio Ugarte, Romy Tse, Tomi Finley and colleagues, with an educational tommy from [employer]. Thrive Questionnaire Date Thrive assessed: 08/16/25 I am a: Patient What is your living situation today?: I have a steady place to live Within the past 12 months, did the food you bought not last and you didn't have the money to get more?: Never true Within the past 12 months, did you worry whether your food would run out before you got money to buy more?: Never true Do you have trouble paying for medicines?: No Do you have trouble getting transportation to medical appointments?: No Do you have trouble paying your heating and electricity bill?: No Do you have trouble taking care of your child, family member or friend?: No Do you have trouble with day-to-day activities such as bathing, preparing meals, shopping, managing finances, etc.?: No Are you currently unemployed and looking for a job?: No Are you interested in more education?: No Please select the resources that you would like help with: None Currently or been in a relationship where the following occur: No concerns reported THRIVE Score: 0 RYAN-7 AMB Questionnaire RYAN-7 Date RYAN - 7 assessed: 06/01/25 Source: Developed by Drs. Jose Antonio Ugarte, Romy Tse, Tomi Finley and colleagues, with an educational tommy from [employer]. Review of Systems Const Reports headache(s) (On and off-has been stable) Eyes Denies loss of vision ENT Denies vertigo, Denies dizziness, Denies otalgia, Reports facial pain, Reports headache(s) (On and off-has been stable), Reports nasal congestion and Reports sore throat Card Denies chest pain, Denies leg edema, Denies lightheadedness and Reports dyspnea (Mostly at night attributed asthma symptoms) Resp Reports cough (Worse in the mornings), Denies hemoptysis, Reports dyspnea (Mostly at night attributed asthma symptoms) and Denies wheezing GI Denies abdominal pain, Denies melena, Reports constipation (Chronic), Reports heartburn (Depending on what she eats), Denies diarrhea and Denies vomiting Denies urinary frequency, Denies dysuria and Denies urinary urgency Musc Reports back pain (Lower back pain), Reports arthralgias (Right thumb), Reports joint swelling (Right thumb), Denies numbness and Denies tingling Neuro Denies Abnormal speech present, Denies behavioral changes, Denies vertigo, Denies dizziness, Reports headache(s) (On and off-has been stable), Denies loss of vision, Denies memory loss, Denies numbness and Denies tingling Psych Denies anxiety, Denies behavioral changes, Denies depression, Denies memory loss and Denies panic attacks Young/Lymph Denies easy bleeding and Denies easy bruising Aller/Immun Denies wheezing Physical exam (Primary Care) Vital Signs: Last Vital Signs Temp 97.1 F 09/05/25 10:00 Pulse 68 09/05/25 10:00 Resp 18 09/05/25 10:00 BP 102/60 09/05/25 10:00 Pulse Ox 94 09/05/25 10:00 Oxygen Delivery Method Room Air 09/05/25 10:00 BMI result Body Mass Index 26.7 Tobacco/Smoking Status: Tobacco use Status Tobacco use date assessed 09/05/25 09/05/25 10:04 Patient Tobacco Use Status Former Tobacco user 09/05/25 10:04 Tobacco use type Cigarette 09/05/25 10:04 e-Cigarette/Vaping Use Never Used 09/05/25 10:04 Depression Screening Interpretation: Negative Thrive Assessment: Date of Thrive Assessment Date Thrive assessed 08/16/25 09/05/25 10:04 Currently or been in a relationship where the following occur: No concerns reported Const General: healthy appearing, no acute distress, alert and awake Nutritional Appearance: well nourished Orientation/consciousness: oriented to person, oriented to place and oriented to time HENMT Ears: TM's normal bilaterally General nose exam: Abnormal mucous membranes and turbinates present erythematous bilateral Throat: Yes cobblestoning Eyes Conjunctivae: conjunctivae normal Sclerae: sclerae normal Pupils: Equal, round and reactive pupils present Neck Neck: Yes no lymphadenopathy and Yes no JVD Thyroid: Thyroid normal Carotids: no bruits Chest Chest palpation & inspection: normal inspection of the chest Resp Effort & Inspection: normal respiratory effort and not tachypneic Auscultation: no crackles, no rales, no rhonchi and no wheezes Cardio Rate: regular rate Rhythm: regular rhythm Heart sounds: no murmurs and normal S1 and S2 GI Palpation (GI): Soft to palpation, nontender, no hepatomegaly and no splenomegaly Auscultation: normal bowel sounds Back/Spine/Pelvis Thoracic/Lumbar Spine: No lumbar spinal tenderness Skin General skin exam: no rashes or lesions noted and dry skin Neuro General: oriented to person, oriented to place and oriented to time Cranial nerves: Yes Equal, round and reactive pupils present Speech: No Abnormal speech present Gait exam (Neuro): Normal gait present Motor exam (neuro): no tremor noted Extrem Right upper extremity: full ROM and Extremity exam: right hand Details: tenderness Location: of the thumb Location: at the MCP joint Left upper extremity: full ROM Right lower extremity: full ROM; no edema Left lower extremity: full ROM; no edema Psych Mental Status: mental status grossly normal Speech and movement: Normal speech and movement present Affect: normal affect Attitude: cooperative Thought process: Normal thought process present Results AMB Rapid Strep AMB Rapid Strep Negative Last Edit by Carmen Palomares MA on 09/05/25 11:17 Coding Level of Care Code Est Pt Level 4 (61196) Diagnoses Hypertension, unspecified type I10 Hypertension type: unspecified Pre-diabetes R73.03 Allergic rhinitis, unspecified seasonality, unspecified trigger J30.9 Allergic rhinitis trigger: unspecified Allergic rhinitis seasonality: unspecified Chronic GERD K21.9 Constipation, unspecified constipation type K59.00 Constipation type: unspecified constipation type Fibromyalgia M79.7 Lumbar spondylosis M47.816 Asthma, unspecified asthma severity, unspecified whether complicated, unspecified whether persistent J45.909 Asthma severity: unspecified severity Asthma persistence: unspecified Asthma complication type: unspecified Pain of right thumb M79.644 Swelling of right thumb M79.89 Overweight (BMI 25.0-29.9) E66.3 Time Spent (min) 37 Assessment & Plan Assessment & Plan (1) Hypertension: Code(s): I10 - Essential (primary) hypertension Category: Medical Qualifiers: Hypertension type: unspecified Qualified Code(s): I10 - Essential (tony maribeth) hypertension (2) Pre-diabetes: Code(s): R73.03 - Prediabetes Category: Medical (3) Allergic rhinitis: Comment: HAS MILD INTERMITTENT NASAL CONGESTION WITH POSTNASAL DISCHARGE. THIS IS SECONDARY TO NONSPECIFIC HOUSEHOLD ALLERGIES. IN MAY BE CONTRIBUTING TO HER COUGH. Code(s): J30.9 - Allergic rhinitis, unspecified Category: Medical Qualifiers: Allergic rhinitis trigger: unspecified Allergic rhinitis seasonality: unspecified Qualified Code(s): J30.9 - Allergic rhinitis, unspecified (4) Chronic GERD: Code(s): K21.9 - Gastro-esophageal reflux disease without esophagitis Category: Medical (5) Constipation: Comment: Very pleasant 72-year-old female- Much improved pattern consistent with bowel regimen Code(s): K59.00 - Constipation, unspecified Category: Medical Qualifiers: Constipation type: unspecified constipation type Qualified Code(s): K59.00 - Constipation, unspecified (6) Fibromyalgia: Code(s): M79.7 - Fibromyalgia Category: Medical (7) Lumbar spondylosis: Code(s): M47.816 - Spondylosis without myelopathy or radiculopathy, lumbar region Category: Medical (8) Asthma: Comment: THIS PATIENT HAS ONGOING COUGH MOST LIKELY COUGH VARIANT OF BRONCHIAL ASTHMA, Code(s): J45.909 - Unspecified asthma, uncomplicated Category: Medical Qualifiers: Asthma severity: unspecified severity Asthma persistence: unspecified Asthma complication type: unspecified Qualified Code(s): J45.909 - Unspecified asthma, uncomplicated (9) Pain of right thumb: Code(s): M79.644 - Pain in right finger(s) Category: Medical (10) Swelling of right thumb: Code(s): M79.89 - Other specified soft tissue disorders Category: Medical (11) Overweight (BMI 25.0-29.9): Code(s): E66.3 - Overweight Category: Medical Plan Patient complaining of sore throat that has been going on for over a week. Mild cobblestoning noted in the posterior pharynx. Z-Ahmet ordered. Encouraged the patient to increase fluid intake. The patient will continue managing osteoarthritis with current medications and monitor for any changes in symptoms. For sciatica, the patient is advised to continue current management and report any worsening of symptoms. Constipation management includes continuing docusate sodium and considering the addition of fiber supplements such as Metamucil. The patient is encouraged to maintain hydration and dietary modifications to improve bowel regularity. Asthma management involves regular use of inhalers and monitoring symptoms, was seen by pulmonology who encouraged the patient to increase the puffs of the Symbicort until her symptoms are controlled that she could go back to 1 puff b.i.d. For pre-diabetes, the patient is advised to reduce sugar intake and will have follow-up testing in three months to monitor glucose levels. Blood pressure within goal. Continue propranolol ER 120 daily and low-salt diet Reinforced low-cholesterol diet and activity as tolerated. Continue rosuvastatin 40 mg daily Reports improvement in headaches. Continues B2 400 mg daily, magnesium oxide 400 mg at bedtime Chronic constipation. The patient reports taking Colace but has not been taking her methylcellulose 500mg tid RX refilled. Increase fluids intake. Continue senna 2 tabs at bedtime p.r.n. An x-ray of the patient right thumb was ordered previous but was not completed. The patient apparently is feeling better. Patient was informed and verbally consented to the use of an ambient scribe for clinic note documentation during this visit. Orders: Orders AMB Rapid Strep Screen Today Z13.9 - Encounter for screening, unspecified Medications: New azithromycin For 250 mg dose pack: take 500 mg today (day 1), then 250 mg for 4 days (days 2-5) PO 6 tabs 0RF Patient Instructions: Patient to follow up in 4 months
== END 2025-09-05 10:46 | disposition home or self-care (01) ==
LOC: HO.HMCH 09:46
DX: I10 Essential (primary) hypertension (principal); R73.03 Prediabetes; J30.9 Allergic rhinitis, unspecified; K21.9 Gastro-esophageal reflux disease without esophagitis; K59.00 Constipation, unspecified; M79.7 Fibromyalgia; M47.816 Spondylosis without myelopathy or radiculopathy, lumbar region; J45.909 Unspecified asthma, uncomplicated; M79.644 Pain in right finger(s); M79.89 Other specified soft tissue disorders; E66.3 Overweight; Z13.9 Encounter for screening, unspecified

== ENCOUNTER → 2025-09-05 09:46 | Outpatient (BNVA) | payer OTHER, SELFPAY | DX: I10 Essential (primary) hypertension (principal); E78.5 Hyperlipidemia, unspecified; J45.909 Unspecified asthma, uncomplicated; R73.03 Prediabetes; M47.816 Spondylosis without myelopathy or radiculopathy, lumbar region; M54.2 Cervicalgia; K21.9 Gastro-esophageal reflux disease without esophagitis; K59.00 Constipation, unspecified; M79.7 Fibromyalgia; M79.644 Pain in right finger(s); M79.89 Other specified soft tissue disorders; E66.3 Overweight; Z68.26 Body mass index [BMI] 26.0-26.9, adult | CPT/HCPCS: 87880; 99212 ==

== ENCOUNTER 2025-09-11 10:25 | Outpatient (AMB) | payer OTHER, SELFPAY ==
--- NOTE | 2025-09-11 10:25 | A.OFFVIS_ITS ---
Intake Visit Reasons: 1y/PVR Intake Note: Patient presents today for follow up on: Cystocele Urology Medications: Vit-b2 Blood Thinner: none PVR: 30ml's Ear Nose Throat Physician Required: No Accompanied by: Self / Same As Patient Allergies amoxicillin Allergy (Severe, Verified 09/11/25 10:51) Anaphylaxis codeine (Codeine) Allergy (Severe, Verified 09/11/25 10:51) Anaphylaxis gabapentin (From Neurontin) Allergy (Severe, Verified 09/11/25 10:51) Anaphylaxis Penicillins Allergy (Severe, Verified 09/11/25 10:51) Anaphylaxis Sulfa (Sulfonamide Antibiotics) (SULFA (SULFONAMIDE ANTIBIOTICS)) Allergy (Severe, Verified 09/11/25 10:51) Anaphylaxis pregabalin (From LYRICA) Allergy (Intermediate, Verified 09/11/25 10:51) SWELLING Medication List - Last Reconciled 09/11/25 by MICHAEL Rojas acetaminophen 650 mg (2 x 325 mg) PO Q6H PRN 30 days albuterol sulfate 90 mcg/actuation 1 inh inhalation QID PRN 30 days azithromycin For 250 mg dose pack: take 500 mg today (day 1), then 250 mg for 4 days (days 2-5) PO blood pressure monitor As directed budesonide-formoterol 160-4.5 mcg/actuation 2 puffs PO BID 30 days docusate sodium (Colace) 200 mg (2 x 100 mg) PO BEDTIME esomeprazole magnesium (Nexium) 20 mg PO DAILY 90 days fluticasone propionate 50 mcg/actuation 1 spray intranasal DAILY hydrocortisone 2.5% 1 appl topical BID-TID PRN hydroxyzine HCl 25 mg PO TID ipratropium-albuterol 0.5 mg-3 mg(2.5 mg base)/3 mL 3 mL inhalation Q20M PRN loratadine 10 mg PO DAILY magnesium oxide 400 mg PO BEDTIME meclizine 25 mg PO QID PRN meloxicam 15 mg (2 x 7.5 mg) PO DAILY 7 days methylcellulose (laxative) (Citrucel) 500 mg PO TID 30 days multivitamin 1 tab PO DAILY nebulizers (AeroEclipse II Nebulizer) As directed propranolol ER 120 mg PO DAILY riboflavin (vitamin B2) 400 mg PO DAILY rosuvastatin 40 mg PO DAILY sennosides (senna) 17.2 mg (2 x 8.6 mg) PO BEDTIME PRN 30 days sumatriptan succinate 50 mg PO Q2-4H PRN tizanidine 4 mg PO Q8H PRN 30 days HPI Comments Details: Kanwal is a very pleasant 74-year-old female patient of Dr. Levine. She has a past medical history of chronic pain syndrome, fibromyalgia, os teoarthritis, hyperlipidemia, lumbar spondylosis, obesity, and vertigo. She presents to the office today for follow-up of her cystocele. In discussion with the patient today she reports to be doing and feeling well. When asked she denies any bothersome urinary issues since her last office visit here approximately 1 year ago. She has noted increased episodes of lumbar discomfort as well as flank pain. However on exam today no CVA tenderness noted bilaterally. She reports symptoms have been present for quite some time however is unsure if this is related to her longstanding history of chronic pain and or fibromyalgia. She has previously followed up with Dr. Maricarmen Marquez and recommendations were made for pessary and or surgical intervention of patient's cystocele however she does not feel she has any bothersome urinary issues or concerns and does not wish to undergo either of these treatment options. In office urinalysis results reviewed with the patient today. PVR 30 mL. She denies urinary urgency, urinary frequency, incontinence, nocturia, hematuria, dysuria, foul smelling urine, changes to urinary stream, fever, and or chills. She is happy with her current voiding parameters. She otherwise denies any issues or concerns at this time. [facility] Medical History History of mammogram (~08/02/24) Contact dermatitis Chronic venous insufficiency Thrush, oral Pre-diabetes Upper respiratory symptom Myocardial infarction Seasonal allergies Asthma GERD (gastroesophageal reflux disease) HTN (hypertension) Arthritis of left acromioclavicular joint Cystocele with prolapse Fibromyalgia Generalized osteoarthritis Chronic pain syndrome Spondylosis of cervical spine Obesity Post-menopausal Screening for breast cancer Screening for diabetes mellitus Obesity Hyperlipidemia Vertigo Lumbar spondylosis Anal pruritus Surgical History History of esophagogastroduodenoscopy (EGD) Hx of shoulder replacement Hx of hand surgery History of bilateral knee replacement History of colonoscopy History of varicose veins History of hysterectomy Family History Father Angina at rest Mother Hypothyroidism Hypertension Osteoarthritis Heart disease Panic disorder Glaucoma Brother Stroke Sister Alcoholic liver disease HIV (human immunodeficiency virus infection) Social History Household Members: None [facility]: [facility] Are you a primary healthcare administration internship to a significant other at home: No Do you presently have visiting nurse or other home services: Yes ([employer] 41 per week) Alcohol intake: never Comment: pt medicated with po tylenol Patient Tobacco Use Status: Former Tobacco user Tobacco use type: Cigarette e-Cigarette/Vaping Use: Never Used Second Hand Smoke Exposure: No service: No Current occupational status: retired Current occupation: Right Handed Cognitive needs: Yes (cane) Hearing needs: No Vision needs: Yes (Glasses) Female Reproductive History Menstrual Age of Menarche: 9 Review of Systems Const Reports as per HPI Eyes Reports no additional complaints ENT Reports no additional complaints Card Reports as per HPI Resp Reports no additional complaints GI Reports as per HPI Reports as per HPI Musc Reports no additional complaints Neuro Reports no additional complaints Psych Reports no additional complaints Endo Reports no additional complaints Young/Lymph Reports no additional complaints Aller/Immun Reports no additional complaints Physical Exam Const General: cooperative, healthy appearing, comfortable, no acute distress, well developed, alert and awake Orientation/consciousness: patient oriented x3 Limitations: no limitations HEENT Head: Yes normal to inspection, Yes normocephalic and Yes atraumatic Ears: hearing grossly normal bilaterally Eyes General: appearance normal, both eyes and all related structures Neck Neck: Yes normal visual inspection and Yes trachea midline Chest Chest palpation & inspection: normal inspection of the chest Resp Effort & Inspection: normal respiratory effort and able to speak in complete sentences Cardio Rate: regular rate GI Inspection: Yes normal to inspection General: Yes no CVA tenderness Back/Spine/Pelvis Back: no CVA tenderness Skin General skin exam: no rashes or lesions noted Neuro General: patient oriented x3 Extrem General: Yes normal to inspection Psych Appearance: grossly normal and well kempt Mental Status: mental status grossly normal Speech and movement: Normal speech and movement present and Clear speech present Affect: normal affect Attitude: cooperative Thought process: Normal thought process present Thought content: Normal thought content present Insight: Fair insight present (Psych) Judgement: Fair judgement present (Psych) Office Procedures Post Void Residual Post Residual Void Post Void Residual (PVR): 30 [id number] Void Residual by ultrasound Results AMB Urinalysis, Automated UA Leukoctes 15 Hua/uL Last Edit by Lea Herron [facility] on 09/11/25 10:36 UA Nitrite Negative Last Edit by Lea Herron [facility] on 09/11/25 10:36 UA Urobilinogen 0.2 mg/dL Last Edit by Lea Herron [facility] on 09/11/25 10:36 UA Protein 30 mg/dL Last Edit by Lea Herron [facility] on 09/11/25 10:36 UA pH 5.5 Last Edit by Lea Herron [facility] on 09/11/25 10:36 UA Blood 0 Seth/uL Last Edit by Lea Herron [facility] on 09/11/25 10:36 UA Specific [place] 1.030 Last Edit by Lea Herron [facility] on 09/11/25 10:3 6 UA Ketone Negative Last Edit by Lea Herron [facility] on 09/11/25 10:36 UA Bilirubin 1 mg/dL Last Edit by Lea Herron [facility] on 09/11/25 10:36 UA Glucose 0 mg/dL Last Edit by Lea Herron [facility] on 09/11/25 10:36 Results Reviewed Results Reviewed: Laboratory Last Values Urine pH (Auto) 5.5 09/11/25 10:35 Specific [place] (Auto) 1.030 09/11/25 10:35 Urine Protein (Auto) 30 mg/dL 09/11/25 10:35 Glucose (UA)(Auto) 0 mg/dL 09/11/25 10:35 Urine Ketones (Auto) Negative 09/11/25 10:35 Urine Blood (Auto) 0 Seth/uL 09/11/25 10:35 Urine Nitrite (Auto) Negative 09/11/25 10:35 Urine Bilirubin (Auto) 1 mg/dL 09/11/25 10:35 Urine Urobilinogen (Auto) 0.2 mg/dL 09/11/25 10:35 Leukocyte Esterase (Auto) 15 Hua/uL 09/11/25 10:35 Assessment & Plan Assessment & Plan (1) Cystocele with prolapse: Code(s): N81.4 - Uterovaginal prolapse, unspecified Category: Medical (2) Flank pain: Code(s): R10.A0 - Flank pain, unspecified side Category: Medical Plan In office urinalysis results reviewed with the patient today; as noted above. PVR 30 mL. We did discussed potential causes of flank pain as well as further interventions and risks and benefits of these interventions. Will obtain retroperitoneal ultrasound for further assessment evaluation. She currently denies any bothersome urinary issues. She reports be happy with current voiding parameters. All questions were answered. We did discussed worsening symptoms. Follow-up in 1-4 months with imaging and PVR; or sooner with any issues, concerns, and or questions. Orders: Orders US retroperitoneal comp Today R10.A0 - Flank pain, unspecified side Medications: Discontinued azithromycin Discontinued Reason: Patient Completed Course For 250 mg dose pack: take 500 mg today (day 1), then 250 mg for 4 days (days 2-5) PO 6 tabs 0RF Patient Instructions: The patient had an opportunity to ask questions regarding the treatment plan. All questions were answered. Physical exam, labs, and imaging were discussed and reviewed in detail. As well as risks, benefits, and discussion of treatment choices. No major barriers to understanding were identified. The patient expressed understanding and agreement with the above treatment plan. The patient was made aware they should contact our office by phone for worsening of their current condition, the appearance of new symptoms, or with any questions or concerns. Compliance is encouraged with any medications and follow up testing that is ordered. It is a privilege to be allowed the opportunity to participate in? your urological care.? Again, if you have any questions or concerns If you have any questions or concerns please do not hesitate to contact me. The office is [phone]. This note is constructed using voice recognition software. While every effort has been made to ensure accuracy clerk guide errors may have been included. Yours sincerely, GAGE Rojas-BC Coding Level of Care Code Est Pt Level 3 (23076) Complex visit Add On G2211 Diagnoses Cystocele with prolapse N81.4 Flank pain R10.A0 CPT Codes Post Residual Void - PVR CPT Code: 02003-Qxbg Void Residual by ultrasound ([id number])
== END 2025-09-11 10:48 | disposition home or self-care (01) ==
LOC: HO.HUSH 10:27
PROVIDERS: PCP Internal Medicine; Visit Provider Nurse Practitioner Family
DX: N81.4 Uterovaginal prolapse, unspecified (principal); R10.A0 Flank pain, unspecified side
CPT/HCPCS: 99213; G2211

== ENCOUNTER → 2025-09-11 10:25 | Outpatient (BNVA) | payer OTHER, SELFPAY | PROVIDERS: PCP Internal Medicine; Visit Provider Nurse Practitioner Family | DX: N81.4 Uterovaginal prolapse, unspecified (principal); R10.A0 Flank pain, unspecified side | CPT/HCPCS: 51798; 99212 ==